=== PATIENT | male | born 1955 | race Caucasian/White ===

== ENCOUNTER 2017-02-07 06:42 | Day surgery (SDC) | payer MEDICARE ==
--- NOTE | 2017-02-03 08:14 | MH ---
cc: ANA LILIA FELTON DATE OF ADMISSION 02/07/2017 DATE OF 1955 HISTORY OF PRESENT ILLNESS The patient is a 61 year-old white male with a history of aortic valve replacement, sleep apnea, congestive heart failure, COPD, paroxysmal atrial fibrillation, diabetes who is now admitted for electrical cardioversion of atrial fibrillation. The patient has been experiencing slowly worsening moderate to severe dyspnea which began several months ago. Minimal levels of activity precipitate the shortness of breath. He denies chest pain, syncope, dizziness, palpitations, pedal edema, paroxysmal nocturnal dyspnea. PAST MEDICAL HISTORY 1. 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 On his last echo November 2016, he had possible moderate aortic stenosis with a mean gradient of 33 mmHg. 2. Sleep apnea 3. Possible congestive heart failure 11/09/2016. 4. COPD 5. Hepatitis C 6. Hyperlipidemia 7. Hypertension 8. Paroxysmal atrial fibrillation diagnosed approximately November 2016. 9. Diabetes CARDIAC MEDICATIONS 1. Amiodarone 200 mg daily 2. Aspirin 81 mg daily 3. Eliquis 5 mg b.i.d. 4. Furosemide 40 mg daily 5. Metoprolol succinate 100 mg daily 6. Potassium chloride 20 mg once daily ALLERGIES NO KNOWN DRUG ALLERGIES. FAMILY HISTORY Noncontributory SOCIAL HISTORY The patient smokes about a pack of cigarettes per day. He drinks occasional alcohol. REVIEW OF SYSTEMS As in the history of present illness, otherwise negative or noncontributory. PHYSICAL EXAM On physical examination, his blood pressure is 114/50 with a pulse of 110, respirations 20. GENERAL: He is a well-developed, well-nourished white male in no acute distress. HEENT: On examination, jugular venous pressure is hard to assess. It appears to be normal. Carotid pulses are 2+ bilaterally and without bruits. CHEST: Examination of the chest reveals clear lung bond. CARDIAC: On cardiac examination, he has an irregularly irregular rhythm with a grade 2/6 systolic ejection murmur heard at the base with a slightly diminished S2 heart sound. No definite gallop is audible. ABDOMEN: On abdominal examination, he has a soft, obese, nontender abdomen. Bowel sounds are present. There is no definite hepatosplenomegaly. EXTREMITIES: Examination of the extremities reveals no clubbing, cyanosis or edema. IMPRESSION 61-year-old white male with a history of aortic valve disease, hypertension, COPD, sleep apnea, diabetes, paroxysmal atrial fibrillation now admitted for cardioversion of his atrial fibrillation. The patient was recently hospitalized with fairly severe shortness of breath. It does not appear that his dyspnea is primarily due to aortic valve disease. The mean gradient across his aortic valve prosthesis has been measured at approximately 33 mmHg, and his exam is not consistent with severe aortic stenosis. He does have moderate to severe COPD based on recent pulmonary function tests and continues to smoke cigarettes. Some of his dyspnea may also be due to ongoing atrial fibrillation. The patient has noted a substantial worsening of his dyspnea since the onset of his atrial fibrillation. He has felt by Dr. Maradiaga to be a poor candidate for ablation. Given his increased symptomatology, he has been recommended electrical cardioversion of his atrial fibrillation. The nature of this procedure, potential risks including but not limited to stroke, chest wall espnioza, arrhythmia have been outlined to the patient. He agrees to proceed. PLAN Electrical cardioversion of atrial fibrillation on 02/07/2017. MD REBECA Kimball/RACHAEL /9:36 AM /8:11 AM LUIZA
[~2017-02-07 06:42] MED LIST: ASPI325T PO; FISH100020 PO; MULT-65 PO; TOPR100T15 PO
[2017-02-07] MEDS ORDERED: CHLORHEXIDINE GLUCONATE 2 % 1 PACK (2 CLOTHS) TOPICAL PRN ×2 (07:15→08:45)
[2017-02-07] MEDS ORDERED: INSULIN HUMAN REGULAR 1,000 UNITS/10 ML VIAL SQ PRN ×2 (07:15→08:45)
[2017-02-07] MEDS ORDERED: METOPROLOL TARTRATE 25 MG TAB PO PRN ×2 (07:15→08:45)
[2017-02-07] MEDS ORDERED: LACTATED RINGER'S 1000 ML IV PRN ×2 (07:15→08:45)
[2017-02-07] MEDS ORDERED: POVIDONE IODINE 5% (ANTISEPSIS KIT) 4 APPLICATIONS EACH NARE PRN ×2 (07:15→08:45)
[2017-02-07] MEDS ORDERED: SODIUM CHLORID 0.9% 500 ML IV PRN ×2 (07:15→08:45)
[2017-02-07] MEDS ORDERED: APIX5TAB PO (07:50)
[2017-02-07] MEDS ORDERED: AMIO200T PO (07:50)
[2017-02-07] MEDS ORDERED: MULTTAB67 PO (07:50)
[2017-02-07] MEDS ORDERED: POTA-163 PO (07:50)
[2017-02-07] MEDS ORDERED: ECASA81 PO (07:50)
[2017-02-07] MEDS ORDERED: METO1TAB43 PO (07:50)
[2017-02-07] MEDS ORDERED: FURO20TA PO (07:50)
[2017-02-07] MEDS ORDERED: ALBUAER3 INH (08:03)
[2017-02-07] MEDS ORDERED: RESP: ALBUTEROL 2.5 MG/IPRATROPIUM 0.5 MG NEB (SCH) ONE (08:13)
[2017-02-07] MEDS ORDERED: DO NOT ADM ANY ANTICOAGULANT DRUGS PRN (08:30)
[2017-02-07] MEDS ORDERED: PROPOFOL 200 MG/20 ML AMP IV ONE (08:30)
[2017-02-07] MEDS ORDERED: RESP: ALBUTEROL 2.5 MG/IPRATROPIUM 0.5 MG NEB (SCH) NEB ONE (08:45)
--- NOTE | 2017-02-07 08:58 | MA ---
cc: CAMPBELL FELTON M.D. DATE 02/07/2017 DATE OF 1955 PROCEDURE Electrical cardioversion of atrial fibrillation. PROCEDURE NOTES The patient was brought to the DOC Unit in a fasting state after having signed informed consent. The patient's rhythm was verified to be atrial fibrillation on the monitor. After adequate sedation by the anesthesiology staff, electrical cardioversion was carried out using a synchronized 200 joule shock. The patient converted to sinus rhythm. There were no apparent immediate complications. CONCLUSIONS Successful cardioversion of atrial fibrillation to normal sinus rhythm. Campbell Felton MD [facility] /8:46 AM /8:49 AM MTDD
--- NOTE | 2017-02-07 15:11 | EKG ---
Date Performed: 02/07/2017 Time Performed: 07:18:18 PTAGE: 61 years EKG: Atrial fibrillation with rapid ventricular response. Leftward axis Inferior infarct - age u ndetermined Abnormal ECG NO PREVIOUS TRACING DOCTOR: Debbie Shukla Interpretating Date/Time 02/07/2017 15:10:34
--- NOTE | 2017-02-07 15:13 | EKG ---
Date Performed: 02/07/2017 Time Performed: 08:38:52 PTAGE: 61 years EKG: Sinus rhythm . Leftward axis When compared to previous tracing, patienthas returned to Normal sinus rhythm. Border line ECG PREVIOUS TRACING : 02/07/2017 07.18 DOCTOR: Debbie Shukla Interpretating Date/Time 02/07/2017 15:11:46
[2017-02-08] MEDS ORDERED: APIX5TAB PO (11:59)
[2017-02-08] MEDS ORDERED: METF500T4 PO (11:59)
== END 2017-02-07 09:54 | disposition home or self-care (01) ==
LOC: HDOC 06:42 → HDIC 06:43 → HDOC 09:54
PROVIDERS: ATTEND Internal Medicine Cardiovascular Disease
DX: I48.91 Unspecified atrial fibrillation (principal); I10 Essential (primary) hypertension; J44.9 Chronic obstructive pulmonary disease, unspecified
CPT/HCPCS: 92960; 93005; 94664

== ENCOUNTER 2017-02-08 11:20 | Inpatient (IN) | payer MEDICARE ==
[2017-02-08] VITALS (8 sets, daily range): BP systolic 110–193; BP diastolic 55–74; PULSE 87–98; RESP 18–24; TEMP 97.1–98.5; O2SAT 88–95
[~2017-02-08] VITALS: Ht 177.8 cm; Wt 153.0 kg
[~2017-02-08 11:20] MED LIST changes: +ALBUAER3 INH; +AMIO200T PO; +APIX5TAB PO; -ASPI325T PO; +ECASA81 PO; -FISH100020 PO; +FURO20TA PO; +METO1TAB43 PO; -MULT-65 PO; +MULTTAB67 PO; +POTA-163 PO; -TOPR100T15 PO
[2017-02-08] MEDS ORDERED: SODIUM CHLORIDE 0.9% FLUSH 10 ML FLUSH IVF PRN (11:45)
--- NOTE | 2017-02-08 11:48 | PD ---
HPI Chief Complaint: shortness of breath Time Seen by Provider: 11:38 Travel History International Travel<30 days: No Contact w/Intl Traveler<30days: No Traveled to known affect area: No History of Present Illness HPI 61-year-old male with history of aortic valve disease, initially with prosthetic aortic valve replacement change to porcine valve replacement 2006, sleep apnea, CHF, COPD, hepatitis C, hyperlipidemia, hypertension, paroxysmal atrial fibrillation, diabetes. He presents for evaluation of dyspnea. For the past 3-4 months she's been having dyspnea on exertion. He was admitted for several days at [facility] and his symptoms were felt to be possibly related to a mixture of COPD, ongoing nature fibrillation. He therefore underwent electrical cardioversion yesterday performed by Dr. Li. He presents today because his dyspnea has been worse. He reports that typically he is able to walk down the street with his dog however this morning he was only able to make it to the [facility]ighb[facility] house before he felt severe dyspnea. He reports a chronic cough. He denies chest pain, nausea or vomiting, fevers or chills, unilateral calf Swelling, nausea or vomiting, abdominal pain. He was started on eliquis 5 weeks ago in anticipation of cardioversion. His sewer and inspector is Dr. Arriaga. He has no other complaints at this time. [facility] Past Medical History Autoimmune Disease: No Heart Rhythm Problems: Yes (AFTER FIRST VALVE REPLACEMENT) Cancer: No High Cholesterol: No Chest Pain: No Congestive Heart Failure: No Diminished Hearing: No Endocrine: No Hypertension: Yes Immune Disorder: No Musculoskeletal: No Neurologic: No Psychiatric: No Respiratory: Yes Immunizations Current: Yes Sleep Apnea: Yes Past Surgical History Cardiac Surgery: Yes (AORTIC VALVE REPLACED TWICE) Neurologic Surgery: Yes (HEMATOMA REMOVED) Thoracic Surgery: No Other Surgery: Yes (HEMATOMA REMOVED FROM FOREHEAD AREA) Social History Alcohol Use: Yes (3-4 BEER 3X WK) Tobacco Use: Yes (1PPD) Substance Use: Yes Allergies-Medications (Allergen,Severity, Reaction): Coded Allergies: No Known Allergies (Verified Allergy, Unknown, 02/08/17) Reported Meds & Prescriptions Reported Meds & Active Scripts Active Reported Eliquis (Apixaban) 5 Mg Tab 5 Mg PO BID Metformin ER (Metformin HCl) 500 Mg Emanuel 500 Mg PO DAILY With evening meal Proair Hfa 8.5 GM Inh (Albuterol Sulfate) 90 Mcg/Act Aer 1 Puff INH Q4H PRN 108 mcg/actuation Potassium Chloride ER (Potassium Chloride) 20 Meq Tab 20 Meq PO DAILY Multiple Vitamin 1 Tab 1 Tab PO DAILY Metoprolol Succinate ER 24 HR (Metoprolol Succinate) 100 Mg Tab 100 Mg PO DAILY Furosemide 20 Mg Tab 20 Mg PO DAILY Eliquis (Apixaban) 5 Mg Tab 5 Mg PO BID Aspirin DR (Aspirin) 81 Mg Tabdr 81 Mg PO DAILY Amiodarone (Amiodarone HCl) 200 Mg Tab 200 Mg PO DAILY Review of Systems Except as stated in HPI: all other systems reviewed are Neg Physical Exam Narrative GENERAL: Well-developed well-nourished male in no acute distress. He is hypoxic with a saturation of 88%. SKIN: Warm and dry. HEAD: Atraumatic. Normocephalic. EYES: Pupils equal and round. No scleral icterus. No injection or drainage. ENT: No nasal bleeding or discharge. Mucous membranes pink and moist. NECK: Trachea midline. No JVD. CARDIOVASCULAR: Regular rate and rhythm. Systolic murmur noted. RESPIRATORY: No accessory muscle use. Clear to auscultation. Breath sounds equal bilaterally. No crackles no wheezing. GASTROINTESTINAL: Abdomen soft, non-tender, nondistended. Hepatic and splenic margins not palpable. MUSCULOSKELETAL: No obvious deformities. No clubbing. No cyanosis. No edema. NEUROLOGICAL: Awake and alert. No obvious cranial nerve deficits. Motor grossly within normal limits. Normal speech. PSYCHIATRIC: Appropriate mood and affect; insight and judgment normal. Data Data Last Documented VS Vital Signs Date Time Temp Pulse Resp B/P (MAP) Pulse Ox O2 Delivery O2 Flow Rate FiO2 02/08/17 14:00 94 18 110/55 (73) 95 Nasal Cannula 3.00 02/08/17 11:46 98.0 Orders Orders Complete Blood Count With Diff (02/08/17 11:36) Comprehensive Metabolic Panel (02/08/17 11:36) B-Type Natriuretic Peptide (02/08/17 11:36) Act Partial Throm Time (Ptt) (02/08/17 11:36) Prothrombin Time / Inr (Pt) (02/08/17 11:36) Magnesium (Mg) (02/08/17 11:36) Ckmb (Isoenzyme) Profile (02/08/17 11:36) Troponin I (02/08/17 11:36) Iv Access Insert/Monitor (02/08/17 11:36) Electrocardiogram (02/08/17 11:36) Ecg Monitoring (02/08/17 11:36) Oximetry (02/08/17 11:36) Oxygen Administration (02/08/17 11:36) Chest, Single Ap (02/08/17 11:36) Ct Pulmonary Angiogram (02/08/17 11:36) Sodium Chloride 0.9% Flush (Ns Flush) (02/08/17 11:45) Arterial Blood Gas (Abg) (02/08/17 ) CKMB (02/08/17 11:45) CKMB% (02/08/17 11:45) Iohexol 350 Inj (Omnipaque 350 Inj) (02/08/17 13:33) Furosemide Inj (Lasix Inj) (02/08/17 14:15) Labs Laboratory Tests Test 02/08/17 11:45 02/08/17 12:00 White Blood Count 14.4 TH/MM3 Red Blood Count 4.53 MIL/MM3 Hemoglobin 16.5 GM/DL Hematocrit 49.2 % Mean Corpuscular Volume 108.6 FL Mean Corpuscular Hemoglobin 36.4 PG Mean Corpuscular Hemoglobin Concent 33.5 % Red Cell Distribution Width 15.2 % Platelet Count 236 TH/MM3 Mean Platelet Volume 8.2 FL Neutrophils (%) (Auto) 68.2 % Lymphocytes (%) (Auto) 19.9 % Monocytes (%) (Auto) 10.4 % Eosinophils (%) (Auto) 0.7 % Basophils (%) (Auto) 0.8 % Neutrophils # (Auto) 9.8 TH/MM3 Lymphocytes # (Auto) 2.9 TH/MM3 Monocytes # (Auto) 1.5 TH/MM3 Eosinophils # (Auto) 0.1 TH/MM3 Basophils # (Auto) 0.1 TH/MM3 CBC Comment AUTO DIFF Differential Total Cells Counted 100 Neutrophils % (Manual) 72 % Band Neutrophils % 1 % Lymphocytes % 16 % Monocytes % 11 % Neutrophils # (Manual) 10.5 TH/MM3 Nucleated Red Blood Cells 2 /100 WBC Differential Comment FINAL DIFF MANUAL Platelet Estimate NORMAL Platelet Morphology Comment NORMAL Prothrombin Time 13.1 SEC Prothromb Time International Ratio 1.2 RATIO Activated Partial Thromboplast Time 29.9 SEC Blood Urea Nitrogen 17 MG/DL Creatinine 1.27 MG/DL Random Glucose 109 MG/DL Total Protein 7.9 GM/DL Albumin 3.4 GM/DL Calcium Level 9.2 MG/DL Magnesium Level 2.1 MG/DL Alkaline Phosphatase 60 U/L Aspartate Amino Transf (AST/SGOT) 89 U/L Alanine Aminotransferase (ALT/SGPT) 119 U/L Total Bilirubin 1.9 MG/DL Sodium Level 134 MEQ/L Potassium Level 4.3 MEQ/L Chloride Level 101 MEQ/L Carbon Dioxide Level 25.0 MEQ/L Anion Gap 8 MEQ/L Estimat Glomerular Filtration Rate 58 ML/MIN Total Creatine Kinase 108 U/L Creatine Kinase MB 1.8 NG/ML Troponin I 0.24 NG/ML B-Type Natriuretic Peptide 168 PG/ML Blood Gas Puncture Site LT RADIAL Blood Gas Patient Temperature 37.0 Blood Gas HCO3 26 mmol/L Blood Gas Base Excess 2.6 mmol/L Blood Gas Oxygen Saturation 90 % Arterial Blood pH 7.48 Arterial Blood Partial Pressure CO2 35 mmHg Arterial Blood Partial Pressure O2 65 mmHG Arterial Blood Oxygen Content 21.0 Vol % Arterial Blood Carboxyhemoglobin 2.2 % Arterial Blood Methemoglobin 0.6 % Blood Gas Hemoglobin 16.6 G/DL Oxygen Delivery Device NASAL CANNULA Blood Gas Liter Flow 3.5 L/M MDM Medical Decision Making Medical Screen Exam Complete: Yes Emergency Medical Condition: Yes Medical Record Reviewed: Yes Interpretation(s) CBC WBC 14.4 EKG sinus rhythm ABG CMP Chest x-ray CT pulmonary angiogram CONCLUSION: 1. Small areas of focal airspace disease in the upper lobes are probably postinflammatory. 2. Bibasilar effusions with a moderate collection on the right and small on the left. In combination with cardiomegaly, there may be an element of failure. 3. Postsurgical changes characteristic of prior anterior mediastinal surgical resection, possible aortic valve prosthesis and anterior upper abdominal wall hernia mesh repair. Patient may have had a splenectomy as well. 4. Borderline prominent mediastinal lymph nodes are probably postinflammatory 5. Hepatic fatty infiltration. 6. Small amount of ascites. 7. No PE. Differential Diagnosis Pulmonary embolism, COPD exacerbation, pneumothorax, pericardial effusion, pleural effusion, CHF exacerbation, pneumonia, recurrent atrial fibrillation Narrative Course The patient will be placed in the ECG monitoring and pulse oximetry. A 12-lead EKG will be obtained. The patient was placed on 3 L of nasal cannula. The patient's lab work is been reviewed. Troponin is 0.24, in the setting of recent cardioversion. CT pulmonary angiogram reveals pleural effusions, no PE. The patient does note that he missed his Lasix dose yesterday but he took it earlier this morning when he woke up with shortness of breath. At this point in time the plan is to admit the patient. Diagnosis Primary Impression: Dyspnea on exertion Additional Impressions: Pleural effusion Elevated troponin Admitting Information Admitting Physician Requests: it Jp Herrera Feb 08, 2017 11:48
[2017-02-08] MEDS ORDERED: APIX5TAB PO (11:59)
[2017-02-08] MEDS ORDERED: METF500T4 PO (11:59)
[2017-02-08 12:09] LABS: BLOOD GAS BASE EXCESS 2.6 mmol/L (-2-2); BLOOD GAS CARBOXYHEMOGLOBIN 2.2 % (0-4); BLOOD GAS HCO3 26 mmol/L (22-26); BLOOD GAS METHEMOGLOBIN 0.6 % (0-2); BLOOD GAS O2 HGB SATURATION 90 % (90-100); BLOOD GAS PCO2 35 mmHg (38-42); BLOOD GAS PO2 65 mmHG (61-120); BLOOD GAS TOTAL HGB 16.6 G/DL (12.0-16.0); CRITICAL VALUE NO; DRAW SITE LT RADIAL; LITER FLOW 3.5 L/M; NUMBER OF ARTERIAL PUNCTURES 2; OXYGEN DEVICE NASAL CANNULA; STAT YES; ULNAR PULSE PRESENT
[2017-02-08 12:28] LABS: AUTOMATED NEUTROPHIL # 9.8 TH/MM3 (1.8-7.7); BASOPHIL # 0.1 TH/MM3 (0-0.2); BASOPHIL % 0.8 % (0.0-2.0); EOSINOPHIL # 0.1 TH/MM3 (0-0.4); EOSINOPHIL % 0.7 % (0.0-4.0); HEMATOCRIT 49.2 % (39.0-51.0); LYMPH % 19.9 % (9.0-44.0); LYMPHOCYTE # 2.9 TH/MM3 (1.0-4.8); MEAN CELL VOLUME 108.6 FL (80.0-100.0); MEAN CORPUSCULAR HEMOGLOBIN 36.4 PG (27.0-34.0); MEAN CORPUSCULAR HGB CONC 33.5 % (32.0-36.0); MONO % 10.4 % (0.0-8.0); NEUT % 68.2 % (16.0-70.0); PLATELET COUNT 236 TH/MM3 (150-450); RED BLOOD COUNT 4.53 MIL/MM3 (4.50-5.90); RED CELL DISTRIBUTION WIDTH 15.2 % (11.6-17.2); WHITE BLOOD COUNT 14.4 TH/MM3 (4.0-11.0)
[2017-02-08 12:29] LABS: HEMO FLAGS AUTO DIFF
[2017-02-08 12:33] LABS: APTT (PATIENT) 29.9 SEC (24.3-30.1); INTERNATIONAL NORMALIZED RATIO 1.2 RATIO; PROTHROMBIN TIME - PATIENT 13.1 SEC (9.8-11.6)
--- NOTE | 2017-02-08 12:40 | EKG ---
Date Performed: 02/08/2017 Time Performed: 11:35:50 PTAGE: 61 years EKG: Baseline artifact present Sinus rhythm NORMAL ECG No significant change from prior electrocardiogram. DOCTOR: [place] Interpretating Date/Time 02/08/2017 12:38:32
--- NOTE | 2017-02-08 12:47 | RADRPT ---
EXAM DATE/TIME: 02/08/2017 12:17 [facility] COMPARISON: No previous studies available for comparison. INDICATIONS : Short of breath. MEDICAL HISTORY : Cardiovascular disease. SURGICAL HISTORY : Aortic valve replacements. ENCOUNTER: Initial ACUITY: 1 month PAIN SCORE: 0/10 LOCATION: Bilateral chest FINDINGS: The cardiac silhouette is enlarged. There is moderate central vascular congestion and interstitial pr ominence. Sternotomy wires are noted. CONCLUSION: CHF Costa Pérez MD on February 08, 2017 at 12:44 Board Certified Radiologist. This report was verified electronically.
[2017-02-08 12:48] LABS: ALT (GPT) 119 U/L (12-78)
[2017-02-08 12:50] LABS: ANION GAP 8 MEQ/L (5-15); AST (GOT) 89 U/L (15-37); BLOOD UREA NITROGEN 17 MG/DL (7-18); CHLORIDE 101 MEQ/L (98-107); GLOMERULAR FILTRATION RATE 58 ML/MIN (>89); MAGNESIUM 2.1 MG/DL (1.5-2.5); POTASSIUM 4.3 MEQ/L (3.5-5.1); SODIUM (NA) 134 MEQ/L (136-145)
[2017-02-08 12:52] LABS: ALKALINE PHOSPHATASE 60 U/L (45-117); CREATINE KINASE 108 U/L (39-308); TOTAL BILIRUBIN ADULT 1.9 MG/DL (0.2-1.0)
[2017-02-08 13:03] LABS: BANDS 1 % (0-6); CORRECTED NUCLEATED RBC 2 /100 WBC (0-0); NEUTROPHIL # MANUAL DIFF 10.5 TH/MM3 (1.8-7.7); POLYS (SEG NEUTROPHILS) 72 % (16-70); WBC DIFF SAMPLE 100
[2017-02-08 13:04] LABS: CKMB 1.8 NG/ML (0.5-3.6); PLATELET ESTIMATE SMEAR NORMAL (NORMAL); PLATELET MORPHOLOGY NORMAL (NORMAL); SCAN/DIFF FINAL DIFF MANUAL
[2017-02-08] MEDS ORDERED: IOHEXOL 350 MG/ML 10 ML VIAL (for RAD DIAG) IVCONTRAST ONE (13:33)
--- NOTE | 2017-02-08 13:55 | RADRPT ---
EXAM DATE/TIME: 02/08/2017 13:18 [facility] COMPARISON: CHEST SINGLE AP, February 08, 2017, 12:17. INDICATIONS : Dyspnea IV CONTRAST: 68 cc Omnipaque 350 (iohexol) IV RADIATION DOSE: 26.08 CTDIvol (mGy) MEDICAL HISTORY : Cardiovascular disease. Hypertension. SURGICAL HISTORY : None. ENCOUNTER: Initial ACUITY: 1 day PAIN SCALE: 0/10 LOCATION: chest TECHNIQUE: Volumetric scanning of the chest was performed using a pulmonary embolism protocol MIP images were re constructed. Using automated exposure control and adjustment of the mA and/or kV according to patien t size, radiation dose was kept as low as reasonably achievable to obtain optimal diagnostic quality images. DICOM format image data is available electronically for review and comparison. Follow-up recommendations for detected pulmonary nodules are based at a minimum on nodule size and pa tient risk factors according to Fleischner Society Guidelines. FINDINGS: PULMONARY ARTERIES: No filling defects are seen in the pulmonary arteries through the segmental level. LUNGS: Focal, patchy airspace disease in the upper lobes with bibasilar atelectatic changes, right greater t anthony left. PLEURAE: Moderate right with a small left pleural effusion. MEDIASTINUM: There is good visualization of the great vessels of the middle mediastinum. No evidence of mediastin al mass but there are borderline prominent mediastinal lymph nodes which are probably postinflammator y.. Heart size is prominent. Postsurgical changes and findings of prior anterior mediastinal surgical intervention and possible aortic valve prostheses. MUSCULOSKELETAL: Within normal limits for patient age. MISCELLANEOUS: Diffuse hepatic fatty infiltration. Small amount of ascites. Nonvisualization of the spleen. The orga n has either been surgically removed or may be low lying. Prior anterior abdominal wall hernia mesh r epair. CONCLUSION: 1. Small areas of focal airspace disease in the upper lobes are probably postinflammatory. 2. Bibasilar effusions with a moderate collection on the right and small on the left. In combination with cardiomegaly, there may be an element of failure. 3. Postsurgical changes characteristic of prior anterior mediastinal surgical resection, possible aor tic valve prosthesis and anterior upper abdominal wall hernia mesh repair. Patient may have had a spl enectomy as well. 4. Borderline prominent mediastinal lymph nodes are probably postinflammatory 5. Hepatic fatty infiltration. 6. Small amount of ascites. 7. No PE. Thompson Berg MD on February 08, 2017 at 13:42 Board Certified Radiologist. This report was verified electronically.
[2017-02-08] MEDS ORDERED: FUROSEMIDE 40 MG/4 ML VIAL IV PUSH ONE (14:15)
[2017-02-08] MEDS ORDERED: SODIUM CHLORIDE 0.9% FLUSH 10 ML FLUSH IV FLUSH PRN (14:30)
[2017-02-08] MEDS ORDERED: GLUCAGON 1 MG/ML VIAL OTHER PRN (14:30)
[2017-02-08] MEDS ORDERED: ACETAMINOPHEN 325 MG TAB PO PRN (14:30)
[2017-02-08] MEDS ORDERED: ENALAPRILAT 2.5 MG/2 ML VIAL IV PUSH PRN (14:30)
[2017-02-08] MEDS ORDERED: DEXTROSE 50% IN WATER 50 ML VIAL(D50) IV PUSH PRN (14:30)
[2017-02-08] MEDS ORDERED: ONDANSETRON HCL 4 MG/2 ML VIAL IV PUSH PRN (14:30)
[2017-02-08] MEDS ORDERED: DOCUSATE SODIUM 50 MG/SENNA 8.6 MG TAB PO PRN (14:30)
--- NOTE | 2017-02-08 14:31 | HHI.HP ---
HPI Service [facility] Primary Care Physician Antonio Cordero M.D. Admission Diagnosis dyspnea, elevated troponin, pleural effusion Diagnoses: (1) Acute exacerbation of CHF (congestive heart failure) (2) Elevated troponin (3) Dyspnea on exertion (4) Pleural effusion Chief Complaint: Shortness of breath Travel History International Travel<30 Days: No Contact w/Intl Traveler <30 Da: No Traveled to Known Affected Are: No History of Present Illness 61 year-old man with a history of CHF, atrial fibrillation who underwent left trickle cardioversion for atrial fibrillation with RVR on 02/07/17, presented to the ED for evaluation of his symptoms of dyspnea. Patient states prior to his cardioversion yesterday he has been battling with shortness of breath, dyspnea with exertion for several months, however yesterday after his procedure this got Worse, and patient wasn't able to sleep overnight. States, prior to his procedure yesterday he did not take his daily Lasix. He reports not being able to walk his dog out secondary to shortness of breath and dyspnea. He denies any orthopnea, lower extremity edema or chest pain. Review of Systems Except as stated in HPI: all other systems reviewed are Neg Past Family Social History Past Medical History Heart Rhythm Problems: Yes (AFTER FIRST VALVE REPLACEMENT) Diabetes type 2 History of hepatitis C Hypertension: Yes Sleep Apnea: Yes Past Surgical History Cardiac Surgery: Yes (AORTIC VALVE REPLACED TWICE) Neurologic Surgery: Yes (HEMATOMA REMOVED) Other Surgery: Yes (HEMATOMA REMOVED FROM FOREHEAD AREA) Reported Medications Eliquis (Apixaban) 5 Mg Tab 5 Mg PO BID Metformin ER (Metformin HCl) 500 Mg Emanuel 500 Mg PO DAILY With evening meal Proair Hfa 8.5 GM Inh (Albuterol Sulfate) 90 Mcg/Act Aer 1 Puff INH Q4H PRN 108 mcg/actuation Potassium Chloride ER (Potassium Chloride) 20 Meq Tab 20 Meq PO DAILY Multiple Vitamin 1 Tab 1 Tab PO DAILY Metoprolol Succinate ER 24 HR (Metoprolol Succinate) 100 Mg Tab 100 Mg PO DAILY Furosemide 20 Mg Tab 20 Mg PO DAILY Eliquis (Apixaban) 5 Mg Tab 5 Mg PO BID Aspirin DR (Aspirin) 81 Mg Tabdr 81 Mg PO DAILY Amiodarone (Amiodarone HCl) 200 Mg Tab 200 Mg PO DAILY Allergies: Coded Allergies: No Known Allergies (Verified Allergy, Unknown, 02/08/17) Family History Mother had lung cancer Grandfather had heart disease Social History Alcohol Use: Yes (3-4 BEER 3X WK) Tobacco Use: Yes (1PPD) Substance Use: Yes Physical Exam Vital Signs Vital Signs Date Time Temp Pulse Resp B/P (MAP) Pulse Ox O2 Delivery O2 Flow Rate FiO2 02/08/17 14:00 94 18 110/55 (73) 95 Nasal Cannula 3.00 02/08/17 11:48 95 20 95 Nasal Cannula 3.00 02/08/17 11:46 98.0 95 22 95 02/08/17 11:44 98.0 96 22 95 Nasal Cannula 3.00 02/08/17 11:44 95 Nasal Cannula 3.00 02/08/17 11:21 98.4 98 20 165/73 (103) 88 Room Air Physical Exam GENERAL: This is a well-nourished, well-developed patient, in no apparent distress. SKIN: No rashes, ecchymoses or lesions. Cool and dry. HEAD: Atraumatic. Normocephalic. No temporal or scalp tenderness. EYES: Pupils equal round and reactive. Extraocular motions intact. No scleral icterus. No injection or drainage. ENT: Nose without bleeding, purulent drainage or septal hematoma. Throat without erythema, tonsillar hypertrophy or exudate. Uvula midline. Airway patent. NECK: Trachea midline. No JVD or lymphadenopathy. Supple, nontender, no meningeal signs. CARDIOVASCULAR: Regular rate and rhythm without murmurs, gallops, or rubs. RESPIRATORY: Clear to auscultation. Breath sounds equal bilaterally. No wheezes , rales, or rhonchi. GASTROINTESTINAL: Abdomen soft, non-tender, nondistended. No hepato-splenomegaly , or palpable masses. No guarding. MUSCULOSKELETAL: Extremities without clubbing, cyanosis, or edema. No joint tenderness, effusion, or edema noted. No calf tenderness. Negative Homans sign bilaterally. NEUROLOGICAL: Awake and alert. Cranial nerves II through XII intact. Motor and sensory grossly within normal limits. Five out of 5 muscle strength in all muscle groups. Normal speech. Laboratory Laboratory Tests Test 02/08/17 11:45 02/08/17 12:00 White Blood Count 14.4 Red Blood Count 4.53 Hemoglobin 16.5 Hematocrit 49.2 Mean Corpuscular Volume 108.6 Mean Corpuscular Hemoglobin 36.4 Mean Corpuscular Hemoglobin Concent 33.5 Red Cell Distribution Width 15.2 Platelet Count 236 Mean Platelet Volume 8.2 Neutrophils (%) (Auto) 68.2 Lymphocytes (%) (Auto) 19.9 Monocytes (%) (Auto) 10.4 Eosinophils (%) (Auto) 0.7 Basophils (%) (Auto) 0.8 Neutrophils # (Auto) 9.8 Lymphocytes # (Auto) 2.9 Monocytes # (Auto) 1.5 Eosinophils # (Auto) 0.1 Basophils # (Auto) 0.1 CBC Comment AUTO DIFF Differential Total Cells Counted 100 Neutrophils % (Manual) 72 Band Neutrophils % 1 Lymphocytes % 16 Monocytes % 11 Neutrophils # (Manual) 10.5 Nucleated Red Blood Cells 2 Differential Comment FINAL DIFF MANUAL Platelet Estimate NORMAL Platelet Morphology Comment NORMAL Prothrombin Time 13.1 Prothromb Time International Ratio 1.2 Activated Partial Thromboplast Time 29.9 Blood Urea Nitrogen 17 Creatinine 1.27 Random Glucose 109 Total Protein 7.9 Albumin 3.4 Calcium Level 9.2 Magnesium Level 2.1 Alkaline Phosphatase 60 Aspartate Amino Transf (AST/SGOT) 89 Alanine Aminotransferase (ALT/SGPT) 119 Total Bilirubin 1.9 Sodium Level 134 Potassium Level 4.3 Chloride Level 101 Carbon Dioxide Level 25.0 Anion Gap 8 Estimat Glomerular Filtration Rate 58 Total Creatine Kinase 108 Creatine Kinase MB 1.8 Troponin I 0.24 B-Type Natriuretic Peptide 168 Blood Gas Puncture Site LT RADIAL Blood Gas Patient Temperature 37.0 Blood Gas HCO3 26 Blood Gas Base Excess 2.6 Blood Gas Oxygen Saturation 90 Arterial Blood pH 7.48 Arterial Blood Partial Pressure CO2 35 Arterial Blood Partial Pressure O2 65 Arterial Blood Oxygen Content 21.0 Arterial Blood Carboxyhemoglobin 2.2 Arterial Blood Methemoglobin 0.6 Blood Gas Hemoglobin 16.6 Oxygen Delivery Device NASAL CANNULA Blood Gas Liter Flow 3.5 Result Diagram: 02/08/17 1145 02/08/17 1145 Imaging Last Impressions Chest X-Ray 02/08/17 1136 Signed Impressions: Service Date/Time: Wednesday, February 08, 2017 12:17 - CONCLUSION: CHF Costa Pérez MD CT Angiography 02/08/17 1136 Signed Impressions: Service Date/Time: Wednesday, February 08, 2017 13:18 - CONCLUSION: 1. Small areas of focal airspace disease in the upper lobes are probably postinflammatory. 2. Bibasilar effusions with a moderate collection on the right and small on the left. In combination with cardiomegaly, there may be an element of failure. 3. Postsurgical changes characteristic of prior anterior mediastinal surgical resection, possible aortic valve prosthesis and anterior upper abdominal wall hernia mesh repair. Patient may have had a splenectomy as well. 4. Borderline prominent mediastinal lymph nodes are probably postinflammatory 5. Hepatic fatty infiltration. 6. Small amount of ascites. 7. No PE. MD Abby Prado VTE Risk Assessment Simonerinnickolas VTE Risk Assessment: Mod/High Risk (score >= 2) Caprini Risk Assessment Model Point Value = 1 Point Value = 2 Point Value = 3 Point Value = 5 Age 41-60 Minor surgery BMI > 25 kg/m2 Swollen legs Varicose veins or History of unexplained or recurrent spontaneous Oral contraceptives or hormone replacement Sepsis (< 1 month) Serious lung disease, including pneumonia (< 1 month) Abnormal pulmonary function Acute myocardial infarction Congestive heart failure (< 1 month) History of inflammatory bowel disease Medical patient at bed rest Age 61-74 Arthroscopic surgery Major open surgery (> 45 min) Laparoscopic surgery (> 45 min) Malignancy Confined to bed (> 72 hours) Immobilizing plaster cast Central venous access Age >= 75 History of VTE Family history of VTE Factor V Leiden Prothrombin [id number] Lupus anticoagulant Anticardiolipin antibodies Elevated serum homocysteine Heparin-induced thrombocytopenia Other congenital or acquired thrombophilia Stroke (< 1 month) Elective arthroplasty Hip, pelvis, or leg fracture Acute spinal cord injury (< 1 month) Prophylaxis Regimen Total Risk Factor Score Risk Level Prophylaxis Regimen 0-1 Low Early ambulation 2 Moderate Order ONE of the following: *Sequential Compression Device (SCD) *Heparin 5000 units SQ BID 3-4 Higher Order ONE of the following medications: *Heparin 5000 units SQ TID *Enoxaparin/Lovenox 40 mg SQ daily (WT < 150 kg, CrCl > 30 mL/min) *Enoxaparin/Lovenox 30 mg SQ daily (WT < 150 kg, CrCl > 10-29 mL/min) *Enoxaparin/Lovenox 30 mg SQ BID (WT < 150 kg, CrCl > 30 mL/min) AND/OR *Sequential Compression Device (SCD) 5 or more Highest Order ONE of the following medications: *Heparin 5000 units SQ TID (Preferred with Epidurals) *Enoxaparin/Lovenox 40 mg SQ daily (WT < 150 kg, CrCl > 30 mL/min) *Enoxaparin/Lovenox 30 mg SQ daily (WT < 150 kg, CrCl > 10-29 mL/min) *Enoxaparin/Lovenox 30 mg SQ BID (WT < 150 kg, CrCl > 30 mL/min) AND *Sequential Compression Device (SCD) Assessment and Plan Problem List: (1) Acute exacerbation of CHF (congestive heart failure) ICD Code: I50.9 - Heart failure, unspecified (2) Elevated troponin ICD Code: R74.8 - Abnormal levels of other serum enzymes Status: Acute (3) Dyspnea on exertion ICD Code: R06.09 - Other forms of dyspnea Status: Acute (4) Pleural effusion ICD Code: J90 - Pleural effusion, not elsewhere classified Status: Acute Assessment and Plan 61-year-old man with Acute exacerbation of CHF CXR reviewed by me with finding of CHF CTA noted and review by me without any PE Started post Lasix 40 mg IV 1 in ED, start Lasix 20 mg IV every 12 hours, CHF education, strict I's and O's Check 2-D echo Cardiology consultation Paroxysmal A. fib Status post electrical cardioversion 02/07/17 Resume Eliquis, amiodarone, aspirin Hypertension Resume oral antihypertensive medications Diabetes type 2 Check A1c Hold oral hypoglycemic agents Start insulin sliding scale Alcohol abuse Alcohol cessation counseling provided Rally pack, CIWA protocol Tobacco abuse Tobacco cessation counseling provided Nicotine patch DVT prophylaxis: Eliquis Code Status Full code Discussed Condition With Patient, , ED Jonas Horowitz MD Feb 08, 2017 14:31
[2017-02-08] MEDS ORDERED: FLUMAZENIL 0.5 MG/5 ML VIAL IV PUSH PRN (15:15)
[2017-02-08] MEDS ORDERED: LORazepam 2 MG/ML VIAL IV PUSH PRN ×4 (15:15)
[2017-02-08] MEDS ORDERED: LORazepam 1 MG TAB PO PRN (15:15)
[2017-02-08] MEDS ORDERED: LORazepam 2 MG TAB PO PRN (15:15)
[2017-02-08] MEDS: INSULIN ASPART SUPPLEMENTAL SCALE SQ SCH ×2 (17:00→20:56)
[2017-02-08] MEDS: FUROSEMIDE 40 MG/4 ML VIAL IV PUSH SCH (17:53)
[2017-02-08] MEDS ORDERED: FUROSEMIDE 20 MG/2 ML VIAL IV PUSH SCH (18:00)
[2017-02-08] MEDS: APIXABAN 5 MG TABLET PO SCH (20:55)
[2017-02-08] MEDS: TEMAZEPAM 15 MG CAP PO PRN (20:55)
[2017-02-08] MEDS: SODIUM CHLORIDE 0.9% FLUSH 10 ML FLUSH IV FLUSH SCH (21:00)
[2017-02-08] MEDS: REMOVE OLD PATCH T-DERMAL SCH (21:00)
--- NOTE | 2017-02-08 23:00 | MB ---
cc: JAROCHO LOPEZ DO DATE OF CONSULTATION February 08, 2017 REASON FOR CONSULTATION Shortness of breath, elevated troponin. HISTORY OF PRESENT ILLNESS Wayne Vasquez is a pleasant 61-year-old male who sees my partner, Dr. Li, in the office who presented to [facility] on February 08, 2017 due to shortness of breath. The patient states that he has been significantly short of breath for some time and it was felt that some of this may be due to atrial fibrillation. He underwent electrical cardioversion yesterday on February 07, 2017. He is unsure if his shortness of breath was the same or worse but since it was still bothering him significantly decided to come to the emergency room. He states that overnight he was not able to sleep. He denies overall orthopnea, lower extremity edema or chest pain. PAST MEDICAL HISTORY 1. Atrial fibrillation. 2. Sleep apnea. 3. COPD. 4. Hepatitis C. 5. Hyperlipidemia. 6. Hypertension. 7. Diabetes mellitus. PAST SURGICAL HISTORY 1. 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 ALLERGIES NO KNOWN DRUG ALLERGIES. MEDICATIONS 1. Albuterol as needed for shortness of breath. 2. Eliquis 5 milligrams b.i.d. 3. Amiodarone 200 milligrams daily. 4. Toprol XL 100 milligrams daily. 5. Aspirin 81 milligrams daily. 6. Potassium 20 milliequivalents daily. 7. Lasix 20 milligrams daily. 8. Metformin 500 milligrams daily. FAMILY HISTORY Denies sudden cardiac within the family. SOCIAL HISTORY The patient drinks three to four beers around three times a week. He continues to smoke but says that he is down to 5-10 cigarettes a day. REVIEW OF SYSTEMS 14-systems were reviewed including osteopathic, pertinent positives and negatives above otherwise negative. PHYSICAL EXAMINATION VITAL SIGNS: Temperature 98.0, heart rate 94, blood pressure 110/55, respirations 18, pulse ox 95% on 3 liters. GENERAL: In general, the patient appears well in no acute distress, alert, awake and oriented x3. HEENT: Extraocular muscles intact. Mucous membranes moist. NECK: Neck is supple. No JVD at 45 degrees. No carotid bruits heard bilaterally. Carotid upstroke is brisk in nature. HEART: Heart is regular rate and rhythm. Positive first and second heart sound with a 2/6 crescendo-decrescendo murmur to the right sternal border. LUNGS: Lungs have decreased breath sounds with bilateral wheezes noted. ABDOMEN: Abdomen is soft, nontender, nondistended. No organomegaly noted. EXTREMITIES: Show no clubbing, cyanosis or edema. SKIN: Warm, dry and intact. NEUROLOGICALLY: No focal deficits. OSTEOPATHIC: Mild lordosis. No kyphoscoliosis or paraspinal tender points. LABORATORY FINDINGS Hemoglobin 16.5, hematocrit 49.2, platelets 236. Potassium 4.3, BUN 17, creatinine 1.27. Troponin 0.24. BNP 168. CARDIOLOGY STUDIES Electrocardiogram (February 08, 2017 at 11:35) sinus rhythm, baseline artifact, no acute ST-T wave changes. IMPRESSION 1. Significant shortness of breath most likely multifactorial. 2. Acute congestive heart failure. 3. Mildly elevated troponin. 4. Pleural effusion. 5. Moderate aortic stenosis by previous echocardiogram with a mean gradient of 33. 6. Paroxysmal atrial fibrillation status post electrical cardioversion (February 07, 2017). 7. History of hypertension. 8. History of diabetes type 2. 9. Tobacco abuse. RECOMMENDATIONS 1. Mr. Vasquez presented with significant shortness of breath which appears to be worsening over the past few months. 2. This is overall most likely multifactorial in nature but partially due to his acute decompensated heart failure, lung disease, Afib, continued tobacco abuse and his moderate aortic stenosis. 3. We will attempt to diurese him and then further decide on ischemic evaluation by either stress testing or cardiac catheterization if felt necessary. Will plan to discuss further with Dr. Li. 4. This is overall difficult as he is on Eliquis and this should not be stopped if possible due to his recent electrical cardioversion. 5. I spoke to him for greater than 3 minutes about tobacco cessation. 6. Further recommendations will be made based on the hospital course. Thank you for allowing me to see Wayne Vasquez. If there are any questions please do not hesitate to call. Jarocho Lopez DO VGP/EO /10:12 PM /10:34 PM LUIZA
[2017-02-09] VITALS (12 sets, daily range): BP systolic 100–135; BP diastolic 52–60; PULSE 80–89; RESP 20–24; TEMP 97.6–99.4; O2SAT 92–95
[2017-02-09] MEDS: RESP: ALBUTEROL 2.5 MG/IPRATROPIUM 0.5 MG NEB (PRN) NEB ×2 (06:33→14:54)
[2017-02-09] MEDS: INSULIN ASPART SUPPLEMENTAL SCALE SQ SCH ×4 (08:00→20:37)
[2017-02-09 08:11] LABS: AUTOMATED NEUTROPHIL # 9.6 TH/MM3 (1.8-7.7); BASOPHIL # 0.1 TH/MM3 (0-0.2); BASOPHIL % 0.5 % (0.0-2.0); EOSINOPHIL # 0.1 TH/MM3 (0-0.4); HEMATOCRIT 47.1 % (39.0-51.0); LYMPH % 19.8 % (9.0-44.0); LYMPHOCYTE # 2.8 TH/MM3 (1.0-4.8); MEAN CELL VOLUME 108.7 FL (80.0-100.0); MEAN CORPUSCULAR HEMOGLOBIN 36.8 PG (27.0-34.0); MEAN CORPUSCULAR HGB CONC 33.9 % (32.0-36.0); MONO % 10.9 % (0.0-8.0); NEUT % 67.8 % (16.0-70.0); PLATELET COUNT 224 TH/MM3 (150-450); RED BLOOD COUNT 4.33 MIL/MM3 (4.50-5.90); WHITE BLOOD COUNT 14.2 TH/MM3 (4.0-11.0)
[2017-02-09 08:18] LABS: HEMO FLAGS AUTO DIFF
[2017-02-09 08:21] LABS: ALT (GPT) 99 U/L (12-78)
[2017-02-09 08:25] LABS: ALKALINE PHOSPHATASE 58 U/L (45-117); HDL CHOLESTEROL 30.9 MG/DL (40.0-60.0); LDL CHOLESTEROL 91 MG/DL (0-99)
[2017-02-09 08:28] LABS: ANION GAP 9 MEQ/L (5-15); AST (GOT) 74 U/L (15-37); BICARBONATE 28.7 MEQ/L (21.0-32.0); BLOOD UREA NITROGEN 21 MG/DL (7-18); CHLORIDE 98 MEQ/L (98-107); GLOMERULAR FILTRATION RATE 57 ML/MIN (>89); SODIUM (NA) 136 MEQ/L (136-145)
[2017-02-09] MEDS: ASPIRIN EC 81 MG TABEC PO SCH (08:28)
[2017-02-09] MEDS: THIAMINE HCL 100 MG TAB PO SCH (08:28)
[2017-02-09] MEDS: METOPROLOL SUCCINATE 50 MG EXTENDED RELEASE TAB PO SCH (08:28)
[2017-02-09] MEDS: POTASSIUM CHLORIDE 20 MEQ CONTROLLED RELEASE TAB PO SCH (08:28)
[2017-02-09] MEDS: APIXABAN 5 MG TABLET PO SCH ×2 (08:28→20:36)
[2017-02-09] MEDS: AMIODARONE 200 MG TAB PO SCH (08:28)
[2017-02-09] MEDS: FUROSEMIDE 40 MG/4 ML VIAL IV PUSH SCH ×2 (08:29→17:31)
[2017-02-09] MEDS: NICOTINE 21 MG/24 HR PATCH T-DERMAL SCH (08:29)
[2017-02-09] MEDS: SODIUM CHLORIDE 0.9% FLUSH 10 ML FLUSH IV FLUSH SCH ×2 (08:30→20:37)
[2017-02-09 08:31] LABS: POTASSIUM 3.8 MEQ/L (3.5-5.1)
[2017-02-09 09:03] LABS: BANDS 3 % (0-6); BASOPHILS 1 % (0-2); CORRECTED NUCLEATED RBC 1 /100 WBC (0-0); EOSINOPHILS 1 % (0-4); NEUTROPHIL # MANUAL DIFF 9.7 TH/MM3 (1.8-7.7); PLATELET ESTIMATE SMEAR NORMAL (NORMAL); PLATELET MORPHOLOGY NORMAL (NORMAL); POLYS (SEG NEUTROPHILS) 65 % (16-70); SCAN/DIFF FINAL DIFF MANUAL; WBC DIFF SAMPLE 100
--- NOTE | 2017-02-09 10:39 | PD.CARD.PN ---
Subjective Subjective Remarks Dyspnea slowly improving. No CP, palpitations, dizziness, PND. Objective Medications Item Value Date Time Amiodarone HCl 200 mg 02/09/17 0900 (Cordarone) DAILY/PO 02/09/17 0828 Aspirin 81 mg 02/09/17 0900 (Ecotrin Ec) DAILY/PO 02/09/17 0828 Potassium Chloride 20 meq 02/09/17 0900 (KCl) DAILY/PO 02/09/17 0828 Metoprolol 100 mg 02/09/17 0900 Succinate DAILY/PO 02/09/17 0828 (Toprol Xl) Apixaban 5 mg 02/08/17 2100 (Eliquis) BID/PO 02/09/17 0828 Furosemide 40 mg 02/08/17 1800 (Lasix Inj) BID@/IV PUSH 02/09/17 08 Current Medications Medications (Trade) Dose Ordered Sig/Esvin Route Start Time Stop Time Status Last Admin (Cordarone) 200 mg DAILY PO 02/09/17 09:00 02/09/17 08:28 (Eliquis) 5 mg BID PO 02/08/17 21:00 02/09/17 08:28 (Ecotrin Ec) 81 mg DAILY PO 02/09/17 09:00 02/09/17 08:28 (KCl) 20 meq DAILY PO 02/09/17 09:00 02/09/17 08:28 (Toprol Xl) 100 mg DAILY PO 02/09/17 09:00 02/09/17 08:28 (D50w (Vial) Inj) 50 ml UNSCH PRN IV PUSH 02/08/17 14:30 (Glucagon Inj) 1 mg UNSCH PRN OTHER 02/08/17 14:30 (NovoLOG SUPPLEMENTAL SCALE) 1 ACHS SLIDING SCALE SQ 02/08/17 17:00 (NS Flush) 2 ml UNSCH PRN IV FLUSH 02/08/17 14:30 (NS Flush) 2 ml BID IV FLUSH 02/08/17 21:00 02/09/17 08:30 (Tylenol) 650 mg Q4H PRN PO 02/08/17 14:30 (Zofran Inj) 4 mg Q6H PRN IV PUSH 02/08/17 14:30 (Rosario-Colace) 1 tab BID PRN PO 02/08/17 14:30 (Restoril) 15 mg HS PRN PO 02/08/17 14:30 02/08/17 20:55 (Vasotec Inj) 2.5 mg Q6H PRN IV PUSH 02/08/17 14:30 (Duoneb Neb) 1 ampule Q2HR NEB PRN NEB 02/08/17 14:30 02/09/17 06:33 (Lasix Inj) 40 mg BID@09,18 IV PUSH 02/08/17 18:00 02/09/17 08:29 (Vitamin B1) 100 mg DAILY PO 02/09/17 09:00 02/09/17 08:28 (Habitrol 21 Mg Patch.24 Hr) 1 patch DAILY T-DERMAL 02/09/17 09:00 Miscellaneous Information 1 HS T-DERMAL 02/08/17 21:00 02/08/17 21:00 (Romazicon Inj) 0.2 mg Q1M PRN IV PUSH 02/08/17 15:15 (Ativan) 1 mg Q4H PRN PO 02/08/17 15:15 (Ativan Inj) 1 mg Q4H PRN IV PUSH 02/08/17 15:15 (Ativan) 2 mg Q2H PRN PO 02/08/17 15:15 (Ativan Inj) 2 mg Q2H PRN IV PUSH 02/08/17 15:15 (Ativan Inj) 2 mg Q1H PRN IV PUSH 02/08/17 15:15 (Ativan Inj) 2 mg Q15M PRN IV PUSH 02/08/17 15:15 Vital Signs / I&O Vital Signs Date Time Temp Pulse Resp B/P (MAP) Pulse Ox O2 Delivery O2 Flow Rate FiO2 02/09/17 08:18 99.4 86 20 135/60 (85) 94 02/09/17 08:00 87 02/09/17 08:00 Nasal Cannula 3.00 02/09/17 06:37 92 Nasal Cannula 2.00 02/09/17 05:05 97.8 87 24 117/57 (77) 93 02/09/17 04:00 Nasal Cannula 3.00 02/09/17 04:00 88 02/09/17 00:00 87 02/08/17 23:57 Nasal Cannula 3.00 02/08/17 23:30 97.1 87 24 115/57 (76) 94 02/08/17 20:18 98.5 88 24 114/55 (74) 92 02/08/17 20:00 91 02/08/17 20:00 Nasal Cannula 3.00 02/08/17 17:00 97.8 97 20 193/74 (113) 94 02/08/17 16:59 02/08/17 14:00 94 18 110/55 (73) 95 Nasal Cannula 3.00 02/08/17 11:48 95 20 95 Nasal Cannula 3.00 02/08/17 11:46 98.0 95 22 95 02/08/17 11:44 98.0 96 22 95 Nasal Cannula 3.00 02/08/17 11:44 95 Nasal Cannula 3.00 02/08/17 11:21 98.4 98 20 165/73 (103) 88 Room Air I/O 02/08/17 02/08/17 02/08/17 02/09/17 02/09/17 02/09/17 07:00 15:00 23:00 07:00 15:00 23:00 Intake Total 1440 ml Output Total 200 ml 1050 ml Balance -200 ml 390 ml Intake Oral 1440 ml Output Urine Total 200 ml 1050 ml # Bowel Movements 0 Physical Exam GENERAL: Well developed, well nourished. No acute distress. HEENT: Jugular venous pressure is normal. CHEST: Lungs clear to auscultation bilaterally. Unlabored respiratory effort. CARDIAC: Regular rate and rhythm without S3, S4. II/ OJ RUSB with moderately diminished S2. ABDOMEN: Soft, nontender, no hepatosplenomegaly. Bowel sounds present. EXTREMITIES: No clubbing, cyanosis, or edema. Laboratory Laboratory Tests Test 02/08/17 11:45 02/08/17 12:00 02/09/17 06:45 White Blood Count 14.4 TH/MM3 14.2 TH/MM3 Red Blood Count 4.53 MIL/MM3 4.33 MIL/MM3 Hemoglobin 16.5 GM/DL 15.9 GM/DL Hematocrit 49.2 % 47.1 % Mean Corpuscular Volume 108.6 FL 108.7 FL Mean Corpuscular Hemoglobin 36.4 PG 36.8 PG Mean Corpuscular Hemoglobin Concent 33.5 % 33.9 % Red Cell Distribution Width 15.2 % 15.0 % Platelet Count 236 TH/MM3 224 TH/MM3 Mean Platelet Volume 8.2 FL 8.4 FL Neutrophils (%) (Auto) 68.2 % 67.8 % Lymphocytes (%) (Auto) 19.9 % 19.8 % Monocytes (%) (Auto) 10.4 % 10.9 % Eosinophils (%) (Auto) 0.7 % 1.0 % Basophils (%) (Auto) 0.8 % 0.5 % Neutrophils # (Auto) 9.8 TH/MM3 9.6 TH/MM3 Lymphocytes # (Auto) 2.9 TH/MM3 2.8 TH/MM3 Monocytes # (Auto) 1.5 TH/MM3 1.6 TH/MM3 Eosinophils # (Auto) 0.1 TH/MM3 0.1 TH/MM3 Basophils # (Auto) 0.1 TH/MM3 0.1 TH/MM3 CBC Comment AUTO DIFF AUTO DIFF Differential Total Cells Counted 100 100 Neutrophils % (Manual) 72 % 65 % Band Neutrophils % 1 % 3 % Lymphocytes % 16 % 22 % Monocytes % 11 % 8 % Neutrophils # (Manual) 10.5 TH/MM3 9.7 TH/MM3 Nucleated Red Blood Cells 2 /100 WBC 1 /100 WBC Differential Comment FINAL DIFF MANUAL FINAL DIFF MANUAL Platelet Estimate NORMAL NORMAL Platelet Morphology Comment NORMAL NORMAL Prothrombin Time 13.1 SEC Prothromb Time International Ratio 1.2 RATIO Activated Partial Thromboplast Time 29.9 SEC Blood Urea Nitrogen 17 MG/DL 21 MG/DL Creatinine 1.27 MG/DL 1.30 MG/DL Random Glucose 109 MG/DL 105 MG/DL Total Protein 7.9 GM/DL 7.5 GM/DL Albumin 3.4 GM/DL 3.2 GM/DL Calcium Level 9.2 MG/DL 8.7 MG/DL Magnesium Level 2.1 MG/DL Alkaline Phosphatase 60 U/L 58 U/L Aspartate Amino Transf (AST/SGOT) 89 U/L 74 U/L Alanine Aminotransferase (ALT/SGPT) 119 U/L 99 U/L Total Bilirubin 1.9 MG/DL 2.0 MG/DL Sodium Level 134 MEQ/L 136 MEQ/L Potassium Level 4.3 MEQ/L 3.8 MEQ/L Chloride Level 101 MEQ/L 98 MEQ/L Carbon Dioxide Level 25.0 MEQ/L 28.7 MEQ/L Anion Gap 8 MEQ/L 9 MEQ/L Estimat Glomerular Filtration Rate 58 ML/MIN 57 ML/MIN Total Creatine Kinase 108 U/L Creatine Kinase MB 1.8 NG/ML Troponin I 0.24 NG/ML 0.15 NG/ML B-Type Natriuretic Peptide 168 PG/ML Blood Gas Puncture Site LT RADIAL Blood Gas Patient Temperature 37.0 Blood Gas HCO3 26 mmol/L Blood Gas Base Excess 2.6 mmol/L Blood Gas Oxygen Saturation 90 % Arterial Blood pH 7.48 Arterial Blood Partial Pressure CO2 35 mmHg Arterial Blood Partial Pressure O2 65 mmHG Arterial Blood Oxygen Content 21.0 Vol % Arterial Blood Carboxyhemoglobin 2.2 % Arterial Blood Methemoglobin 0.6 % Blood Gas Hemoglobin 16.6 G/DL Oxygen Delivery Device NASAL CANNULA Blood Gas Liter Flow 3.5 L/M Eosinophils % 1 % Basophils % 1 % Triglycerides Level 108 MG/DL Cholesterol Level 143 MG/DL LDL Cholesterol 91 MG/DL HDL Cholesterol 30.9 MG/DL Cholesterol/HDL Ratio 4.62 RATIO Imaging Last 24 hours Impressions Chest X-Ray 02/08/17 1136 Signed Impressions: Service Date/Time: Wednesday, February 08, 2017 12:17 - CONCLUSION: CHF Costa Pérez MD CT Angiography 02/08/17 1136 Signed Impressions: Service Date/Time: Wednesday, February 08, 2017 13:18 - CONCLUSION: 1. Small areas of focal airspace disease in the upper lobes are probably postinflammatory. 2. Bibasilar effusions with a moderate collection on the right and small on the left. In combination with cardiomegaly, there may be an element of failure. 3. Postsurgical changes characteristic of prior anterior mediastinal surgical resection, possible aortic valve prosthesis and anterior upper abdominal wall hernia mesh repair. Patient may have had a splenectomy as well. 4. Borderline prominent mediastinal lymph nodes are probably postinflammatory 5. Hepatic fatty infiltration. 6. Small amount of ascites. 7. No PE. Thompson Berg MD Assessment and Plan Problem List: (1) Congestive heart failure (CHF) ICD Codes: I50.9 - Heart failure, unspecified Plan: Symptomatically improving. Precipitating factor for CHF not entirely clear. Echo recently showed normal LV systolic function. Agree with ruling out myocardial ischemia. Will also evaluate his AVR by ANJALI tomorrow morning. Continue diuresis. (2) Elevated troponin ICD Codes: R74.8 - Abnormal levels of other serum enzymes Status: Acute Plan: Stable. No definite CP's. To undergo Lexiscan nuclear stress test today. (3) History of aortic valve replacement ICD Codes: Z95.2 - Presence of prosthetic heart valve Status: Chronic Plan: Moderate by recent echoes with mean gradients around 30-35 mm Hg. Exam suggestive of possibly worse . Surface echo imaging limited by his body habitus. Rec ANJALI in am. (4) Paroxysmal atrial fibrillation ICD Codes: I48.0 - Paroxysmal atrial fibrillation Status: Chronic Plan: Stable s/p recent cardioversion. Continue anticoagulation therapy, Amiodarone, beta veena. (5) Hypertension ICD Codes: I10 - Essential (primary) hypertension Status: Chronic Plan: Stable. Normotensive. Code Status full code Discussed Condition With patient Problem Qualifiers (1) Congestive heart failure (CHF): Qualified Codes: I50.9 - Heart failure, unspecified (2) Hypertension: Qualified Codes: I10 - Essential (primary) hypertension Campbell Li MD Feb 09, 2017 10:39
--- NOTE | 2017-02-09 11:27 | HHI.FF ---
Face to Face Verification Diagnosis: (1) Pleural effusion (2) Dyspnea on exertion (3) Elevated troponin (4) Acute exacerbation of CHF (congestive heart failure) (5) Paroxysmal atrial fibrillation (6) Hypertension (7) Congestive heart failure (CHF) (8) History of aortic valve replacement Physical Therapy Order: Evaluate and Treat Home Health Nursing Order: Medical education Signs/symptoms of disease process Oxygen administration education Medication education-adverse effect Nursing assessment with vital signs I have seen patient Wayne Vasquez on 02/09/17. My clinical findings support the need for the requested home health care services because: Ltd mobility - disease progression Patient has SOB I certify that my clinical findings support that this patient is homebound because: Post-op weakness Hx COPD- exertion dyspnea/weakness Unsteady gait/balance Ruthie Boo MD Feb 09, 2017 11:27
--- NOTE | 2017-02-09 15:37 | HHI.PR ---
Subjective Remarks Patient in the chair. Appears sob, on O2, satting fairly well on 2L , says she has O2 at home. Patient says LE edema improved some. No chest pain. No n/v/d/c. Eating fairly well. O2 drops to 80s with ambulation. Objective Vitals Vital Signs Date Time Temp Pulse Resp B/P (MAP) Pulse Ox O2 Delivery O2 Flow Rate FiO2 02/09/17 12:28 97.6 85 20 121/58 (79) 95 02/09/17 12:00 82 02/09/17 08:18 99.4 86 20 135/60 (85) 94 02/09/17 08:00 87 02/09/17 08:00 Nasal Cannula 3.00 02/09/17 06:37 92 Nasal Cannula 2.00 02/09/17 05:05 97.8 87 24 117/57 (77) 93 02/09/17 04:00 Nasal Cannula 3.00 02/09/17 04:00 88 02/09/17 00:00 87 02/08/17 23:57 Nasal Cannula 3.00 02/08/17 23:30 97.1 87 24 115/57 (76) 94 02/08/17 20:18 98.5 88 24 114/55 (74) 92 02/08/17 20:00 91 02/08/17 20:00 Nasal Cannula 3.00 02/08/17 17:00 97.8 97 20 193/74 (113) 94 02/08/17 16:59 I/O 02/08/17 02/08/17 02/08/17 02/09/17 02/09/17 02/09/17 07:00 15:00 23:00 07:00 15:00 23:00 Intake Total 1440 ml Output Total 200 ml 1050 ml Balance -200 ml 390 ml Intake Oral 1440 ml Output Urine Total 200 ml 1050 ml # Bowel Movements 0 Result Diagram: 02/09/1745 02/09/1745 Imaging Last Impressions Chest X-Ray 02/08/17 1136 Signed Impressions: Service Date/Time: Wednesday, February 08, 2017 12:17 - CONCLUSION: CHF Costa Pérez MD CT Angiography 02/08/17 1136 Signed Impressions: Service Date/Time: Wednesday, February 08, 2017 13:18 - CONCLUSION: 1. Small areas of focal airspace disease in the upper lobes are probably postinflammatory. 2. Bibasilar effusions with a moderate collection on the right and small on the left. In combination with cardiomegaly, there may be an element of failure. 3. Postsurgical changes characteristic of prior anterior mediastinal surgical resection, possible aortic valve prosthesis and anterior upper abdominal wall hernia mesh repair. Patient may have had a splenectomy as well. 4. Borderline prominent mediastinal lymph nodes are probably postinflammatory 5. Hepatic fatty infiltration. 6. Small amount of ascites. 7. No PE. Thompson Berg MD Objective Remarks GENERAL: This is a well-nourished, well-developed patient, in no apparent distress. CARDIOVASCULAR: Regular rate and rhythm without murmurs, gallops, or rubs. RESPIRATORY: Clear to auscultation. Breath sounds equal bilaterally. No wheezes , rales, or rhonchi. GASTROINTESTINAL: Abdomen soft, non-tender, nondistended. No hepato-splenomegaly , or palpable masses. No guarding. MUSCULOSKELETAL: Extremities without clubbing, cyanosis, or edema. No joint tenderness, effusion, or edema noted. No calf tenderness. Negative Homans sign bilaterally. NEUROLOGICAL: Awake and alert. Cranial nerves II through XII intact. Motor and sensory grossly within normal limits. Five out of 5 muscle strength in all muscle groups. Normal speech. A/P Problem List: (1) Acute exacerbation of CHF (congestive heart failure) ICD Code: I50.9 - Heart failure, unspecified (2) Elevated troponin ICD Code: R74.8 - Abnormal levels of other serum enzymes Status: Acute (3) Dyspnea on exertion ICD Code: R06.09 - Other forms of dyspnea Status: Acute (4) Pleural effusion ICD Code: J90 - Pleural effusion, not elsewhere classified Status: Acute Assessment and Plan 61-year-old man with Acute exacerbation of CHF Aortic stenosis possible worsening. Patient with h/o Aortic valve replacement. CXR reviewed by me with finding of CHF CTA noted and review by me without any PE Received Lasix 40 mg IV 1 in ED. Continue Lasix 20 mg IV every 12 hours. CHF education, strict I's and O's 2-D echo reviewed Cardiology consultation, seen by Dr Li appreciate recommendations. Patient will go for ANJALI tomorrow AM to evaluate better Aortic valve. O2 supplement keep O2 saturation > 92% Paroxysmal A. fib Status post electrical cardioversion 02/07/17 Resume Eliquis, amiodarone, aspirin Monitor on telemetry Hypertension Resume oral antihypertensive medications Diabetes type 2 A1c pending Hold oral hypoglycemic agents Start insulin sliding scale Alcohol abuse Alcohol cessation counseling provided Rally pack, CIWA protocol Tobacco use Tobacco cessation, counseled Nicotine patch DVT prophylaxis: Eliquis Code Status Full code Discussed Condition With Patient, nurse DC plan: not ready for DC . Plan for ANJALI tomorrow. Ruthie Boo MD Feb 09, 2017 15:37
[2017-02-09 17:48] LABS: HEMOGLOBIN A1a 1.2 %; HEMOGLOBIN A1b 1.7 %; HEMOGLOBIN Ao 84.6 %; HEMOGLOBIN LA1C 2.1 %; HEMOGLOBIN P3 3.8 %
[2017-02-09] MEDS: REMOVE OLD PATCH T-DERMAL SCH (20:38)
[2017-02-10] VITALS (9 sets, daily range): BP systolic 113–131; BP diastolic 54–60; PULSE 72–82; RESP 18–24; TEMP 97.2–97.9; O2SAT 93–96
[2017-02-10] MEDS: INSULIN ASPART SUPPLEMENTAL SCALE SQ SCH ×4 (07:55→21:00)
[2017-02-10] MEDS ORDERED: POVIDONE IODINE 5% (ANTISEPSIS KIT) 4 APPLICATIONS EACH NARE PRN (08:45)
[2017-02-10] MEDS ORDERED: METOPROLOL TARTRATE 25 MG TAB PO PRN (08:45)
[2017-02-10] MEDS ORDERED: INSULIN HUMAN REGULAR 1,000 UNITS/10 ML VIAL SQ PRN (08:45)
[2017-02-10] MEDS ORDERED: LACTATED RINGER'S 1000 ML IV PRN (08:45)
[2017-02-10] MEDS ORDERED: CHLORHEXIDINE GLUCONATE 2 % 1 PACK (2 CLOTHS) TOPICAL PRN (08:45)
[2017-02-10] MEDS ORDERED: SODIUM CHLORID 0.9% 500 ML IV PRN (08:45)
[2017-02-10] MEDS: NICOTINE 21 MG/24 HR PATCH T-DERMAL SCH (09:00)
[2017-02-10] MEDS: THIAMINE HCL 100 MG TAB PO SCH (09:00)
--- NOTE | 2017-02-10 09:03 | PD.CARD.PN ---
Subjective Subjective Remarks Dyspnea continues to improve. Still moderately dyspneic with minimal activity. No CP, palpitations, dizziness, PND. Objective Medications Item Value Date Time Amiodarone HCl 200 mg 02/09/17 0900 (Cordarone) DAILY/PO 02/09/17 0828 Aspirin 81 mg 02/09/17 0900 (Ecotrin Ec) DAILY/PO 02/09/17 0828 Potassium Chloride 20 meq 02/09/17 0900 (KCl) DAILY/PO 02/09/17 0828 Metoprolol 100 mg 02/09/17 0900 Succinate DAILY/PO 02/09/17 0828 (Toprol Xl) Apixaban 5 mg 02/08/17 2100 (Eliquis) BID/PO 02/09/172035 Furosemide 40 mg 02/08/17 1800 (Lasix Inj) BID@18/IV PUSH 02/09/17 173 Current Medications Medications (Trade) Dose Ordered Sig/Esvin Route Start Time Stop Time Status Last Admin (Cordarone) 200 mg DAILY PO 02/09/17 09:00 02/09/17 08:28 (Eliquis) 5 mg BID PO 02/08/17 21:00 02/09/17 20:36 (Ecotrin Ec) 81 mg DAILY PO 02/09/17 09:00 02/09/17 08:28 (KCl) 20 meq DAILY PO 02/09/17 09:00 02/09/17 08:28 (Toprol Xl) 100 mg DAILY PO 02/09/17 09:00 02/09/17 08:28 (D50w (Vial) Inj) 50 ml UNSCH PRN IV PUSH 02/08/17 14:30 (Glucagon Inj) 1 mg UNSCH PRN OTHER 02/08/17 14:30 (NovoLOG SUPPLEMENTAL SCALE) 1 ACHS SLIDING SCALE SQ 02/08/17 17:00 02/09/17 20:37 (NS Flush) 2 ml UNSCH PRN IV FLUSH 02/08/17 14:30 (NS Flush) 2 ml BID IV FLUSH 02/08/17 21:00 02/09/17 20:37 (Tylenol) 650 mg Q4H PRN PO 02/08/17 14:30 (Zofran Inj) 4 mg Q6H PRN IV PUSH 02/08/17 14:30 (Rosario-Colace) 1 tab BID PRN PO 02/08/17 14:30 (Restoril) 15 mg HS PRN PO 02/08/17 14:30 02/08/17 20:55 (Vasotec Inj) 2.5 mg Q6H PRN IV PUSH 02/08/17 14:30 (Duoneb Neb) 1 ampule Q2HR NEB PRN NEB 02/08/17 14:30 02/09/17 14:54 (Lasix Inj) 40 mg BID@,18 IV PUSH 02/08/17 18:00 02/09/17 17:31 (Vitamin B1) 100 mg DAILY PO 02/09/17 09:00 02/09/17 08:28 (Habitrol 21 Mg Patch.24 Hr) 1 patch DAILY T-DERMAL 02/09/17 09:00 Miscellaneous Information 1 HS T-DERMAL 02/08/17 21:00 02/08/17 21:00 (Romazicon Inj) 0.2 mg Q1M PRN IV PUSH 02/08/17 15:15 (Ativan) 1 mg Q4H PRN PO 02/08/17 15:15 (Ativan Inj) 1 mg Q4H PRN IV PUSH 02/08/17 15:15 (Ativan) 2 mg Q2H PRN PO 02/08/17 15:15 (Ativan Inj) 2 mg Q2H PRN IV PUSH 02/08/17 15:15 (Ativan Inj) 2 mg Q1H PRN IV PUSH 02/08/17 15:15 (Ativan Inj) 2 mg Q15M PRN IV PUSH 02/08/17 15:15 Lactated Ringer's 1,000 ml @ 30 mls/hr Q24H PRN IV 02/10/17 08:45 02/13/17 08:44 Sodium Chloride 500 ml @ 30 mls/hr [id number] PRN IV 02/10/17 08:45 02/13/17 08:44 (Lopressor) 25 mg [employer]ER PRN PO 02/10/17 08:45 02/13/17 08:44 (Betadine 5% Antisepsis Kit) 1 applic [employer] PRN EACH NARE 02/10/17 08:45 02/13/17 08:44 (Chlorhexidine 2% Cloth) 3 pack [employer] PRN TOPICAL 02/10/17 08:45 12/4/17 08:44 (NovoLIN R INJ) See Protocol Table ... [employer]ER PRN SQ 02/10/17 08:45 02/13/17 08:44 Vital Signs / I&O Vital Signs Date Time Temp Pulse Resp B/P (MAP) Pulse Ox O2 Delivery O2 Flow Rate FiO2 02/10/17 08:07 96 Nasal Cannula 2.00 02/10/17 04:11 72 02/10/17 04:00 97.5 79 21 122/57 (78) 94 02/10/17 00:00 75 02/10/17 00:00 97.6 78 24 121/60 (80) 93 02/09/17 20:25 Nasal Cannula 3.00 02/09/17 20:21 80 02/09/17 20:00 97.8 89 22 100/52 (68) 94 02/09/17 19:33 95 Nasal Cannula 2.00 02/09/17 16:13 97.6 85 20 121/58 (79) 95 02/09/17 12:28 97.6 85 20 121/58 (79) 95 02/09/17 12:00 82 I/O 02/09/17 02/09/17 02/09/17 02/10/17 02/10/17 02/10/17 07:00 15:00 23:00 07:00 15:00 23:00 Intake Total 1440 ml 240 ml 0 ml Output Total 1050 ml Balance 390 ml 240 ml 0 ml Intake Oral 1440 ml 240 ml 0 ml Output Urine Total 1050 ml # Voids 2 5 # Bowel Movements 0 0 Physical Exam GENERAL: Well developed, well nourished. No acute distress. HEENT: Jugular venous pressure is normal. CHEST: Lungs clear to auscultation bilaterally. Unlabored respiratory effort. CARDIAC: Regular rate and rhythm without S3, S4. II/ OJ RUSB with moderately diminished S2. ABDOMEN: Soft, nontender, no hepatosplenomegaly. Bowel sounds present. EXTREMITIES: No clubbing, cyanosis, or edema. Assessment and Plan Problem List: (1) Congestive heart failure (CHF) ICD Codes: I50.9 - Heart failure, unspecified Plan: Slow improvement. Precipitating factor for CHF not entirely clear. EF 55% on today's ANJALI. Difficult imaging of AVR but appears to have adequate leaflet opening and moderate AI. No clear evidence for ACS. Overall minimal diuresis since admission. REC continued IV furosemide diuresis await results of nuclear stress testing continue metoprolol Dr. Napier to see patient PRN over the weekend (2) Elevated troponin ICD Codes: R74.8 - Abnormal levels of other serum enzymes Status: Acute Plan: Stable. No definite CP's. To complete Lexiscan nuclear stress test today. Consider cath only if severe or large amount of ischemia demonstrated. (3) History of aortic valve replacement ICD Codes: Z95.2 - Presence of prosthetic heart valve Status: Chronic Plan: Limited imaging of AVR on ANJALI today. Appears to have adequate leaflet separation, possibly moderate aortic regurgitation. No definite evidence to suggest patient needs another AVR at this point. (4) Paroxysmal atrial fibrillation ICD Codes: I48.0 - Paroxysmal atrial fibrillation Status: Chronic Plan: Stable s/p recent cardioversion. Continue anticoagulation therapy, Amiodarone, beta veena. (5) Hypertension ICD Codes: I10 - Essential (primary) hypertension Status: Chronic Plan: Stable. Normotensive. Code Status full code Discussed Condition With patient Problem Qualifiers (1) Congestive heart failure (CHF): Qualified Codes: I50.9 - Heart failure, unspecified (2) Hypertension: Qualified Codes: I10 - Essential (primary) hypertension Campbell Li MD Feb 10, 2017 09:02
--- NOTE | 2017-02-10 09:20 | HHI.PR ---
Subjective Remarks The patient is back from mom nuclear test. Nuclear test results was reviewed with the patient and also with Dr. Li.'s plan for cardiac catheterization on Monday. Will put on hold Eliquis starting tomorrow. Patient says he still short of breath and his oxygen saturation is low especially when she ambulates. No chest pain or palpitations. Lower extremity edema is improving. Denies any nausea or vomiting no diarrhea or constipation. Objective Vitals Vital Signs Date Time Temp Pulse Resp B/P (MAP) Pulse Ox O2 Delivery O2 Flow Rate FiO2 02/10/17 08:07 96 Nasal Cannula 2.00 02/10/17 04:11 72 02/10/17 04:00 97.5 79 21 122/57 (78) 94 02/10/17 00:00 75 02/10/17 00:00 97.6 78 24 121/60 (80) 93 02/09/17 20:25 Nasal Cannula 3.00 02/09/17 20:21 80 02/09/17 20:00 97.8 89 22 100/52 (68) 94 02/09/17 19:33 95 Nasal Cannula 2.00 02/09/17 16:13 97.6 85 20 121/58 (79) 95 02/09/17 12:28 97.6 85 20 121/58 (79) 95 02/09/17 12:00 82 I/O 02/09/17 02/09/17 02/09/17 02/10/17 02/10/17 02/10/17 07:00 15:00 23:00 07:00 15:00 23:00 Intake Total 1440 ml 240 ml 0 ml Output Total 1050 ml Balance 390 ml 240 ml 0 ml Intake Oral 1440 ml 240 ml 0 ml Output Urine Total 1050 ml # Voids 2 5 # Bowel Movements 0 0 Result Diagram: 02/09/17 0645 02/09/17 0645 Imaging Last Impressions Myocardial Perfusion Scan Nuc Med 02/09/17 0000 Signed Impressions: Service Date/Time: January 16:53 - CONCLUSION: LV chamber dilatation and moderate LV dysfunction. Multi-territory perfusion abnormalities sparing the septum with moderate redistribution RISK CATEGORY: High (>3%% Annual Mortality Rate) Costa Pérez MD Chest X-Ray 02/08/17 1136 Signed Impressions: Service Date/Time: Wednesday, February 08, 2017 12:17 - CONCLUSION: CHF Costa Pérez MD CT Angiography 02/08/17 1136 Signed Impressions: Service Date/Time: Wednesday, February 08, 2017 13:18 - CONCLUSION: 1. Small areas of focal airspace disease in the upper lobes are probably postinflammatory. 2. Bibasilar effusions with a moderate collection on the right and small on the left. In combination with cardiomegaly, there may be an element of failure. 3. Postsurgical changes characteristic of prior anterior mediastinal surgical resection, possible aortic valve prosthesis and anterior upper abdominal wall hernia mesh repair. Patient may have had a splenectomy as well. 4. Borderline prominent mediastinal lymph nodes are probably postinflammatory 5. Hepatic fatty infiltration. 6. Small amount of ascites. 7. No PE. Thompson Berg MD Objective Remarks GENERAL: This is a well-nourished, well-developed patient, in no apparent distress. CARDIOVASCULAR: Regular rate and rhythm without murmurs, gallops, or rubs. RESPIRATORY: Clear to auscultation. Breath sounds equal bilaterally. No wheezes , rales, or rhonchi. GASTROINTESTINAL: Abdomen soft, non-tender, nondistended. No hepato-splenomegaly , or palpable masses. No guarding. MUSCULOSKELETAL: Extremities without clubbing, cyanosis, or edema. No joint tenderness, effusion, or edema noted. No calf tenderness. Negative Homans sign bilaterally. NEUROLOGICAL: Awake and alert. Cranial nerves II through XII intact. Motor and sensory grossly within normal limits. Five out of 5 muscle strength in all muscle groups. Normal speech. A/P Problem List: (1) Acute exacerbation of CHF (congestive heart failure) ICD Code: I50.9 - Heart failure, unspecified (2) Elevated troponin ICD Code: R74.8 - Abnormal levels of other serum enzymes Status: Acute (3) Dyspnea on exertion ICD Code: R06.09 - Other forms of dyspnea Status: Acute (4) Pleural effusion ICD Code: J90 - Pleural effusion, not elsewhere classified Status: Acute Assessment and Plan 61-year-old man with Acute exacerbation of CHF Aortic stenosis possible worsening. Patient with h/o Aortic valve replacement. CXR reviewed by me with finding of CHF CTA noted and review by me without any PE Received Lasix 40 mg IV 1 in ED. Continue Lasix 20 mg IV every 12 hours. CHF education, strict I's and O's 2-D echo reviewed Cardiology consultation, seen by Dr Li appreciate recommendation. Had ANJALI, per cardiology no need for new TAVR. Continue diuresis.Nuclear test results was reviewed with the patient and also with Dr. Li.'s plan for cardiac catheterization on Monday02/13/17. Will put on hold Eliquis starting tomorrow 02/11/17 . O2 supplement keep O2 saturation > 92% Paroxysmal A. fib Status post electrical cardioversion 02/07/17 Resume Eliquis, amiodarone, aspirin Monitor on telemetry Hypertension Resume oral antihypertensive medications Diabetes type 2 A1c pending Hold oral hypoglycemic agents Start insulin sliding scale Alcohol abuse Alcohol cessation counseling provided Rally pack, CIWA protocol Tobacco use Tobacco cessation, counseled Nicotine patch DVT prophylaxis: Eliquis Code Status Full code Discussed Condition With Patient, nurse, Dr Li cardiology DC plan: not ready for DC. Nuclear test results was reviewed with the patient and also with Dr. Li.'s plan for cardiac catheterization on Monday02/13/17. Will put on hold Eliquis starting tomorrow 02/11/17 . Ruthie Boo MD Feb 10, 2017 09:20
--- NOTE | 2017-02-10 11:02 | RADRPT ---
EXAM DATE/TIME: 02/09/2017 16:53 [facility] COMPARISON: No previous studies available for comparison. INDICATIONS : Mid chest pain. Congestive heart failure. DOSE: 30.1 mCi Tc99m Myoview at stress. 30.0 mCi Tc99m Myoview at rest. 0.4 mg Lexiscan STRESS SYMPTOMS: Short of breath. EJECTION FRACTION: 37% MEDICAL HISTORY : Hepatitis C. Chronic obstructive pulmonary disease. SURGICAL HISTORY : Cholecystectomy. Aortic valve replaced. ENCOUNTER: Initial ACUITY: 1 day PAIN SCALE: 2/10 LOCATION: Bilateral chest TECHNIQUE: The patient underwent pharmacologic stress with infusion of prescribed dose. Continuous ECG tracing was monitored during stress. Gated SPECT imaging was performed after stress and conventional SPECT i maging was performed at rest. The examination was performed on a SPECT/CT scanner, both attenuation and non-corrected datasets were reviewed. FINDINGS: DISTRIBUTION: The maximum perfused segment at stress is in the septal wall. PERFUSION STUDY: There is moderately diminished relative perfusion to the majority of the remaining myocardium includi ng severely diminished relative perfusion to the anterior wall and the posterior basal wall near the base of the heart. There does appear to be moderate redistribution, multi-territory. GATED STUDY: Prominent left ventricular chamber dilatation with global hypokinesis. CONCLUSION: LV chamber dilatation and moderate LV dysfunction. Multi-territory perfusion abnormalities sparing the septum with moderate redistribution RISK CATEGORY: High (>3% Annual Mortality Rate) Costa Pérez MD on February 10, 2017 at 10:54 Board Certified Radiologist. This report was verified electronically.
[2017-02-10] MEDS: RESP: ALBUTEROL 2.5 MG/IPRATROPIUM 0.5 MG NEB (PRN) NEB (11:38)
[2017-02-10] MEDS: METOPROLOL SUCCINATE 50 MG EXTENDED RELEASE TAB PO SCH (12:25)
[2017-02-10] MEDS: POTASSIUM CHLORIDE 20 MEQ CONTROLLED RELEASE TAB PO SCH (12:25)
[2017-02-10] MEDS: ASPIRIN EC 81 MG TABEC PO SCH (12:25)
[2017-02-10] MEDS: APIXABAN 5 MG TABLET PO SCH ×2 (12:25→21:38)
[2017-02-10] MEDS: AMIODARONE 200 MG TAB PO SCH (12:25)
[2017-02-10] MEDS: FUROSEMIDE 40 MG/4 ML VIAL IV PUSH SCH ×2 (12:26→17:27)
[2017-02-10] MEDS: SODIUM CHLORIDE 0.9% FLUSH 10 ML FLUSH IV FLUSH SCH ×2 (12:26→21:39)
[2017-02-10 12:59] LABS: AUTOMATED NEUTROPHIL # 8.4 TH/MM3 (1.8-7.7); BASOPHIL # 0.1 TH/MM3 (0-0.2); BASOPHIL % 0.6 % (0.0-2.0); EOSINOPHIL # 0.1 TH/MM3 (0-0.4); EOSINOPHIL % 0.8 % (0.0-4.0); HEMATOCRIT 48.1 % (39.0-51.0); LYMPH % 21.2 % (9.0-44.0); LYMPHOCYTE # 2.6 TH/MM3 (1.0-4.8); MEAN CELL VOLUME 108.4 FL (80.0-100.0); MEAN CORPUSCULAR HEMOGLOBIN 36.3 PG (27.0-34.0); MEAN CORPUSCULAR HGB CONC 33.4 % (32.0-36.0); MONO % 9.5 % (0.0-8.0); NEUT % 67.9 % (16.0-70.0); PLATELET COUNT 233 TH/MM3 (150-450); RED BLOOD COUNT 4.43 MIL/MM3 (4.50-5.90); RED CELL DISTRIBUTION WIDTH 14.9 % (11.6-17.2); WHITE BLOOD COUNT 12.4 TH/MM3 (4.0-11.0)
[2017-02-10 13:01] LABS: HEMO FLAGS AUTO DIFF
[2017-02-10 13:48] LABS: SCAN/DIFF AUTO DIFF CONFIRMED
--- NOTE | 2017-02-10 16:14 | ECHRPT ---
Indication: CONCLUSIONS Normal left ventricular size and wall thickness. The left ventricular systolic function is normal wi th an estimated ejection fraction in the range of 50-55%. Normal wall motion. Normal left atrial appendage size with no evidence of thrombus formation. Trace mitral valve regurgitation. Structurally normal tricuspid valve. There is moderate tricuspid regurgitation. Well-seated bioprosthetic aortic valve. Limited imaging. Appears to have adequate leaflet opening. There is moderate aortic regurgitation. BP: / HR: Rhythm: Technical Quality: Medications Complications Proc. Components FINDINGS LEFT VENTRICLE Normal left ventricular size and wall thickness. The left ventricular systolic function is normal wi th an estimated ejection fraction in the range of 50-55%. Normal wall motion. RIGHT VENTRICLE Normal right ventricular size and systolic function. LEFT ATRIUM The left atrial size is normal. The left atrial appendage appears to be morphologically normal. RIGHT ATRIUM The right atrial size is normal. ATRIAL APPENDAGES Normal left atrial appendage size with no evidence of thrombus formation. ATRIAL SEPTUM Normal atrial septal thickness without atrial level shunting by color doppler interrogation. AORTA The aortic root and proximal ascending aorta are normal in size on limited imaging. MITRAL VALVE Structurally normal mitral valve. Trace mitral valve regurgitation. AORTIC VALVE Well-seated bioprosthetic aortic valve. Limited imaging. Appears to have adequate leaflet opening. There is moderate aortic regurgitation. TRICUSPID VALVE Structurally normal tricuspid valve. There is moderate tricuspid regurgitation. VESSELS The pulmonary valve is not well visualized. PERICADIUM No pericardial effusion. Campbell Li MD (Electronically Signed) Final Date:10 February 2017 16:13
[2017-02-10] MEDS ORDERED: MIDAZOLAM HCL 2 MG/2 ML VIAL IV PUSH SCH (16:15)
[2017-02-10] MEDS ORDERED: DIAZEPAM 10 MG TAB PO SCH (16:15)
[2017-02-10] MEDS ORDERED: diphenhydrAMINE HCL 50 MG CAP PO SCH (16:15)
[2017-02-10] MEDS: REMOVE OLD PATCH T-DERMAL SCH (21:00)
[2017-02-11] VITALS (8 sets, daily range): BP systolic 102–128; BP diastolic 51–60; PULSE 71–87; RESP 20–22; TEMP 97.2–98.5; O2SAT 92–98
[2017-02-11] MEDS: SODIUM CHLOR 0.9% 1000 ML INJ 1,000 ML IV SCH (05:25)
[2017-02-11 07:52] LABS: AUTOMATED NEUTROPHIL # 8.2 TH/MM3 (1.8-7.7); BASOPHIL # 0.1 TH/MM3 (0-0.2); BASOPHIL % 0.8 % (0.0-2.0); EOSINOPHIL # 0.3 TH/MM3 (0-0.4); HEMATOCRIT 46.1 % (39.0-51.0); HEMO FLAGS DIFF FINAL; LYMPHOCYTE # 2.6 TH/MM3 (1.0-4.8); MEAN CELL VOLUME 108.2 FL (80.0-100.0); MEAN CORPUSCULAR HEMOGLOBIN 37.3 PG (27.0-34.0); MEAN CORPUSCULAR HGB CONC 34.5 % (32.0-36.0); MONO % 10.2 % (0.0-8.0); PLATELET COUNT 227 TH/MM3 (150-450); RED BLOOD COUNT 4.26 MIL/MM3 (4.50-5.90); WHITE BLOOD COUNT 12.4 TH/MM3 (4.0-11.0)
[2017-02-11] MEDS: INSULIN ASPART SUPPLEMENTAL SCALE SQ SCH ×4 (08:00→21:00)
[2017-02-11] MEDS: RESP: ALBUTEROL 2.5 MG/IPRATROPIUM 0.5 MG NEB (PRN) NEB (08:04)
[2017-02-11 08:14] LABS: BICARBONATE 31.1 MEQ/L (21.0-32.0); POTASSIUM 3.5 MEQ/L (3.5-5.1)
--- NOTE | 2017-02-11 08:51 | HHI.PR ---
Subjective Remarks Patient in the chair. Appears with some sob, says she is however improving and is less sob than yesterday. Also LE edema improving. No chest pain or lightheadedness, no fever or chills. Patient is asking for normal regular diet. Objective Vitals Vital Signs Date Time Temp Pulse Resp B/P (MAP) Pulse Ox O2 Delivery O2 Flow Rate FiO2 02/11/17 08:04 95 Nasal Cannula 2.00 02/11/17 04:00 98.0 77 20 128/60 (82) 98 02/11/17 04:00 Nasal Cannula 3.00 02/11/17 00:00 97.4 71 21 113/55 (74) 96 02/10/17 21:00 Nasal Cannula 3.00 02/10/17 20:00 75 02/10/17 20:00 97.7 75 23 123/60 (81) 94 02/10/17 19:49 95 Nasal Cannula 2.00 02/10/17 16:01 82 02/10/17 16:00 97.2 82 18 113/54 (73) 94 02/10/17 12:00 97.9 82 18 131/60 (83) 95 I/O 02/10/17 02/10/17 02/10/17 02/11/17 02/11/17 02/11/17 07:00 15:00 23:00 07:00 15:00 23:00 Intake Total 0 ml 740 ml 480 ml Balance 0 ml 740 ml 480 ml Intake Oral 0 ml 720 ml 480 ml IV Total 20 ml # Voids 5 3 4 # Bowel Movements 0 1 0 Result Diagram: 02/11/17 0723 02/11/17 0723 Imaging Last Impressions Myocardial Perfusion Scan Nuc Med 02/09/17 0000 Signed Impressions: Service Date/Time: January 16:53 - CONCLUSION: LV chamber dilatation and moderate LV dysfunction. Multi-territory perfusion abnormalities sparing the septum with moderate redistribution RISK CATEGORY: High (>3%% Annual Mortality Rate) Costa Pérez MD Chest X-Ray 02/08/17 1136 Signed Impressions: Service Date/Time: Wednesday, February 08, 2017 12:17 - CONCLUSION: CHF Costa Pérez MD CT Angiography 02/08/17 1136 Signed Impressions: Service Date/Time: Wednesday, February 08, 2017 13:18 - CONCLUSION: 1. Small areas of focal airspace disease in the upper lobes are probably postinflammatory. 2. Bibasilar effusions with a moderate collection on the right and small on the left. In combination with cardiomegaly, there may be an element of failure. 3. Postsurgical changes characteristic of prior anterior mediastinal surgical resection, possible aortic valve prosthesis and anterior upper abdominal wall hernia mesh repair. Patient may have had a splenectomy as well. 4. Borderline prominent mediastinal lymph nodes are probably postinflammatory 5. Hepatic fatty infiltration. 6. Small amount of ascites. 7. No PE. Thompson Berg MD Objective Remarks GENERAL: This is a well-nourished, well-developed patient, in no apparent distress. CARDIOVASCULAR: Regular rate and rhythm without murmurs, gallops, or rubs. RESPIRATORY: Clear to auscultation. Breath sounds equal bilaterally. No wheezes , rales, or rhonchi. GASTROINTESTINAL: Abdomen soft, non-tender, nondistended. No hepato-splenomegaly , or palpable masses. No guarding. MUSCULOSKELETAL: Extremities without clubbing, cyanosis, or edema. No joint tenderness, effusion, or edema noted. No calf tenderness. Negative Homans sign bilaterally. NEUROLOGICAL: Awake and alert. Cranial nerves II through XII intact. Motor and sensory grossly within normal limits. Five out of 5 muscle strength in all muscle groups. Normal speech. A/P Problem List: (1) Acute exacerbation of CHF (congestive heart failure) ICD Code: I50.9 - Heart failure, unspecified (2) Elevated troponin ICD Code: R74.8 - Abnormal levels of other serum enzymes Status: Acute (3) Dyspnea on exertion ICD Code: R06.09 - Other forms of dyspnea Status: Acute (4) Pleural effusion ICD Code: J90 - Pleural effusion, not elsewhere classified Status: Acute Assessment and Plan 61-year-old man with Acute exacerbation of CHF Aortic stenosis possible worsening. Patient with h/o Aortic valve replacement. CXR reviewed by me with finding of CHF CTA noted and review by me without any PE Received Lasix 40 mg IV 1 in ED. Continue Lasix 20 mg IV every 12 hours. CHF education, strict I's and O's 2-D echo reviewed Cardiology consultation, seen by Dr Li appreciate recommendation. Had ANJALI, per cardiology no need for new TAVR. Continue diuresis.Nuclear test results was reviewed with the patient and also with Dr. Li.'s plan for cardiac catheterization on Monday02/13/17. Will put on hold Eliquis starting tomorrow 02/11/17 . O2 supplement keep O2 saturation > 92% Paroxysmal A. fib Status post electrical cardioversion 02/07/17 Resume Eliquis, amiodarone, aspirin Monitor on telemetry Hypertension Resume oral antihypertensive medications Diabetes type 2 A1c pending Hold oral hypoglycemic agents Start insulin sliding scale Alcohol abuse Alcohol cessation counseling provided Rally pack, CIWA protocol Tobacco use Tobacco cessation, counseled Nicotine patch DVT prophylaxis: Eliquis Code Status Full code Discussed Condition With Patient, nurse DC plan: not ready for DC. Nuclear test results was reviewed with the patient and also with Dr. Li.'s plan for cardiac catheterization on Monday02/13/17. Will put on hold Eliquis starting 02/11/17 discussed with pharmacist, patient and nurse. Ruthie Boo MD Feb 11, 2017 08:51
[2017-02-11] MEDS: FUROSEMIDE 40 MG/4 ML VIAL IV PUSH SCH ×2 (08:55→17:19)
[2017-02-11] MEDS: POTASSIUM CHLORIDE 20 MEQ CONTROLLED RELEASE TAB PO SCH (08:56)
[2017-02-11] MEDS: THIAMINE HCL 100 MG TAB PO SCH (08:56)
[2017-02-11] MEDS: ASPIRIN EC 81 MG TABEC PO SCH (08:56)
[2017-02-11] MEDS: AMIODARONE 200 MG TAB PO SCH (08:56)
[2017-02-11] MEDS: METOPROLOL SUCCINATE 50 MG EXTENDED RELEASE TAB PO SCH (08:56)
[2017-02-11] MEDS: NICOTINE 21 MG/24 HR PATCH T-DERMAL SCH (08:57)
[2017-02-11] MEDS: SODIUM CHLORIDE 0.9% FLUSH 10 ML FLUSH IV FLUSH SCH ×2 (08:57→21:24)
[2017-02-11] MEDS: REMOVE OLD PATCH T-DERMAL SCH (08:58)
[2017-02-12] VITALS (10 sets, daily range): BP systolic 107–134; BP diastolic 55–63; PULSE 73–91; RESP 18–22; TEMP 97.2–97.7; O2SAT 94–97
[2017-02-12] MEDS: INSULIN ASPART SUPPLEMENTAL SCALE SQ SCH ×4 (08:00→21:00)
[2017-02-12] MEDS: NICOTINE 21 MG/24 HR PATCH T-DERMAL SCH (09:00)
[2017-02-12] MEDS: FUROSEMIDE 40 MG/4 ML VIAL IV PUSH SCH ×2 (10:15→17:47)
[2017-02-12] MEDS: METOPROLOL SUCCINATE 50 MG EXTENDED RELEASE TAB PO SCH (10:16)
[2017-02-12] MEDS: ASPIRIN EC 81 MG TABEC PO SCH (10:16)
[2017-02-12] MEDS: POTASSIUM CHLORIDE 20 MEQ CONTROLLED RELEASE TAB PO SCH (10:16)
[2017-02-12] MEDS: THIAMINE HCL 100 MG TAB PO SCH (10:16)
[2017-02-12] MEDS: SODIUM CHLORIDE 0.9% FLUSH 10 ML FLUSH IV FLUSH SCH ×2 (10:16→23:08)
[2017-02-12] MEDS: AMIODARONE 200 MG TAB PO SCH (10:17)
--- NOTE | 2017-02-12 11:56 | HHI.PR ---
Subjective Remarks the chair eating breakfast. No n/v/d/c. Still with sob, improved some. No chest pain. LE improving. Objective Vitals Vital Signs Date Time Temp Pulse Resp B/P (MAP) Pulse Ox O2 Delivery O2 Flow Rate FiO2 02/12/17 09:49 94 Nasal Cannula 3.00 02/12/17 08:00 97.3 79 18 108/55 (72) 95 02/12/17 04:00 74 02/12/17 04:00 97.6 75 22 134/63 (86) 97 02/12/17 00:00 97.7 73 22 116/59 (78) 97 02/12/17 00:00 75 02/11/17 21:00 Nasal Cannula 3.00 02/11/17 20:00 76 02/11/17 20:00 97.6 78 22 126/60 (82) 96 02/11/17 16:34 73 02/11/17 16:00 97.2 75 20 121/59 (79) 96 02/11/17 12:00 74 02/11/17 12:00 97.3 77 20 102/51 (68) 92 I/O 02/11/17 02/11/17 02/11/17 02/12/17 02/12/17 02/12/17 07:00 15:00 23:00 07:00 15:00 23:00 Intake Total 480 ml 720 ml 720 ml Balance 480 ml 720 ml 720 ml Intake Oral 480 ml 720 ml 720 ml # Voids 4 4 3 # Bowel Movements 0 1 Result Diagram: 02/11/17 0723 02/11/17 0723 Imaging Last Impressions Myocardial Perfusion Scan Nuc Med 02/09/17 0000 Signed Impressions: Service Date/Time: January 16:53 - CONCLUSION: LV chamber dilatation and moderate LV dysfunction. Multi-territory perfusion abnormalities sparing the septum with moderate redistribution RISK CATEGORY: High (>3%% Annual Mortality Rate) Costa Pérez MD Chest X-Ray 02/08/17 1136 Signed Impressions: Service Date/Time: Wednesday, February 08, 2017 12:17 - CONCLUSION: CHF Costa Pérez MD CT Angiography 02/08/17 1136 Signed Impressions: Service Date/Time: Wednesday, February 08, 2017 13:18 - CONCLUSION: 1. Small areas of focal airspace disease in the upper lobes are probably postinflammatory. 2. Bibasilar effusions with a moderate collection on the right and small on the left. In combination with cardiomegaly, there may be an element of failure. 3. Postsurgical changes characteristic of prior anterior mediastinal surgical resection, possible aortic valve prosthesis and anterior upper abdominal wall hernia mesh repair. Patient may have had a splenectomy as well. 4. Borderline prominent mediastinal lymph nodes are probably postinflammatory 5. Hepatic fatty infiltration. 6. Small amount of ascites. 7. No PE. Thompson Berg MD Objective Remarks GENERAL: This is a well-nourished, well-developed patient, in no apparent distress. CARDIOVASCULAR: Regular rate and rhythm without murmurs, gallops, or rubs. RESPIRATORY: Clear to auscultation. Breath sounds equal bilaterally. No wheezes , rales, or rhonchi. GASTROINTESTINAL: Abdomen soft, non-tender, nondistended. No hepato-splenomegaly , or palpable masses. No guarding. MUSCULOSKELETAL: Extremities without clubbing, cyanosis, or edema. No joint tenderness, effusion, or edema noted. No calf tenderness. Negative Homans sign bilaterally. NEUROLOGICAL: Awake and alert. Cranial nerves II through XII intact. Motor and sensory grossly within normal limits. Five out of 5 muscle strength in all muscle groups. Normal speech. A/P Problem List: (1) Acute exacerbation of CHF (congestive heart failure) ICD Code: I50.9 - Heart failure, unspecified (2) Elevated troponin ICD Code: R74.8 - Abnormal levels of other serum enzymes Status: Acute (3) Dyspnea on exertion ICD Code: R06.09 - Other forms of dyspnea Status: Acute (4) Pleural effusion ICD Code: J90 - Pleural effusion, not elsewhere classified Status: Acute Assessment and Plan 61-year-old man with Acute exacerbation of CHF Aortic stenosis possible worsening. Patient with h/o Aortic valve replacement. CXR reviewed by me with finding of CHF CTA noted and review by me without any PE Received Lasix 40 mg IV 1 in ED. Continue Lasix 20 mg IV every 12 hours. CHF education, strict I's and O's 2-D echo reviewed Cardiology consultation, seen by Dr Li appreciate recommendation. Had ANJALI, per cardiology no need for new TAVR. Continue diuresis.Nuclear test results was reviewed with the patient and also with Dr. Li.'s plan for cardiac catheterization on Monday02/13/17. Will put on hold Eliquis starting tomorrow 02/11/17 . O2 supplement keep O2 saturation > 92% Paroxysmal A. fib Status post electrical cardioversion 02/07/17 Resume Eliquis, amiodarone, aspirin Monitor on telemetry Hypertension Resume oral antihypertensive medications Diabetes type 2 A1c pending Hold oral hypoglycemic agents Start insulin sliding scale Alcohol abuse Alcohol cessation counseling provided ZACK Tse protocol Tobacco use Tobacco cessation, counseled Nicotine patch DVT prophylaxis: Eliquis Code Status Full code Discussed Condition With Patient, nurse DC plan: not ready for DC. Nuclear test results was reviewed with the patient and also with Dr. Li.'s plan for cardiac catheterization on Monday02/13/17. Will put on hold Eliquis starting 02/11/17 discussed with pharmacist, patient and nurse. Ruthie Boo MD Feb 12, 2017 11:56
[2017-02-12] MEDS ORDERED: ENOXAPARIN SODIUM 150 MG/ML SYRINGE SQ ONE (20:00)
[2017-02-12] MEDS: REMOVE OLD PATCH T-DERMAL SCH (21:00)
[2017-02-12] MEDS: TEMAZEPAM 15 MG CAP PO PRN (23:13)
[2017-02-13] VITALS (14 sets, daily range): BP systolic 115–153; BP diastolic 56–73; PULSE 69–104; RESP 18–24; TEMP 97.1–98; O2SAT 92–95
[2017-02-13 07:21] LABS: AUTOMATED NEUTROPHIL # 7.7 TH/MM3 (1.8-7.7); BASOPHIL # 0.1 TH/MM3 (0-0.2); BASOPHIL % 0.8 % (0.0-2.0); EOSINOPHIL # 0.3 TH/MM3 (0-0.4); EOSINOPHIL % 2.3 % (0.0-4.0); HEMATOCRIT 47.6 % (39.0-51.0); HEMO FLAGS DIFF FINAL; LYMPH % 22.2 % (9.0-44.0); LYMPHOCYTE # 2.6 TH/MM3 (1.0-4.8); MEAN CELL VOLUME 108.4 FL (80.0-100.0); MEAN CORPUSCULAR HEMOGLOBIN 37.1 PG (27.0-34.0); MEAN CORPUSCULAR HGB CONC 34.3 % (32.0-36.0); MONO % 10.3 % (0.0-8.0); NEUT % 64.4 % (16.0-70.0); PLATELET COUNT 268 TH/MM3 (150-450); RED CELL DISTRIBUTION WIDTH 14.7 % (11.6-17.2); WHITE BLOOD COUNT 11.9 TH/MM3 (4.0-11.0)
[2017-02-13 07:54] LABS: BICARBONATE 30.5 MEQ/L (21.0-32.0)
[2017-02-13 07:58] LABS: POTASSIUM 3.8 MEQ/L (3.5-5.1)
[2017-02-13] MEDS: INSULIN ASPART SUPPLEMENTAL SCALE SQ SCH ×4 (08:00→21:00)
[2017-02-13] MEDS: METOPROLOL SUCCINATE 50 MG EXTENDED RELEASE TAB PO SCH (08:47)
[2017-02-13] MEDS: THIAMINE HCL 100 MG TAB PO SCH (08:47)
[2017-02-13] MEDS: AMIODARONE 200 MG TAB PO SCH (08:48)
[2017-02-13] MEDS: FUROSEMIDE 40 MG/4 ML VIAL IV PUSH SCH ×2 (08:48→17:42)
[2017-02-13] MEDS: POTASSIUM CHLORIDE 20 MEQ CONTROLLED RELEASE TAB PO SCH (08:48)
[2017-02-13] MEDS: SODIUM CHLORIDE 0.9% FLUSH 10 ML FLUSH IV FLUSH SCH ×2 (08:48→21:08)
[2017-02-13] MEDS: NICOTINE 21 MG/24 HR PATCH T-DERMAL SCH (08:49)
[2017-02-13] MEDS: ASPIRIN EC 81 MG TABEC PO SCH (08:49)
[2017-02-13] MEDS: SODIUM CHLOR 0.9% 1000 ML INJ 1,000 ML IV SCH ×2 (08:49→10:45)
--- NOTE | 2017-02-13 10:28 | HHI.PR ---
Subjective Remarks In the chair say he is still sob, however improved some. Also LE edema improved but nit much. No chest pain or palpitations. No n/v/d/c. No cough. Plan for cardiac cath today Objective Vitals Vital Signs Date Time Temp Pulse Resp B/P (MAP) Pulse Ox O2 Delivery O2 Flow Rate FiO2 02/13/17 08:00 97.6 80 20 153/69 (97) 94 02/13/17 04:00 Nasal Cannula 3.00 02/13/17 04:00 97.2 73 18 128/57 (80) 94 02/13/17 04:00 69 02/13/17 00:00 97.1 75 18 116/56 (76) 95 02/13/17 00:00 73 02/12/17 20:40 Nasal Cannula 3.00 02/12/17 20:00 97.4 78 18 113/56 (75) 96 02/12/17 20:00 79 02/12/17 16:10 77 02/12/17 16:00 97.4 75 18 107/55 (72) 97 02/12/17 12:10 75 02/12/17 12:00 97.2 74 18 129/61 (83) 96 I/O 02/12/17 02/12/17 02/12/17 02/13/17 02/13/17 02/13/17 07:00 15:00 23:00 07:00 15:00 23:00 Intake Total 720 ml 480 ml 240 ml Balance 720 ml 480 ml 240 ml Intake Oral 720 ml 480 ml 240 ml # Voids 3 4 4 # Bowel Movements 0 Result Diagram: 02/13/17 0600 02/13/17 0600 Imaging Last Impressions Myocardial Perfusion Scan Nuc Med 02/09/17 0000 Signed Impressions: Service Date/Time: January 16:53 - CONCLUSION: LV chamber dilatation and moderate LV dysfunction. Multi-territory perfusion abnormalities sparing the septum with moderate redistribution RISK CATEGORY: High (>3%% Annual Mortality Rate) Costa Pérez MD Chest X-Ray 02/08/17 1136 Signed Impressions: Service Date/Time: Wednesday, February 08, 2017 12:17 - CONCLUSION: CHF Costa Pérez MD CT Angiography 02/08/17 1136 Signed Impressions: Service Date/Time: Wednesday, February 08, 2017 13:18 - CONCLUSION: 1. Small areas of focal airspace disease in the upper lobes are probably postinflammatory. 2. Bibasilar effusions with a moderate collection on the right and small on the left. In combination with cardiomegaly, there may be an element of failure. 3. Postsurgical changes characteristic of prior anterior mediastinal surgical resection, possible aortic valve prosthesis and anterior upper abdominal wall hernia mesh repair. Patient may have had a splenectomy as well. 4. Borderline prominent mediastinal lymph nodes are probably postinflammatory 5. Hepatic fatty infiltration. 6. Small amount of ascites. 7. No PE. Thompson Berg MD Objective Remarks GENERAL: This is a well-nourished, well-developed patient, in no apparent distress. CARDIOVASCULAR: Regular rate and rhythm without murmurs, gallops, or rubs. RESPIRATORY: Clear to auscultation. Breath sounds equal bilaterally. No wheezes , rales, or rhonchi. GASTROINTESTINAL: Abdomen soft, non-tender, nondistended. No hepato-splenomegaly , or palpable masses. No guarding. MUSCULOSKELETAL: Extremities without clubbing, cyanosis, or edema. No joint tenderness, effusion, or edema noted. No calf tenderness. Negative Homans sign bilaterally. NEUROLOGICAL: Awake and alert. Cranial nerves II through XII intact. Motor and sensory grossly within normal limits. Five out of 5 muscle strength in all muscle groups. Normal speech. A/P Problem List: (1) Acute exacerbation of CHF (congestive heart failure) ICD Code: I50.9 - Heart failure, unspecified (2) Elevated troponin ICD Code: R74.8 - Abnormal levels of other serum enzymes Status: Acute (3) Dyspnea on exertion ICD Code: R06.09 - Other forms of dyspnea Status: Acute (4) Pleural effusion ICD Code: J90 - Pleural effusion, not elsewhere classified Status: Acute Assessment and Plan 61-year-old man with Acute exacerbation of CHF Aortic stenosis possible worsening. Patient with h/o Aortic valve replacement. CXR reviewed by me with finding of CHF CTA noted and review by me without any PE Received Lasix 40 mg IV 1 in ED. Continue Lasix 20 mg IV every 12 hours. CHF education, strict I's and O's 2-D echo reviewed Cardiology consultation, seen by Dr Li appreciate recommendation. Had ANJALI, per cardiology no need for new TAVR. Continue diuresis.Nuclear test results was reviewed with the patient and also with Dr. Li.'s plan for cardiac catheterization on Monday02/13/17. Will put on hold Eliquis starting tomorrow 02/11/17 . O2 supplement keep O2 saturation > 92% Paroxysmal A. fib Status post electrical cardioversion 02/07/17 Resume Eliquis, amiodarone, aspirin Monitor on telemetry Hypertension Resume oral antihypertensive medications Diabetes type 2 A1c pending Hold oral hypoglycemic agents Start insulin sliding scale Alcohol abuse Alcohol cessation counseling provided Chris amaral, OSBALDOWA protocol Tobacco use Tobacco cessation, counseled Nicotine patch DVT prophylaxis: Eliquis Code Status Full code Discussed Condition With Patient, nurse DC plan: not ready for DC. Nuclear test results was reviewed with the patient and also with Dr. Li.'s plan for cardiac catheterization today 02/13/17. On hold Eliquis starting 02/11/17 discussed with pharmacist, patient and nurse. DC when improved and cleared by cardiology Ruthie Boo MD Feb 13, 2017 10:28
[2017-02-13] MEDS ORDERED: HEPARIN SODIUM - IV 10,000 UNITS/10 ML VIAL ONE (14:04)
[2017-02-13] MEDS ORDERED: VERAPAMIL HCL 5 MG/2 ML VIAL ONE (14:04)
[2017-02-13] MEDS ORDERED: MIDAZOLAM HCL 2 MG/2 ML VIAL ONE (14:04)
[2017-02-13] MEDS ORDERED: HEPARIN-NS/PF INJ 1,000 ML ONE (14:06)
[2017-02-13] MEDS ORDERED: TIROFIBAN INFUSION INJ 250 ML IV ONE (15:20)
[2017-02-13] MEDS: TIROFIBAN INFUSION INJ 250 ML IV SCH ×2 (15:27→21:44)
[2017-02-13] MEDS ORDERED: CLOPIDOGREL 300 MG TAB ONE (15:30)
--- NOTE | 2017-02-13 15:45 | CATHPROC ---
[address] HIS Report Study Information Study Number Admission Scheduled Start Study Start [id number] Feb 08 2017 2:39PM 02/10/2017 Feb 13 2017 2:00PM [place] Service Cardiac Catheterization Admit Source Facility Department Other [facility] - Field Marketing Lead Physician and Clinical Staff Initial Campbell Bahena Hammer Repairer Rupinder Macedo,RUBEN Hammer Repairer Kam MIRANDA, Yadiel Orlelana cathlab, cathlab Recorder Erik Monk RCIS(BS) Scrub Janice Ramachandran RT(R) (BS) Procedures Performed Procedure Location (Site) Vessel Name Coronary Angiograms LCA Left Coronary Coronary Angiograms RCA Right Coronary Drug Eluting Inflatio RCA Mid Right Coronary IVUS RCA Mid Right Coronary L Heart Cath LV Gram-hand inj. LV LV Ventricle Wire insertion Radial (right) Radial Art. Equipment Time Varnish Mixer Description Size Mfg Part Number Used/Scraped [id number] 15:09 [employer] CRITICAL CARE WIRE, ASAHI PROWATER 180CM 180CM Used *[id number] TRANSDUCER, TRUWAVE [id number] 14:02 VASQUEZ SINHA * Used W/STOCKCOCK *[id number] *[id number] [id number] *[id number] 534-648T *[id number] 534-623T *[id number] 534-542T *[id number] 14:02 MALLINCKRODT SYRINGE, ANGIOMAT 150ML 150ML *[id number] Used 2S CoreOS CONCEPT DRAPE, RADIAL FEMORAL FULL 14:02 * [id number] *[id number] Used DEVELOPMENT BODY [id number] 14:02 [employer] PACK, CCL CUSTOM * Used *[id number] 14:02 [employer] SUPPORT, ARTERIAL ADULT [id number] *[id number] Used [id number] 14:02 [employer] PACER PEN, SKIN DUAL W/ RULER * Used *[id number] 15:23 MEDTRONIC STENT, 5.0 15MM FABIO 5.0 15MM [id number] Used [id number] 15:25 [email or web address] 30 DEJAN INDEFLATOR Used *[id number] BAND, RADIAL COMPRESSION TR [id number] 14:54 [email or web address] 29CM Used LARGE 29 *[id number] SHEATH, FR6 RADIAL PRELUDE 14:02 [email or web address] FR 6 [id number] Used EASE 11CM [id number] 14:02 [employer] WIRE, EXCHANGE 260CM 3MMJ 260CM Used *[id number] 14:02 NAMIC MANIFOLD, 4 PORT * Used *[id number] 14:02 NYCOMED OMNIPAQUE, 350 MG, 150ML 150ML [id number] Used [id number] 14:02 POMERENE [employer] BLANKET,WARM AIR CCL * Used *[id number] CATHETER, FR5 OPTITORQUE [id number] 14:11 [employer] FR 5 Used RADIAL TIG 4.0 *[id number] CATHETER, [facility] [place] [id number] 15:02 VOL[employer]O Used IMAGING *[id number] Equipment Model, Serial, Lot Number and Expiration Data Description Model Number Serial Number Lot Number Expiration Date CATHETER, [employer] [facility] [place] [id number] 12-10-2018 IMAGING STENT, 5.0 15MM FABIO [id number] 09-30-2018 History: Current Medications Medication Dosage/Unit Route Frequency Last Date/Time Taken Beta Salome ASA LOVENOX History: Allergies Allergy Reaction No Known Allergies History: Risk Factors Family History of Hypertension Dyslipidemia Previous MN Previous Heart Failure Premature CAD Yes Yes No No Yes Prior Valve Prior PCI Prior CABG Surgery Yes No No Cerebrovascular Peripheral Artery Chronic Lung On Dialysis Diabetes Diabetes Therapy Disease Disease Disease No No No Yes Yes Oral History: Symptoms/Diagnosis Selection Items Chest pain History: Stress Tests Stress or Imaging Studies Performed Yes Standard Exercise Stress Test No Stress Echo No Stress Test SPECT Stress Test SPECT Result Stress Test SPECT Ischemia Risk/Extent Yes Positive High Stress Test CMR No Cardiac CTA Coronary Calcium Score No No History: Other Disease Selection Items HTN History: Other Current Smoker No Labs Hgb (g/dl) Hct (%) WBC (l/cumm) Platelets (thousands) 11.60-17.00 35.00-51.00 4.00-11.00 150.00-450.00 16.3 47.6 11.4 268 Glucose (mg/dl) BUN (mg/dl) Creatinine (mg/dl) BUN:Creatinine (1:x) 74.00-106.00 7.00-18.00 0.50-1.30 10.00-20.00 107 19 1.1 17.3 Na (meq/l) K (meq/l) 136.00-145.00 3.50-5.10 137 3.8 INR (PTT:PT) 0.90-1.10 1.2 Troponin I (ng/ml) CPK (u/l) CPK-MB (ng/ML) 0.02-0.05 26.00-308.00 0.50-3.60 0.15 108 1.8 Medication Medication Total Dose (Bolus/Oral) Medication Total Dosage/Unit 1% XYLOCAINE 3 mL AGGRASTAT BOLUS 75 mL HEPARIN 4000 units OXYGEN 4 l/min PLAVIX 600 mg RADIAL COCKTAIL 5 mL (Bolus) VERSED 1 mg Medications (Bolus/Oral) Medication Time Given Dosage/Unit Administered By Reason OXYGEN 02/13/2017 2:04:02 PM 4 l/min Rupinder Macedo 4 l/min OXYGEN given in lab by Rupinder Macedo, RUBEN via Nasal. Ordered by Campbell Li. VERSED 02/13/2017 2:24:00 PM 1 mg Rupinder Macedo 1 mg VERSED given in lab by Rupinder Macedo RN in Left Antecubital via Peripheral IV. Ordered by Campbell Pepe. 1% XYLOCAINE 02/13/2017 2:27:01 PM 3 mL Campbell Li 3 mL 1% XYLOCAINE given in lab by Campbell Li in Right Radial via Subcutaneous. Ntg 300mcg Verapamil 2.5mg Heparin RADIAL COCKTAIL 02/13/2017 2:29:06 PM 5 mL (Bolus) Campbell Li 2500U 5 mL (Bolus) RADIAL COCKTAIL given in lab by Campbell Li in Right Groin via Radial. Using [Solution Name]. Reason: Ntg 300mcg Verapamil 2.5mg Heparin 2500U. HEPARIN 02/13/2017 3:02:56 PM 4000 units Rupinder Macedo 4000 units HEPARIN given in lab by Rupinder Macedo, RUBEN in Right Antecubital via Peripheral IV. Ordere d by Campbell Li. AGGRASTAT BOLUS 02/13/2017 3:22:18 PM 75 mL Rupinder Macedo 75 mL AGGRASTAT BOLUS given in lab by Rupinder Macedo RN in Right Antecubital via Peripheral IV. Ord ered by Campbell Li. PLAVIX 02/13/2017 3:34:00 PM 600 mg Rupinder Macedo 600 mg PLAVIX given in lab by Rupinder Macedo, RUBEN via Oral. Ordered by Campbell Li. Medication (Drip) Medication Time Given Dosage/Unit Concentration/Unit Diluent (ml) Solution AGGRASTAT DRIP 02/13/2017 3:27:53 PM 0.15 mcg/kg/min 12.5 mg 250 NaCl .9 0.15 mcg/kg/min AGGRASTAT DRIP given in lab by Rupinder Macedo, RN in Right Antecubital via Periphera l IV. Pump/Drip Flow = 28.15 ml/hr using NaCl .9 with a concentration of 12.5 mg in 250 ml. Ordered by Campbell Li. IV Solutions 02/13/2017 2:00:11 PM 0 mL (IV) 500 NaCl .9 Patient arrived on IV Solutions given by cathsarah cordero in Right Antecubital via Peripheral IV. Pum p/Drip Flow = 20 ml/hr using NaCl .9. Ordered by Campbell Li. Initial Case Assessment Cardiovascular HR Rhythm NIBP Chest Pain 77 nsr 128/74 0 Edema Present Skin color Skin None Normal Warm Dry Circulatory - Right Pulses Dorsalis Pedis Femoral Radial 2 2 2 Scale (0,1,2,3,4,d) Scale (0,1,2,3,4,d) Neurological State Oriented to time-place- Alert Moves all extremities person Respiration - General Respiration Rate SpO2 (%) (B/min) 15 95 Initial Case Assessment Cardiovascular HR Rhythm NIBP Chest Pain 79 nsr 131/66 0 Edema Present Skin color Skin None Normal Warm Dry Circulatory - Right Pulses Dorsalis Pedis Femoral Radial 2 2 2 Scale (0,1,2,3,4,d) Scale (0,1,2,3,4,d) Neurological State Oriented to time-place- Alert Moves all extremities person Respiration - General Respiration Rate SpO2 (%) (B/min) 15 94 Chronological Log Time Study Chronological Log 14:00:02 Patient arrived via Bed. 14:00:02 Patient Name, D.O.B, / Armband Verified By R.N. 14:00:03 Consent signed by the physician and the patient and verified by the Field Marketing Lead staff. 14:00:03 Pre-op and post- op instructions given; patient acknowledges understanding of instructions. 14:00:04 Verbal Stimulation=2 Physical Stimulation=2 Airway=1 Respiration=2 TOTAL=7. (0=absent, 1=li mited, 2=present) 14:00:05 Presedation assessment performed by Field Marketing Lead RN. 14:00:06 Allens test performed on the right radial and ulnar artery. POSITIVE. 14:00:06 Immediate Presedation assesment performed by physician. 14:00:07 Patient has been NPO for More than 6Hrs. 14:00:07 Skin Breakdown- none per patient 14:00:08 Patient Warmer Placed on the Table. 14:00:10 Elizabeth Prominences Protected 14:00:10 A # 18 IV was noted in the Antecubital (right). Grade = 0 Patient arrived on IV Solutions given by cathlab cathlab in Right Antecubital via Peripheral I V. Pump/Drip Flow = 20 14:00:11 ml/hr using NaCl .9. Ordered by Campbell Li. 14:00:12 History and physical on the chart or being dictated. Vitals capture started with the following parameters, Patient=Adult, Interval=5 min, Initial Pr jqcleq=086 mmHg, 14:03:10 Deflation Rate=5 mmHg, Cuff placed on Right Arm 14:03:49 HR=83 bpm, QQHG=703/74 mmhg, SpO2=95.0 %, Resp=9 B/min, Pain=0, Mary=9, Mcduffie=2 14:04:02 4 l/min OXYGEN given in lab by Rupinder Macedo RN via Nasal. Ordered by Campbell Li. Assessment: Initial Case, HR=77 BPM, Rhythm=nsr, IYJU=833/74 mmhg, Chest Pain=0, Edema=None, Co elie=Normal, Skin = Warm, Dry 14:04:32 Right Pulses: Vinod Ped=2, Femoral=2, Radial=2 Neurological: State=Alert, Ox3, SOLOMON Respiration: Resp=15 B/min, SpO2=95 % 14:08:46 HR=76 bpm, RMUL=699/66 mmhg, SpO2=93.0 %, Resp=20 B/min, Pain=0, Mary=9, Mcduffie=2 14:13:48 HR=74 bpm, FHNF=765/60 mmhg, SpO2=94.0 %, Resp=19 B/min, Pain=0, Mary=9, Mcduffie=2 14:16:17 Reference ECG taken 14:16:21 Right radil prepped with 2% chlorhexidine, and draped after a 3 min. waiting time. 14:17:49 MD paged 14:18:42 HR=76 bpm, EOIQ=671/66 mmhg, SpO2=94.0 %, Resp=20 B/min, Pain=0, Mary=9, Mcduffie=2 14:19:16 MD responded 14:23:08 Pressure channel 1 zeroed. 14:23:13 MD arrived. 14:23:16 Contrast Scanned 14::17 Immediate Presedation assesment performed by physician. 14:23:44 HR=75 bpm, CPKW=342/64 mmhg, SpO2=95.0 %, Resp=17 B/min, Pain=0, Mary=9, Mcduffie=2 14:24:00 1 mg VERSED given in lab by Rupinder Macedo, RN in Left Antecubital via Peripheral IV. Orde red by Campbell Li. Time Out. Correct patient, correct procedure, correct physician, power injector not loaded with contrast with surgical 14::29 team present. Time Out Concurred by MD and individual staff in procedure. 14:26:36 Case Start 14:26:36 Verbal Stimulation=2 Physical Stimulation=2 Airway=1 Respiration=2 TOTAL=7. (0=absent, 1=li mited, 2=present) 14:27:01 3 mL 1% XYLOCAINE given in lab by Campbell Li in Right Radial via Subcutaneous. 14:28:45 HR=75 bpm, NTDN=698/64 mmhg, SpO2=92.0 %, Pain=0, Mary=9, Mcduffie=2 14::49 Access site was Right Radial Artery. A SHEATH, FR6 RADIAL PRELUDE EASE 11CM FR 6 was advanced into the Radial (right) using the Perc utaneous 14:28:57 technique. 5 mL (Bolus) RADIAL COCKTAIL given in lab by Campbell Li in Right Groin via Radial. Using [Jessika ution Name]. Reason: 14:29:06 Ntg 300mcg Verapamil 2.5mg Heparin 2500U. A CATHETER, FR5 OPTITORQUE RADIAL TIG 4.0 FR 5 was advanced over a wire. OMNIPAQUE, 350 MG, 150 ML 150ML 14:29:48 was used for injections. 14:33:34 The LCA was injected and visualized at various angles. OMNIPAQUE, 350 MG, 150ML 150ML used . 14:33:48 HR=84 bpm, JFGO=570/63 mmhg, SpO2=90.0 %, Resp=8 B/min, Pain=0, Mary=9, Mcduffie=2 After removing the current catheter a JR 5.0 INFINITI CATHETER FR 6 was advanced over a WIRE, E XCHANGE 260CM 14:37:17 3MMJ 260CM. 14:38:47 HR=78 bpm, YZMH=925/68 mmhg, SpO2=91.0 %, Resp=18 B/min, Pain=0, Mary=9, Mcduffie=2 14:41:01 The RCA was injected and visualized at various angles. OMNIPAQUE, 350 MG, 150ML 150ML used . After removing the current catheter a AR MOD INFINITI CATHETER FR 6 was advanced over a WIRE, E XCHANGE 260CM 14:43:29 3MMJ 260CM. 14:43:50 HR=77 bpm, SMWU=168/63 mmhg, SpO2=91.0 %, Resp=11 B/min, Pain=0, Mary=9, Mcduffie=2 14:48:47 HR=85 bpm, KVTS=860/67 mmhg, SpO2=90.0 %, Resp=16 B/min, Pain=0, Mary=9, Mcduffie=2 After removing the current catheter a AL 1 INFINITI CATHETER FR 6 was advanced over a WIRE, EXC HANGE 260CM 14:49:29 3MMJ 260CM. 14:52:47 The RCA was injected and visualized at various angles. OMNIPAQUE, 350 MG, 150ML 150ML used . 14:53:05 The LCA was injected and visualized at various angles. OMNIPAQUE, 350 MG, 150ML 150ML used . 14:53:50 HR=76 bpm, VUUB=686/58 mmhg, SpO2=91.0 %, Pain=0, Mary=9, Mcduffie=2 After removing the current catheter a MPA-2 INFINITI CATHETER FR 5 was advanced over a WIRE, EX CHANGE 260CM 14:55:36 3MMJ 260CM. Recorded Pressure: LV, HR=79, Condition=Condition 1 14:57:27 (Left Ventricle) LV 159/80/45 14:57:32 The LV was manually injected with 10 cc's and visualized. OMNIPAQUE, 350 MG, 150ML 150ML us ed. Recorded Pressure: LV, Ao, HR=32, Condition=Condition 1 14:57:41 (Left Ventricle) LV ?/?/?, (Aorta) Ao 125/41/79 14:57:58 Catheter was removed 14:58:49 HR=49 bpm, KKGQ=498/74 mmhg, SpO2=90 %, Resp=11 B/min, Pain=0, Mary=9, Mcduffie=2 After removing the current catheter a AL 1 GUIDE CATHETER FR 6 was advanced over a WIRE, [employer] GE 260CM 14:59:08 3MMJ 260CM. 4000 units HEPARIN given in lab by Rupinder Macedo, RN in Right Antecubital via Peripheral IV. Ordered by Jen 15:02:56 Campbell. 15:03:48 FVXS=020/64 mmhg, SpO2=90.0 % 15:08:23 A WIRE, [employer] 180CM 180CM was inserted via Radial (right). 15:08:35 Interventional wire has crossed the lesion 15:08:40 An CATHETER, [facility] [employer] [employer] was advanced through the lesion. Images saved o [employer] IVUS hard drive 15:08:49 HR=75 bpm, AJME=166/66 mmhg, SpO2=92 %, Pain=0, Mary=9, Mcduffie=2 15:11:19 IVUS in progress using CATHETER, [facility] [place] IM[facility] 15:13:50 HR=77 bpm, RVZL=781/63 mmhg, SpO2=90.0 %, Resp=19 B/min, Pain=0, Mary=9, Mcduffie=2 15:18:51 HR=77 bpm, SIHL=083/67 mmhg, SpO2=90.0 %, Pain=0, Mary=9, Mcduffie=2 15:19:30 IVUS catheter removed 75 mL AGGRASTAT BOLUS given in lab by Rupinder Macedo, RN in Right Antecubital via Peripheral I V. Ordered by 15:22:18 Campbell Li. 15:23:50 HR=76 bpm, VCVT=010/67 mmhg, SpO2=91.0 %, Pain=0, Mary=9, Mcduffie=2 A STENT, 5.0 15MM FABIO 5.0 15MM was advanced through a AL 1 GUIDE CATHETER FR 6 over a WIRE, AHI 15:24:15 PROWATER 180CM 180CM. A STENT, 5.0 15MM FABIO 5.0 15MM was deployed using a 30 DEJAN INDEFLATOR at 15 atmospheres for 30 seconds in 15::58 the RCA Mid. 15::57 Delivery device removed 0.15 mcg/kg/min AGGRASTAT DRIP given in lab by Rupinder Macedo, RN in Right Antecubital via Per ipheral IV. 15:27:53 Pump/Drip Flow = 28.15 ml/hr using NaCl .9 with a concentration of 12.5 mg in 250 ml. Ordered b Campbell Ding. 15:28:05 An CATHETER, [facility] [employer] [employer] was advanced through the lesion. Images saved on to IVUS hard drive 15:28:49 HR=78 bpm, NGOL=502/66 mmhg, SpO2=93.0 % 15:29:10 IVUS in progress using CATHETER, [facility] [employer] [facility] 15:29:10 IVUS catheter removed 15:30:08 Catheter was removed 15:30:10 Case End Assessment: Initial Case, HR=79 BPM, Rhythm=nsr, SCUT=017/66 mmhg, Chest Pain=0, Edema=None, Co elie=Normal, Skin = Warm, Dry 15:30:31 Right Pulses: Vinod Ped=2, Femoral=2, Radial=2 Neurological: State=Alert, Ox3, SOLOMON Respiration: Resp=15 B/min, SpO2=94 % 15:30:47 Catheter(s) removed without difficulty 15::58 Sterile dressing applied to site 15::58 No case complications noted. 15:30:59 Cine recording checked. 15:31:01 Holding Area notified of successful intervention. 15:31:02 Bedside Report will be given. 15:31:03 Implantable Device card placed in patient's chart. 15:31:04 Contrast Scanned 15:31:05 Verbal Stimulation=2 Physical Stimulation=2 Airway=1 Respiration=2 TOTAL=7. (0=absent, 1=li mited, 2=present) 15:31:12 A Left Heart Cath was performed. 15:31:40 Activated Clotting Time Drawn Radial Compression Device Used. 12 mLs of air placed in BAND, RADIAL COMPRESSION TR LARGE 29 29 CM. Affected 15:32:02 hand 95 % O2 saturation. 15:34:00 600 mg PLAVIX given in lab by Rupinder Macedo RN via Oral. Ordered by Campbell Li. 15:35:44 Vitals capture stopped. 15:39:11 ACT (Normal Range 90-180) = 277 15:39:33 Patient moved to stretcher End Study - Contrast Media Used In Study Contrast Total Opened (mL) Total Used (mL) Total Wasted (mL) Omnipaque 155 155 0 End Study - Maximum Contrast Load Max Contrast Load (mL) 711.0 End Study - Radiation Exposure Fluoro Time (minutes) 21.1 End Study - Patient Disposition Complications Transferred To Interventional Outcome No Field Marketing Lead Holding successful
[2017-02-13] MEDS ORDERED: SODIUM CHLOR 0.9% 1000 ML INJ 1,000 ML IV SCH (15:49)
--- NOTE | 2017-02-13 15:49 | PD.CARD.PN ---
Subjective Subjective Remarks Dyspnea, moderate to severe, overall improved. No CP, palpitations, dizziness , PND. Objective Medications Item Value Date Time Metoprolol 25 mg 02/10/17 0845 Tartrate RN ANESTHESIOLOGY PRN/PO (Lopressor) Amiodarone HCl 200 mg 02/09/17 0900 (Cordarone) DAILY/PO 02/13/17 0848 Aspirin 81 mg 02/09/17 0900 (Ecotrin Ec) DAILY/PO 02/13/17 0849 Potassium Chloride 20 meq 02/09/17 0900 (KCl) DAILY/PO 02/13/17 0848 Metoprolol 100 mg 02/09/17 0900 Succinate DAILY/PO 02/13/17 0847 (Toprol Xl) Furosemide 40 mg 02/08/17 1800 (Lasix Inj) BID@/IV PUSH 02/13/17 0848 Current Medications Medications (Trade) Dose Ordered Sig/Esvin Route Start Time Stop Time Status Last Admin (Cordarone) 200 mg DAILY PO 02/09/17 09:00 02/13/17 08:48 (Ecotrin Ec) 81 mg DAILY PO 02/09/17 09:00 02/13/17 08:49 (KCl) 20 meq DAILY PO 02/09/17 09:00 02/13/17 08:48 (Toprol Xl) 100 mg DAILY PO 02/09/17 09:00 02/13/17 08:47 (D50w (Vial) Inj) 50 ml UNSCH PRN IV PUSH 02/08/17 14:30 (Glucagon Inj) 1 mg UNSCH PRN OTHER 02/08/17 14:30 (NovoLOG SUPPLEMENTAL SCALE) 1 ACHS SLIDING SCALE SQ 02/08/17 17:00 02/12/17 17:00 (NS Flush) 2 ml UNSCH PRN IV FLUSH 02/08/17 14:30 (NS Flush) 2 ml BID IV FLUSH 02/08/17 21:00 02/13/17 08:48 (Tylenol) 650 mg Q4H PRN PO 02/08/17 14:30 (Zofran Inj) 4 mg Q6H PRN IV PUSH 02/08/17 14:30 (Rosario-Colace) 1 tab BID PRN PO 02/08/17 14:30 (Restoril) 15 mg HS PRN PO 02/08/17 14:30 02/12/17 23:13 (Vasotec Inj) 2.5 mg Q6H PRN IV PUSH 02/08/17 14:30 (Duoneb Neb) 1 ampule Q2HR NEB PRN NEB 02/08/17 14:30 02/11/17 08:04 (Lasix Inj) 40 mg BID@09,18 IV PUSH 02/08/17 18:00 02/13/17 08:48 (Vitamin B1) 100 mg DAILY PO 02/09/17 09:00 02/13/17 08:47 (Habitrol 21 Mg Patch.24 Hr) 1 patch DAILY T-DERMAL 02/09/17 09:00 Miscellaneous Information 1 HS T-DERMAL 02/08/17 21:00 02/08/17 21:00 (Romazicon Inj) 0.2 mg Q1M PRN IV PUSH 02/08/17 15:15 (Ativan) 1 mg Q4H PRN PO 02/08/17 15:15 (Ativan Inj) 1 mg Q4H PRN IV PUSH 02/08/17 15:15 (Ativan) 2 mg Q2H PRN PO 02/08/17 15:15 (Ativan Inj) 2 mg Q2H PRN IV PUSH 02/08/17 15:15 (Ativan Inj) 2 mg Q1H PRN IV PUSH 02/08/17 15:15 (Ativan Inj) 2 mg Q15M PRN IV PUSH 02/08/17 15:15 Sodium Chloride 1,000 ml @ 75 mls/hr [id number] IV 02/10/17 16:05 02/15/17 16:04 02/13/17 10:45 (Benadryl) 50 mg RN ANESTHESIOLOGY PO 02/10/17 16:15 02/14/17 16:14 02/13/17 12:25 (Valium) 10 mg RN ANESTHESIOLOGY PO 02/10/17 16:15 02/14/17 16:14 02/13/17 12:25 (Versed Inj) 1 mg RN ANESTHESIOLOGY IV PUSH 02/10/17 16:15 02/14/17 16:14 Vital Signs / I&O Vital Signs Date Time Temp Pulse Resp B/P (MAP) Pulse Ox O2 Delivery O2 Flow Rate FiO2 02/13/17 12:00 97.3 83 20 127/59 (81) 95 02/13/17 12:00 72 02/13/17 08:00 97.6 80 20 153/69 (97) 94 02/13/17 08:00 97 02/13/17 04:00 Nasal Cannula 3.00 02/13/17 04:00 97.2 73 18 128/57 (80) 94 02/13/17 04:00 69 02/13/17 00:00 97.1 75 18 116/56 (76) 95 02/13/17 00:00 73 02/12/17 20:40 Nasal Cannula 3.00 02/12/17 20:00 97.4 78 18 113/56 (75) 96 02/12/17 20:00 79 02/12/17 16:10 77 02/12/17 16:00 97.4 75 18 107/55 (72) 97 I/O 02/12/17 02/12/17 02/12/17 02/13/17 02/13/17 02/13/17 07:00 15:00 23:00 07:00 15:00 23:00 Intake Total 720 ml 480 ml 240 ml Output Total 950 ml Balance 720 ml 480 ml 240 ml -950 ml Intake Oral 720 ml 480 ml 240 ml Output Urine Total 950 ml # Voids 3 4 4 # Bowel Movements 0 Physical Exam GENERAL: Well developed, well nourished. No acute distress. HEENT: Jugular venous pressure is normal. CHEST: Lungs clear to auscultation anteriorly. CARDIAC: Regular rate and rhythm without S3, S4. II/ OJ RUSB with moderately diminished S2. ABDOMEN: Soft, nontender, no hepatosplenomegaly. Bowel sounds present. EXTREMITIES: No clubbing, cyanosis, or edema. Laboratory Laboratory Tests Test 02/13/17 06:00 White Blood Count 11.9 TH/MM3 Red Blood Count 4.40 MIL/MM3 Hemoglobin 16.3 GM/DL Hematocrit 47.6 % Mean Corpuscular Volume 108.4 FL Mean Corpuscular Hemoglobin 37.1 PG Mean Corpuscular Hemoglobin Concent 34.3 % Red Cell Distribution Width 14.7 % Platelet Count 268 TH/MM3 Mean Platelet Volume 8.7 FL Neutrophils (%) (Auto) 64.4 % Lymphocytes (%) (Auto) 22.2 % Monocytes (%) (Auto) 10.3 % Eosinophils (%) (Auto) 2.3 % Basophils (%) (Auto) 0.8 % Neutrophils # (Auto) 7.7 TH/MM3 Lymphocytes # (Auto) 2.6 TH/MM3 Monocytes # (Auto) 1.2 TH/MM3 Eosinophils # (Auto) 0.3 TH/MM3 Basophils # (Auto) 0.1 TH/MM3 CBC Comment DIFF FINAL Differential Comment Blood Urea Nitrogen 19 MG/DL Creatinine 1.18 MG/DL Random Glucose 107 MG/DL Calcium Level 8.4 MG/DL Sodium Level 137 MEQ/L Potassium Level 3.8 MEQ/L Chloride Level 100 MEQ/L Carbon Dioxide Level 30.5 MEQ/L Anion Gap 7 MEQ/L Estimat Glomerular Filtration Rate 63 ML/MIN Assessment and Plan Problem List: (1) Congestive heart failure (CHF) ICD Codes: I50.9 - Heart failure, unspecified Plan: Overall improved. Precipitating factor for CHF not entirely clear. Possibly myocardial ischemia based on all testing. EF 55% on ANJALI. Difficult imaging of AVR but appears to have adequate leaflet opening and moderate AI. No AVR gradient seen on cath. REC continued IV furosemide diuresis continue metoprolol (2) Elevated troponin ICD Codes: R74.8 - Abnormal levels of other serum enzymes Status: Acute Plan: Cath today shows borderline hemodynamically significant proximal RCA disease, stented with 5.0 mm SVEN. Rec Plavix, baby aspirin, resume Eliquis. (3) History of aortic valve replacement ICD Codes: Z95.2 - Presence of prosthetic heart valve Status: Chronic Plan: Able to cross patient's AVR during cath today. No gradient demonstrated. Possibly moderate AI by ANJALI, to follow chronically. (4) Paroxysmal atrial fibrillation ICD Codes: I48.0 - Paroxysmal atrial fibrillation Status: Chronic Plan: Stable s/p recent cardioversion. Resume anticoagulation therapy, continue Amiodarone, beta veena. (5) Hypertension ICD Codes: I10 - Essential (primary) hypertension Status: Chronic Plan: Stable. Normotensive. Code Status full code Discussed Condition With patient Problem Qualifiers (1) Congestive heart failure (CHF): Qualified Codes: I50.9 - Heart failure, unspecified (2) Hypertension: Qualified Codes: I10 - Essential (primary) hypertension Campbell Li MD Feb 13, 2017 15:49
[2017-02-13] MEDS ORDERED: TEMAZEPAM 15 MG CAP PO PRN (16:00)
--- NOTE | 2017-02-13 16:13 | MA ---
cc: ANJALI FELTON M.D. DATE 02/13/2017 PROCEDURE Difficult left heart catheterization, selective coronary angiography, intravascular ultrasound imaging and stent of the proximal right coronary. PROCEDURE NOTE The patient was brought to the cardiac catheterization laboratory in a fasting state after having signed informed consent. The right radial region was prepped and draped as per policy and anesthetized with 1% lidocaine. Arterial access was obtained via the right radial artery and a 6-Mozambican sheath placed. Coronary arteriography was initially done using 6-Mozambican Dover catheter for the left coronaries and Charan right 5.0 for the right coronary. However shots were suboptimal due to patient movement and the patient's body habitus. He was also severely dyspneic during the case. Additional shots of the right were taken with an Amplatz left 1.0 catheter. This was also used to take additional shots of the left coronary system. Intravascular ultrasound imaging and percutaneous coronary intervention was done as described below. There were no apparent immediate complications. The patient's aortic valve bioprosthesis was crossed briefly with the J-tip wire in combination with a multipurpose catheter without difficulty. HEMODYNAMIC RESULTS Left ventricle 125 with a end-diastolic pressure roughly 20. Aorta 125/41 with a mean of 79. There was no significant transvalvular aortic gradient on pullback of the pigtail catheter. CORONARY ARTERIOGRAPHY The left main is a fairly large caliber vessel with minimal distal disease. The left anterior descending gives rise to a large diagonal. There are minimal luminal irregularities throughout the LAD system and throughout the diagonal. The left circumflex is a relatively small vessel giving rise to a medium sized obtuse marginal. There is up to 10% proximal left circumflex stenosis and 15% proximal obtuse marginal disease. The right coronary artery is a large dominant vessel with diffuse overall mild disease except for area an proximally which appears to be hazy. LEFT VENTRICULOGRAPHY Not done. The patient's aortic bioprosthesis was crossed to obtain a transvalvular gradient. INTRAVASCULAR ULTRASOUND IMAGING Due to the hazy nature of the proximal right coronary disease, it was decided to perform intravascular ultrasound imaging. Heparin was given to achieve an ACT greater than 250 seconds. Using a 6-Mozambican Amplatz left 1.0 guiding catheter the ostium of the right coronary artery was re-engaged. A 0.014 [place] guidewire was used to cross the area of interest without difficulty and the tip of the wire positioned distally. A Adcade ultrasound catheter was used. The region of interest does show minimal to mild calcification. There is also homogeneous relatively smooth plaque in this region. Measurements were taken of the plaque and lumen diameter. The area stenosis was measured at 63%. The diameter stenosis appears to be at least 60-65%. Therefore, it was decided to stent this region. The ultrasound catheter was exchanged for a 5.0 x 15-mm Resolute Chapo stent which was deployed at 15 atmospheres for 30 seconds. Final angiography shows resolution of the haziness in this region. Repeat ultrasound imaging also shows good deployment of the stent with good symmetry and apposition of the stent edges. There were no apparent immediate complications. The patient tolerated the procedures well. Aggrastat was also administered during the case as per protocol. CONCLUSION 1. Status post intravascular ultrasound imaging confirming the presence of hemodynamically significant disease in the proximal right coronary, now status post drug eluting stenting of this region. 2. Of note, the aortic valve prosthesis was crossed and no significant transvalvular aortic gradient was demonstrated. 3. Overall minimal to mild disease of the left coronary system. MD REBECA Kimball/YASMIN /3:39 PM /3:54 PM MTDTricia
[2017-02-13] MEDS: RESP: ALBUTEROL 2.5 MG/IPRATROPIUM 0.5 MG NEB (PRN) NEB ×2 (16:52→20:14)
[2017-02-13] MEDS ORDERED: FUROSEMIDE 40 MG/4 ML VIAL IV PUSH ONE (20:45)
[2017-02-13] MEDS: REMOVE OLD PATCH T-DERMAL SCH (21:00)
[2017-02-13] MEDS: ATORVASTATIN 10 MG TAB PO SCH (21:00)
[2017-02-13] MEDS: APIXABAN 5 MG TABLET PO SCH (21:07)
[2017-02-14] VITALS (25 sets, daily range): BP systolic 87–126; BP diastolic 51–73; PULSE 74–120; RESP 20–22; TEMP 97.6–98.4; O2SAT 91–93
[2017-02-14] MEDS ORDERED: DILTIAZEM HCL 25 MG/5 ML VIAL IV ONE (04:45)
[2017-02-14 05:35] LABS: AUTOMATED NEUTROPHIL # 6.7 TH/MM3 (1.8-7.7); BASOPHIL # 0.1 TH/MM3 (0-0.2); EOSINOPHIL # 0.3 TH/MM3 (0-0.4); EOSINOPHIL % 2.7 % (0.0-4.0); HEMATOCRIT 49.1 % (39.0-51.0); HEMO FLAGS DIFF FINAL; LYMPH % 20.9 % (9.0-44.0); LYMPHOCYTE # 2.2 TH/MM3 (1.0-4.8); MEAN CELL VOLUME 107.6 FL (80.0-100.0); MEAN CORPUSCULAR HEMOGLOBIN 36.5 PG (27.0-34.0); MEAN CORPUSCULAR HGB CONC 33.9 % (32.0-36.0); NEUT % 63.4 % (16.0-70.0); PLATELET COUNT 279 TH/MM3 (150-450); RED BLOOD COUNT 4.56 MIL/MM3 (4.50-5.90); RED CELL DISTRIBUTION WIDTH 14.6 % (11.6-17.2); WHITE BLOOD COUNT 10.5 TH/MM3 (4.0-11.0)
[2017-02-14 06:01] LABS: BICARBONATE 28.4 MEQ/L (21.0-32.0); POTASSIUM 3.1 MEQ/L (3.5-5.1)
[2017-02-14] MEDS: TIROFIBAN INFUSION INJ 250 ML IV SCH (07:29)
[2017-02-14] MEDS: INSULIN ASPART SUPPLEMENTAL SCALE SQ SCH ×4 (08:00→20:54)
--- NOTE | 2017-02-14 08:10 | HHI.PR ---
Subjective Remarks in no acute distress. on four liters of oxygen via N/C. denies chest pain. good urine output. Objective Vitals Vital Signs Date Time Temp Pulse Resp B/P (MAP) Pulse Ox O2 Delivery O2 Flow Rate FiO2 02/14/17 07:00 103 02/14/17 07:00 98.4 95 22 126/58 (80) 93 Manual Cuff/Auscultation 02/14/17 07:00 93 Nasal Cannula 4.00 Humidified 02/14/17 06:11 94 02/14/17 05:01 111 02/14/17 04:30 120 02/14/17 03:45 114 02/14/17 03:45 3.00 02/14/17 03:45 97.8 104 20 122/73 (89) 93 02/14/17 02:02 98 02/14/17 01:45 97 02/14/17 00:00 100 02/13/17 23:40 104 02/13/17 23:40 98.0 98 20 115/63 (80) 92 02/13/17 23:40 3.00 02/13/17 22:00 98 02/13/17 21:00 100 02/13/17 20:00 99 02/13/17 19:40 Nasal Cannula 4.00 02/13/17 19:40 97.9 89 21 146/73 (97) 92 02/13/17 19:00 102 02/13/17 18:00 80 02/13/17 17:00 78 02/13/17 16:52 92 Nasal Cannula 4.00 02/13/17 16:45 81 02/13/17 16:45 97.8 82 24 133/63 (86) 92 02/13/17 12:00 97.3 83 20 127/59 (81) 95 02/13/17 12:00 72 I/O 02/13/17 02/13/17 02/13/17 02/14/17 02/14/17 02/14/17 07:00 15:00 23:00 07:00 15:00 23:00 Intake Total 240 ml 720 ml Output Total 950 ml 2675 ml Balance 240 ml -950 ml -1955 ml Intake Oral 240 ml 720 ml Output Urine Total 950 ml 2675 ml # Voids 4 # Bowel Movements 0 0 Result Diagram: 02/14/1752202/14/1723 Imaging Last Impressions Myocardial Perfusion Scan Nuc Med 02/09/17 0000 Signed Impressions: Service Date/Time: January 16:53 - CONCLUSION: LV chamber dilatation and moderate LV dysfunction. Multi-territory perfusion abnormalities sparing the septum with moderate redistribution RISK CATEGORY: High (>3%% Annual Mortality Rate) Costa Pérez MD Chest X-Ray 02/08/17 1136 Signed Impressions: Service Date/Time: Wednesday, February 08, 2017 12:17 - CONCLUSION: CHF Costa Pérez MD CT Angiography 02/08/17 1136 Signed Impressions: Service Date/Time: Wednesday, February 08, 2017 13:18 - CONCLUSION: 1. Small areas of focal airspace disease in the upper lobes are probably postinflammatory. 2. Bibasilar effusions with a moderate collection on the right and small on the left. In combination with cardiomegaly, there may be an element of failure. 3. Postsurgical changes characteristic of prior anterior mediastinal surgical resection, possible aortic valve prosthesis and anterior upper abdominal wall hernia mesh repair. Patient may have had a splenectomy as well. 4. Borderline prominent mediastinal lymph nodes are probably postinflammatory 5. Hepatic fatty infiltration. 6. Small amount of ascites. 7. No PE. Thompson Berg MD Objective Remarks GENERAL: with some sob- but in no acute distress. CARDIOVASCULAR: Regular rate and regular rhythm without murmurs, gallops, or rubs. RESPIRATORY: Clear to auscultation. Breath sounds equal bilaterally. No wheezes , rales, or rhonchi. GASTROINTESTINAL: Abdomen soft, non-tender, nondistended. Normal, active bowel sounds MUSCULOSKELETAL: Extremities with bilateral pedal edema. NEURO: Alert & Oriented x4 to person, place, time, situation. Moves all ext x4 Procedures cardiac cath ANJALI Medications and IVs Current Medications Sodium Chloride (NS Flush) 2 ml UNSCH PRN IVF FLUSH AFTER USING IV ACCESS; Start 02/08/17 at 11:45; Stop 02/08/17 at 15:47; Status DC Iohexol (Omnipaque 350 Inj) 68 ml STK-MED ONCE IVCONTRAST Last administered on 02/08/17t 13:33; Start 02/08/17 at 13:33; Stop 02/08/17 at 13:34; Status DC Furosemide (Lasix Inj) 40 mg ONCE ONCE IV PUSH Last administered on 14:06; Start 02/08/17 at 14:15; Stop 02/08/17 at 14:16; Status DC Amiodarone HCl (Cordarone) 200 mg DAILY PO Last administered on 02/13/17 08:48 ; Start 02/09/17 at 09:00 Apixaban (Eliquis) 5 mg BID PO Last administered on 02/10/17 21:38; Start at 21:00; Stop 02/10/17 at 23:59; Status DC Aspirin (Ecotrin Ec) 81 mg DAILY PO Last administered on 02/13/17 08:49; Start 02/09/17 at 09:00 Potassium Chloride (KCl) 20 meq DAILY PO Last administered on 02/13/17 08:48; Start 02/09/17 at 09:00 Metoprolol Succinate (Toprol Xl) 100 mg DAILY PO Last administered on 08:47; Start 02/09/17 at 09:00 Dextrose (D50w (Vial) Inj) 50 ml UNSCH PRN IV PUSH HYPOGLYCEMIA-SEE COMMENTS; Start 02/08/17 at 14:30 Glucagon (Glucagon Inj) 1 mg UNSCH PRN OTHER HYPOGLYCEMIA-SEE COMMENTS; Start 02/08/17 at 14:30 Insulin Aspart (NovoLOG SUPPLEMENTAL SCALE) 1 ACHS SLIDING SCALE SQ Last administered on 02/12/17 17:00; Start 02/08/17 at 17:00 Sodium Chloride (NS Flush) 2 ml UNSCH PRN IV FLUSH FLUSH AFTER USING IV ACCESS ; Start 02/08/17 at 14:30 Sodium Chloride (NS Flush) 2 ml BID IV FLUSH Last administered on 02/13/17 21: 08; Start 02/08/17 at 21:00 Acetaminophen (Tylenol) 650 mg Q4H PRN PO Temp > 100.4; Start 02/08/17 at 14: 30 Ondansetron HCl (Zofran Inj) 4 mg Q6H PRN IV PUSH NAUSEA; Start 02/08/17 at 14 :30 Senna/Docusate Sodium (Rosario-Colace) 1 tab BID PRN PO CONSTIPATION; Start 02/08 at 14:30 Temazepam (Restoril) 15 mg HS PRN PO INSOMNIA Last administered on 02/12/17 23 :13; Start 02/08/17 at 14:30 Furosemide (Lasix Inj) 20 mg BID@,18 IV PUSH ; Start 02/08/17 at 18:00; Stop 02/08/17 at 18:00; Status DC Enalaprilat (Vasotec Inj) 2.5 mg Q6H PRN IV PUSH SBP>160, DBP>90; Start at 14:30 Albuterol/ Ipratropium (Duoneb Neb) 1 ampule Q2HR NEB PRN NEB SOB/WHEEZING Last administered on 02/13/17 20:14; Start 02/08/17 at 14:30 Furosemide (Lasix Inj) 40 mg BID@,18 IV PUSH Last administered on 02/13/17 17:42; Start 02/08/17 at 18:00 Thiamine HCl (Vitamin B1) 100 mg DAILY PO Last administered on 02/13/17 08:47 ; Start 02/09/17 at 09:00 Nicotine (Habitrol 21 Mg Patch.24 Hr) 1 patch DAILY T-DERMAL ; Start 02/09/17 at 09:00 Miscellaneous Information 1 HS T-DERMAL Last administered on 02/08/17 21:00; Start 02/08/17 at 21:00 Flumazenil (Romazicon Inj) 0.2 mg Q1M PRN IV PUSH SEE LABEL COMMENTS; Start at 15:15 Lorazepam (Ativan) 1 mg Q4H PRN PO CIWA 8 - 10; Start 02/08/17 at 15:15 Lorazepam (Ativan Inj) 1 mg Q4H PRN IV PUSH CIWA 8 - 10; Start 02/08/17 at 15: 15 Lorazepam (Ativan) 2 mg Q2H PRN PO CIWA 11-14; Start 02/08/17 at 15:15 Lorazepam (Ativan Inj) 2 mg Q2H PRN IV PUSH CIWA 11-14; Start 02/08/17 at 15: 15 Lorazepam (Ativan Inj) 2 mg Q1H PRN IV PUSH CIWA 15-20; Start 02/08/17 at 15: 15 Lorazepam (Ativan Inj) 2 mg Q15M PRN IV PUSH CIWA > 20; Start 02/08/17 at 15: 15 Lactated Ringer's 1,000 ml @ 30 mls/hr Q24H PRN IV SEE LABEL COMMENTS; Start 02/10/17 at 08:45; Stop 02/13/17 at 08:44; Status DC Sodium Chloride 500 ml @ 30 mls/hr [id number] PRN IV SEE LABEL COMMENTS; Start at 08:45; Stop 02/13/17 at 08:44; Status DC Metoprolol Tartrate (Lopressor) 25 mg CONSTRUCTION EQUIPMENT MECHANIC HELPER PRN PO SEE LABEL COMMENTS; Start 02/10/17 at 08:45; Stop 02/13/17 at 08:44; Status DC Povidone Iodine (Betadine 5% Antisepsis Kit) 1 applic CONSTRUCTION EQUIPMENT MECHANIC HELPER PRN EACH NARE SEE LABEL COMMENTS; Start 02/10/17 at 08:45; Stop 02/13/17 at 08:44; Status DC Chlorhexidine Gluconate (Chlorhexidine 2% Cloth) 3 pack CONSTRUCTION EQUIPMENT MECHANIC HELPER PRN TOPICAL SEE LABEL COMMENTS; Start 02/10/17 at 08:45; Stop 02/13/17 at 08:44; Status DC Insulin Human Regular (NovoLIN R INJ) See Protocol Table ... CONSTRUCTION EQUIPMENT MECHANIC HELPER PRN SQ SEE PROTOCOL TABLE; Start 02/10/17 at 08:45; Stop 02/13/17 at 08:44; Status DC Enoxaparin Sodium (Lovenox Inj) 150 mg ONCE ONCE SQ Last administered on 23:08; Start 02/12/17 at 20:00; Stop 02/12/17 at 20:01; Status DC Sodium Chloride 1,000 ml @ 75 mls/hr [id number] IV Last administered on 10:45; Start 02/10/17 at 16:05; Stop 02/13/17 at 20:01; Status DC Diphenhydramine HCl (Benadryl) 50 mg CONSTRUCTION EQUIPMENT MECHANIC HELPER PO Last administered on 12:25; Start 02/10/17 at 16:15; Stop 02/14/17 at 16:14 Diazepam (Valium) 10 mg CONSTRUCTION EQUIPMENT MECHANIC HELPER PO Last administered on 02/13/17 12:25; Start 02/10/17 at 16:15; Stop 02/14/17 at 16:14 Midazolam HCl (Versed Inj) 1 mg CONSTRUCTION EQUIPMENT MECHANIC HELPER IV PUSH ; Start 02/10/17 at 16:15; Stop 02/14/17 at 16:14 Midazolam HCl (Versed Inj) 2 mg STK-MED ONCE .ROUTE Last administered on 14:24; Start 02/13/17 at 14:04; Stop 02/13/17 at 14:05; Status DC Verapamil HCl (Isoptin Inj) 5 mg STK-MED ONCE .ROUTE Last administered on 14:29; Start 02/13/17 at 14:04; Stop 02/13/17 at 14:05; Status DC Heparin Sodium (Porcine) (Heparin Inj) 10,000 units STK-MED ONCE .ROUTE Last administered on 02/13/17 14:29; Start 02/13/17 at 14:04; Stop 02/13/17 at 14:05 ; Status DC Heparin Sodium/ Sodium Chloride 1,000 ml @ As Directed STK-MED ONCE .ROUTE Last administered on 02/13/17 14:06; Start 02/13/17 at 14:06; Stop 02/13/17 at 14:07; Status DC Tirofiban/Sodium Chloride 250 ml @ As Directed STK-MED ONCE IV ; Start at 15:20; Stop 02/13/17 at 15:21; Status DC Clopidogrel Bisulfate (Plavix) 600 mg STK-MED ONCE .ROUTE Last administered on 02/13/17 15:34; Start 02/13/17 at 15:30; Stop 02/13/17 at 15:31; Status DC Sodium Chloride 1,000 ml @ 75 mls/hr [id number] IV Last administered on 15:49; Start 02/13/17 at 15:49; Stop 02/13/17 at 20:01; Status DC Temazepam (Restoril) 15 mg HS PRN PO SLEEP; Start 02/13/17 at 16:00 Aspirin (Aspirin Chew) 81 mg DAILY PO ; Start 02/14/17 at 09:00 Clopidogrel Bisulfate (Plavix) 75 mg DAILY PO ; Start 02/14/17 at 09:00 Tirofiban/Sodium Chloride 250 ml @ 28.152 mls/ hr Q8H53M IV Last administered on 02/14/17 07:29; Start 02/13/17 at 15:49; Stop 02/14/17 at 09:48 Atorvastatin Calcium (Lipitor) 40 mg HS PO Last administered on 02/13/17 21:00 ; Start 02/13/17 at 21:00 Apixaban (Eliquis) 5 mg BID PO Last administered on 02/13/17 21:07; Start 02/13/17 at 21:00 Furosemide (Lasix Inj) 40 mg ONCE ONCE IV PUSH Last administered on 02/13/17 21:08; Start 02/13/17 at 20:45; Stop 02/13/17 at 20:46; Status DC Diltiazem HCl (Cardizem Inj) 38 mg NOW ONCE IV ; Start 02/14/17 at 04:45; Stop 02/14/17 at 04:46; Status DC A/P Problem List: (1) Acute exacerbation of CHF (congestive heart failure) ICD Code: I50.9 - Heart failure, unspecified (2) Elevated troponin ICD Code: R74.8 - Abnormal levels of other serum enzymes Status: Acute (3) Dyspnea on exertion ICD Code: R06.09 - Other forms of dyspnea Status: Acute (4) Pleural effusion ICD Code: J90 - Pleural effusion, not elsewhere classified Status: Acute Assessment and Plan A/P Acute exacerbation of CHF Aortic stenosis possible worsening. Patient with h/o Aortic valve replacement. CTA noted without any PE Continue Lasix 20 mg IV every 12 hours. CHF education, strict I's and O's Cardiology consultation, seen by Dr Li appreciate recommendation. Had ANJALI, per cardiology no need for new TAVR. s/p cardiac cath with RCA stenosis- s/p stent placement. continue aspirin, plavix, BB and statin. O2 supplement keep O2 saturation > 90%- will taper down the oxygen slowly. walk test before discharge. Paroxysmal A. fib Status post electrical cardioversion 02/07/17 Resume Eliquis, amiodarone, aspirin Monitor on telemetry Hypertension Resume oral antihypertensive medications Diabetes type 2 A1c 5.9. Hold oral hypoglycemic agents Started insulin sliding scale Alcohol abuse Alcohol cessation counseling provided Rally munir, CIWA protocol Tobacco use Tobacco cessation, counseled Nicotine patch hypokalemia;will replace and monitor. DVT prophylaxis: Eliquis Discharge Planning not ready for discharge today;still on four liters of oxygen. walk test before discharge. d/w the RN. couldn't reach the daughter-will try again tomorrow; [phone] ( Delia Singleton ). Paula Weston MD Feb 14, 2017 08:10
[2017-02-14] MEDS ORDERED: POTASSIUM CHLORIDE 20 MEQ CONTROLLED RELEASE TAB PO ONE ×2 (08:15→12:00)
--- NOTE | 2017-02-14 08:34 | PD.CARD.PN ---
Subjective Subjective Remarks No dyspnea at rest. Moderate to severe dyspnea with minimal exertion. No CP, palpitations, dizziness, PND. Objective Medications Item Value Date Time Aspirin 81 mg 02/14/17 0900 (Aspirin Chew) DAILY/PO Clopidogrel 75 mg 02/14/17 0900 Bisulfate DAILY/PO (Plavix) Atorvastatin 40 mg 02/13/17 2100 Calcium HS/PO 02/13/17 2100 (Lipitor) Apixaban 5 mg 02/13/17 2100 (Eliquis) BID/PO 02/13/17 210 Tirofiban/Sodium 250 ml @ 28.152 mls/hr 02/13/17 1549 Chloride .Q8H53M/IV 02/14/17 0729 Amiodarone HCl 200 mg 02/09/17 0900 (Cordarone) DAILY/PO 02/13/17 0848 Aspirin 81 mg 02/09/17 0900 (Ecotrin Ec) DAILY/PO 02/13/17 0849 Potassium Chloride 20 meq 02/09/17 0900 (KCl) DAILY/PO 02/13/17 0848 Metoprolol 100 mg 02/09/17 0900 Succinate DAILY/PO 02/13/17 0847 (Toprol Xl) Furosemide 40 mg 02/08/17 1800 (Lasix Inj) BID@18/IV PUSH 02/13/17 1742 Current Medications Medications (Trade) Dose Ordered Sig/Esvin Route Start Time Stop Time Status Last Admin (Cordarone) 200 mg DAILY PO 02/09/17 09:00 02/13/17 08:48 (Ecotrin Ec) 81 mg DAILY PO 02/09/17 09:00 02/13/17 08:49 (KCl) 20 meq DAILY PO 02/09/17 09:00 02/13/17 08:48 (Toprol Xl) 100 mg DAILY PO 02/09/17 09:00 02/13/17 08:47 (D50w (Vial) Inj) 50 ml UNSCH PRN IV PUSH 02/08/17 14:30 (Glucagon Inj) 1 mg UNSCH PRN OTHER 02/08/17 14:30 (NovoLOG SUPPLEMENTAL SCALE) 1 ACHS SLIDING SCALE SQ 02/08/17 17:00 02/12/17 17:00 (NS Flush) 2 ml UNSCH PRN IV FLUSH 02/08/17 14:30 (NS Flush) 2 ml BID IV FLUSH 02/08/17 21:00 02/13/17 21:08 (Tylenol) 650 mg Q4H PRN PO 02/08/17 14:30 (Zofran Inj) 4 mg Q6H PRN IV PUSH 02/08/17 14:30 (Rosario-Colace) 1 tab BID PRN PO 02/08/17 14:30 (Restoril) 15 mg HS PRN PO 02/08/17 14:30 02/12/17 23:13 (Vasotec Inj) 2.5 mg Q6H PRN IV PUSH 02/08/17 14:30 (Duoneb Neb) 1 ampule Q2HR NEB PRN NEB 02/08/17 14:30 02/13/17 20:14 (Lasix Inj) 40 mg BID@,18 IV PUSH 02/08/17 18:00 02/13/17 17:42 (Vitamin B1) 100 mg DAILY PO 02/09/17 09:00 02/13/17 08:47 (Habitrol 21 Mg Patch.24 Hr) 1 patch DAILY T-DERMAL 02/09/17 09:00 Miscellaneous Information 1 HS T-DERMAL 02/08/17 21:00 02/08/17 21:00 (Romazicon Inj) 0.2 mg Q1M PRN IV PUSH 02/08/17 15:15 (Ativan) 1 mg Q4H PRN PO 02/08/17 15:15 (Ativan Inj) 1 mg Q4H PRN IV PUSH 02/08/17 15:15 (Ativan) 2 mg Q2H PRN PO 02/08/17 15:15 (Ativan Inj) 2 mg Q2H PRN IV PUSH 02/08/17 15:15 (Ativan Inj) 2 mg Q1H PRN IV PUSH 02/08/17 15:15 (Ativan Inj) 2 mg Q15M PRN IV PUSH 02/08/17 15:15 (Benadryl) 50 mg CONTINUOUS IMPROVEMENT SPECIALIST PO 02/10/17 16:15 02/14/17 16:14 02/13/17 12:25 (Valium) 10 mg CONTINUOUS IMPROVEMENT SPECIALIST PO 02/10/17 16:15 02/14/17 16:14 02/13/17 12:25 (Versed Inj) 1 mg CONTINUOUS IMPROVEMENT SPECIALIST IV PUSH 02/10/17 16:15 02/14/17 16:14 (Restoril) 15 mg HS PRN PO 02/13/17 16:00 (Aspirin Chew) 81 mg DAILY PO 02/14/17 09:00 (Plavix) 75 mg DAILY PO 02/14/17 09:00 Tirofiban/Sodium Chloride 250 ml @ 28.152 mls/ hr Q8H53M IV 02/13/17 15:49 02/14/17 09:48 02/14/17 07:29 (Lipitor) 40 mg HS PO 02/13/17 21:00 02/13/17 21:00 (Eliquis) 5 mg BID PO 02/13/17 21:00 02/13/17 21:07 (KCl) 40 meq ONCE ONCE PO 02/14/17 12:00 02/14/17 12:01 Vital Signs / I&O Vital Signs Date Time Temp Pulse Resp B/P (MAP) Pulse Ox O2 Delivery O2 Flow Rate FiO2 02/14/17 07:00 103 02/14/17 07:00 98.4 95 22 126/58 (80) 93 Manual Cuff/Auscultation 02/14/17 07:00 93 Nasal Cannula 4.00 Humidified 02/14/17 06:11 94 02/14/17 05:01 111 02/14/17 04:30 120 02/14/17 03:45 114 02/14/17 03:45 3.00 02/14/17 03:45 97.8 104 20 122/73 (89) 93 02/14/17 02:02 98 02/14/17 01:45 97 02/14/17 00:00 100 02/13/17 23:40 104 02/13/17 23:40 98.0 98 20 115/63 (80) 92 02/13/17 23:40 3.00 02/13/17 22:00 98 02/13/17 21:00 100 02/13/17 20:00 99 02/13/17 19:40 Nasal Cannula 4.00 02/13/17 19:40 97.9 89 21 146/73 (97) 92 02/13/17 19:00 102 02/13/17 18:00 80 02/13/17 17:00 78 02/13/17 16:52 92 Nasal Cannula 4.00 02/13/17 16:45 81 02/13/17 16:45 97.8 82 24 133/63 (86) 92 02/13/17 12:00 97.3 83 20 127/59 (81) 95 02/13/17 12:00 72 I/O 02/13/17 02/13/17 02/13/17 02/14/17 02/14/17 02/14/17 07:00 15:00 23:00 07:00 15:00 23:00 Intake Total 240 ml 720 ml Output Total 950 ml 2675 ml Balance 240 ml -950 ml -1955 ml Intake Oral 240 ml 720 ml Output Urine Total 950 ml 2675 ml # Voids 4 # Bowel Movements 0 0 Physical Exam GENERAL: Well developed, well nourished. No acute distress. HEENT: Jugular venous pressure is normal. CHEST: Lungs clear to auscultation anteriorly. CARDIAC: Irregular rate and rhythm without S3, S4. II/ OJ RUSB with mild to moderately diminished S2. ABDOMEN: Soft, nontender, no hepatosplenomegaly. Bowel sounds present. EXTREMITIES: No clubbing, cyanosis, or edema. Laboratory Laboratory Tests Test 02/14/17 05:23 White Blood Count 10.5 TH/MM3 Red Blood Count 4.56 MIL/MM3 Hemoglobin 16.7 GM/DL Hematocrit 49.1 % Mean Corpuscular Volume 107.6 FL Mean Corpuscular Hemoglobin 36.5 PG Mean Corpuscular Hemoglobin Concent 33.9 % Red Cell Distribution Width 14.6 % Platelet Count 279 TH/MM3 Mean Platelet Volume 7.9 FL Neutrophils (%) (Auto) 63.4 % Lymphocytes (%) (Auto) 20.9 % Monocytes (%) (Auto) 12.0 % Eosinophils (%) (Auto) 2.7 % Basophils (%) (Auto) 1.0 % Neutrophils # (Auto) 6.7 TH/MM3 Lymphocytes # (Auto) 2.2 TH/MM3 Monocytes # (Auto) 1.3 TH/MM3 Eosinophils # (Auto) 0.3 TH/MM3 Basophils # (Auto) 0.1 TH/MM3 CBC Comment DIFF FINAL Differential Comment Blood Urea Nitrogen 19 MG/DL Creatinine 1.14 MG/DL Random Glucose 105 MG/DL Calcium Level 8.0 MG/DL Sodium Level 137 MEQ/L Potassium Level 3.1 MEQ/L Chloride Level 101 MEQ/L Carbon Dioxide Level 28.4 MEQ/L Anion Gap 8 MEQ/L Estimat Glomerular Filtration Rate 66 ML/MIN Total Creatine Kinase 120 U/L Assessment and Plan Problem List: (1) Congestive heart failure (CHF) ICD Codes: I50.9 - Heart failure, unspecified Plan: Overall clinically improved. Precipitating factor for CHF not entirely clear. Possibly myocardial ischemia based on all testing. EF 55% on ANJALI. Difficult imaging of AVR but appears to have adequate leaflet opening and moderate AI. No AVR gradient seen on cath. REC continued IV furosemide diuresis, recheck CXR continue metoprolol (2) Elevated troponin ICD Codes: R74.8 - Abnormal levels of other serum enzymes Status: Acute Plan: Cath shows borderline hemodynamically significant proximal RCA disease, stented with 5.0 mm SVEN. Rec Plavix, baby aspirin (3) History of aortic valve replacement ICD Codes: Z95.2 - Presence of prosthetic heart valve Status: Chronic Plan: Able to cross patient's AVR during cath and no gradient demonstrated. Possibly moderate AI by ANJALI, to follow chronically. (4) Paroxysmal atrial fibrillation ICD Codes: I48.0 - Paroxysmal atrial fibrillation Status: Chronic Plan: Back in atrial fib, slightly elevated HR at rest. Will add Cardizem; continue Amiodarone, metoprolol. Consult Dr. Maradiaga for consideration of ablation. (5) Hypertension ICD Codes: I10 - Essential (primary) hypertension Status: Chronic Plan: Stable. Normotensive. Code Status full code Discussed Condition With patient Problem Qualifiers (1) Congestive heart failure (CHF): Qualified Codes: I50.9 - Heart failure, unspecified (2) Hypertension: Qualified Codes: I10 - Essential (primary) hypertension Campbell Li MD Feb 14, 2017 08:34
[2017-02-14] MEDS ORDERED: ASPIRIN 81 MG CHEW TAB PO SCH (09:00)
[2017-02-14] MEDS: NICOTINE 21 MG/24 HR PATCH T-DERMAL SCH (09:00)
[2017-02-14] MEDS: POTASSIUM CHLORIDE 20 MEQ CONTROLLED RELEASE TAB PO SCH (09:00)
[2017-02-14] MEDS ORDERED: DILTIAZEM-CD 120 MG CAP ER PO SCH (09:00)
[2017-02-14] MEDS: FUROSEMIDE 40 MG/4 ML VIAL IV PUSH SCH ×2 (09:04→17:29)
[2017-02-14] MEDS: SODIUM CHLORIDE 0.9% FLUSH 10 ML FLUSH IV FLUSH SCH ×2 (09:05→20:53)
[2017-02-14] MEDS: METOPROLOL SUCCINATE 50 MG EXTENDED RELEASE TAB PO SCH (09:06)
[2017-02-14] MEDS: ASPIRIN EC 81 MG TABEC PO SCH (09:07)
[2017-02-14] MEDS: APIXABAN 5 MG TABLET PO SCH ×2 (09:08→20:53)
[2017-02-14] MEDS: THIAMINE HCL 100 MG TAB PO SCH (09:10)
[2017-02-14] MEDS: CLOPIDOGREL 75 MG TAB PO SCH (09:10)
[2017-02-14] MEDS: AMIODARONE 200 MG TAB PO SCH (09:10)
--- NOTE | 2017-02-14 10:54 | RADRPT ---
EXAM DATE/TIME: 02/14/2017 10:13 [facility] COMPARISON: No previous studies available for comparison. INDICATIONS : Short of breath. MEDICAL HISTORY : Chronic obstructive pulmonary disease. Congestive heart failure. SURGICAL HISTORY : Coronary artery stent. aortic valve replaced twice ENCOUNTER: Initial ACUITY: 1 week PAIN SCORE: 0/10 LOCATION: Bilateral chest FINDINGS: Interstitial vascular pulmonary congestive changes are noted throughout both lungs. Heart is mildly enlarged. There is evidence of previous open heart surgery. Small bilateral effusions are identified. There is no evidence of consolidating airspace disease. CONCLUSION: 1. Mild congestive heart failure. 2. Cardiomegaly status post CABG. 3. Small bilateral effusions. Nestor Phan MD on February 14, 2017 at 10:50 Board Certified Radiologist. This report was verified electronically.
[2017-02-14] MEDS ORDERED: DIGOXIN 0.5 MG/2 ML VIAL IV PUSH ONE (13:30)
--- NOTE | 2017-02-14 14:22 | MB ---
cc: STEVE ENG M.D. DATE OF CONSULTATION: 02/14/2017 REASON FOR CONSULTATION: Atrial fibrillation with biventricular response unable to control with medication. HISTORY OF PRESENT ILLNESS: Mr. Vasquez is a 61-year-old gentleman <<0:21>> coronary artery disease, aortic valve replacement class I was in 2006 and previous episode of atrial fibrillation cardioversion on February 07, back again in atrial fibrillation with biventricular response on multiple medications, unable to control with medication. PTCA plus stent to RCA yesterday and I was consulted for evaluation and management. The chart was reviewed. The patient was evaluated. ALLERGIES None. SOCIAL HISTORY The patient denies smoking and drinking. FAMILY HISTORY Noncontributory to his current medical condition. MEDICATIONS 1. Aggrastat 2. Amiodarone 200 mg a day. 3. Eliquis 5 mg twice a day. 4. Aspirin 81 mg a day. 5. Lipitor 40 mg a day. 6. Plavix 75 mg a day is on. 7. Valium. 8. He is on Cardizem p.o. 120 mg a day. 9. P.r.n. Lasix. 10. Potassium. REVIEW OF SYSTEMS Currently refers some shortness of breath and palpitation but no chest pain or chest discomfort. PHYSICAL EXAMINATION: VITAL SIGNS: Physical exam, fully oriented. Blood pressure 108/60, pulse around 110, 118, respiratory rate 20 LUNGS: Ventilated CARDIOVASCULAR SYSTEM: S1-S2 irregular tachycardia. ABDOMEN: Abdomen is soft, obese. No mass or bruits. EXTREMITIES: No edema. RADIOLOGIC: Electrocardiogram on record shows sinus rhythm, Current telemetry showed atrial fibrillation, possible atrial tachycardia. LABORATORY DATA Hemoglobin is 16.71, blood cell 10.5, potassium is 3.1, creatinine 1.14, troponin 0.15, HDL is 30, total cholesterol 143, LDL is 91, INR 1.2. ASSESSMENT AND RECOMMENDATIONS Mr. Vasquez as atrial fibrillation. Rate very difficult to control. First failed previous cardioversion. He is on Cardizem, metoprolol and amiodarone. The gentleman just had a PTCA plus stent to RCA. He is on Eliquis aspirin and Plavix. Risks of bleeding is very high. At this point my recommendation is medical management. Usually in a month aspirin can be discontinued, and the patient going to be only on Plavix and Eliquis. If that is okay with Dr. Li. At that time then I will schedule ablation. I am going to add digoxin 0.5 mg IV one single dose and increase the Cardizem to 240 mg a day. Ablation will be done at this hospitalization except if the patient is very symptomatic and there is no other option for rate control. Case extensively discussed with him. I will monitor him during hospitalization. Steve Eng MD / /1:30 PM /1:50 PM
[2017-02-14] MEDS: ATORVASTATIN 10 MG TAB PO SCH (20:53)
[2017-02-14] MEDS: REMOVE OLD PATCH T-DERMAL SCH (20:54)
[2017-02-15] VITALS (21 sets, daily range): BP systolic 96–114; BP diastolic 56–58; PULSE 69–110; RESP 16–20; TEMP 97.6–98.2; O2SAT 92–95
[2017-02-15 05:16] LABS: POTASSIUM 3.7 MEQ/L (3.5-5.1)
--- NOTE | 2017-02-15 07:52 | HHI.PR ---
Subjective Remarks in no acute distress. currently on two liters of oxygen via N/C. no chest pain or dizziness. d/w the RN and no acute issues over night. Objective Vitals Vital Signs Date Time Temp Pulse Resp B/P (MAP) Pulse Ox O2 Delivery O2 Flow Rate FiO2 02/15/17 06:02 110 02/15/17 05:05 73 02/15/17 04:15 72 02/15/17 03:31 93 Nasal Cannula 2.00 02/15/17 03:31 97.6 85 19 114/56 (75) 92 02/15/17 03:06 76 02/15/17 02:09 85 02/15/17 01:03 79 02/15/17 00:33 77 02/14/17 23:44 92 Nasal Cannula 2.00 02/14/17 23:44 97.6 82 21 87/53 (64) 92 02/14/17 23:44 74 02/14/17 22:34 75 02/14/17 21:54 92 Nasal Cannula 3.00 02/14/17 21:44 86 02/14/17 20:15 92 Nasal Cannula 3.00 02/14/17 20:15 98.2 75 20 100/51 (67) 92 02/14/17 20:00 78 02/14/17 19:00 89 02/14/17 18:00 99 02/14/17 17:00 94 02/14/17 16:00 102 02/14/17 15:00 92 Nasal Cannula 4.00 Humidified 02/14/17 15:00 90 02/14/17 15:00 97.7 90 22 118/56 (76) 92 02/14/17 14:00 84 02/14/17 13:00 107 02/14/17 12:00 105 02/14/17 11:00 97.9 101 22 108/60 (76) 91 02/14/17 11:00 91 Nasal Cannula 4.00 Humidified 02/14/17 11:00 99 02/14/17 09:00 101 02/14/17 08:00 106 I/O 02/14/17 02/14/17 02/14/17 02/15/17 02/15/17 02/15/17 07:00 15:00 23:00 07:00 15:00 23:00 Intake Total 720 ml 100 ml 960 ml 480 ml Output Total 2675 ml 1700 ml Balance -1955 ml 100 ml 960 ml -1220 ml Intake Oral 720 ml 960 ml 480 ml IV Total 100 ml Output Urine Total 2675 ml 1700 ml # Voids 4 # Bowel Movements 0 0 Result Diagram: 02/14/17 0523 02/15/17 0444 Imaging Last Impressions Chest X-Ray 02/14/17 0000 Signed Impressions: Service Date/Time: Tuesday, February 14, 2017 10:13 - CONCLUSION: 1. Mild congestive heart failure. 2. Cardiomegaly status post CABG. 3. Small bilateral effusions. Nestor Phan MD Myocardial Perfusion Scan Nuc Med 02/09/17 0000 Signed Impressions: Service Date/Time: January 16:53 - CONCLUSION: LV chamber dilatation and moderate LV dysfunction. Multi-territory perfusion abnormalities sparing the septum with moderate redistribution RISK CATEGORY: High (>3%% Annual Mortality Rate) Costa Pérez MD CT Angiography 02/08/17 1136 Signed Impressions: Service Date/Time: Wednesday, February 08, 2017 13:18 - CONCLUSION: 1. Small areas of focal airspace disease in the upper lobes are probably postinflammatory. 2. Bibasilar effusions with a moderate collection on the right and small on the left. In combination with cardiomegaly, there may be an element of failure. 3. Postsurgical changes characteristic of prior anterior mediastinal surgical resection, possible aortic valve prosthesis and anterior upper abdominal wall hernia mesh repair. Patient may have had a splenectomy as well. 4. Borderline prominent mediastinal lymph nodes are probably postinflammatory 5. Hepatic fatty infiltration. 6. Small amount of ascites. 7. No PE. Thompson Berg MD Objective Remarks GENERAL: with some sob- but in no acute distress. CARDIOVASCULAR: Regular rate and regular rhythm without murmurs, gallops, or rubs. RESPIRATORY: Clear to auscultation. Breath sounds equal bilaterally. No wheezes , rales, or rhonchi. GASTROINTESTINAL: Abdomen soft, non-tender, nondistended. Normal, active bowel sounds MUSCULOSKELETAL: Extremities with bilateral pedal edema. NEURO: Alert & Oriented x4 to person, place, time, situation. Moves all ext x4 Procedures cardiac cath ANJALI Medications and IVs Current Medications Sodium Chloride (NS Flush) 2 ml UNSCH PRN IVF FLUSH AFTER USING IV ACCESS; Start 02/08/17 at 11:45; Stop 02/08/17 at 15:47; Status DC Iohexol (Omnipaque 350 Inj) 68 ml STK-MED ONCE IVCONTRAST Last administered on 02/08/17 13:33; Start 02/08/17 at 13:33; Stop 02/08/17 at 13:34; Status DC Furosemide (Lasix Inj) 40 mg ONCE ONCE IV PUSH Last administered on 14:06; Start 02/08/17 at 14:15; Stop 02/08/17 at 14:16; Status DC Amiodarone HCl (Cordarone) 200 mg DAILY PO Last administered on 02/14/17 09:10 ; Start 02/09/17 at 09:00 Apixaban (Eliquis) 5 mg BID PO Last administered on 02/10/17 21:38; Start at 21:00; Stop 02/10/17 at 23:59; Status DC Aspirin (Ecotrin Ec) 81 mg DAILY PO Last administered on 02/14/17 09:07; Start 02/09/17 at 09:00 Potassium Chloride (KCl) 20 meq DAILY PO Last administered on 02/13/17 08:48; Start 02/09/17 at 09:00 Metoprolol Succinate (Toprol Xl) 100 mg DAILY PO Last administered on 09:06; Start 02/09/17 at 09:00 Dextrose (D50w (Vial) Inj) 50 ml UNSCH PRN IV PUSH HYPOGLYCEMIA-SEE COMMENTS; Start 02/08/17 at 14:30 Glucagon (Glucagon Inj) 1 mg UNSCH PRN OTHER HYPOGLYCEMIA-SEE COMMENTS; Start 02/08/17 at 14:30 Insulin Aspart (NovoLOG SUPPLEMENTAL SCALE) 1 ACHS SLIDING SCALE SQ Last administered on 02/12/17 17:00; Start 02/08/17 at 17:00 Sodium Chloride (NS Flush) 2 ml UNSCH PRN IV FLUSH FLUSH AFTER USING IV ACCESS ; Start 02/08/17 at 14:30 Sodium Chloride (NS Flush) 2 ml BID IV FLUSH Last administered on 02/14/17 20: 53; Start 02/08/17 at 21:00 Acetaminophen (Tylenol) 650 mg Q4H PRN PO Temp > 100.4; Start 02/08/17 at 14: 30 Ondansetron HCl (Zofran Inj) 4 mg Q6H PRN IV PUSH NAUSEA; Start 02/08/17 at 14 :30 Senna/Docusate Sodium (Rosario-Colace) 1 tab BID PRN PO CONSTIPATION; Start 02/08 at 14:30 Temazepam (Restoril) 15 mg HS PRN PO INSOMNIA Last administered on 02/12/17 23 :13; Start 02/08/17 at 14:30 Furosemide (Lasix Inj) 20 mg BID@09,18 IV PUSH ; Start 02/08/17 at 18:00; Stop 02/08/17 at 18:00; Status DC Enalaprilat (Vasotec Inj) 2.5 mg Q6H PRN IV PUSH SBP>160, DBP>90; Start at 14:30 Albuterol/ Ipratropium (Duoneb Neb) 1 ampule Q2HR NEB PRN NEB SOB/WHEEZING Last administered on 02/13/17 20:14; Start 02/08/17 at 14:30 Furosemide (Lasix Inj) 40 mg BID@09,18 IV PUSH Last administered on 02/14/17 17:29; Start 02/08/17 at 18:00 Thiamine HCl (Vitamin B1) 100 mg DAILY PO Last administered on 02/14/17 09:10 ; Start 02/09/17 at 09:00 Nicotine (Habitrol 21 Mg Patch.24 Hr) 1 patch DAILY T-DERMAL ; Start 02/09/17 at 09:00 Miscellaneous Information 1 HS T-DERMAL Last administered on 02/08/17 21:00; Start 02/08/17 at 21:00 Flumazenil (Romazicon Inj) 0.2 mg Q1M PRN IV PUSH SEE LABEL COMMENTS; Start at 15:15 Lorazepam (Ativan) 1 mg Q4H PRN PO CIWA 8 - 10; Start 02/08/17 at 15:15 Lorazepam (Ativan Inj) 1 mg Q4H PRN IV PUSH CIWA 8 - 10; Start 02/08/17 at 15: 15 Lorazepam (Ativan) 2 mg Q2H PRN PO CIWA 11-14; Start 02/08/17 at 15:15 Lorazepam (Ativan Inj) 2 mg Q2H PRN IV PUSH CIWA 11-14; Start 02/08/17 at 15: 15 Lorazepam (Ativan Inj) 2 mg Q1H PRN IV PUSH CIWA 15-20; Start 02/08/17 at 15: 15 Lorazepam (Ativan Inj) 2 mg Q15M PRN IV PUSH CIWA > 20; Start 02/08/17 at 15: 15 Lactated Ringer's 1,000 ml @ 30 mls/hr Q24H PRN IV SEE LABEL COMMENTS; Start 02/10/17 at 08:45; Stop 02/13/17 at 08:44; Status DC Sodium Chloride 500 ml @ 30 mls/hr [id number] PRN IV SEE LABEL COMMENTS; Start at 08:45; Stop 02/13/17 at 08:44; Status DC Metoprolol Tartrate (Lopressor) 25 mg [employer] DEVELOPER PRN PO SEE LABEL COMMENTS; Start 02/10/17 at 08:45; Stop 02/13/17 at 08:44; Status DC Povidone Iodine (Betadine 5% Antisepsis Kit) 1 applic [employer]ELOPER PRN EACH NARE SEE LABEL COMMENTS; Start 02/10/17 at 08:45; Stop 02/13/17 at 08:44; Status DC Chlorhexidine Gluconate (Chlorhexidine 2% Cloth) 3 pack [employer] DEVELOPER PRN TOPICAL SEE LABEL COMMENTS; Start 02/10/17 at 08:45; Stop 02/13/17 at 08:44; Status DC Insulin Human Regular (NovoLIN R INJ) See Protocol Table ... [employer] DEVELOPER PRN SQ SEE PROTOCOL TABLE; Start 02/10/17 at 08:45; Stop 02/13/17 at 08:44; Status DC Enoxaparin Sodium (Lovenox Inj) 150 mg ONCE ONCE SQ Last administered on 23:08; Start 02/12/17 at 20:00; Stop 02/12/17 at 20:01; Status DC Sodium Chloride 1,000 ml @ 75 mls/hr [id number] IV Last administered on 10:45; Start 02/10/17 at 16:05; Stop 02/13/17 at 20:01; Status DC Diphenhydramine HCl (Benadryl) 50 mg [employer] DEVELOPER PO Last administered on 12:25; Start 02/10/17 at 16:15; Stop 02/14/17 at 16:14; Status DC Diazepam (Valium) 10 mg [employer] DEVELOPER PO Last administered on 02/13/17 12:25; Start 02/10/17 at 16:15; Stop 02/14/17 at 16:14; Status DC Midazolam HCl (Versed Inj) 1 mg [employer] DEVELOPER IV PUSH ; Start 02/10/17 at 16:15; Stop 02/14/17 at 16:14; Status DC Midazolam HCl (Versed Inj) 2 mg STK-MED ONCE .ROUTE Last administered on 14:24; Start 02/13/17 at 14:04; Stop 02/13/17 at 14:05; Status DC Verapamil HCl (Isoptin Inj) 5 mg STK-MED ONCE .ROUTE Last administered on 14:29; Start 02/13/17 at 14:04; Stop 02/13/17 at 14:05; Status DC Heparin Sodium (Porcine) (Heparin Inj) 10,000 units STK-MED ONCE .ROUTE Last administered on 02/13/17 14:29; Start 02/13/17 at 14:04; Stop 02/13/17 at 14:05 ; Status DC Heparin Sodium/ Sodium Chloride 1,000 ml @ As Directed STK-MED ONCE .ROUTE Last administered on 02/13/17 14:06; Start 02/13/17 at 14:06; Stop 02/13/17 at 14:07; Status DC Tirofiban/Sodium Chloride 250 ml @ As Directed STK-MED ONCE IV ; Start at 15:20; Stop 02/13/17 at 15:21; Status DC Clopidogrel Bisulfate (Plavix) 600 mg STK-MED ONCE .ROUTE Last administered on 02/13/17 15:34; Start 02/13/17 at 15:30; Stop 02/13/17 at 15:31; Status DC Sodium Chloride 1,000 ml @ 75 mls/hr [id number] IV Last administered on 15:49; Start 02/13/17 at 15:49; Stop 02/13/17 at 20:01; Status DC Temazepam (Restoril) 15 mg HS PRN PO SLEEP; Start 02/13/17 at 16:00 Aspirin (Aspirin Chew) 81 mg DAILY PO ; Start 02/14/17 at 09:00; Stop 02/14/17 at 09:00; Status DC Clopidogrel Bisulfate (Plavix) 75 mg DAILY PO Last administered on 02/14/17 09 :10; Start 02/14/17 at 09:00 Tirofiban/Sodium Chloride 250 ml @ 28.152 mls/ hr Q8H53M IV Last administered on 02/14/17 07:29; Start 02/13/17 at 15:49; Stop 02/14/17 at 09:48; Status DC Atorvastatin Calcium (Lipitor) 40 mg HS PO Last administered on 02/14/17 20:53 ; Start 02/13/17 at 21:00 Apixaban (Eliquis) 5 mg BID PO Last administered on 02/14/17 20:53; Start 02/13/17 at 21:00 Furosemide (Lasix Inj) 40 mg ONCE ONCE IV PUSH Last administered on 02/13/17 21:08; Start 02/13/17 at 20:45; Stop 02/13/17 at 20:46; Status DC Diltiazem HCl (Cardizem Inj) 38 mg NOW ONCE IV ; Start 02/14/17 at 04:45; Stop 02/14/17 at 04:46; Status DC Potassium Chloride (KCl) 40 meq ONCE ONCE PO Last administered on 02/14/17 09 :05; Start 02/14/17 at 08:15; Stop 02/14/17 at 08:16; Status DC Potassium Chloride (KCl) 40 meq ONCE ONCE PO Last administered on 02/14/17 12 :27; Start 02/14/17 at 12:00; Stop 02/14/17 at 12:01; Status DC Diltiazem HCl (Cardizem Cd) 120 mg DAILY PO Last administered on 02/14/17 09: 44; Start 02/14/17 at 09:00; Stop 02/14/17 at 13:35; Status DC Diltiazem HCl (Cardizem Cd) 240 mg DAILY PO ; Start 02/15/17 at 09:00 Digoxin (Lanoxin Inj) 0.5 mg ONCE ONCE IV PUSH Last administered on 02/14/17t 14:15; Start 02/14/17 at 13:30; Stop 02/14/17 at 14:05; Status DC A/P Problem List: (1) Acute exacerbation of CHF (congestive heart failure) ICD Code: I50.9 - Heart failure, unspecified (2) Elevated troponin ICD Code: R74.8 - Abnormal levels of other serum enzymes Status: Acute (3) Dyspnea on exertion ICD Code: R06.09 - Other forms of dyspnea Status: Acute (4) Pleural effusion ICD Code: J90 - Pleural effusion, not elsewhere classified Status: Acute Assessment and Plan A/P Acute exacerbation of CHF Aortic stenosis possible worsening. Patient with h/o Aortic valve replacement. CTA noted without any PE Continue Lasix 20 mg IV every 12 hours. CHF education, strict I's and O's Cardiology consultation, seen by Dr Li appreciate recommendation. Had ANJALI, per cardiology no need for new TAVR. s/p cardiac cath with RCA stenosis- s/p stent placement. continue aspirin, plavix, BB and statin. O2 supplement keep O2 saturation > 90%- will taper down the oxygen slowly. walk test before discharge. Paroxysmal A. fib Status post electrical cardioversion 02/07/17 Resume Eliquis, amiodarone, ,cardizem and aspirin evaluation appreciated; recommended medical management; possible ablation as outpatient. Monitor on telemetry Hypertension Resumed oral antihypertensive medications Diabetes type 2 A1c 5.9. Hold oral hypoglycemic agents Started insulin sliding scale Alcohol abuse Alcohol cessation counseling provided Chris amaral, ZACK protocol Tobacco use Tobacco cessation, counseled Nicotine patch hypokalemia;replaced. DVT prophylaxis: Eliquis for transfer to [facility]. Discharge Planning tapering off the oxygen slowly. walk test before discharge. possible dc home with [facility] later today or in am. see med list. f/u; pcp and cardiology. time spent 35 min. d/w the patient and RN. Paula Weston MD Feb 15, 2017 07:52
[2017-02-15] MEDS: INSULIN ASPART SUPPLEMENTAL SCALE SQ SCH ×3 (08:00→17:00)
--- NOTE | 2017-02-15 08:02 | PD.CARD.PN ---
Subjective Subjective Remarks No dyspnea at rest. Moderate dyspnea and fatigue with minimal exertion. No CP , palpitations, dizziness, PND. Objective Medications Item Value Date Time Diltiazem HCl 240 mg 02/15/17 09 (Cardizem Cd) DAILY/PO Clopidogrel 75 mg 02/14/17 0900 Bisulfate DAILY/PO 02/14/17 09 (Plavix) Atorvastatin 40 mg 02/13/172099 Calcium HS/PO 02/14/172052 (Lipitor) Apixaban 5 mg 02/13/172099 (Eliquis) BID/PO 02/14/172052 Amiodarone HCl 200 mg 02/09/17 09 (Cordarone) DAILY/PO 02/14/17909 Aspirin 81 mg 02/09/17899 (Ecotrin Ec) DAILY/PO 02/14/17906 Potassium Chloride 20 meq 02/09/17899 (KCl) DAILY/PO Metoprolol 100 mg 02/09/17899 Succinate DAILY/PO 02/14/17 09 (Toprol Xl) Furosemide 40 mg 02/08/17 1800 (Lasix Inj) BID@/IV PUSH 02/14/17 172 Current Medications Medications (Trade) Dose Ordered Sig/Esvin Route Start Time Stop Time Status Last Admin (Cordarone) 200 mg DAILY PO 02/09/17 09:00 02/14/17 09:10 (Ecotrin Ec) 81 mg DAILY PO 02/09/17 09:00 02/14/17 09:07 (KCl) 20 meq DAILY PO 02/09/17 09:00 02/13/17 08:48 (Toprol Xl) 100 mg DAILY PO 02/09/17 09:00 02/14/17 09:06 (D50w (Vial) Inj) 50 ml UNSCH PRN IV PUSH 02/08/17 14:30 (Glucagon Inj) 1 mg UNSCH PRN OTHER 02/08/17 14:30 (NovoLOG SUPPLEMENTAL SCALE) 1 ACHS SLIDING SCALE SQ 02/08/17 17:00 02/12/17 17:00 (NS Flush) 2 ml UNSCH PRN IV FLUSH 02/08/17 14:30 (NS Flush) 2 ml BID IV FLUSH 02/08/17 21:00 02/14/17 20:53 (Tylenol) 650 mg Q4H PRN PO 02/08/17 14:30 (Zofran Inj) 4 mg Q6H PRN IV PUSH 02/08/17 14:30 (Rosario-Colace) 1 tab BID PRN PO 02/08/17 14:30 (Restoril) 15 mg HS PRN PO 02/08/17 14:30 02/12/17 23:13 (Vasotec Inj) 2.5 mg Q6H PRN IV PUSH 02/08/17 14:30 (Duoneb Neb) 1 ampule Q2HR NEB PRN NEB 02/08/17 14:30 02/13/17 20:14 (Lasix Inj) 40 mg BID@18 IV PUSH 02/08/17 18:00 02/14/17 17:29 (Vitamin B1) 100 mg DAILY PO 02/09/17 09:00 02/14/17 09:10 (Habitrol 21 Mg Patch.24 Hr) 1 patch DAILY T-DERMAL 02/09/17 09:00 Miscellaneous Information 1 HS T-DERMAL 02/08/17 21:00 02/08/17 21:00 (Romazicon Inj) 0.2 mg Q1M PRN IV PUSH 02/08/17 15:15 (Ativan) 1 mg Q4H PRN PO 02/08/17 15:15 (Ativan Inj) 1 mg Q4H PRN IV PUSH 02/08/17 15:15 (Ativan) 2 mg Q2H PRN PO 02/08/17 15:15 (Ativan Inj) 2 mg Q2H PRN IV PUSH 02/08/17 15:15 (Ativan Inj) 2 mg Q1H PRN IV PUSH 02/08/17 15:15 (Ativan Inj) 2 mg Q15M PRN IV PUSH 02/08/17 15:15 (Restoril) 15 mg HS PRN PO 02/13/17 16:00 (Plavix) 75 mg DAILY PO 02/14/17 09:00 02/14/17 09:10 (Lipitor) 40 mg HS PO 02/13/17 21:00 02/14/17 20:53 (Eliquis) 5 mg BID PO 02/13/17 21:00 02/14/17 20:53 (Cardizem Cd) 240 mg DAILY PO 02/15/17 09:00 Vital Signs / I&O Vital Signs Date Time Temp Pulse Resp B/P (MAP) Pulse Ox O2 Delivery O2 Flow Rate FiO2 02/15/17 07:54 91 Nasal Cannula 1.00 02/15/17 07:36 97.7 80 16 112/58 (76) 93 02/15/17 06:02 110 02/15/17 05:05 73 02/15/17 04:15 72 02/15/17 03:31 93 Nasal Cannula 2.00 02/15/17 03:31 97.6 85 19 114/56 (75) 92 02/15/17 03:06 76 02/15/17 02:09 85 02/15/17 01:03 79 02/15/17 00:33 77 02/14/17 23:44 92 Nasal Cannula 2.00 02/14/17 23:44 97.6 82 21 87/53 (64) 92 02/14/17 23:44 74 02/14/17 22:34 75 02/14/17 21:54 92 Nasal Cannula 3.00 02/14/17 21:44 86 02/14/17 20:15 92 Nasal Cannula 3.00 02/14/17 20:15 98.2 75 20 100/51 (67) 92 02/14/17 20:00 78 02/14/17 19:00 89 02/14/17 18:00 99 02/14/17 17:00 94 02/14/17 16:00 102 02/14/17 15:00 92 Nasal Cannula 4.00 Humidified 02/14/17 15:00 90 02/14/17 15:00 97.7 90 22 118/56 (76) 92 02/14/17 14:00 84 02/14/17 13:00 107 02/14/17 12:00 105 02/14/17 11:00 97.9 101 22 108/60 (76) 91 02/14/17 11:00 91 Nasal Cannula 4.00 Humidified 02/14/17 11:00 99 02/14/17 09:00 101 02/14/17 08:00 106 I/O 02/14/17 02/14/17 02/14/17 02/15/17 02/15/17 02/15/17 07:00 15:00 23:00 07:00 15:00 23:00 Intake Total 720 ml 100 ml 960 ml 480 ml Output Total 2675 ml 1700 ml Balance -1955 ml 100 ml 960 ml -1220 ml Intake Oral 720 ml 960 ml 480 ml IV Total 100 ml Output Urine Total 2675 ml 1700 ml # Voids 4 # Bowel Movements 0 0 Physical Exam GENERAL: Well developed, well nourished. No acute distress. HEENT: Jugular venous pressure is normal. CHEST: Lungs clear to auscultation anteriorly. CARDIAC: Irregular rate and rhythm without S3, S4. II/ OJ RUSB with mild to moderately diminished S2. ABDOMEN: Soft, nontender, no hepatosplenomegaly. Bowel sounds present. EXTREMITIES: No clubbing, cyanosis, or edema. Laboratory Laboratory Tests Test 02/15/17 04:44 Blood Urea Nitrogen 18 MG/DL Creatinine 1.11 MG/DL Random Glucose 108 MG/DL Calcium Level 8.4 MG/DL Sodium Level 136 MEQ/L Potassium Level 3.7 MEQ/L Chloride Level 101 MEQ/L Carbon Dioxide Level 28.0 MEQ/L Anion Gap 7 MEQ/L Estimat Glomerular Filtration Rate 68 ML/MIN Assessment and Plan Problem List: (1) Congestive heart failure (CHF) ICD Codes: I50.9 - Heart failure, unspecified Plan: Overall clinically improved. CXR yesterday possibly still with mild CHF. Precipitating factor for CHF not entirely clear. Possibly myocardial ischemia based on all testing. EF 55% on ANJALI. Difficult imaging of AVR but appears to have adequate leaflet opening and moderate AI. No AVR gradient seen on cath. REC one dose of metolazone this morning, change to oral furosemide; OK to discharge later today or tomorrow from my standpoint continue metoprolol (2) Elevated troponin ICD Codes: R74.8 - Abnormal levels of other serum enzymes Status: Acute Plan: Cath showed borderline hemodynamically significant proximal RCA disease, stented with 5.0 mm SVEN. Rec Plavix, baby aspirin. (3) Paroxysmal atrial fibrillation ICD Codes: I48.0 - Paroxysmal atrial fibrillation Status: Chronic Plan: Remains in atrial fib, HR's overall controlled. Dr. Maradiaga's consult noted and appreciated. Ablation possibly to be done in a few weeks. Continue anticoagulation therapy. (4) History of aortic valve replacement ICD Codes: Z95.2 - Presence of prosthetic heart valve Status: Chronic Plan: Able to cross patient's AVR during cath and no gradient demonstrated. Possibly moderate AI by ANJALI, to follow chronically. (5) Hypertension ICD Codes: I10 - Essential (primary) hypertension Status: Chronic Plan: Stable. Normotensive. Code Status full code Discussed Condition With patient Problem Qualifiers (1) Congestive heart failure (CHF): Qualified Codes: I50.9 - Heart failure, unspecified (2) Hypertension: Qualified Codes: I10 - Essential (primary) hypertension Campbell Li MD Feb 15, 2017 08:02
[2017-02-15] MEDS ORDERED: PILL SPLITTER OTHER PRN (08:30)
[2017-02-15] MEDS: FUROSEMIDE 40 MG/4 ML VIAL IV PUSH SCH (08:53)
[2017-02-15] MEDS: POTASSIUM CHLORIDE 20 MEQ CONTROLLED RELEASE TAB PO SCH (08:54)
[2017-02-15] MEDS: ASPIRIN EC 81 MG TABEC PO SCH (08:54)
[2017-02-15] MEDS: CLOPIDOGREL 75 MG TAB PO SCH (08:54)
[2017-02-15] MEDS: THIAMINE HCL 100 MG TAB PO SCH (08:54)
[2017-02-15] MEDS: AMIODARONE 200 MG TAB PO SCH (08:55)
[2017-02-15] MEDS: APIXABAN 5 MG TABLET PO SCH (08:55)
[2017-02-15] MEDS: SODIUM CHLORIDE 0.9% FLUSH 10 ML FLUSH IV FLUSH SCH (08:56)
[2017-02-15] MEDS: NICOTINE 21 MG/24 HR PATCH T-DERMAL SCH (08:57)
[2017-02-15] MEDS ORDERED: FUROSEMIDE 40 MG TAB PO SCH (09:00)
[2017-02-15] MEDS ORDERED: METOLAZONE 5 MG TAB PO ONE (09:00)
[2017-02-15] MEDS ORDERED: DILTIAZEM-CD 120 MG CAP ER PO SCH (09:00)
[2017-02-15] MEDS: METOPROLOL SUCCINATE 50 MG EXTENDED RELEASE TAB PO SCH (09:19)
--- NOTE | 2017-02-15 10:23 | EKG ---
Date Performed: 02/14/2017 Time Performed: 23:24:06 PTAGE: 61 years EKG: Possible atrial flutter vs SR w PACs Prolonged QT interval Left anterior fascicular block I nferior infarct - age undetermined Abnormal ECG PREVIOUS TRACING : 02/08/2017 11.35 Compared to the previous tracing rate slower DOCTOR: Lynn Sykes Interpretating Date/Time 02/15/2017 10:22:30
[2017-02-15] MEDS ORDERED: DILT120C50 PO (13:17)
[2017-02-15] MEDS ORDERED: LIPI10TA PO (13:17)
[2017-02-15] MEDS ORDERED: PLAV75TA29 PO (13:17)
--- NOTE | 2017-02-15 13:17 | HHI.FF ---
Face to Face Verification Diagnosis: (1) Congestive heart failure (CHF) (2) Paroxysmal atrial fibrillation Home Health Nursing Order: Medical education Signs/symptoms of disease process CHF education Medication education-adverse effect Nursing assessment with vital signs Telehealth I have seen patient Wayne Vasquez on 02/15/17. My clinical findings support the need for the requested home health care services because: Patient has SOB I certify that my clinical findings support that this patient is homebound because: Poor cardiac reserve Paula Weston MD Feb 15, 2017 13:17
--- NOTE | 2017-02-15 13:20 | HHI.DS ---
Discharge Summary Admission Date Feb 08, 2017 at 14:39 Discharge Date: Feb 15, 2017 Admitting Diagnosis dyspnea, elevated troponin, pleural effusion (1) Acute exacerbation of CHF (congestive heart failure) ICD Code: I50.9 - Heart failure, unspecified Diagnosis: Principal (2) Elevated troponin ICD Code: R74.8 - Abnormal levels of other serum enzymes Diagnosis: Principal Status: Acute (3) Dyspnea on exertion ICD Code: R06.09 - Other forms of dyspnea Diagnosis: Principal Status: Acute (4) Pleural effusion ICD Code: J90 - Pleural effusion, not elsewhere classified Diagnosis: Principal Status: Acute (5) Paroxysmal atrial fibrillation ICD Code: I48.0 - Paroxysmal atrial fibrillation Diagnosis: Principal Status: Chronic Procedures cardiac cath ANJALI Brief History - From Admission 61 year-old man with a history of CHF, atrial fibrillation who underwent left trickle cardioversion for atrial fibrillation with RVR on 02/07/17, presented to the ED for evaluation of his symptoms of dyspnea. Patient states prior to his cardioversion yesterday he has been battling with shortness of breath, dyspnea with exertion for several months, however yesterday after his procedure this got Worse, and patient wasn't able to sleep overnight. States, prior to his procedure yesterday he did not take his daily Lasix. He reports not being able to walk his dog out secondary to shortness of breath and dyspnea. He denies any orthopnea, lower extremity edema or chest pain. CBC/BMP: 02/14/17 0523 02/15/17 0444 Significant Findings Laboratory Tests Test 02/13/17 06:00 02/14/17 05:23 02/15/17 04:44 White Blood Count 11.9 TH/MM3 (4.0-11.0) Red Blood Count 4.40 MIL/MM3 (4.50-5.90) Mean Corpuscular Volume 108.4 FL (80.0-100.0) 107.6 FL (80.0-100.0) Mean Corpuscular Hemoglobin 37.1 PG (27.0-34.0) 36.5 PG (27.0-34.0) Monocytes (%) (Auto) 10.3 % (0.0-8.0) 12.0 % (0.0-8.0) Monocytes # (Auto) 1.2 TH/MM3 (0-0.9) 1.3 TH/MM3 (0-0.9) Blood Urea Nitrogen 19 MG/DL (7-18) 19 MG/DL (7-18) Random Glucose 107 MG/DL (74-106) 108 MG/DL (74-106) Calcium Level 8.4 MG/DL (8.5-10.1) 8.0 MG/DL (8.5-10.1) 8.4 MG/DL (8.5-10.1) Estimat Glomerular Filtration Rate 63 ML/MIN (>89) 66 ML/MIN (>89) 68 ML/MIN (>89) Potassium Level 3.1 MEQ/L (3.5-5.1) Imaging Last Impressions Chest X-Ray 02/14/17 0000 Signed Impressions: Service Date/Time: Tuesday, February 14, 2017 10:13 - CONCLUSION: 1. Mild congestive heart failure. 2. Cardiomegaly status post CABG. 3. Small bilateral effusions. Nestor Phan MD Myocardial Perfusion Scan Nuc Med 02/09/17 0000 Signed Impressions: Service Date/Time: January 16:53 - CONCLUSION: LV chamber dilatation and moderate LV dysfunction. Multi-territory perfusion abnormalities sparing the septum with moderate redistribution RISK CATEGORY: High (>3%% Annual Mortality Rate) Costa Pérez MD CT Angiography 02/08/17 1136 Signed Impressions: Service Date/Time: Wednesday, February 08, 2017 13:18 - CONCLUSION: 1. Small areas of focal airspace disease in the upper lobes are probably postinflammatory. 2. Bibasilar effusions with a moderate collection on the right and small on the left. In combination with cardiomegaly, there may be an element of failure. 3. Postsurgical changes characteristic of prior anterior mediastinal surgical resection, possible aortic valve prosthesis and anterior upper abdominal wall hernia mesh repair. Patient may have had a splenectomy as well. 4. Borderline prominent mediastinal lymph nodes are probably postinflammatory 5. Hepatic fatty infiltration. 6. Small amount of ascites. 7. No PE. Thompson Berg MD PE at Discharge GENERAL: with some sob- but in no acute distress. CARDIOVASCULAR: Regular rate and regular rhythm without murmurs, gallops, or rubs. RESPIRATORY: Clear to auscultation. Breath sounds equal bilaterally. No wheezes , rales, or rhonchi. GASTROINTESTINAL: Abdomen soft, non-tender, nondistended. Normal, active bowel sounds MUSCULOSKELETAL: Extremities with bilateral pedal edema. NEURO: Alert & Oriented x4 to person, place, time, situation. Moves all ext x4 Hospital Course patient was admitted with CHF and atrial fibrillation. he was started on Iv diuretic and rate control with metoprolol, cardizem and amiodarone. he was evaluated by cardiology. he underwent cardiac cath with stent placement. otherwise the course in the hospital was uneventful. he will be considered for ablation as outpatient. he was cleared for discharge by cardiology. he will have HHC upon discharge. Pt Condition on Discharge: Stable Discharge Disposition: Disch w/ Home Health Serv Discharge Time: > 30 minutes Discharge Instructions DIET: Follow Instructions for: Heart Healthy Diet, Diabetic Diet Activities you can perform: Regular-No Restrictions Follow up Referrals: Cardiology @ [facility] with Campbell Li MD PCP Follow-up New Medications: Atorvastatin (Lipitor) 10 Mg Tab 40 MG PO HS for cad for 30 Days, TAB 0 Refills Clopidogrel (Plavix) 75 Mg Tab 75 MG PO DAILY for cad for 30 Days, #30 TAB 0 Refills Diltiazem CD 24 HR (Diltiazem CD 24 HR) 120 Mg Caper 240 MG PO DAILY for a-fib for 30 Days, #60 CAP 0 Refills Continued Medications: Albuterol 8.5 GM Inh (Proair Hfa 8.5 GM Inh) 90 Mcg/Act Aer 1 PUFF INH Q4H PRN for SHORTNESS OF BREATH, #1 INHALER 0 Refills 108 mcg/actuation Amiodarone (Amiodarone) 200 Mg Tab 200 MG PO DAILY for Regulate Heart Beat, #30 TAB 0 Refills Apixaban (Eliquis) 5 Mg Tab 5 MG PO BID for Blood Clot Prevention, #60 TAB 0 Refills Apixaban (Eliquis) 5 Mg Tab 5 MG PO BID for Blood Clot Prevention, #60 TAB [address] (Aspirin DR) 81 Mg Tabdr 81 MG PO DAILY, TAB 0 Refills Furosemide (Furosemide) 20 Mg Tab 20 MG PO DAILY, #30 TAB 0 Refills Metformin ER (Metformin ER) 500 Mg Emanuel 500 MG PO DAILY for Blood Sugar Management, TAB 0 Refills With evening meal Metoprolol Succinate ER 24 HR (Metoprolol Succinate ER 24 HR) 100 Mg Tab 100 MG PO DAILY, #30 TAB 0 Refills Multiple Vitamin (Multiple Vitamin) 1 Tab 1 TAB PO DAILY for Nutritional Supplement, TAB 0 Refills Potassium Chloride ER (Potassium Chloride ER) 20 Meq Tab 20 MEQ PO DAILY for Electrolyte Replacement, #30 TAB 0 Refills Paula Weston MD Feb 15, 2017 13:20
--- NOTE | 2017-02-21 14:25 | PQ ---
Physician Query Response Document PATIENT: ISSAC KENYON : 1955 ADMIT DATE: 02/08/2017 2:39 PM DISCH DATE: 02/15/2017 6:00 PM RESPONDING PROVIDER #: [email or web address] QUERY TEXT: CHF Acuity and Type Congestive Heart Failure is documented in the Medical Record. Please document the type and acuity (in cludes probable or suspected) Such as: Type: -- Systolic -- Diastolic -- Combined -- Other, please specify Acuity: -- Acute -- Chronic -- Acute on chronic -- Other, please specify Also please document the underlying cause of the CHF (includes probable or suspected) If you have any additional question and or comments please call [employer] hotline [email or web address] [phone] The patient's Clinical Indicators include: Dr. Weston, your progress note documents "Acute exacerbation of CHF" ANJALI performed on this admission shows 50-55% EF/trace tricuspid regurgitation. Patient's BNP on 02-08-17 was 168. Please review the question below and answer to the best of your ability. Query created by: Sterling Acevedo on 02/16/2017 7:57 AM RESPONSE TEXT: Acute diastolic CHF. Electronically signed by: Paula Weston MD 02/21/2017 2:21 PM
== END 2017-02-15 18:00 | disposition home health service (06) | DRG 247 ==
LOC: NEPC 11:20 → NEDA 14:25 → INTOOBSV 14:25 → OBSVTOIN 14:39 → N04B 16:41 → HCIS 02-13 15:28 → HCPC 02-13 16:23 → HCIS 02-15 10:16
PROVIDERS: ADMIT Internal Medicine; ATTEND Internal Medicine
PROC: 5A2204Z Restoration of Cardiac Rhythm, Single (ICD-10-PCS; 2017-02-07)
PROC: B246ZZ4 Ultrasonography of Right and Left Heart, Transesophageal (ICD-10-PCS; principal; 2017-02-10)
PROC: 027034Z Dilation of Coronary Artery, One Artery with Drug-eluting Intraluminal Device, Percutaneous Approach (ICD-10-PCS; 2017-02-13)
PROC: 4A023N7 Measurement of Cardiac Sampling and Pressure, Left Heart, Percutaneous Approach (ICD-10-PCS; 2017-02-13)
PROC: B2111ZZ Fluoroscopy of Multiple Coronary Arteries using Low Osmolar Contrast (ICD-10-PCS; 2017-02-13)
PROC: B240ZZ3 Ultrasonography of Single Coronary Artery, Intravascular (ICD-10-PCS; 2017-02-13)
DX: I11.0 Hypertensive heart disease with heart failure (principal); Z99.81 Dependence on supplemental oxygen; K76.0 Fatty (change of) liver, not elsewhere classified; I25.10 Atherosclerotic heart disease of native coronary artery without angina pectoris; Z95.2 Presence of prosthetic heart valve; I50.31 Acute diastolic (congestive) heart failure; I48.0 Paroxysmal atrial fibrillation; J44.9 Chronic obstructive pulmonary disease, unspecified; Z72.0 Tobacco use; R74.8 Abnormal levels of other serum enzymes; G47.30 Sleep apnea, unspecified; E11.9 Type 2 diabetes mellitus without complications; Z79.84 Long term (current) use of oral hypoglycemic drugs; E78.5 Hyperlipidemia, unspecified; E87.6 Hypokalemia; B19.20 Unspecified viral hepatitis C without hepatic coma; Z80.1 Family history of malignant neoplasm of trachea, bronchus and lung; Z82.49 Family history of ischemic heart disease and other diseases of the circulatory system; F10.10 Alcohol abuse, uncomplicated; I35.0 Nonrheumatic aortic (valve) stenosis
CPT/HCPCS: 36600; 71010; 71020; 71275; 78452; 80048; 80053; 80061; 82550; 82552; 82805; 82948; 83036; 83735; 83880; 84484; 85002; 85007; 85025; 85027; 85610; 85730; 92928; 92960; 92978; 93005; 93312; 93320; 93325; 93458; 94150; 94620; 94640; 94664; 96374; 99152; 99153; A9502; C1753; C1769; C1874; C1887; C1893; J1160; J1644; J1650; J1815; J1940; J2250; J3246; J7030; Q0163; Q9967

== ENCOUNTER 2017-03-08 10:37 | Emergency (ER) | payer MEDICARE ==
[~2017-03-08] VITALS: Ht 177.8 cm; Wt 150.0 kg
[~2017-03-08 10:37] MED LIST changes: +DILT120C50 PO; +LIPI10TA PO; +METF500T4 PO; +PLAV75TA29 PO
[2017-03-08 10:39] VITALS: BP 131/61; PULSE 85; RESP 22; TEMP 97.7; O2SAT 94
--- NOTE | 2017-03-08 11:10 | PD ---
HPI Chief Complaint: Abnormal Results Time Seen by Provider: 10:59 Travel History International Travel<30 days: No Contact w/Intl Traveler<30days: No Traveled to known affect area: No History of Present Illness HPI This patient received a phone call that his potassium was low and he should come to the emergency room. He feels okay. He has history of heart failure with reduced ejection fraction. He takes multiple diuretics and also potassium supplementation. No presyncopal symptoms. Severity of symptoms is mild. He took 40 mEq of potassium this morning. No alleviating factors. Symptoms exacerbated by his diuretics. He is breathing well today. PFSH Past Medical History Hx Anticoagulant Therapy: Yes (ELIQUIS) Autoimmune Disease: No Heart Rhythm Problems: Yes (AFTER FIRST VALVE REPLACEMENT) Cancer: No Cardiovascular Problems: Yes High Cholesterol: No Chest Pain: No Congestive Heart Failure: Yes (this admission) COPD: Yes Diminished Hearing: No Endocrine: No Genitourinary: Yes Hypertension: Yes Immune Disorder: No Musculoskeletal: No Neurologic: No Psychiatric: No Reproductive: No Respiratory: Yes (COPD) Immunizations Current: Yes Sleep Apnea: Yes (statted he will get someone to bring clpap) Past Surgical History Abdominal Surgery: Yes (SPLEEN & CHOLY) Cardiac Surgery: Yes (AORTIC VALVE REPLACED TWICE) Cholecystectomy: Yes Neurologic Surgery: Yes (HEMATOMA REMOVED) Thoracic Surgery: No Other Surgery: Yes (HEMATOMA REMOVED FROM FOREHEAD AREA) Social History Alcohol Use: Yes (3-4 BEER 3X WK) Tobacco Use: Yes (1PPD) Substance Use: Yes (THC) Allergies-Medications (Allergen,Severity, Reaction): Coded Allergies: No Known Allergies (Verified Allergy, Unknown, 02/08/17) Reported Meds & Prescriptions Reported Meds & Active Scripts Active Diltiazem CD 24 HR 120 Mg Caper 240 Mg PO DAILY 30 Days Lipitor (Atorvastatin Calcium) 10 Mg Tab 40 Mg PO HS 30 Days Plavix (Clopidogrel Bisulfate) 75 Mg Tab 75 Mg PO DAILY 30 Days Reported Eliquis (Apixaban) 5 Mg Tab 5 Mg PO BID Metformin ER (Metformin HCl) 500 Mg Emanuel 500 Mg PO DAILY With evening meal Proair Hfa 8.5 GM Inh (Albuterol Sulfate) 90 Mcg/Act Aer 1 Puff INH Q4H PRN 108 mcg/actuation Potassium Chloride ER (Potassium Chloride) 20 Meq Tab 20 Meq PO DAILY Multiple Vitamin 1 Tab 1 Tab PO DAILY Metoprolol Succinate ER 24 HR (Metoprolol Succinate) 100 Mg Tab 100 Mg PO DAILY Furosemide 20 Mg Tab 20 Mg PO DAILY Eliquis (Apixaban) 5 Mg Tab 5 Mg PO BID Aspirin DR (Aspirin) 81 Mg Tabdr 81 Mg PO DAILY Amiodarone (Amiodarone HCl) 200 Mg Tab 200 Mg PO DAILY Review of Systems General / Constitutional: No: Fever Eyes: No: Visual changes HENT: No: Headaches Cardiovascular: Positive: Edema, No: Chest Pain or Discomfort Respiratory: No: Shortness of Breath Gastrointestinal: No: Abdominal Pain Genitourinary: No: Dysuria Musculoskeletal: Positive: Edema, No: Pain Skin: No Rash Neurologic: No: Weakness Psychiatric: No: Depression Endocrine: No: Polydipsia Hematologic/Lymphatic: No: Easy Bruising Physical Exam Narrative GENERAL: Well-nourished, well-developed patient in no apparent distress. SKIN: Focused skin assessment reveals no rash and nodules. Skin is Warm and dry. HEAD: Atraumatic. Normocephalic. EYES: Pupils equal and round. No scleral icterus. No injection or drainage. ENT: No nasal bleeding or discharge. Mucous membranes pink and moist. NECK: Trachea midline. No JVD. CARDIOVASCULAR: Regular rate and rhythm. No murmur appreciated. RESPIRATORY: No accessory muscle use. Clear to auscultation. Breath sounds equal bilaterally. GASTROINTESTINAL: Abdomen soft, non-tender, nondistended. Morbidly obese. Hepatic and splenic margins not palpable. MUSCULOSKELETAL: No obvious deformities. No clubbing. No cyanosis. Symmetric edema from the midshin down. NEUROLOGICAL: Awake and alert. No obvious cranial nerve deficits. Motor grossly within normal limits. Normal speech. PSYCHIATRIC: Appropriate mood and affect; insight and judgment normal. Data Data Last Documented VS Vital Signs Date Time Temp Pulse Resp B/P (MAP) Pulse Ox O2 Delivery O2 Flow Rate FiO2 03/08/17 13:02 75 16 122/58 (79) 98 Room Air 03/08/17 10:39 97.7 Orders Orders Iv Access Insert/Monitor (03/08/17 11:04) Basic Metabolic Panel (Bmp) (03/08/17 11:04) Electrocardiogram (03/08/17 ) Complete Blood Count With Diff (03/08/17 11:04) Potassium Bicarb Eff (Effer-K Eff) (03/08/17 12:30) Labs Laboratory Tests Test 03/08/17 11:22 White Blood Count 12.1 TH/MM3 Red Blood Count 4.68 MIL/MM3 Hemoglobin 16.8 GM/DL Hematocrit 48.0 % Mean Corpuscular Volume 102.6 FL Mean Corpuscular Hemoglobin 35.9 PG Mean Corpuscular Hemoglobin Concent 35.0 % Red Cell Distribution Width 13.9 % Platelet Count 271 TH/MM3 Mean Platelet Volume 7.4 FL Neutrophils (%) (Auto) 62.2 % Lymphocytes (%) (Auto) 23.5 % Monocytes (%) (Auto) 11.8 % Eosinophils (%) (Auto) 2.0 % Basophils (%) (Auto) 0.5 % Neutrophils # (Auto) 7.5 TH/MM3 Lymphocytes # (Auto) 2.8 TH/MM3 Monocytes # (Auto) 1.4 TH/MM3 Eosinophils # (Auto) 0.2 TH/MM3 Basophils # (Auto) 0.1 TH/MM3 CBC Comment DIFF FINAL Differential Comment Blood Urea Nitrogen 17 MG/DL Creatinine 1.21 MG/DL Random Glucose 102 MG/DL Calcium Level 10.2 MG/DL Sodium Level 132 MEQ/L Potassium Level 2.5 MEQ/L Chloride Level 86 MEQ/L Carbon Dioxide Level 39.6 MEQ/L Anion Gap 6 MEQ/L Estimat Glomerular Filtration Rate 61 ML/MIN [facility] Medical Decision Making Medical Screen Exam Complete: Yes Emergency Medical Condition: Yes Medical Record Reviewed: Yes Differential Diagnosis Hypokalemia, cardiac arrhythmia, medication side effect Narrative Course I have reviewed the patient's electronic medical record. IV placed CBC is normal Metabolic profile shows hypokalemia of 2.5 I reviewed his EKG which shows atrial flutter Patient remains asymptomatic I've given 50 mEq of potassium for replacement I have reviewed in detail with his small business representative Dr. Jen Li is going to see him tomorrow in his clinic and does not want any medical changes made to his regimen at this time but does want one further replacement dose of 50 mEq Going to wait one hour so there will be a full 2 hours between dosing and give him another dose and then discharge him home Diagnosis Primary Impression: Hypokalemia Additional Impression: Medication side effect Qualified Codes: T88.7XXA - Unspecified adverse effect of drug or medicament, initial encounter Additional Instructions: The patient was advised to follow up with their physician and return if they worsen. Med/Other Pt SpecificInfo: Other Disposition: 01 DISCHARGE HOME Condition: Stable Declan Patton MD Mar 08, 2017 11:10
[2017-03-08 11:45] LABS: AUTOMATED NEUTROPHIL # 7.5 TH/MM3 (1.8-7.7); BASOPHIL # 0.1 TH/MM3 (0-0.2); BASOPHIL % 0.5 % (0.0-2.0); EOSINOPHIL # 0.2 TH/MM3 (0-0.4); HEMOGLOBIN 16.8 GM/DL (13.0-17.0); LYMPH % 23.5 % (9.0-44.0); LYMPHOCYTE # 2.8 TH/MM3 (1.0-4.8); MEAN CELL VOLUME 102.6 FL (80.0-100.0); MEAN CORPUSCULAR HEMOGLOBIN 35.9 PG (27.0-34.0); MEAN PLATELET VOLUME 7.4 FL (7.0-11.0); MONO % 11.8 % (0.0-8.0); MONOCYTE # 1.4 TH/MM3 (0-0.9); NEUT % 62.2 % (16.0-70.0); PLATELET COUNT 271 TH/MM3 (150-450); RED BLOOD COUNT 4.68 MIL/MM3 (4.50-5.90); RED CELL DISTRIBUTION WIDTH 13.9 % (11.6-17.2); WHITE BLOOD COUNT 12.1 TH/MM3 (4.0-11.0)
[2017-03-08 12:11] LABS: BICARBONATE 39.6 MEQ/L (21.0-32.0); CALCIUM 10.2 MG/DL (8.5-10.1); CREATININE 1.21 MG/DL (0.60-1.30)
[2017-03-08] MEDS ORDERED: POTASSIUM BICARBONATE 25 MEQ EFFERVESCENT TAB PO ONE ×2 (12:30→14:30)
[2017-03-08 13:02] VITALS: BP 122/58; PULSE 75; RESP 16; O2SAT 98
[2017-03-08 15:01] VITALS: BP 142/67; PULSE 80; RESP 18; O2SAT 96
[2017-03-08 15:36] VITALS: BP 128/60
--- NOTE | 2017-03-09 23:34 | EKG ---
Date Performed: 03/08/2017 Time Performed: 11:33:43 PTAGE: 61 years EKG: ATRIAL FLUTTER/TACHYCARDIA INFERIOR MYOCARDIAL INFARCTION ABNORMAL ECG NO PREVIOUS TRACING DOCTOR: Arthur Correa Interpretating Date/Time 03/09/2017 23:33:24
== END 2017-03-08 15:46 | disposition home or self-care (01) ==
LOC: NEPD 10:37
DX: E87.6 Hypokalemia (principal); T50.905A Adverse effect of unspecified drugs, medicaments and biological substances, initial encounter; F17.200 Nicotine dependence, unspecified, uncomplicated; I11.0 Hypertensive heart disease with heart failure; I50.22 Chronic systolic (congestive) heart failure; J44.9 Chronic obstructive pulmonary disease, unspecified; Z79.01 Long term (current) use of anticoagulants
CPT/HCPCS: 80048; 85025; 93005; 99284

== ENCOUNTER 2017-04-26 12:43 | Inpatient (IN) | payer MEDICARE ==
[~2017-04-26] VITALS: Ht 182.9 cm; Wt 136.6 kg
[2017-04-26] VITALS (14 sets, daily range): BP systolic 106–124; BP diastolic 52–62; PULSE 63–76; RESP 16–37; TEMP 98–98.3; O2SAT 84–97
[2017-04-26] MEDS ORDERED: FURO40TA PO (13:10)
[2017-04-26] MEDS ORDERED: METO10TA4 PO (13:10)
[2017-04-26] MEDS ORDERED: POTA-163 PO (13:10)
[2017-04-26] MEDS ORDERED: SPIRCAP INH (13:12)
[2017-04-26] MEDS ORDERED: DOCU1CAP25 (13:12)
--- NOTE | 2017-04-26 13:28 | PD ---
HPI Chief Complaint: Respiratory Distress Time Seen by Provider: 13:09 Travel History International Travel<30 days: No Contact w/Intl Traveler<30days: No Traveled to known affect area: No History of Present Illness HPI 61-year-old male with PMH of JORGE, HTN, porcine AVR, CHF, CAD, S/P recent stenting, COPD, current smoker, on Eliquis and Plavix for evaluation of 1 week history of SOB and MELISSA. Patient denies fever, chills, chest pain, palpitations , cough, abdominal pain, nausea, vomiting, lower extremity edema. He endorses compliance with his daily medications. He is not oxygen dependent at home. He endorses history of hypokalemia secondary to Lasix and metolazone. He was seen by Dr. Maradiaga today and sent to the ED. Cardiology Dr. Li. Pulmonology Dr. Mike. [facility] Past Medical History Hx Anticoagulant Therapy: Yes (ELIQUIS) Atrial Fibrillation: Yes Autoimmune Disease: No Heart Rhythm Problems: Yes (AFTER FIRST VALVE REPLACEMENT) Cancer: No Cardiovascular Problems: Yes High Cholesterol: Yes Chest Pain: No Congestive Heart Failure: Yes COPD: Yes Coronary Artery Disease: Yes Diminished Hearing: No Endocrine: No Gastrointestinal Disorders: Yes Genitourinary: Yes Hypertension: Yes Immune Disorder: No Musculoskeletal: No Neurologic: No Psychiatric: No Reproductive: No Respiratory: Yes (COPD) Immunizations Current: Yes Sleep Apnea: Yes (CPAP ) Past Surgical History Abdominal Surgery: Yes (SPLEENECTOMY) Cardiac Surgery: Yes (AVR X 2) Cholecystectomy: Yes Neurologic Surgery: Yes (HEMATOMA REMOVED) Thoracic Surgery: No Other Surgery: Yes (HEMATOMA REMOVED FROM FOREHEAD AREA) Social History Alcohol Use: Yes (5-6 BEERS A DAY) Tobacco Use: Yes (1PPD) Substance Use: Yes (MARIJUANA ) Allergies-Medications (Allergen,Severity, Reaction): Coded Allergies: No Known Allergies (Verified Allergy, Unknown, 04/26/17) Reported Meds & Prescriptions Reported Meds & Active Scripts Active Diltiazem CD 24 HR 120 Mg Caper 240 Mg PO DAILY 30 Days Lipitor (Atorvastatin Calcium) 10 Mg Tab 40 Mg PO HS 30 Days Plavix (Clopidogrel Bisulfate) 75 Mg Tab 75 Mg PO DAILY 30 Days Reported Spiriva Handihaler (Tiotropium Inh) 18 Mcg Cap 18 Mcg INH DAILY 1 capsule = 18 mcg Stool Softener (Docusate Calcium) 240 Mg Cap Potassium Chloride ER (Potassium Chloride) 20 Meq Tab 130 Meq PO BID Metolazone 10 Mg Tab 10 Mg PO DAILY Furosemide 40 Mg Tab 40 Mg PO BID Eliquis (Apixaban) 5 Mg Tab 5 Mg PO BID Metformin ER (Metformin HCl) 500 Mg Emanuel 500 Mg PO DAILY With evening meal Multiple Vitamin 1 Tab 1 Tab PO DAILY Metoprolol Succinate ER 24 HR (Metoprolol Succinate) 100 Mg Tab 100 Mg PO DAILY Eliquis (Apixaban) 5 Mg Tab 5 Mg PO BID Aspirin DR (Aspirin) 81 Mg Tabdr 81 Mg PO DAILY Amiodarone (Amiodarone HCl) 200 Mg Tab 200 Mg PO DAILY Review of Systems Except as stated in HPI: all other systems reviewed are Neg Physical Exam Narrative GENERAL: Well-nourished, well-developed obese white male with increased work of breathing. Speaking in short sentences. SKIN: Focused skin assessment warm/dry. HEAD: Normocephalic. EYES: No scleral icterus. No injection or drainage. NECK: Supple, trachea midline. No JVD or lymphadenopathy. CARDIOVASCULAR: Regular rate and rhythm without gallops, or rubs. Midsystolic ejection murmur heard best over the right second intercostal space. RESPIRATORY: Breath sounds clear and equal bilaterally. + accessory muscle use. GASTROINTESTINAL: Abdomen protuberant, soft, non-tender, nondistended. Active bowel sounds. MUSCULOSKELETAL: No cyanosis, or edema. BACK: Nontender without obvious deformity. No CVA tenderness. Data Data Last Documented VS Vital Signs Date Time Temp Pulse Resp B/P (MAP) Pulse Ox O2 Delivery O2 Flow Rate FiO2 04/26/17 15:23 63 20 113/55 (74) 96 BiPAP 04/26/17 14:00 50 04/26/17 13:26 2.00 04/26/17 12:46 98.3 Orders Orders Complete Blood Count With Diff (04/26/17 13:17) Comprehensive Metabolic Panel (04/26/17 13:17) B-Type Natriuretic Peptide (04/26/17 13:17) Act Partial Throm Time (Ptt) (04/26/17 13:17) Prothrombin Time / Inr (Pt) (04/26/17 13:17) Magnesium (Mg) (04/26/17 13:17) Ckmb (Isoenzyme) Profile (04/26/17 13:17) Troponin I (04/26/17 13:17) Urinalysis - C+S If Indicated (04/26/17 13:17) Iv Access Insert/Monitor (04/26/17 13:17) Electrocardiogram (04/26/17 13:17) Ecg Monitoring (04/26/17 13:17) Oximetry (04/26/17 13:17) Oxygen Administration (04/26/17 13:17) Chest, Single Ap (04/26/17 13:17) Sodium Chloride 0.9% Flush (Ns Flush) (04/26/17 13:30) Resp Bipap / Cpap Non Invas Vt (04/26/17 ) Nitroglycerin 2% Oint (Nitroglycerin 2% (04/26/17 13:45) CKMB (04/26/17 13:20) CKMB% (04/26/17 13:20) Potassium Chloride (Kcl) (04/26/17 14:30) Potassium Chlor 20 Meq Premix (Kcl 20 Me (04/26/17 15:30) Magnesium Sulfate 1 Gm Premix (Magnesium (04/26/17 15:30) Furosemide Inj (Lasix Inj) (04/26/17 15:30) Admit Order (Ed Use Only) (04/26/17 15:20) Labs Laboratory Tests Test 04/26/17 13:20 04/26/17 14:24 White Blood Count 13.2 TH/MM3 Red Blood Count 4.55 MIL/MM3 Hemoglobin 15.9 GM/DL Hematocrit 45.5 % Mean Corpuscular Volume 99.9 FL Mean Corpuscular Hemoglobin 34.9 PG Mean Corpuscular Hemoglobin Concent 34.9 % Red Cell Distribution Width 14.2 % Platelet Count 345 TH/MM3 Mean Platelet Volume 7.4 FL Neutrophils (%) (Auto) 67.6 % Lymphocytes (%) (Auto) 22.9 % Monocytes (%) (Auto) 7.4 % Eosinophils (%) (Auto) 1.2 % Basophils (%) (Auto) 0.9 % Neutrophils # (Auto) 8.9 TH/MM3 Lymphocytes # (Auto) 3.0 TH/MM3 Monocytes # (Auto) 1.0 TH/MM3 Eosinophils # (Auto) 0.2 TH/MM3 Basophils # (Auto) 0.1 TH/MM3 CBC Comment DIFF FINAL Differential Comment Prothrombin Time 12.5 SEC Prothromb Time International Ratio 1.2 RATIO Activated Partial Thromboplast Time 31.3 SEC Blood Urea Nitrogen 36 MG/DL Creatinine 1.77 MG/DL Random Glucose 132 MG/DL Total Protein 8.7 GM/DL Albumin 3.5 GM/DL Calcium Level 9.6 MG/DL Magnesium Level 2.3 MG/DL Alkaline Phosphatase 62 U/L Aspartate Amino Transf (AST/SGOT) 38 U/L Alanine Aminotransferase (ALT/SGPT) 30 U/L Total Bilirubin 1.2 MG/DL Sodium Level 135 MEQ/L Potassium Level 2.6 MEQ/L Chloride Level 94 MEQ/L Carbon Dioxide Level 31.5 MEQ/L Anion Gap 10 MEQ/L Estimat Glomerular Filtration Rate 40 ML/MIN Total Creatine Kinase 159 U/L Creatine Kinase MB 1.3 NG/ML Troponin I 0.05 NG/ML B-Type Natriuretic Peptide 715 PG/ML Urine Color YELLOW Urine Turbidity CLEAR Urine pH 5.5 Urine Specific [place] 1.011 Urine Protein NEG mg/dL Urine Glucose (UA) NEG mg/dL Urine Ketones NEG mg/dL Urine Occult Blood NEG Urine Nitrite NEG Urine Bilirubin NEG Urine Urobilinogen LESS THAN 2.0 MG/DL Urine Leukocyte Esterase NEG Urine RBC LESS THAN 1 /hpf Urine WBC 1 /hpf Urine Hyaline Casts 19 /lpf Microscopic Urinalysis Comment CULT NOT INDICATED MDM Medical Decision Making Medical Screen Exam Complete: Yes Emergency Medical Condition: Yes Differential Diagnosis COPD exacerbation versus CHF exacerbation versus metabolic derangement versus other Narrative Course 61-year-old male with PMH of JORGE, HTN, porcine AVR, CHF, CAD, S/P recent stenting, COPD, current smoker, on Eliquis and Plavix for evaluation of 1 week history of SOB and MELISSA. He is not oxygen dependent at home. He endorses history of hypokalemia secondary to Lasix and metolazone. He was seen by Dr. Maradiaga today and sent to the ED. Cardiology Dr. Li. Pulmonology Dr. Mike. Afebrile, pulse 76, respiratory rate 28, 89% O2 saturation on room air, BP 106/ 52 on presentation. On exam is obese white male with increased work of breathing. Midsystolic murmur best heard over the right second intercostal space. Breath sounds clear bilaterally. No lower extremity edema. EKG rate 68, sinus rhythm. ND interval 188, QRS 125, QTc 359. Normal axis. No acute ST changes. Reviewed by Dr. Gonzalez. CXR: Cardiomegaly with findings of volume overload/CHF per radiology read. Cardiac enzymes negative 1 BNP 715. CBC: WBC 13.2. Hemoglobin 15.9. CMP: Potassium 2.6. BUN 36, creatinine 1.77. UA: no culture indicated O2 sats hovering at 89% on 3 L NC, lower with talking. Patient was placed on BiPAP, nitroglycerin paste applied to the chest. He was administered 40 mEq KCl by mouth. O2 sats improved to 95% on BiPAP. I discussed the workup with the patient and recommended admission. The patient is agreeable. Call placed to Dr. Maradiaga. Call placed to [facility]. Dr. Minaya recommends the patient be admitted to the tie presser. Call placed to Dr. Nash. Dr. Nash recommends IV magnesium, potassium and Lasix. He agrees to accept the patient to the ICU. Please see medicine notes for disposition. Ita Liu Apr 26, 2017 13:28
[2017-04-26] MEDS ORDERED: SODIUM CHLORIDE 0.9% FLUSH 10 ML FLUSH IVF PRN (13:30)
[2017-04-26 13:35] LABS: AUTOMATED NEUTROPHIL # 8.9 TH/MM3 (1.8-7.7); BASOPHIL # 0.1 TH/MM3 (0-0.2); BASOPHIL % 0.9 % (0.0-2.0); EOSINOPHIL # 0.2 TH/MM3 (0-0.4); EOSINOPHIL % 1.2 % (0.0-4.0); HEMATOCRIT 45.5 % (39.0-51.0); HEMOGLOBIN 15.9 GM/DL (13.0-17.0); LYMPH % 22.9 % (9.0-44.0); MEAN CELL VOLUME 99.9 FL (80.0-100.0); MEAN CORPUSCULAR HEMOGLOBIN 34.9 PG (27.0-34.0); MEAN CORPUSCULAR HGB CONC 34.9 % (32.0-36.0); MEAN PLATELET VOLUME 7.4 FL (7.0-11.0); MONO % 7.4 % (0.0-8.0); NEUT % 67.6 % (16.0-70.0); PLATELET COUNT 345 TH/MM3 (150-450); RED BLOOD COUNT 4.55 MIL/MM3 (4.50-5.90); RED CELL DISTRIBUTION WIDTH 14.2 % (11.6-17.2); WHITE BLOOD COUNT 13.2 TH/MM3 (4.0-11.0)
[2017-04-26] MEDS ORDERED: NITROGLYCERIN 2% OINT 1 GM PACKET TOP ONE (13:45)
[2017-04-26 13:46] LABS: INTERNATIONAL NORMALIZED RATIO 1.2 RATIO; PROTHROMBIN TIME - PATIENT 12.5 SEC (9.8-11.6)
--- NOTE | 2017-04-26 13:47 | RADRPT ---
EXAM DATE/TIME: 04/26/2017 13:22 [place] COMPARISON: CHEST SINGLE AP, February 08, 2017, 12:17. INDICATIONS : Short of breath. MEDICAL HISTORY : Chronic obstructive pulmonary disease. SURGICAL HISTORY : CABG. ENCOUNTER: Initial ACUITY: 4 - 6 months PAIN SCORE: 0/10 LOCATION: Bilateral chest FINDINGS: A single view of the chest demonstrates the lungs to be symmetrically aerated with increased intersti tial markings and cardiomegaly characteristic of some degree of failure. There may be small effusions bilaterally, right greater than left. Intact median sternotomy wires. CONCLUSION: Cardiomegaly with findings of volume overload/CHF. Thompson Berg MD on April 26, 2017 at 13:41 Board Certified Radiologist. This report was verified electronically.
[2017-04-26 14:03] LABS: ALBUMIN 3.5 GM/DL (3.4-5.0); ALKALINE PHOSPHATASE 62 U/L (45-117); ALT (GPT) 30 U/L (12-78); AST (GOT) 38 U/L (15-37); BICARBONATE 31.5 MEQ/L (21.0-32.0); BLOOD UREA NITROGEN 36 MG/DL (7-18); CALCIUM 9.6 MG/DL (8.5-10.1); CHLORIDE 94 MEQ/L (98-107); CREATININE 1.77 MG/DL (0.60-1.30); GLOMERULAR FILTRATION RATE 40 ML/MIN (>89); GLUCOSE,RANDOM 132 MG/DL (74-106); MAGNESIUM 2.3 MG/DL (1.5-2.5); SODIUM (NA) 135 MEQ/L (136-145); TOTAL BILIRUBIN ADULT 1.2 MG/DL (0.2-1.0); TOTAL PROTEIN 8.7 GM/DL (6.4-8.2); TROPONIN I 0.05 NG/ML (0.02-0.05)
[2017-04-26] MEDS ORDERED: POTASSIUM CHLORIDE 20 MEQ CONTROLLED RELEASE TAB PO ONE (14:30)
[2017-04-26 14:42] LABS: BILIRUBIN, URINE NEG (NEG); BLOOD, URINE NEG (NEG); GLUCOSE,URINE NEG (NEG); HYALINE CAST, URINE 19 /lpf (RARE); KETONE, URINE NEG (NEG); NITRITE,URINE NEG (NEG); PH, URINE 5.5 (5.0-8.5); URINE COLOR YELLOW (YELLW/STRAW); URINE LEUKOCYTE ESTERASE NEG (NEG)
--- NOTE | 2017-04-26 15:25 | PD ---
Physical Exam Date Seen by Provider: Apr 26, 2017 Time Seen by Provider: 12:30 Narrative I, Dr. Gonzalez, have reviewed the advance practice practitioner's documentation and am in agreement, met with the patient face to face, made the diagnosis, and the medical decision making was done by me. *My assessment and Findings: Patient seen and evaluated with PA, please see PA note for further details. Patient is here for worsening shortness of breath, dyspnea on exertion, history of CHF. EKG shows normal sinus at a rate of 68 bpm with a partial left bundle branch block. No signs of acute ST changes. Laboratory Tests Test 04/26/17 13:20 04/26/17 14:24 White Blood Count 13.2 TH/MM3 (4.0-11.0) Mean Corpuscular Hemoglobin 34.9 PG (27.0-34.0) Neutrophils # (Auto) 8.9 TH/MM3 (1.8-7.7) Monocytes # (Auto) 1.0 TH/MM3 (0-0.9) Prothrombin Time 12.5 SEC (9.8-11.6) Activated Partial Thromboplast Time 31.3 SEC (24.3-30.1) Blood Urea Nitrogen 36 MG/DL (7-18) Creatinine 1.77 MG/DL (0.60-1.30) Random Glucose 132 MG/DL (74-106) Total Protein 8.7 GM/DL (6.4-8.2) Aspartate Amino Transf (AST/SGOT) 38 U/L (15-37) Total Bilirubin 1.2 MG/DL (0.2-1.0) Sodium Level 135 MEQ/L (136-145) Potassium Level 2.6 MEQ/L (3.5-5.1) Chloride Level 94 MEQ/L (98-107) Estimat Glomerular Filtration Rate 40 ML/MIN (>89) B-Type Natriuretic Peptide 715 PG/ML (0-100) Last 24 hours Impressions Chest X-Ray 04/26/17 1317 Signed Impressions: Service Date/Time: Wednesday, April 26, 2017 13:22 - CONCLUSION: Cardiomegaly with findings of volume overload/CHF. Thompson Berg MD Chest x-ray and lab work concerning for CHF exacerbation. His potassium is fairly low and potassium was cautiously given IV as well as magnesium. Lasix given after discussion with hospitalist for admission. Data Data Last Documented VS Vital Signs Date Time Temp Pulse Resp B/P (MAP) Pulse Ox O2 Delivery O2 Flow Rate FiO2 04/26/17 14:05 64 20 108/54 (72) 97 BiPAP 04/26/17 14:00 50 04/26/17 13:26 2.00 04/26/17 12:46 98.3 Orders Orders Complete Blood Count With Diff (04/26/17 13:17) Comprehensive Metabolic Panel (04/26/17 13:17) B-Type Natriuretic Peptide (04/26/17 13:17) Act Partial Throm Time (Ptt) (04/26/17 13:17) Prothrombin Time / Inr (Pt) (04/26/17 13:17) Magnesium (Mg) (04/26/17 13:17) Ckmb (Isoenzyme) Profile (04/26/17 13:17) Troponin I (04/26/17 13:17) Urinalysis - C+S If Indicated (04/26/17 13:17) Iv Access Insert/Monitor (04/26/17 13:17) Electrocardiogram (04/26/17 13:17) Ecg Monitoring (04/26/17 13:17) Oximetry (04/26/17 13:17) Oxygen Administration (04/26/17 13:17) Chest, Single Ap (04/26/17 13:17) Sodium Chloride 0.9% Flush (Ns Flush) (04/26/17 13:30) Resp Bipap / Cpap Non Invas Vt (04/26/17 ) Nitroglycerin 2% Oint (Nitroglycerin 2% (04/26/17 13:45) CKMB (04/26/17 13:20) CKMB% (04/26/17 13:20) Potassium Chloride (Kcl) (04/26/17 14:30) Labs Laboratory Tests Test 04/26/17 13:20 04/26/17 14:24 White Blood Count 13.2 TH/MM3 Red Blood Count 4.55 MIL/MM3 Hemoglobin 15.9 GM/DL Hematocrit 45.5 % Mean Corpuscular Volume 99.9 FL Mean Corpuscular Hemoglobin 34.9 PG Mean Corpuscular Hemoglobin Concent 34.9 % Red Cell Distribution Width 14.2 % Platelet Count 345 TH/MM3 Mean Platelet Volume 7.4 FL Neutrophils (%) (Auto) 67.6 % Lymphocytes (%) (Auto) 22.9 % Monocytes (%) (Auto) 7.4 % Eosinophils (%) (Auto) 1.2 % Basophils (%) (Auto) 0.9 % Neutrophils # (Auto) 8.9 TH/MM3 Lymphocytes # (Auto) 3.0 TH/MM3 Monocytes # (Auto) 1.0 TH/MM3 Eosinophils # (Auto) 0.2 TH/MM3 Basophils # (Auto) 0.1 TH/MM3 CBC Comment DIFF FINAL Differential Comment Prothrombin Time 12.5 SEC Prothromb Time International Ratio 1.2 RATIO Activated Partial Thromboplast Time 31.3 SEC Blood Urea Nitrogen 36 MG/DL Creatinine 1.77 MG/DL Random Glucose 132 MG/DL Total Protein 8.7 GM/DL Albumin 3.5 GM/DL Calcium Level 9.6 MG/DL Magnesium Level 2.3 MG/DL Alkaline Phosphatase 62 U/L Aspartate Amino Transf (AST/SGOT) 38 U/L Alanine Aminotransferase (ALT/SGPT) 30 U/L Total Bilirubin 1.2 MG/DL Sodium Level 135 MEQ/L Potassium Level 2.6 MEQ/L Chloride Level 94 MEQ/L Carbon Dioxide Level 31.5 MEQ/L Anion Gap 10 MEQ/L Estimat Glomerular Filtration Rate 40 ML/MIN Total Creatine Kinase 159 U/L Creatine Kinase MB 1.3 NG/ML Troponin I 0.05 NG/ML B-Type Natriuretic Peptide 715 PG/ML Urine Color YELLOW Urine Turbidity CLEAR Urine pH 5.5 Urine Specific [place] 1.011 Urine Protein NEG mg/dL Urine Glucose (UA) NEG mg/dL Urine Ketones NEG mg/dL Urine Occult Blood NEG Urine Nitrite NEG Urine Bilirubin NEG Urine Urobilinogen LESS THAN 2.0 MG/DL Urine Leukocyte Esterase NEG Urine RBC LESS THAN 1 /hpf Urine WBC 1 /hpf Urine Hyaline Casts 19 /lpf Microscopic Urinalysis Comment CULT NOT INDICATED MDM Medical Record Reviewed: Yes Supervised Visit with GABRIEL: Yes Diagnosis Primary Impression: Acute exacerbation of CHF (congestive heart failure) Admitting Information Admitting Physician Requests: Admit Gaudencio Gonzalez MD Apr 26, 2017 15:25
[2017-04-26] MEDS ORDERED: MAGNESIUM SULFATE 1 GM PREMIX 100 ML IV SCH (15:30)
[2017-04-26] MEDS ORDERED: DEXTROSE 50% IN WATER 50 ML VIAL(D50) IV PUSH PRN (15:30)
[2017-04-26] MEDS ORDERED: SODIUM PHOSPHATE INJ 30 MMOL in SODIUM CHLOR 0.9% 250 ML INJ 240 ML IV PRN (15:30)
[2017-04-26] MEDS ORDERED: MAGNESIUM SULFATE INJ 2 GM in SODIUM CHLORIDE 0.9% INJ 96 ML IV PRN (15:30)
[2017-04-26] MEDS ORDERED: FUROSEMIDE 100 MG/10 ML VIAL IV PUSH ONE ×2 (15:30→23:15)
[2017-04-26] MEDS ORDERED: POTASSIUM PHOSPHATE MONOBASIC 500 MG TAB PO PRN (15:30)
[2017-04-26] MEDS ORDERED: POTASSIUM PHOSPHATE MONOBASIC 500 MG TAB PO/TUBE PRN (15:30)
[2017-04-26] MEDS ORDERED: MAGNESIUM SULFATE INJ 4 GM in SODIUM CHLORIDE 0.9% INJ 92 ML IV PRN (15:30)
[2017-04-26] MEDS ORDERED: POTASSIUM PHOSPHATE INJ 30 MMOL in SODIUM CHLOR 0.9% 250 ML INJ 250 ML IV PRN (15:30)
[2017-04-26] MEDS ORDERED: POTASSIUM CHLORIDE 25 MEQ EFFERVESCENT TAB PO PRN (15:30)
[2017-04-26] MEDS ORDERED: MAGNESIUM HYDROXIDE SUSP 30 ML CUP PO PRN (15:30)
[2017-04-26] MEDS ORDERED: ONDANSETRON HCL 4 MG/2 ML VIAL IV PUSH PRN (15:30)
[2017-04-26] MEDS ORDERED: POTASSIUM CHLOR 20 MEQ PREMIX 100 ML IV PRN (15:30)
[2017-04-26] MEDS ORDERED: MAGNESIUM OXIDE 400 MG TAB PO PRN (15:30)
[2017-04-26] MEDS ORDERED: RESP: ALBUTEROL 2.5 MG/IPRATROPIUM 0.5 MG NEB (PRN) INH (15:30)
[2017-04-26] MEDS ORDERED: MISCELLANEOUS NURSING INFORMATION XX SCH (15:30)
[2017-04-26] MEDS ORDERED: POTASSIUM CHLOR 40 MEQ PREMIX 100 ML IV PRN (15:30)
[2017-04-26] MEDS ORDERED: CHLORHEXIDINE GLUCONATE 2 % 1 PACK (2 CLOTHS) TOP PRN (15:30)
[2017-04-26] MEDS: POTASSIUM CHLOR 20 MEQ PREMIX 100 ML IV SCH ×3 (15:40→18:52)
[2017-04-26] MEDS: RESP: ALBUTEROL 2.5 MG/IPRATROPIUM 0.5 MG NEB (SCH) INH ×3 (17:02→23:11)
[2017-04-26] MEDS: INSULIN NovoLIN REGULAR SUPPLEMENTAL SCALE SQ SCH (18:00)
[2017-04-26] MEDS: DOCUSATE SODIUM 50 MG/SENNA 8.6 MG TAB PO SCH (20:35)
[2017-04-26] MEDS: ATORVASTATIN 40 MG TAB PO SCH (20:36)
[2017-04-26] MEDS: APIXABAN 5 MG TABLET PO SCH (20:36)
--- NOTE | 2017-04-26 23:09 | HHI.HP ---
HPI Service Critical Care Medicine Primary Care Physician Antonio Cordero M.D. Admission Diagnosis CHF exacerbation Diagnosis: Chief Complaint: shortness of breath Travel History International Travel<30 Days: No Contact w/Intl Traveler <30 Da: No Traveled to Known Affected Are: No History of Present Illness 61yM with history of CHF, bioprosthetic AVR, CAD, COPD who presents with worsening SOB over last few weeks. BNP elevated at > 700, CXR with bilateral pulmonary infiltrates suggestive of pulmonary edema. + weight gain. - sick contacts. - fever, - chills, - n/v/d or abd pain. recent cath with stent placement in 02/2017 with echo. no changes in exercise tolerance since that time. trop negative. placed on bipap in ER for hypoxia. ROS otherwise negative. Review of Systems ROS Limitations: Clinical Condition, Altered Mental Status, Speech Impaired ROS BiPAP in place, short of breath. difficult to obtain ROS. Past Family Social History Allergies: Coded Allergies: No Known Allergies (Verified Allergy, Unknown, 04/26/17) Past Medical History Eliquis use Atrial fibrillation High cholesterol COPD CHF, unknown type CAD HTN JORGE with home CPAP use Past Surgical History Splenectomy AVR x 2 Cholecystectomy Hematoma removed from forehead Reported Medications Diltiazem CD 24 HR 120 Mg Caper 240 Mg PO DAILY 30 Days Lipitor (Atorvastatin Calcium) 10 Mg Tab 40 Mg PO HS 30 Days Plavix (Clopidogrel Bisulfate) 75 Mg Tab 75 Mg PO DAILY 30 Days Spiriva Handihaler (Tiotropium Inh) 18 Mcg Cap 18 Mcg INH DAILY 1 capsule = 18 mcg Stool Softener (Docusate Calcium) 240 Mg Cap Potassium Chloride ER (Potassium Chloride) 20 Meq Tab 130 Meq PO BID Metolazone 10 Mg Tab 10 Mg PO DAILY Furosemide 40 Mg Tab 40 Mg PO BID Eliquis (Apixaban) 5 Mg Tab 5 Mg PO BID Metformin ER (Metformin HCl) 500 Mg Emanuel 500 Mg PO DAILY With evening meal Multiple Vitamin 1 Tab 1 Tab PO DAILY Metoprolol Succinate ER 24 HR (Metoprolol Succinate) 100 Mg Tab 100 Mg PO DAILY Eliquis (Apixaban) 5 Mg Tab 5 Mg PO BID Aspirin DR (Aspirin) 81 Mg Tabdr 81 Mg PO DAILY Amiodarone (Amiodarone HCl) 200 Mg Tab 200 Mg PO DAILY Active Ordered Medications See MAR Family History reviewed and found to be noncontributory to his acute illness Social History 1ppd smoker, 5-6 beers daily, + occ MJ use. Physical Exam Vital Signs Vital Signs Date Time Temp Pulse Resp B/P (MAP) Pulse Ox O2 Delivery O2 Flow Rate FiO2 04/26/17 19:45 92 50 04/26/17 18:00 67 04/26/17 17:00 98.0 70 16 116/62 (80) 96 04/26/17 16:40 92 50 04/26/17 16:07 04/26/17 15:23 63 20 113/55 (74) 96 BiPAP 04/26/17 14:05 64 20 108/54 (72) 97 BiPAP 04/26/17 14:00 94 50 04/26/17 13:26 90 Nasal Cannula 2.00 04/26/17 13:06 89 Nasal Cannula 2.00 04/26/17 13:05 72 22 84 Room Air 04/26/17 13:04 70 22 114/54 (74) 84 Room Air 04/26/17 12:46 98.3 76 28 106/52 (70) 89 Physical Exam gen: obese male, lying in bed, bipap in place. heent: nc. at. perrl. mucous membranes moist. neck: trachea midline. BiPAP in place. unable to assess JVD due to large neck circumference. chest: equal chest rise. fio2 50%, spo2 91% cv: normal rate, regular rhythm. sinus by tele. abd: obese, soft, nontender, nondistended. no guarding. extr: 2+ peripheral edema. distal pulses 2+. neuro: RASS 0. CAM -. GCS 15. no focal deficits. Laboratory Laboratory Tests Test 04/26/17 13:20 04/26/17 14:24 04/26/17 16:30 04/26/17 21:49 White Blood Count 13.2 Red Blood Count 4.55 Hemoglobin 15.9 Hematocrit 45.5 Mean Corpuscular Volume 99.9 Mean Corpuscular Hemoglobin 34.9 Mean Corpuscular Hemoglobin Concent 34.9 Red Cell Distribution Width 14.2 Platelet Count 345 Mean Platelet Volume 7.4 Neutrophils (%) (Auto) 67.6 Lymphocytes (%) (Auto) 22.9 Monocytes (%) (Auto) 7.4 Eosinophils (%) (Auto) 1.2 Basophils (%) (Auto) 0.9 Neutrophils # (Auto) 8.9 Lymphocytes # (Auto) 3.0 Monocytes # (Auto) 1.0 Eosinophils # (Auto) 0.2 Basophils # (Auto) 0.1 CBC Comment DIFF FINAL Differential Comment Prothrombin Time 12.5 Prothromb Time International Ratio 1.2 Activated Partial Thromboplast Time 31.3 Blood Urea Nitrogen 36 Creatinine 1.77 Random Glucose 132 Total Protein 8.7 Albumin 3.5 Calcium Level 9.6 Magnesium Level 2.3 Alkaline Phosphatase 62 Aspartate Amino Transf (AST/SGOT) 38 Alanine Aminotransferase (ALT/SGPT) 30 Total Bilirubin 1.2 Sodium Level 135 Potassium Level 2.6 Chloride Level 94 Carbon Dioxide Level 31.5 Anion Gap 10 Estimat Glomerular Filtration Rate 40 Total Creatine Kinase 159 Creatine Kinase MB 1.3 Troponin I 0.05 0.07 B-Type Natriuretic Peptide 715 Urine Color YELLOW Urine Turbidity CLEAR Urine pH 5.5 Urine Specific [place] 1.011 Urine Protein NEG Urine Glucose (UA) NEG Urine Ketones NEG Urine Occult Blood NEG Urine Nitrite NEG Urine Bilirubin NEG Urine Urobilinogen LESS THAN 2.0 Urine Leukocyte Esterase NEG Urine RBC LESS THAN 1 Urine WBC 1 Urine Hyaline Casts 19 Microscopic Urinalysis Comment CULT NOT INDICATED Nasal Screen MRSA (PCR) MRSA NOT DETECTED Result Diagram: 04/26/17 1320 04/26/17 1320 Imaging Last Impressions Chest X-Ray 04/26/17 1317 Signed Impressions: Service Date/Time: Wednesday, April 26, 2017 13:22 - CONCLUSION: Cardiomegaly with findings of volume overload/CHF. MD Abby Prado VTE Risk Assessment Caprini VTE Risk Assessment: Mod/High Risk (score >= 2) Caprini Risk Assessment Model Point Value = 1 Point Value = 2 Point Value = 3 Point Value = 5 Age 41-60 Minor surgery BMI > 25 kg/m2 Swollen legs Varicose veins or History of unexplained or recurrent spontaneous Oral contraceptives or hormone replacement Sepsis (< 1 month) Serious lung disease, including pneumonia (< 1 month) Abnormal pulmonary function Acute myocardial infarction Congestive heart failure (< 1 month) History of inflammatory bowel disease Medical patient at bed rest Age 61-74 Arthroscopic surgery Major open surgery (> 45 min) Laparoscopic surgery (> 45 min) Malignancy Confined to bed (> 72 hours) Immobilizing plaster cast Central venous access Age >= 75 History of VTE Family history of VTE Factor V Leiden Prothrombin [id number] Lupus anticoagulant Anticardiolipin antibodies Elevated serum homocysteine Heparin-induced thrombocytopenia Other congenital or acquired thrombophilia Stroke (< 1 month) Elective arthroplasty Hip, pelvis, or leg fracture Acute spinal cord injury (< 1 month) Prophylaxis Regimen Total Risk Factor Score Risk Level Prophylaxis Regimen 0-1 Low Early ambulation 2 Moderate Order ONE of the following: *Sequential Compression Device (SCD) *Heparin 5000 units SQ BID 3-4 Higher Order ONE of the following medications: *Heparin 5000 units SQ TID *Enoxaparin/Lovenox 40 mg SQ daily (WT < 150 kg, CrCl > 30 mL/min) *Enoxaparin/Lovenox 30 mg SQ daily (WT < 150 kg, CrCl > 10-29 mL/min) *Enoxaparin/Lovenox 30 mg SQ BID (WT < 150 kg, CrCl > 30 mL/min) AND/OR *Sequential Compression Device (SCD) 5 or more Highest Order ONE of the following medications: *Heparin 5000 units SQ TID (Preferred with Epidurals) *Enoxaparin/Lovenox 40 mg SQ daily (WT < 150 kg, CrCl > 30 mL/min) *Enoxaparin/Lovenox 30 mg SQ daily (WT < 150 kg, CrCl > 10-29 mL/min) *Enoxaparin/Lovenox 30 mg SQ BID (WT < 150 kg, CrCl > 30 mL/min) AND *Sequential Compression Device (SCD) Assessment and Plan Assessment and Plan Assessment: 61yM with worsening shortness of breath without signs of infection or clinical history to suspect infection. elevated BNP and CXR suggestive of pulmonary edema. Clinically this is a CHF exacerbation, likely diastolic type. He has a recent echo from 02/2017, so there is no need to repeat the echocardiogram. will trend troponins to ensure there is no ACS component to this , although unlikely given lack of ACS type symptoms. Will pursue forced diuresis and NIPPV. Admit to ICU. Acute CHF Exacerbation- preserved EF Acute hypoxic respiratory failure requiring NIPPV - lasix 80mg iv q12h - metolazone 10mg po daily - goal net -2L/24h - BiPAP - wean fio2 for goal spo2 > 90% - abg - AM CXR - no need to repeat echo given recent echo 02/2017 - trend troponins to ensure no ischemic component - consult cardiology given that patient came from Dr. Maradiaga's clinic: will have him continue to follow. Atrial fibrillation - home rate controlling drugs - home amio - currently rate controlled - home eliquis CAD - home ASA - home plavix Hyperlipidemia - home statin Admit to ICU. David Nash MD Apr 26, 2017 23:09
[2017-04-26] MEDS: MAGNESIUM SULFATE 1 GM PREMIX 100 ML IV SCH (23:51)
[2017-04-27] VITALS (18 sets, daily range): BP systolic 110–124; BP diastolic 56–77; PULSE 64–75; RESP 22–32; TEMP 97.7–98.5; O2SAT 88–94
[2017-04-27] MEDS: POTASSIUM CHLOR 20 MEQ PREMIX 100 ML IV SCH ×5 (00:46→19:51)
[2017-04-27] MEDS: MAGNESIUM SULFATE 1 GM PREMIX 100 ML IV SCH (00:46)
[2017-04-27] MEDS: RESP: ALBUTEROL 2.5 MG/IPRATROPIUM 0.5 MG NEB (SCH) INH ×6 (03:28→23:20)
[2017-04-27] MEDS: CHLORHEXIDINE GLUCONATE 2 % 1 PACK (2 CLOTHS) TOP SCH (04:00)
--- NOTE | 2017-04-27 05:00 | RADRPT ---
EXAM DATE/TIME: 04/27/2017 03:27 [facility] COMPARISON: CHEST SINGLE AP, April 26, 2017, 13:22. INDICATIONS : Shortness of breath, possible pulmonary disease. MEDICAL HISTORY : Chronic obstructive pulmonary disease. Congestive heart failure. SURGICAL HISTORY : CABG. ENCOUNTER: Subsequent ACUITY: 2 days PAIN SCORE: 0/10 LOCATION: Bilateral chest FINDINGS: Worsening appearance of the chest with increasing consolidation lower lobes. Cardiomegaly and degener ative changes of the spine. Sternotomy wires are present. Right upper lobe airspace disease is also s een. CONCLUSION: Worsening appearance of the chest. Morgan Arana MD on April 27, 2017 at 4:59 Board Certified Radiologist. This report was verified electronically.
[2017-04-27] MEDS: INSULIN NovoLIN REGULAR SUPPLEMENTAL SCALE SQ SCH ×4 (06:00→17:14)
[2017-04-27 06:02] LABS: HEMATOCRIT 45.7 % (39.0-51.0); HEMOGLOBIN 15.5 GM/DL (13.0-17.0); MEAN CELL VOLUME 102.4 FL (80.0-100.0); MEAN CORPUSCULAR HEMOGLOBIN 34.8 PG (27.0-34.0); MEAN PLATELET VOLUME 7.1 FL (7.0-11.0); PLATELET COUNT 315 TH/MM3 (150-450); RED BLOOD COUNT 4.46 MIL/MM3 (4.50-5.90); RED CELL DISTRIBUTION WIDTH 14.5 % (11.6-17.2); WHITE BLOOD COUNT 14.6 TH/MM3 (4.0-11.0)
[2017-04-27 06:23] LABS: BICARBONATE 32.2 MEQ/L (21.0-32.0); CALCIUM 9.7 MG/DL (8.5-10.1); CREATININE 1.63 MG/DL (0.60-1.30); MAGNESIUM 2.7 MG/DL (1.5-2.5); TROPONIN I 0.06 NG/ML (0.02-0.05)
[2017-04-27] MEDS ORDERED: POTASSIUM CHLORIDE 25 MEQ EFFERVESCENT TAB PO ONE ×2 (06:45→15:00)
--- NOTE | 2017-04-27 08:04 | HHI.CCPN ---
Subjective Remarks/Hospital Course Hospital course: 61yM with history of CHF, bioprosthetic AVR, CAD, COPD who presents with worsening SOB over last few weeks. BNP elevated at > 700, CXR with bilateral pulmonary infiltrates suggestive of pulmonary edema. + weight gain. - sick contacts. - fever, - chills, - n/v/d or abd pain. recent cath with stent placement in 02/2017 with echo. no changes in exercise tolerance since that time. trop negative. placed on bipap in ER for hypoxia. ROS otherwise negative. Subjective: 04/27: good diuresis with -1.7L/24h. severely hypokalemic this morning despite aggressive replacement yesterday. however, fio2 continues to rise, up to 70%. patient very dyspneic when he removes BiPAP. patient states he has been aggressively dieting, but despite that states he isn't losing any weight. takes lasix 80mg po BID as well as metolazone just to keep the same daily weight. Objective Vital Signs Date Time Temp Pulse Resp B/P (MAP) Pulse Ox O2 Delivery O2 Flow Rate FiO2 04/27/17 06:00 66 04/27/17 04:46 91 70 04/27/17 04:00 98.2 23 110/57 (74) 04/26/17 15:23 BiPAP 04/26/17 13:26 2.00 Intake and Output 04/27/17 04/27/17 04/28/17 08:00 16:00 00:00 Intake Total 780 ml Output Total 2210 ml Balance -1430 ml Result Diagram: 04/27/17 0504 04/27/17 0504 Imaging Last Impressions Chest X-Ray 04/26/17 1317 Signed Impressions: Service Date/Time: Wednesday, April 26, 2017 13:22 - CONCLUSION: Cardiomegaly with findings of volume overload/CHF. Thompson Berg MD Objective Remarks gen: obese male, lying in bed, bipap in place. heent: nc. at. perrl. mucous membranes moist. neck: trachea midline. BiPAP in place. unable to assess JVD due to large neck circumference. chest: equal chest rise. fio2 70%, spo2 91% cv: normal rate, regular rhythm. sinus by tele. abd: obese, soft, nontender, nondistended. no guarding. extr: 2+ peripheral edema. distal pulses 2+. neuro: RASS 0. CAM -. GCS 15. no focal deficits. A/P Assessment and Plan Assessment: 61yM with acute CHF exacerbation with preserved EF. Clinically, he is still very volume overloaded. I performed bedside critical care echocardiogram which revealed grossly preserved LV function, RVSP ~60 mmHg, dilated IVC without any respiratory variation, no pericardial effusion. Clinically, I am concerned that despite an aggressive outpatient diuretic regimen, he is not clinically improving, and is needing re-admission for CHF despite a thorough inpatient evaluation in February. His troponins are stable, and his recent LHC in 02/2017 along with echo at that time would suggest this is not a change in his ischemic disease. Given his body habitus, JORGE with pulmonary hypertension could account for the worsening of his overall CHF symptoms. I have discussed the case with Dr. Li, and will have him along with Dr. Maradiaga evaluate the patient and we will come up with a multidisciplinary plan of care for him. Overall, plan for today is more aggressive diuresis given worsening of his symptoms: lasix, metolazone, and diamox for the devleoping alkalosis. Needs aggressive K replacement for worsening hypokalemia, but cannot hold forced diuresis given his pulmonary symptoms, so will measure serial potassium levels and continue to aggressively replace both IV and PO KCl. Highly complex and I am concerned that if we do not change his overall clinical course at this admission, he may continue to decline in the outpatient arena. Acute CHF Exacerbation- preserved EF Acute hypoxic respiratory failure requiring NIPPV Acute intravascular volume overload - lasix 80mg iv q6h - metolazone 10mg po daily - diamox 500mg iv x 1 for alkalosis - goal net -2L/24h - BiPAP - wean fio2 for goal spo2 > 90% - no need to repeat echo given recent echo 02/2017 - troponins stable, will stop checking. - consult Dr. Maradiaga and Jen to Severe hypokalemia - kcl 80meq iv x 1 - kcl 100meq PO x 1 - q6h potassium checks - aggressive replacement - mg > 2.5 currently, will not replace. - continue forced diuresis despite hypokalemia. Metabolic alkalosis - diamox 500mg iv x 1. Acute kidney injury - secondary to venous congestion. 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 - may benefit from LHC/RHC with vasodilator challenge to eval for other causes of pulmonary hypertension - may also benefit from outpatient sleep study to eval for optimization of JORGE. - if other studies negative, would consider high resolution CT pulmonary angiogram looking specifically for CTEPH (WHO Class IV PH) Atrial fibrillation - home rate controlling drugs - home amio - currently in NSR - home eliquis - Dr. Maradiaga consulted to follow along. CAD - home ASA - home plavix Hyperlipidemia - home statin remain in ICU. Heart healthy diet with 1L fluid restriction David Nash MD Apr 27, 2017 08:04
[2017-04-27] MEDS ORDERED: diphenhydrAMINE HCL 50 MG CAP PO SCH (10:15)
[2017-04-27] MEDS ORDERED: DIAZEPAM 10 MG TAB PO SCH (10:15)
[2017-04-27] MEDS ORDERED: MIDAZOLAM HCL 2 MG/2 ML VIAL IV PUSH SCH (10:15)
[2017-04-27] MEDS: FUROSEMIDE 100 MG/10 ML VIAL IV PUSH SCH ×3 (10:32→20:08)
[2017-04-27] MEDS: CLOPIDOGREL 75 MG TAB PO SCH (10:32)
[2017-04-27] MEDS: ASPIRIN EC 81 MG TABEC PO SCH (10:33)
[2017-04-27] MEDS: DOCUSATE SODIUM 50 MG/SENNA 8.6 MG TAB PO SCH ×2 (10:33→20:07)
[2017-04-27] MEDS: AMIODARONE 200 MG TAB PO SCH (10:33)
[2017-04-27] MEDS: APIXABAN 5 MG TABLET PO SCH ×2 (10:33→20:07)
[2017-04-27] MEDS: METOPROLOL SUCCINATE 50 MG EXTENDED RELEASE TAB PO SCH (10:34)
[2017-04-27] MEDS: TIOTROPIUM BROMIDE 18 MCG INH INH SCH (10:35)
--- NOTE | 2017-04-27 10:39 | MB ---
cc: ANA LILIA FELTON DATE OF CONSULTATION 04/27/2017 DATE OF 1955 REASON FOR CONSULTATION Recurrent congestive heart failure. HISTORY OF PRESENT ILLNESS The patient is a 61-year-old white male with a history of multiple medical problems including aortic valve disease, sleep apnea, recurrent congestive heart failure dating back to October 2016, COPD, coronary artery disease, hepatitis C, morbid obesity, paroxysmal atrial fibrillation who was sent to the hospital from Dr. Homa Maradiaga's office due to complaints of fairly severe shortness of breath. The patient was last hospitalized in February of last year for congestive heart failure. The patient states when he left the hospital he felt "great" with almost complete resolution of his severe dyspnea with which he presented. However, about two to three weeks ago, he again developed recurrent progressively worsening shortness of breath with very little exertion. He has also noted increased pedal edema, although overall mild in severity. He reports compliance with his medications and a no added salt diet. He denies chest pain, palpitations, lightheadedness, syncope, near-syncope, paroxysmal nocturnal dyspnea, recent flu symptoms, fevers. PAST MEDICAL HISTORY 1. 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 No definite gradient was demonstrated on cardiac catheterization 02/13/2017. A transesophageal echo 02/10/2017 showed possibly moderate aortic insufficiency. 2. Sleep apnea 3. Congestive heart failure dating back to October 2016. He has had exacerbations January, February 2017 and again last month. His congestive heart failure has been felt probably due to diastolic dysfunction. 4. COPD. 5. Coronary artery disease with cardiac catheterization 02/13/2017 showing normal left main, minimal to mild LAD and left circumflex disease, hazy proximal right coronary lesion stented with a with a 5.0-mm Resolute [place] stent after intravascular ultrasound showed 63% area stenosis and 60-65% diameter stenosis. 6. Hepatitis C 7. Hyperlipidemia 8. Hypertension 9. Morbid obesity 10. Paroxysmal atrial fibrillation diagnosed November 2016 PAST SURGICAL HISTORY 1. Aortic valve replacements 2001 and 2006. The one in 2001 was a mechanical valve and the one in 2006 was a porcine valve. 2. Cholecystectomy 3. Splenectomy 2001 MEDICATIONS His cardiac medications at home: 1. Amiodarone 200 mg daily 2. Aspirin 81 mg daily 3. Atorvastatin 40 mg q.h.s. 4. Cardizem CD 240 mg daily 5. Clopidogrel 75 mg daily 6. Eliquis 5 mg b.i.d. 7. Furosemide 40 mg b.i.d. 8. Klor-Con 20 mg once daily 9. Metolazone 5 mg b.i.d. 10. Metoprolol succinate 100 mg daily 11. Potassium chloride, a total of 130 mEq daily ALLERGIES NO KNOWN DRUG ALLERGIES. FAMILY HISTORY There is no significant family history of early myocardial infarction. SOCIAL HISTORY The patient smokes cigarettes, about a pack a day. He denies drug or alcohol abuse. REVIEW OF SYSTEMS As in the history of present illness otherwise negative or noncontributory. He also denies headache, abdominal pain, melena, dyspepsia, bright red blood per rectum. PHYSICAL EXAM On physical examination, his blood pressure 110/57 with a pulse of 64, respirations 23. GENERAL: He is a well-developed, well-nourished white male in no acute distress HEENT: Jugular venous pressure is hard to assess. Carotid pulses are 2+ bilaterally and without bruits. CHEST: Examination of the chest reveals diminished breath sounds at the bases. CARDIAC: On cardiac examination, he has a regular rhythm and rate with a grade 2/6 systolic ejection murmur heard best at the right upper sternal border. S2 heart sound is at least moderately diminished. No definite gallop is audible. ABDOMEN: On abdominal examination, he has a soft, obese, nontender abdomen. Bowel sounds are present. There is no definite hepatosplenomegaly. EXTREMITIES: Examination of extremities reveals no clubbing or cyanosis. There is trace to 1+ pretibial edema bilaterally. Chest x-ray shows cardiomegaly, small bilateral pleural effusions, increased interstitial markings. LABORATORY DATA Laboratory data includes WBC 14.6, hemoglobin 15.5, platelets 315. Potassium 2.2, BUN 37, creatinine 1.63, CK 159, troponin 0.07. Brain natriuretic peptide level 715, INR 1.2. EKG shows sinus rhythm, nonspecific intraventricular conduction delay, leftward axis, nonspecific high lateral T-wave abnormalities. IMPRESSION Yet another admission for congestive heart failure in this 61-year-old white male with a history of multiple medical problems including aortic valve disease status post two aortic valve replacement operations, the last in 2006, history of coronary artery disease, sleep apnea, paroxysmal atrial fibrillation, hepatitis C, COPD. The precipitating factor for his congestive heart failure is not entirely clear. Left ventricular systolic function by recent evaluation has been normal with an ejection fraction of 55% echocardiographically. The patient is actually now in sinus rhythm on amiodarone. Evaluation of his aortic valve replacement has been difficult. It is hard to see the valve leaflets on transesophageal echocardiography. The valve was crossed briefly during cardiac catheterization showing no gradient. However, his current exam suggests his S2 heart sound is more diminished than two months ago. There is no definite evidence for acute coronary syndrome. Cardiac enzymes are overall negative for myocardial infarction. No acute EKG changes are seen. Some of his symptomatology also may be due to pulmonary hypertension, sleep apnea, cannot rule out chronic thromboembolic pulmonary disease. RECOMMENDATIONS 1. Agree with continued diuresis. 2. Continue beta veena and calcium channel veena therapy for probable diastolic dysfunction. 3. Repeat a limited echo mainly to assess the transvalvular aortic gradient. 4. Agree with a right heart catheterization tomorrow, and will leave the [place] catheter in place to help guide medical therapy. 5. Would continue anticoagulation therapy for his history of paroxysmal atrial fibrillation; continue amiodarone to help maintain sinus rhythm. In the long-term, he could be considered for ablation. MD REBECA Kimball/RACHAEL /9:51 AM /10:12 AM LUIZA
[2017-04-27] MEDS: DILTIAZEM-CD 240 MG CAP ER PO SCH (10:40)
[2017-04-27] MEDS: METOLAZONE 5 MG TAB PO SCH (13:09)
--- NOTE | 2017-04-27 14:00 | ECHRPT ---
Indication: HEART FAILURE CONCLUSIONS Upper normal left ventricular size. Mild concentric left ventricular hypertrophy. No definite wall motion abnormalities.the left ventricular systolic function is normal with an estimated ejection fraction i n the range of 55-60%. No definite evidence for diastolic dysfunction. Normal right ventricular size though possibly with mildly reduced systolic function. The left atrial size is mildly dilated. The right atrial size is mildly dilated. Structurally normal mitral valve. Mild mitral valve regurgitation. There is mild to moderate tricuspid valve regurgitation. The estimated pulmonary arterial pressure is 70 mmHg, suggesting severe pulmonary hypertension. Bioprosthetic aortic valve. The leaflets are not well visualized. Moderate aortic insufficiency. The mean transvalvular gradient is measured at 47 mm Hg, suggestive of severe aortic stenosis. BP: 110 / 57 HR: 66 Rhythm: Sinus MEASUREMENTS (Male / Female) Normal Values Technical Quality:Fair 2D ECHO LV Diastolic Diameter PLAX 7.7 cm 4.2 - 5.9 / 3.9 - 5.3 cm LV Systolic Diameter PLAX 6.7 cm IVS Diastolic Thickness 1.2 cm 0.6 - 1.0 / 0.6 - 0.9 cm LVPW Diastolic Thickness 1.2 cm 0.6 - 1.0 / 0.6 - 0.9 cm LV Relative Wall Thickness 0.3 RV Internal Dim ED PLAX 3.0 cm LVOT Diameter 2.2 cm Aortic Root Diameter 3.9 cm LA Systolic Diameter LX 4.0 cm 3.0 - 4.0 / 2.7 - 3.8 cm DOPPLER AV Peak Velocity 451.7 cm/s AV Peak Gradient 81.6 mmHg AV Mean Gradient 46.0 mmHg AV Velocity Time Integral 108.7 cm AI Peak Velocity 384.5 cm/s AI Peak Gradient 59.1 mmHg AI Pressure Half Time 166.0 ms LVOT Peak Velocity 88.4 cm/s LVOT Peak Gradient 3.1 mmHg LVOT Velocity Time Integral 21.3 cm AV Area Cont Eq vti 0.7 cm AV Area Cont Eq pk 0.7 cm Mitral E Point Velocity 140.0 cm/s Mitral A Point Velocity 62.4 cm/s Mitral E to A Ratio 2.2 LV E' Lateral Velocity 9.7 cm/s Mitral E to LV E' Lateral Ratio 14.5 LV E' Septal Velocity 7.4 cm/s Mitral E to LV E' Septal Ratio 18.9 TR Peak Velocity 394.0 cm/s TR Peak Gradient 62.1 mmHg Right Atrial Pressure 10.0 mmHg Pulmonary Artery Systolic Pressu 72.1 mmHg Right Ventricular Systolic Press 72.1 mmHg PV Peak Velocity 39.1 cm/s PV Peak Gradient 0.6 mmHg FINDINGS LEFT VENTRICLE Upper normal left ventricular size. Mild concentric left ventricular hypertrophy. No definite wall motion abnormalities.the left ventricular systolic function is normal with an estimated ejection fraction i n the range of 55-60%. No definite evidence for diastolic dysfunction. RIGHT VENTRICLE Normal right ventricular size though possibly with mildly reduced systolic function. LEFT ATRIUM The left atrial size is mildly dilated. RIGHT ATRIUM The right atrial size is mildly dilated. ATRIAL SEPTUM The interatrial septum not well visualized. AORTA The aortic root and proximal ascending aorta are not well visualized. MITRAL VALVE Structurally normal mitral valve. Mild mitral valve regurgitation. AORTIC VALVE Bioprosthetic aortic valve. The leaflets are not well visualized. Moderate aortic insufficiency. The mean transvalvular gradient is measured at 47 mm Hg, suggestive of severe aortic stenosis. TRICUSPID VALVE There is mild to moderate tricuspid valve regurgitation. The estimated pulmonary arterial pressure is 70 mmHg. PULMONARY VALVE The pulmonary valve is not well visualized. PERICARDIUM No pericardial effusion. Campbell Li MD (Electronically Signed) Final Date:27 April 2017 13:58
--- NOTE | 2017-04-27 14:58 | EKG ---
Date Performed: 04/26/2017 Time Performed: 13:20:28 PTAGE: 61 years EKG: Sinus rhythm MODERATE INTRAVENTRICULAR CONDUCTION DELAY NONSPECIFIC T-WAVE ABNORMALITY ABNORMAL ECG PREVIOUS TRACING : 03/08/2017 11.33 R-waves have returned in lead V3, otherwise largely unchang ed. DOCTOR: Delmar De Dios Interpretating Date/Time 04/27/2017 14:57:09
[2017-04-27] MEDS: ATORVASTATIN 40 MG TAB PO SCH (20:07)
[2017-04-28] VITALS (18 sets, daily range): BP systolic 101–121; BP diastolic 37–60; PULSE 63–73; RESP 23–31; TEMP 97.8–98.5; O2SAT 92–97
[2017-04-28] MEDS: FUROSEMIDE 100 MG/10 ML VIAL IV PUSH SCH ×5 (01:52→20:25)
[2017-04-28] MEDS: POTASSIUM CHLOR 20 MEQ PREMIX 100 ML IV PRN ×2 (01:54→05:50)
[2017-04-28] MEDS: RESP: ALBUTEROL 2.5 MG/IPRATROPIUM 0.5 MG NEB (SCH) INH ×5 (03:32→21:04)
[2017-04-28] MEDS: CHLORHEXIDINE GLUCONATE 2 % 1 PACK (2 CLOTHS) TOP SCH (03:58)
[2017-04-28 05:08] LABS: HEMATOCRIT 43.7 % (39.0-51.0); HEMOGLOBIN 14.9 GM/DL (13.0-17.0); MEAN CELL VOLUME 100.6 FL (80.0-100.0); MEAN CORPUSCULAR HEMOGLOBIN 34.4 PG (27.0-34.0); MEAN CORPUSCULAR HGB CONC 34.2 % (32.0-36.0); MEAN PLATELET VOLUME 7.9 FL (7.0-11.0); PLATELET COUNT 351 TH/MM3 (150-450); RED BLOOD COUNT 4.34 MIL/MM3 (4.50-5.90); RED CELL DISTRIBUTION WIDTH 14.6 % (11.6-17.2); WHITE BLOOD COUNT 16.7 TH/MM3 (4.0-11.0)
[2017-04-28 05:40] LABS: BICARBONATE 36.3 MEQ/L (21.0-32.0); CALCIUM 9.6 MG/DL (8.5-10.1); CREATININE 1.71 MG/DL (0.60-1.30); MAGNESIUM 2.6 MG/DL (1.5-2.5)
[2017-04-28] MEDS: INSULIN NovoLIN REGULAR SUPPLEMENTAL SCALE SQ SCH ×4 (05:50→16:36)
--- NOTE | 2017-04-28 07:36 | PD.CARD.PN ---
Subjective Subjective Remarks Dyspnea, moderate to severe, unchanged. No CP, dizziness, palpitations. Slept very poorly. Objective Medications Item Value Date Time Amiodarone HCl 200 mg 04/27/17 0900 (Cordarone) DAILY/PO 04/27/17 1033 Aspirin 81 mg 04/27/17 0900 (Ecotrin Ec) DAILY/PO 04/27/17 1033 Clopidogrel 75 mg 04/27/17 0900 Bisulfate DAILY/PO 04/27/17 1032 (Plavix) Diltiazem HCl 240 mg 04/27/17 0900 (Cardizem Cd) DAILY/PO 04/27/17 1040 Metolazone 10 mg 04/27/17 0900 (Zaroxolyn) DAILY/PO 04/27/17 1309 Metoprolol 100 mg 04/27/17 0900 Succinate DAILY/PO 04/27/17 1034 (Toprol Xl) Furosemide 80 mg 04/27/17 0800 (Lasix Inj) Q6H/IV PUSH Apixaban 5 mg 04/26/17 2100 (Eliquis) BID/PO 04/27/172006 Atorvastatin 40 mg 04/26/17 2100 Calcium HS/PO 04/27/172006 (Lipitor) Current Medications Medications (Trade) Dose Ordered Sig/Esvin Route Start Time Stop Time Status Last Admin (NS Flush) 2 ml UNSCH PRN IVF 04/26/17 13:30 Potassium Chloride 100 ml @ 50 mls/hr Q2H PRN IV 04/26/17 15:30 Potassium Chloride 100 ml @ 50 mls/hr Q2H PRN IV 04/26/17 15:30 04/28/17 05:50 (K-Lyte Cl Eff) 50 meq UNSCH PRN PO 04/26/17 15:30 Potassium Chloride 100 ml @ 25 mls/hr UNSCH PRN IV 04/26/17 15:30 Potassium Chloride 100 ml @ 50 mls/hr Q2H PRN IV 04/26/17 15:30 Magnesium Sulfate 4 gm/Sodium Chloride 100 ml @ 50 mls/hr UNSCH PRN IV 04/26/17 15:30 (Mag-Ox) 800 mg UNSCH PRN PO 04/26/17 15:30 Magnesium Sulfate 2 gm/Sodium Chloride 100 ml @ 50 mls/hr UNSCH PRN IV 04/26/17 15:30 (K-Phos) 2,000 mg Q4H PRN PO 04/26/17 15:30 Sodium Phosphate 30 mmol/Sodium Chloride 250 ml @ 42 mls/hr UNSCH PRN IV 04/26/17 15:30 (K-Phos) 2,000 mg UNSCH PRN PO/TUBE 04/26/17 15:30 Potassium Phosphate 30 mmol/ Sodium Chloride 260 ml @ 42 mls/hr UNSCH PRN IV 04/26/17 15:30 (D50w (Vial) Inj) 25 ml UNSCH PRN IV PUSH 04/26/17 15:30 (NovoLIN R SUPPLEMENTAL SCALE) 1 Q6HR SQ 04/26/17 18:00 (Duoneb Neb) 1 ampule Q2HR NEB PRN INH 04/26/17 15:30 (Duoneb Neb) 1 ampule Q4HR NEB INH 04/26/17 16:00 04/28/17 07:17 (Zofran Inj) 4 mg Q6H PRN IV PUSH 04/26/17 15:30 Miscellaneous Information 1 Q361D XX 04/26/17 15:30 04/26/17 15:30 (Chlorhexidine 2% Cloth) 3 pack Taper DAILY@04 TOP 04/27/17 04:00 04/23/18 03:59 04/28/17 03:58 (Chlorhexidine 2% Cloth) 3 pack UNSCH PRN TOP 04/26/17 15:30 (Rosario-Colace) 1 tab BID PO 04/26/17 21:00 04/27/17 20:07 (Milk Of Magnesia Liq) 30 ml Q12H PRN PO 04/26/17 15:30 (Cordarone) 200 mg DAILY PO 04/27/17 09:00 04/27/17 10:33 (Eliquis) 5 mg BID PO 04/26/17 21:00 04/27/17 20:07 (Ecotrin Ec) 81 mg DAILY PO 04/27/17 09:00 04/27/17 10:33 (Lipitor) 40 mg HS PO 04/26/17 21:00 04/27/17 20:07 (Plavix) 75 mg DAILY PO 04/27/17 09:00 04/27/17 10:32 (Cardizem Cd) 240 mg DAILY PO 04/27/17 09:00 04/27/17 10:40 (Zaroxolyn) 10 mg DAILY PO 04/27/17 09:00 04/27/17 13:09 (Spiriva Inh) 18 mcg DAILY INH 04/27/17 09:00 04/27/17 10:35 (Toprol Xl) 100 mg DAILY PO 04/27/17 09:00 04/27/17 10:34 (Lasix Inj) 80 mg Q6H IV PUSH 04/27/17 08:00 04/27/17 20:08 (Benadryl) 50 mg [employer]ING MANAGER PO 04/27/17 10:15 05/01/17 10:14 (Valium) 10 mg SU[employer]ETING MANAGER PO 04/27/17 10:15 05/01/17 10:14 (Versed Inj) 1 mg SU[employer]ING MANAGER IV PUSH 04/27/17 10:15 05/01/17 10:14 Vital Signs / I&O Vital Signs Date Time Temp Pulse Resp B/P (MAP) Pulse Ox O2 Delivery O2 Flow Rate FiO2 04/28/17 07:21 93 BiPAP 70 04/28/17 07:19 93 70 04/28/17 06:00 68 04/28/17 04:00 66 04/28/17 04:00 98.3 66 31 111/56 (74) 93 04/28/17 02:00 63 04/28/17 00:00 67 04/28/17 00:00 98.1 67 25 121/60 (80) 92 04/27/17 22:00 67 04/27/17 20:00 98.0 75 27 124/77 (93) 93 04/27/17 20:00 75 04/27/17 19:34 94 Non-Rebreather 15.00 04/27/17 18:00 71 04/27/17 16:00 98.2 73 32 122/72 (89) 93 04/27/17 16:00 73 04/27/17 14:00 68 04/27/17 12:12 92 Non-Rebreather 15.00 04/27/17 12:00 69 04/27/17 12:00 97.7 69 24 117/56 (76) 92 04/27/17 10:00 69 04/27/17 08:56 93 BiPAP 70 04/27/17 08:00 97.8 70 28 118/56 (76) 93 04/27/17 08:00 70 04/27/17 07:53 93 70 I/O 04/27/17 04/27/17 04/27/17 04/28/17 04/28/17 04/28/17 07:00 15:00 23:00 07:00 15:00 23:00 Intake Total 880 ml 100 ml 860 ml 500 ml Output Total 2210 ml 300 ml 1250 ml 1135 ml Balance -1330 ml -200 ml -390 ml -635 ml Intake Oral 480 ml 760 ml 300 ml IV Total 400 ml 100 ml 100 ml 200 ml Output Urine Total 2210 ml 300 ml 1250 ml 1135 ml # Bowel Movements 0 0 0 Physical Exam GENERAL: Well developed, well nourished. No acute distress. HEENT: Jugular venous pressure very hard to assess. CHEST: Lungs clear to auscultation anteriorly. CARDIAC: Regular rate and rhythm without S3, S4. II/ OJ RUSB. Diminished S2. ABDOMEN: Soft, nontender, no hepatosplenomegaly. Bowel sounds present. EXTREMITIES: No clubbing, cyanosis. Trace pretibial edema. Laboratory Laboratory Tests Test 04/27/17 13:06 04/27/17 18:44 04/28/17 00:11 04/28/17 04:24 Potassium Level 2.6 MEQ/L 2.8 MEQ/L 2.4 MEQ/L 2.4 MEQ/L B-Type Natriuretic Peptide 888 PG/ML White Blood Count 16.7 TH/MM3 Red Blood Count 4.34 MIL/MM3 Hemoglobin 14.9 GM/DL Hematocrit 43.7 % Mean Corpuscular Volume 100.6 FL Mean Corpuscular Hemoglobin 34.4 PG Mean Corpuscular Hemoglobin Concent 34.2 % Red Cell Distribution Width 14.6 % Platelet Count 351 TH/MM3 Mean Platelet Volume 7.9 FL Blood Urea Nitrogen 45 MG/DL Creatinine 1.71 MG/DL Random Glucose 118 MG/DL Calcium Level 9.6 MG/DL Magnesium Level 2.6 MG/DL Sodium Level 138 MEQ/L Chloride Level 90 MEQ/L Carbon Dioxide Level 36.3 MEQ/L Anion Gap 12 MEQ/L Estimat Glomerular Filtration Rate 41 ML/MIN Assessment and Plan Problem List: (1) Congestive heart failure (CHF) ICD Codes: I50.9 - Heart failure, unspecified Status: Acute Plan: Minimally improved dyspnea despite good diuresis since admission. Good quality Doppler measurements of aortic valve on echo, consistent with severe aortic stenosis. EF still normal. RV function probably at least mildly reduced. REC consult CV surgery for redo AVR, limited coronary angio today to verify patency of his coronaries continue diuresis, K repletion continue beta veena, Cardizem (2) Pulmonary hypertension ICD Codes: I27.20 - Pulmonary hypertension, unspecified Status: Chronic Plan: Severe pulmonary hypertension by echo, systolic pressure around 70 mm Hg. To have right heart cath today. Etiology probably multifactorial; consider ruling out chronic thromboembolic pulmonary disease. (3) Paroxysmal atrial fibrillation ICD Codes: I48.0 - Paroxysmal atrial fibrillation Status: Chronic Plan: Remains in NSR on Amiodarone. Continue apixaban until surgical plans more definitive. (4) CAD (coronary artery disease) ICD Codes: I25.10 - Atherosclerotic heart disease of [place] coronary artery without angina pectoris Status: Chronic Plan: Stable. History of fairly recent PCI of RCA. For limited coronary angio today as part of preop evaluation. Continue clopidogrel, aspirin. (5) History of aortic valve replacement ICD Codes: Z95.2 - Presence of prosthetic heart valve Status: Chronic Plan: As noted above, echo suggests severe AVR stenosis. Exam also now more c/ w severe . To have CV surgery evaluation for redo AVR. (6) Hypertension ICD Codes: I10 - Essential (primary) hypertension Status: Chronic Plan: Stable. Normotensive. Code Status full code Discussed Condition With patient Problem Qualifiers (1) Congestive heart failure (CHF): Qualified Codes: I50.33 - Acute on chronic diastolic (congestive) heart failure (2) CAD (coronary artery disease): Qualified Codes: I25.10 - Atherosclerotic heart disease of [place] coronary artery without angina pectoris (3) Hypertension: Qualified Codes: I10 - Essential (primary) hypertension Campbell Li MD Apr 28, 2017 07:35
[2017-04-28] MEDS: METOLAZONE 5 MG TAB PO SCH (09:00)
[2017-04-28] MEDS: ASPIRIN EC 81 MG TABEC PO SCH (10:01)
[2017-04-28] MEDS: APIXABAN 5 MG TABLET PO SCH (10:01)
[2017-04-28] MEDS: AMIODARONE 200 MG TAB PO SCH (10:01)
[2017-04-28] MEDS: DILTIAZEM-CD 240 MG CAP ER PO SCH (10:01)
[2017-04-28] MEDS: TIOTROPIUM BROMIDE 18 MCG INH INH SCH (10:01)
[2017-04-28] MEDS: CLOPIDOGREL 75 MG TAB PO SCH (10:02)
[2017-04-28] MEDS: DOCUSATE SODIUM 50 MG/SENNA 8.6 MG TAB PO SCH ×2 (10:04→20:26)
[2017-04-28] MEDS: METOPROLOL SUCCINATE 50 MG EXTENDED RELEASE TAB PO SCH (10:04)
[2017-04-28] MEDS: POTASSIUM CHLOR 20 MEQ PREMIX 100 ML IV SCH ×4 (11:00→15:52)
--- NOTE | 2017-04-28 11:09 | RADRPT ---
EXAM DATE/TIME: 04/28/2017 10:22 [place] COMPARISON: CHEST SINGLE AP, April 27, 2017, 3:27. INDICATIONS : Congestive heart failure- Shortness of breath. MEDICAL HISTORY : Chronic obstructive pulmonary disease. Congestive heart failure SURGICAL HISTORY : CABG ENCOUNTER: Subsequent ACUITY: 4 - 6 days PAIN SCORE: 0/10 LOCATION: Bilateral chest FINDINGS: Basilar is enlarged with diffuse interstitial prominence and patchy bilateral airspace disease. There is slight improved aeration in the lower lung zones. Remainder of the exam is unchanged. CONCLUSION: 1. Slightly improved pulmonary edema pattern. Manny Dewitt MD on April 28, 2017 at 10:50 Board Certified Radiologist. This report was verified electronically.
--- NOTE | 2017-04-28 11:37 | HHI.CCPN ---
Subjective Remarks/Hospital Course Hospital course: 61yM with history of CHF, bioprosthetic AVR, CAD, COPD who presents with worsening SOB over last few weeks. BNP elevated at > 700, CXR with bilateral pulmonary infiltrates suggestive of pulmonary edema. + weight gain. - sick contacts. - fever, - chills, - n/v/d or abd pain. recent cath with stent placement in 02/2017 with echo. no changes in exercise tolerance since that time. trop negative. placed on bipap in ER for hypoxia. ROS otherwise negative. Subjective: 04/27: good diuresis with -1.7L/24h. severely hypokalemic this morning despite aggressive replacement yesterday. however, fio2 continues to rise, up to 70%. patient very dyspneic when he removes BiPAP. patient states he has been aggressively dieting, but despite that states he isn't losing any weight. takes lasix 80mg po BID as well as metolazone just to keep the same daily weight. 04/28: Sitting up at the side of the bed on partial nonrebreather. Subjectively still short of breath. Chest exam reveals bilateral basilar crackles and scattered wheezing. Chest x-ray shows some improvement in pulmonary edema. Urine output 2.7 L with aggressive diuresis. Also place patient on Symbicort and IV Solu-Medrol short course due to COPD exacerbation clinically. K+ 2.4 getting replaced. Objective Vital Signs Date Time Temp Pulse Resp B/P (MAP) Pulse Ox O2 Delivery O2 Flow Rate FiO2 04/28/17 10:00 67 04/28/17 09:42 94 Non-Rebreather 15.00 04/28/17 08:00 97.8 28 119/56 (77) 04/28/17 07:21 70 Intake and Output 04/28/17 04/28/17 04/29/17 08:00 16:00 00:00 Intake Total 400 ml Output Total 1135 ml Balance -735 ml Result Diagram: 04/28/17 0424 04/28/17 0424 Imaging Last Impressions Chest X-Ray 04/26/17 1317 Signed Impressions: Service Date/Time: Wednesday, April 26, 2017 13:22 - CONCLUSION: Cardiomegaly with findings of volume overload/CHF. Thompson Berg MD Objective Remarks gen: obese male, lying in bed, on pNRB heent: nc. at. perrl. mucous membranes moist. neck: trachea midline. unable to assess JVD due to large neck circumference. chest: equal chest rise. bilateral posterior basilar crackles, bilateral mild wheezing cv: normal rate, regular rhythm. sinus by tele. Heart sounds are distant abd: obese, soft, nontender, nondistended. no guarding. extr: 2+ peripheral edema. distal pulses 2+. neuro: RASS 0. CAM -. GCS 15. no focal deficits. A/P Assessment and Plan Assessment: 61yM with acute CHF exacerbation with preserved EF. Clinically, he is still very volume overloaded. Dr. Nash performed bedside critical care echocardiogram which revealed grossly preserved LV function, RVSP ~60 mmHg, dilated IVC without any respiratory variation, no pericardial effusion. Clinically, I am concerned that despite an aggressive outpatient diuretic regimen, he is not clinically improving, and is needing re-admission for CHF despite a thorough inpatient evaluation in February. His troponins are stable, and his recent LHC in 02/2017 along with echo at that time would suggest this is not a change in his ischemic disease. Given his body habitus, JORGE with pulmonary hypertension could account for the worsening of his overall CHF symptoms. I have discussed the case with Dr. Li, and will have him along with Dr. Maradiaga evaluate the patient and we will come up with a multidisciplinary plan of care for him. Overall, plan for today is more aggressive diuresis given worsening of his symptoms: lasix, metolazone, and diamox for the devleoping alkalosis. Needs aggressive K replacement for worsening hypokalemia, but cannot hold forced diuresis given his pulmonary symptoms, so will measure serial potassium levels and continue to aggressively replace both IV and PO KCl. Acute CHF Exacerbation- preserved EF Acute hypoxic respiratory failure requiring NIPPV Acute intravascular volume overload - lasix 80mg iv q6h - metolazone 10mg po daily - s/p diamox 500mg iv x 1 for alkalosis - Echo 04/27-consistent with severe aortic stenosis. EF normal. RV function mildly reduced severe pulm hypertension PASP 70. - CV surgery for redo AVR, limited coronary angio to verify patency of his coronaries. Right and left cath plan for today by Dr. Li - goal net -2L/24h - BiPAP PRN - There is mild COPD exacerbation contributing to respiratory failure and hypoxia. - Placed on a short course of Solu-Medrol 40 q12 for 5 days, start Symbicort. continue Spiriva - wean fio2 for goal spo2 > 90% - troponins stable - Dr. Maradiaga and Jen following Severe hypokalemia -- q6h potassium checks - Continue aggressive K+ replacement - mg > 2.5 currently, will not replace. - continue forced diuresis despite hypokalemia. Metabolic alkalosis - diamox 500mg iv x 1 given Acute kidney injury - secondary to venous congestion. 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 - LHC/RHC today - may also benefit from outpatient sleep study to eval for optimization of JORGE. - if other studies negative, would consider high resolution CT pulmonary angiogram looking specifically for CTEPH (WHO Class IV PH) Atrial fibrillation - home rate controlling drugs - home amio - currently in NSR - home eliquis - Dr. Maradiaga consulted to follow along. CAD - home ASA - home plavix Hyperlipidemia - home statin remain in ICU. Heart healthy diet with 1L fluid restriction CCT 30 min Sharonda Skelton MD Apr 28, 2017 11:37
[2017-04-28] MEDS ORDERED: methylPREDNISolone SOD SUCC 125 MG/2 ML VIAL IV PUSH SCH (11:45)
[2017-04-28] MEDS ORDERED: HEPARIN-NS/PF FLUSH BAG 2,000 ML IV FLUSH ONE ×2 (12:21→12:42)
[2017-04-28] MEDS ORDERED: MIDAZOLAM HCL 2 MG/2 ML VIAL ONE ×2 (12:43→13:21)
[2017-04-28] MEDS ORDERED: NITROGLYCERIN INJ 5 ML ONE (12:43)
[2017-04-28] MEDS ORDERED: VERAPAMIL HCL 5 MG/2 ML VIAL ONE (12:43)
[2017-04-28] MEDS ORDERED: HEPARIN SODIUM - IV 10,000 UNITS/10 ML VIAL ONE (12:43)
[2017-04-28] MEDS: BUDESONIDE-FORMOTEROL 160/4.5 MCG INHALER INH SCH ×2 (13:00→20:25)
[2017-04-28] MEDS: methylPREDNISolone SOD SUCC 125 MG/2 ML VIAL IV PUSH SCH ×2 (13:06→20:26)
[2017-04-28] MEDS ORDERED: MISC INFORMATION XX ONE (14:15)
--- NOTE | 2017-04-28 14:15 | CATHPROC ---
[employer] HIS Report Study Information Study Number Admission Scheduled Start Study Start [id number] Apr 26 2017 3:24PM 04/27/2017 Apr 28 2017 11:50AM [place] [facility] Cardiac Catheterization Admit Source Facility Department Emergency department [facility] - Marine Tower Operator Physician and Clinical Staff Initial Campbell [employer] Equipment Engineer Priti Cortes,RN Recorder Jojo Fu,FABRICATION MIG WELDER TECH2 Recorder Starla Yoo ,RT(R) Scrub Teri Trevizo,FOUNDRY SUPERINTENDANT TECH2 Procedures Performed Procedure Location (Site) Vessel Name Coronary Angiograms LCA Left Coronary Coronary Angiograms RCA Right Coronary Equipment Time Dental Ceramist Description Size Mfg Part Number Used/Scraped [id number] 12:28 VASQUEZ SINHA SWAN DINORAH CATHETER FR 7 Used *[id number] TRANSDUCER, TRUWAVE [id number] 12:09 VASQUEZ SINHA * Used W/STOCKCOCK *[id number] [id number] *[id number] [id number] *[id number] [id number] *[id number] 12:09 MALLINCKRODT SYRINGE, ANGIOMAT 150ML 150ML *[id number] Used [facility] [employer] CONCEPT DRAPE, RADIAL FEMORAL FULL 12:09 * [id number] *[id number] Used DEVELOPMENT BODY [id number] 12:09 [employer] PACK, CCL CUSTOM * Used *[id number] 12:09 [employer] SUPPORT, ARTERIAL ADULT 36797 *[id number] Used [id number] 12:09 [employer] PACER PEN, SKIN DUAL W/ RULER * Used *[id number] BAND, RADIAL COMPRESSION TR [id number] 13:53 mth sense 29CM Used LARGE 29 *[id number] SHEATH, FR6 RADIAL PRELUDE 12:09 mth sense FR 6 [id number] Used EASE 11CM [id number] 12:09 [employer]th sense WIRE, EXCHANGE 260CM 3MMJ 260CM Used *[id number] 12:09 NAMIC MANIFOLD, 4 PORT * Used *[id number] 12:09 [employer] OMNIPAQUE, 350 MG, 150ML 150ML [id number] Used [id number] 12:09 MARTINEZ MED[employer] BLANKET,WARM AIR CCL * Used *[id number] CATHETER, FR5 OPTITORQUE [id number] 12:46 TERUMO MEDICAL FR 5 Used RADIAL TIG 4.0 *[id number] 12:27 [employer]UM[employer] MEDICAL SHEATH, FR7 TERUMO (10CM) FR 7 Used *[id number] History: Current Medications Medication Dosage/Unit Route Frequency Last Date/Time Taken ASA Statins (any) CARDIZEM ELIQUIS PLAVIX LASIX K-Dur LOPRESSOR History: Allergies Allergy Reaction No Known Allergies History: Risk Factors Family History of Hypertension Dyslipidemia Previous MS Previous Heart Failure Premature CAD Yes Yes Yes No Yes Prior Valve Prior PCI Prior PCIDate Prior CABG Surgery Yes Yes 02/11/2016 No Cerebrovascular Peripheral Artery Chronic Lung On Dialysis Diabetes Disease Disease Disease No No No Yes No History: Symptoms/Diagnosis Selection Items MELISSA SOB History: Stress Tests Stress or Imaging Studies Performed No History: Arrhythmias Selection Items Atrial fibrillation History: Other Disease Selection Items COPD Hepatitis HTN History: Other Current Smoker Method Packs a Day Years Used Pack Years Yes Cigarettes 1 29 Labs Hgb (g/dl) Hct (%) WBC (l/cumm) Platelets (thousands) 11.60-17.00 35.00-51.00 4.00-11.00 150.00-450.00 14.9 43.7 16.7 351 Glucose (mg/dl) BUN (mg/dl) Creatinine (mg/dl) BUN:Creatinine (1:x) 74.00-106.00 7.00-18.00 0.50-1.30 10.00-20.00 118 45 1.7 26.5 Na (meq/l) K (meq/l) 136.00-145.00 3.50-5.10 138 2.4 INR (PTT:PT) 0.90-1.10 1.2 CPK-MB (ng/ML) 0.50-3.60 Not Drawn Medication Medication Total Dose (Bolus/Oral) Medication Total Dosage/Unit 1% XYLOCAINE 25 mL RADIAL COCKTAIL 5 mL (Bolus) VERSED 4 mg Medications (Bolus/Oral) Medication Time Given Dosage/Unit Administered By Reason 1% XYLOCAINE 04/28/2017 12:50:06 PM 5 mL Campbell Li 5 mL 1% XYLOCAINE given in lab by Campbell Li in Right Radial via Subcutaneous. Ordered by Perfecto Lin. VERSED 04/28/2017 12:50:16 PM 2 mg Priti Cortes 2 mg VERSED given in lab by Priti Cortes, RN in Left Antecubital via Peripheral IV. Ordered by Campbell Pepe. Ntg 200mcg Verapamil 2.5mg Heparin RADIAL COCKTAIL 04/28/2017 12:56:21 PM 5 mL (Bolus) Campbell Li 2500U 5 mL (Bolus) RADIAL COCKTAIL given in lab by Campbell Li in Right Radial via Radial. Using [Solution Name]. Ordered by Campbell Li. Reason: Ntg 200mcg Verapamil 2.5mg Heparin 2500U. VERSED 04/28/2017 1:23:00 PM 2 mg Priti Cortes 2 mg VERSED given in lab by Priti Cortes, RN in Left Antecubital via Peripheral IV. Ordered by Campbell Pepe. 1% XYLOCAINE 04/28/2017 1:24:36 PM 20 mL Campbell Li 20 mL 1% XYLOCAINE given in lab by Campbell Li via Subcutaneous. Ordered by Campbell Li. Right IJ Medication (Drip) Medication Time Given Dosage/Unit Concentration/Unit Diluent (ml) Solution IV Solutions 04/28/2017 12:23:00 PM 50 mL (IV) NaCl .9 Patient arrived on IV Solutions in Left Antecubital via Peripheral IV. Pump/Drip Flow using NaCl .9. IV Solutions 04/28/2017 12:50:36 PM 0 mL (IV) 500 NaCl .9 IV Solutions given in lab by Priti Cortes, RUBEN via Central IV. Pump/Drip Flow using NaCl .9. Ordere d by Campbell Li. Right IJ. Initial Case Assessment Cardiovascular HR Rhythm NIBP Chest Pain 71 sr 118/56 0 Edema Present Skin color Skin None Normal Warm Dry Circulatory - Right Pulses Dorsalis Pedis Femoral Radial 2 2 3 Scale (0,1,2,3,4,d) Circulatory - Left Pulses Dorsalis Pedis Femoral Radial 2 Scale (0,1,2,3,4,d) Circulatory - Lower Extremities Color Lower Right Color Lower Left Normal Normal Neurological State Oriented to time-place- Alert Moves all extremities person Respiration - General Respiration Rate SpO2 (%) O2 (lpm) Short Of Breath (B/min) 27 97 12 Yes Final Case Assessment Chronological Log Time Study Chronological Log 12:12: Patient arrived via Bed. 12:12:27 Patient Name, D.O.B, / Armband Verified By R.N. 12:12:33 Pre-op and post- op instructions given; patient acknowledges understanding of instructions. 12:12:34 Consent signed by the physician and the patient and verified by the Marine Tower Operator staff. 12:12:35 Verbal Stimulation=2 Physical Stimulation=2 Airway=2 Respiration=2 TOTAL=8. (0=absent, 1=li mited, 2=present) 12:12:36 Presedation assessment performed by Marine Tower Operator RN. 12:12:38 Patient has been NPO for More than 6Hrs. 12:12:39 Skin Breakdown- none per patient 12:12:42 Elizabeth Prominences Protected 12:23:00 Patient arrived on IV Solutions in Left Antecubital via Peripheral IV. Pump/Drip Flow using NaCl .9. Vitals capture started with the following parameters, Patient=Adult, Interval=5 min, Initial Pr zqadbc=810 mmHg, 12:27:11 Deflation Rate=5 mmHg, Cuff placed on Left Arm 12:27:55 HR=89 bpm, QBVN=015/56 mmhg, SpO2=93.0 %, Resp=33 B/min, Pain=0, Mary=9, Mcduffie=2 12:29:34 A # 20 IV was noted in the Antecubital (left). Grade = 0 12:29:36 History and physical on the chart or being dictated. Assessment: Initial Case, HR=71 BPM, Rhythm=sr, HTCR=851/56 mmhg, Chest Pain=0, Edema=None, Col or=Normal, Skin = Warm, Dry Right Pulses: Vinod Ped=2, Femoral=2, Radial=3 Left Pulses: Vinod Ped=2 12:29:37 Lower Right Extremities: Color=Normal Lower Left Extremities: Color=Normal Neurological: State=Alert, Ox3, SOLOMON Respiration: Resp=27 B/min, SpO2=97 %, O2=12 lpm, Short of Breath 12:32:44 HR=79 bpm, ACGA=815/64 mmhg, SpO2=95.0 %, Resp=29 B/min, Pain=0, Mary=6, Mcduffie=2 12:34:18 Right Radial and groin(s) prepped with 2% chlorhexidine, and draped after a 3 min. waiting time. 12:34:36 Reference ECG taken 12:37:43 HR=69 bpm, NGJN=249/58 mmhg, SpO2=94.0 %, Resp=21 B/min, Pain=0, Mary=6, Mcduffie=2 12:39:10 Pressure channel 1 zeroed. 12:39:34 Pressure channel 2 zeroed. 12:42:42 HR=71 bpm, VJAT=991/64 mmhg, SpO2=93.0 %, Resp=22 B/min 12:44:23 MD arrived. 12:47:45 HR=71 bpm, EWJE=660/59 mmhg, SpO2=95 %, Resp=22 B/min, Pain=0, Mary=6, Mcduffie=2 Time Out. Correct patient, correct procedure, correct physician, power injector not loaded with contrast with surgical 12:48:45 team present. Time Out Concurred by MD and individual staff in procedure. 12:48:59 Case Start 12:50:06 5 mL 1% XYLOCAINE given in lab by Campbell Li in Right Radial via Subcutaneous. Ordered by Campbell Li. 12:50:16 2 mg VERSED given in lab by Priti Cortes, RN in Left Antecubital via Peripheral IV. Orde red by Campbell Li. IV Solutions given in lab by Priti Cortes, RN via Central IV. Pump/Drip Flow using NaCl .9. Ordered by Jen 12:50:36 Campbell. Right IJ. 12:52:47 HR=71 bpm, TYAL=245/59 mmhg, SpO2=92.0 %, Resp=32 B/min, Pain=0, Mary=6, Mcduffie=2 12:55:03 Access site was Right Radial Artery. A SHEATH, FR6 RADIAL PRELUDE EASE 11CM FR 6 was advanced into the Radial (right) using the Perc utaneous 12:55:19 technique. Pre dilated with the dilater. 5 mL (Bolus) RADIAL COCKTAIL given in lab by Campbell Li in Right Radial via Radial. Using [So lution Name]. Ordered 12:56:21 by Campbell Li. Reason: Ntg 200mcg Verapamil 2.5mg Heparin 2500U. 12:57:50 HR=70 bpm, GSMR=577/53 mmhg, SpO2=90.0 %, Resp=34 B/min, Pain=0, Mary=6, Mcduffie=2 A CATHETER, FR5 OPTITORQUE RADIAL TIG 4.0 FR 5 was advanced over a wire. OMNIPAQUE, 350 MG, 150 ML 150ML 12:57:55 was used for injections. 13:02:47 HR=79 bpm, GBSC=397/59 mmhg, SpO2=91.0 %, Resp=26 B/min, Pain=0, Mary=6, Mcduffie=2 13:04:31 Catheter was removed A AL 1 INFINITI CATHETER FR 5 was advanced over a wire. OMNIPAQUE, 350 MG, 150ML 150ML was used for 13:06:02 injections. 13:07:46 HR=70 bpm, HMLZ=937/62 mmhg, SpO2=92.0 %, Resp=30 B/min, Pain=0, Mary=6, Mcduffie=2 13:09:14 The LCA was injected and visualized at various angles. OMNIPAQUE, 350 MG, 150ML 150ML used . After removing the current catheter a AL 1 INFINITI CATHETER FR 6 was advanced over a WIRE, EXC HANGE 260CM 13:11:15 3MMJ 260CM. 13:12:47 HR=79 bpm, XFMS=788/58 mmhg, SpO2=94.0 %, Resp=28 B/min, Pain=0, Mary=6, Mcduffie=2 13:13:39 The LCA was injected and visualized at various angles. OMNIPAQUE, 350 MG, 150ML 150ML used . After removing the current catheter a JR 5.0 INFINITI CATHETER FR 6 was advanced over a WIRE, E XCHANGE 260CM 13:15:53 3MMJ 260CM. Recorded Pressure: Ao, HR=71, Condition=Condition 1 13:17:16 (Aorta) Ao 112/41/69 13:17:48 HR=69 bpm, PIMH=348/66 mmhg, SpO2=93.0 %, Resp=30 B/min 13:19:23 The RCA was injected and visualized at various angles. OMNIPAQUE, 350 MG, 150ML 150ML used . 13:19:47 Catheter was removed over the wire. 13:22:45 HR=68 bpm, TYSC=704/62 mmhg, SpO2=95.0 %, Resp=31 B/min, Pain=0, Mary=6, Mcduffie=2 13:23:00 2 mg VERSED given in lab by Priti Cortes, RN in Left Antecubital via Peripheral IV. Orde red by Campbell Li. 13:24:36 20 mL 1% XYLOCAINE given in lab by Campbell Li via Subcutaneous. Ordered by Campbell Li. Right IJ 13:27:48 HR=67 bpm, OYBF=052/66 mmhg, SpO2=91.0 %, Resp=25 B/min, Pain=0, Mary=6, Mcduffie=2 13:32:47 HR=82 bpm, ZCVR=456/65 mmhg, SpO2=89.0 %, Resp=32 B/min, Pain=0, Mary=6, Mcduffie=2 13:35:24 Access site was other vein 13:37:04 A SHEATH, FR7 TERUMO (10CM) FR 7 was advanced into the Jugular Vein (right) using the Percu taneous technique. 13:37:50 HR=72 bpm, CZSM=842/67 mmhg, SpO2=91.0 %, Resp=31 B/min 13:38:20 A SWAN DINORAH CATHETER FR 7 was inserted via Jugular Vein (right) Recorded Pressure: RA, RA, HR=75, Condition=Condition 1 13:38:41 (Right Atrium) RA -7/-7/-7, (Right Atrium) RA 23/22/20 Recorded Pressure: RV, HR=78, Condition=Condition 1 13:39:45 (Right Ventricle) RV 88/15/25 Recorded Pressure: MPA, HR=73, Condition=Condition 1 13:40:10 (Main Pulmonary Artery) MPA 88/36/60 Recorded Pressure: PCW, HR=74, Condition=Condition 1 13:41:06 (Pulmonary Capillary Wedge) PCW 40/41/32 13:42:51 HR=80 bpm, EUCY=022/63 mmhg, SpO2=88.0 %, Resp=29 B/min, Pain=0, Mary=6, Mcduffie=2 13:44:08 Case End 13:44:43 Assessment: Final Case 13:45:19 In the Jugular Vein (right) the SHEATH, FR7 TERUMO (10CM) FR [address] by Campbell Voss. 13:45:42 Sterile dressing applied to IJ 13:47:52 HR=71 bpm, ERQG=961/58 mmhg, SpO2=90.0 %, Resp=31 B/min, Pain=0, Mary=6, Mcduffie=2 13:48:01 No case complications noted. 13:48:02 Cine recording checked. 13:48:04 Bedside Report will be given. 13:48:08 Contrast Scanned 13:48:14 A Left and Right Heart Cath was performed. 13:52:53 HR=71 bpm, WSGD=272/60 mmhg, SpO2=90.0 %, Resp=27 B/min, Pain=0, Mary=6, Mcduffie=2 Radial Compression Device Used. 15 mLs of air placed in BAND, RADIAL COMPRESSION TR LARGE 29 29 CM. Affected 13:54:23 hand 93 % O2 saturation. 13:57:50 HR=71 bpm, WDBM=001/60 mmhg, SpO2=91.0 %, Resp=28 B/min, Pain=0, Mary=6, Mcduffie=2 13:59:53 Vitals capture stopped. 14:03:42 manual pressure to the IJ. Oozing around sheath. 14:06:27 Patient moved to stretcher 14:14:55 Potassium drip re started at end of procedure. 14:15:18 patient trasnported to CVICU. End Study - Contrast Media Used In Study Contrast Total Opened (mL) Total Used (mL) Total Wasted (mL) Omnipaque 80 80 0 End Study - Maximum Contrast Load Max Contrast Load (mL) 408.8 End Study - Radiation Exposure Fluoro Time (minutes) 15.2 End Study - Patient Disposition Complications Transferred To Interventional Outcome No Critical Care Bed No attempt made
--- NOTE | 2017-04-28 14:19 | MA ---
cc: ANJALI FELTON M.D. DATE 04/28/2017 PROCEDURE Selective coronary angiography, right heart catheterization. PROCEDURE NOTE The patient was brought to the cardiac catheterization laboratory in a fasting state after having signed informed consent. The right neck and right wrist were prepped and draped as per policy and anesthetized with 1% lidocaine. Arterial access was obtained via the right radial artery and a 6 Moldovan sheath placed. Coronary arteriography was performed using a 6 Moldovan Amplatz left 1.0 to engage the left main, and a 6 Moldovan Charan right 5.0 to engage the right coronary. Right heart catheterization was done using a Milton-Kalpana catheter. The Milton-Kalpana catheter was left in place at the end of the case to help guide medical therapy up in the ICU. There were no apparent immediate complications. A radial artery compression band was applied to his right wrist at the end of the case to achieve good hemostasis. HEMODYNAMIC DATA Aorta 112/41 with a mean of 69. Right atrium mean equals 20. Right ventricle 88 with an end-diastolic pressure of 15. Pulmonary artery 88/36 with a mean of 60. Pulmonary capillary wedge pressure mean equals 32. CORONARY ARTERIOGRAPHY The left main is normal. The left anterior descending is a fairly large vessel giving rise to a medium size diagonal. There are minimal luminal irregularities in the diagonal. The proximal, mid, and distal LAD appear to be normal, although visualization is somewhat suboptimal. The left circumflex is a small vessel giving rise to a fairly large obtuse marginal. This obtuse marginal appears to have 30% ostial stenosis. The right coronary artery is a very large dominant vessel demonstrating a stent in its proximal portion. This stent is widely patent. The mid right coronary has up to 30% stenosis. CONCLUSIONS 1. Overall minimal to mild coronary artery disease and widely patent recently placed proximal right coronary artery stent. 2. Elevated central venous pressure and pulmonary capillary wedge pressure. 3. Severe pulmonary hypertension. MD REBECA Kimball/RU /1:52 PM /2:05 PM LUIZA
--- NOTE | 2017-04-28 16:28 | PD.CAR.PN ---
CVT Progress Note Subjective/Hospital Course: pt seen and eval , full consult to follow / eval for TAVR RISK SCORES About the STS Risk Calculator Procedure: AV Replacement Risk of Mortality: 8.415% Morbidity or Mortality: 48.567% Long Length of Stay: 20.303% Short Length of Stay: 11.531% Permanent Stroke: 1.421% Prolonged Ventilation: 43.473% DSW Infection: 0.61% Renal Failure: 14.51% Reoperation: 13.32% Objective: Vital Signs Date Time Temp Pulse Resp B/P (MAP) Pulse Ox O2 Delivery O2 Flow Rate FiO2 04/28/17 16:02 70 04/28/17 15:14 98.4 68 26 107/37 (60) 97 04/28/17 14:49 68 04/28/17 11:00 98.1 68 27 113/53 (73) 93 04/28/17 10:00 67 04/28/17 09:42 94 Non-Rebreather 15.00 04/28/17 08:00 67 04/28/17 08:00 97.8 67 28 119/56 (77) 93 04/28/17 07:21 93 BiPAP 70 04/28/17 07:19 93 70 04/28/17 06:00 68 04/28/17 04:00 66 04/28/17 04:00 98.3 66 31 111/56 (74) 93 04/28/17 02:00 63 04/28/17 00:00 67 04/28/17 00:00 98.1 67 25 121/60 (80) 92 04/27/17 22:00 67 04/27/17 20:00 98.0 75 27 124/77 (93) 93 04/27/17 20:00 75 04/27/17 19:34 94 Non-Rebreather 15.00 04/27/17 18:00 71 Labs: Laboratory Tests Test 04/28/17 15:38 Blood Gas Puncture Site LT RADIAL Blood Gas Patient Temperature 98.6 Blood Gas HCO3 33 mmol/L (22-26) Blood Gas Base Excess 9.0 mmol/L (-2-2) Blood Gas Oxygen Saturation 94 % (90-100) Arterial Blood pH 7.47 (7.380-7.420) Arterial Blood Partial Pressure CO2 46 mmHg (38-42) Arterial Blood Partial Pressure O2 85 mmHg (61-120) Arterial Blood Oxygen Content 19.5 Vol % (12.0-20.0) Arterial Blood Carboxyhemoglobin 1.0 % (0-4) Arterial Blood Methemoglobin 1.1 % (0-2) Blood Gas Hemoglobin 14.7 G/DL (12.0-16.0) Oxygen Delivery Device NONREBREATHER Blood Gas Liter Flow 15 L/M Result Diagram: 04/28/1742304/28/17423 (1) Congestive heart failure (CHF) Plan: Minimally improved dyspnea despite good diuresis since admission. Good quality Doppler measurements of aortic valve on echo, consistent with severe aortic stenosis. EF still normal. RV function probably at least mildly reduced. REC consult CV surgery for redo AVR, limited coronary angio today to verify patency of his coronaries continue diuresis, K repletion continue beta veena, Cardizem (2) Pulmonary hypertension Plan: Severe pulmonary hypertension by echo, systolic pressure around 70 mm Hg. To have right heart cath today. Etiology probably multifactorial; consider ruling out chronic thromboembolic pulmonary disease. (3) Paroxysmal atrial fibrillation Plan: Remains in NSR on Amiodarone. Continue apixaban until surgical plans more definitive. (4) CAD (coronary artery disease) Plan: Stable. History of fairly recent PCI of RCA. For limited coronary angio today as part of preop evaluation. Continue clopidogrel, aspirin. (5) History of aortic valve replacement Plan: As noted above, echo suggests severe AVR stenosis. Exam also now more c/ w severe . To have CV surgery evaluation for redo AVR. (6) Hypertension Plan: Stable. Normotensive. Problem Qualifiers (1) Congestive heart failure (CHF): Qualified Codes: I50.33 - Acute on chronic diastolic (congestive) heart failure (2) CAD (coronary artery disease): Qualified Codes: I25.10 - Atherosclerotic heart disease of [place] coronary artery without angina pectoris (3) Hypertension: Qualified Codes: I10 - Essential (primary) hypertension Carol Lomax Apr 28, 2017 16:28
--- NOTE | 2017-04-28 17:04 | MB ---
cc: IRENE HOPPER DATE OF CONSULTATION 04/28/17 1957 HISTORY OF PRESENT ILLNESS A 61-year-old male, a patient Dr. Logan Cordero and Dr. Li who presented to the emergency room from Dr. Maradiaga's office due to complaint of severe shortness of breath. He was last hospitalized February of last year for CHF. He states he felt better after he was discharged, but then presented back with severe dyspnea. He also was having lower extremity edema. He said he has been compliant with all his medications, no added salt. He denied having chest pain or palpitations, no syncope. He has quite an extensive cardiac history where he has aortic valve disease with history of bioprosthetic aortic valve replacement twice. 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 Fu[facility] [place] in [place] in 1999. The second time he had a Medtr[employer] porcine aortic valve replacement 25 mm in [facility]. There was no definite gradient. He had catheterization 02/26. They also did a transesophageal echocardiogram in 02/10/2017 showing a moderate aortic insufficiency. They repeated an echocardiogram which showed an ejection fraction of 55%, left atrium mildly dilated, right atrium mildly dilated, moderate tricuspid regurgitation, mean gradient of 47 mmHg suggestive of severe aortic stenosis, the mean gradient of 46, peak gradient of 81, aortic valve area of 0.7. The patient was transferred to the CV ICU after he underwent cardiac cath today which showed overall minimal to mild coronary artery disease. He has a widely patent RCA stent. very elevated venous central pressures and pulmonary capillary wedge pressures and severe pulmonary hypertension. Pulmonary wedge pressure is about 32, PA pressures of 88/30 with a mean of 60. We were consulted to evaluate for redo aortic valve replacement x3 versus evaluation for transcatheter aortic valve replacement. PAST MEDICAL HISTORY 1. Obstructive sleep apnea, uses a C-PAP machine. 2. Congestive heart failure, 3. Diastolic dysfunction, 4. Chronic obstructive pulmonary disease 5. Coronary artery disease with a stent in the RCA 6. Hepatitis C 7. Hyperlipidemia, 8. Hypertension, 9. Morbid obesity with a BMI of 41, 10. Paroxysmal atrial fibrillation diagnosed in November 2016 PAST SURGICAL HISTORY 1. Aortic valve replacements 2001, 2006. The first one was a mechanical valve. The second one was a porcine valve. 2. Cholecystectomy, 3. Splenectomy MEDICATIONS Home include 1. Amiodarone. 2. Aspirin. 3. Atorvastatin. 4. Cardizem 5. Eliquis. 6. Lasix. 7. Zaroxolyn. 8. Metoprolol. 9. Potassium. Currently, he is on Plavix and not the Eliquis. FAMILY HISTORY Noncontributory. SOCIAL HISTORY He smokes a pack a day, . The last IV drug use is approximately eight years ago. REVIEW OF SYSTEMS As above in the HPI. Other 12 systems unremarkable. PHYSICAL EXAMINATION VITAL SIGNS: Blood pressure 110/60, heart rate of 68, afebrile. O2 sat 97% on partial non-rebreather. GENERAL: Patient is awake, alert, slightly short of breath when talking. HEENT: Head is normocephalic, positive JVD. CARDIAC: Heart sounds S1, S2, grade 2/6 systolic murmur best noted at the right upper border. No gallops or rubs noted. ABDOMEN: Obese, soft, nontender. No masses or organomegaly. EXTREMITIES: Trace to +1 pretibial edema. IMAGING STUDIES Chest x-ray shows some small bilateral effusions, increased interstitial markings. LABORATORY DATA Hemoglobin 14, hematocrit of 43, white cell count 16, platelet count 351. Sodium 137, potassium 2.2 which has been replaced, BUN 37, creatinine 1.63, troponin 0.07, INR 1.2. Urinalysis unremarkable. MRSA negative. IMAGING STUDIES Chest x-ray shows some improvement in the pulmonary edema. IMPRESSION This is a 61-year-old male with a history of aortic valve stenosis, moderate aortic valve insufficiency, moderate tricuspid valve regurgitation with a valve area of 0.7. We have been asked for evaluation for redo aortic valve replacement. This would be his third surgery. At this time, the patient is obviously high-risk. His STS score is 8.41, albumin is 3.5. CTA TAVR are still pending. Frailty score is pending. However, due to his high risk score and redo third aortic valve replacement, recommendations would be for transcatheter aortic valve replacement. Further plan per Dr. Hopper. SUMMER Isaacs Dictating for Dr. Irene Hopper T/ /4:30 PM /4:44 PM
--- NOTE | 2017-04-28 17:57 | RADRPT ---
EXAM DATE/TIME: 04/28/2017 17:05 [facility] COMPARISON: CHEST SINGLE AP, April 28, 2017, 10:22. INDICATIONS : Rule out right pneumothorax. Short of breath. MEDICAL HISTORY : Chronic obstructive pulmonary disease. Congestive heart failure SURGICAL HISTORY : CABG. ENCOUNTER: Subsequent ACUITY: 1 day PAIN SCORE: 0/10 LOCATION: Bilateral chest FINDINGS: Otherwise previous bypass are noted. Heart is enlarged. There is mild interstitial edema. There is no pneumothorax. [place] in the left lower lobe outflow tract. . CONCLUSION: No pneumothorax. [place] above.. Ck Craig MD FACR on April 28, 2017 at 17:54 Board Certified Radiologist. This report was verified electronically.
[2017-04-28] MEDS: ATORVASTATIN 40 MG TAB PO SCH (20:26)
[2017-04-28] MEDS: POTASSIUM CHLOR 40 MEQ PREMIX 100 ML IV PRN ×2 (22:08→23:48)
[2017-04-28] MEDS ORDERED: POTASSIUM CHLORIDE 20 MEQ CONTROLLED RELEASE TAB PO ONE (23:30)
[2017-04-29] VITALS (11 sets, daily range): BP systolic 102–127; BP diastolic 42–55; PULSE 65–78; RESP 24; TEMP 97.6–98.3; O2SAT 93–98
[2017-04-29] MEDS: FUROSEMIDE 100 MG/10 ML VIAL IV PUSH SCH ×4 (01:19→21:21)
[2017-04-29] MEDS: RESP: ALBUTEROL 2.5 MG/IPRATROPIUM 0.5 MG NEB (SCH) INH ×6 (01:22→19:44)
[2017-04-29] MEDS: CHLORHEXIDINE GLUCONATE 2 % 1 PACK (2 CLOTHS) TOP SCH (04:00)
--- NOTE | 2017-04-29 04:39 | RADRPT ---
EXAM DATE/TIME: 04/29/2017 04:03 [facility] COMPARISON: CHEST SINGLE AP, April 28, 2017, 17:05. INDICATIONS : Shortness of breath, possible pulmonary disease. MEDICAL HISTORY : Chronic obstructive pulmonary disease. Congestive heart failure. SURGICAL HISTORY : CABG. ENCOUNTER: Subsequent ACUITY: 2 days PAIN SCORE: 5/10 LOCATION: Bilateral chest FINDINGS: Right IJ line is present with tip overlapping the expected region of the SVC. Cardiomegaly is present with moderate degree of pulmanary edema not significantly changed. CONCLUSION: No personal change in CHF. Nini Guerrero MD on April 29, 2017 at 4:37 Board Certified Radiologist. This report was verified electronically.
[2017-04-29 04:55] LABS: BASOPHIL % 0.2 % (0.0-2.0); HEMATOCRIT 42.1 % (39.0-51.0); HEMOGLOBIN 14.3 GM/DL (13.0-17.0); LYMPH % 4.7 % (9.0-44.0); LYMPHOCYTE # 0.7 TH/MM3 (1.0-4.8); MEAN CELL VOLUME 101.5 FL (80.0-100.0); MEAN CORPUSCULAR HEMOGLOBIN 34.4 PG (27.0-34.0); MEAN CORPUSCULAR HGB CONC 33.9 % (32.0-36.0); MEAN PLATELET VOLUME 7.7 FL (7.0-11.0); MONO % 3.3 % (0.0-8.0); MONOCYTE # 0.5 TH/MM3 (0-0.9); NEUT % 91.8 % (16.0-70.0); PLATELET COUNT 318 TH/MM3 (150-450); RED BLOOD COUNT 4.14 MIL/MM3 (4.50-5.90); RED CELL DISTRIBUTION WIDTH 14.6 % (11.6-17.2); WHITE BLOOD COUNT 14.1 TH/MM3 (4.0-11.0)
[2017-04-29 05:24] LABS: ALBUMIN 3.1 GM/DL (3.4-5.0); AST (GOT) 28 U/L (15-37); BICARBONATE 36.1 MEQ/L (21.0-32.0); BLOOD UREA NITROGEN 52 MG/DL (7-18); CALCIUM 9.3 MG/DL (8.5-10.1); CHLORIDE 95 MEQ/L (98-107); CREATININE 1.85 MG/DL (0.60-1.30); GLOMERULAR FILTRATION RATE 38 ML/MIN (>89); GLUCOSE,RANDOM 153 MG/DL (74-106); MAGNESIUM 2.8 MG/DL (1.5-2.5); SODIUM (NA) 137 MEQ/L (136-145)
[2017-04-29 05:29] LABS: ALKALINE PHOSPHATASE 61 U/L (45-117); ALT (GPT) 20 U/L (12-78); TOTAL BILIRUBIN ADULT 1.4 MG/DL (0.2-1.0); TOTAL PROTEIN 8.4 GM/DL (6.4-8.2)
[2017-04-29] MEDS: INSULIN NovoLIN REGULAR SUPPLEMENTAL SCALE SQ SCH ×4 (06:00→17:45)
[2017-04-29] MEDS: BUDESONIDE-FORMOTEROL 160/4.5 MCG INHALER INH SCH ×2 (08:36→21:21)
[2017-04-29] MEDS: ASPIRIN EC 81 MG TABEC PO SCH (08:37)
[2017-04-29] MEDS: methylPREDNISolone SOD SUCC 125 MG/2 ML VIAL IV PUSH SCH ×2 (08:37→21:20)
[2017-04-29] MEDS: AMIODARONE 200 MG TAB PO SCH (08:38)
[2017-04-29] MEDS: DOCUSATE SODIUM 50 MG/SENNA 8.6 MG TAB PO SCH ×2 (08:38→21:20)
[2017-04-29] MEDS: CLOPIDOGREL 75 MG TAB PO SCH (08:38)
[2017-04-29] MEDS: DILTIAZEM-CD 240 MG CAP ER PO SCH (08:39)
[2017-04-29] MEDS: METOPROLOL SUCCINATE 50 MG EXTENDED RELEASE TAB PO SCH (08:40)
[2017-04-29] MEDS: METOLAZONE 5 MG TAB PO SCH (08:40)
[2017-04-29] MEDS: TIOTROPIUM BROMIDE 18 MCG INH INH SCH (08:44)
[2017-04-29 08:57] LABS: ACANTHOCYTES OCC (NORMAL)
--- NOTE | 2017-04-29 09:25 | HHI.CCPN ---
Subjective Remarks/Hospital Course Hospital course: 61yM with history of CHF, bioprosthetic AVR, CAD, COPD who presents with worsening SOB over last few weeks. BNP elevated at > 700, CXR with bilateral pulmonary infiltrates suggestive of pulmonary edema. + weight gain. - sick contacts. - fever, - chills, - n/v/d or abd pain. recent cath with stent placement in 02/2017 with echo. no changes in exercise tolerance since that time. trop negative. placed on bipap in ER for hypoxia. ROS otherwise negative. Subjective: 04/27: good diuresis with -1.7L/24h. severely hypokalemic this morning despite aggressive replacement yesterday. however, fio2 continues to rise, up to 70%. patient very dyspneic when he removes BiPAP. patient states he has been aggressively dieting, but despite that states he isn't losing any weight. takes lasix 80mg po BID as well as metolazone just to keep the same daily weight. 04/28: Sitting up at the side of the bed on partial nonrebreather. Subjectively still short of breath. Chest exam reveals bilateral basilar crackles and scattered wheezing. Chest x-ray shows some improvement in pulmonary edema. Urine output 2.7 L with aggressive diuresis. Also place patient on Symbicort and IV Solu-Medrol short course due to COPD exacerbation clinically. K+ 2.4 getting replaced. 04/29: Patient FiO2 requirements have been decreased to 50%, O2 saturation 94-95% . Chest x-ray /pulmonary edema remains unchanged. The patient refused to continue on BiPAP during the night. Patient remain on BiPAP approximately 2-3 hours. Encouraged patient to continue on BiPAP at night. Objective Vital Signs Date Time Temp Pulse Resp B/P (MAP) Pulse Ox O2 Delivery O2 Flow Rate FiO2 04/29/17 08:06 93 Venturi Mask 6.00 50 04/29/17 07:00 97.9 70 24 127/50 (75) Intake and Output 04/29/17 04/29/17 04/30/17 08:00 16:00 00:00 Intake Total 580 ml Output Total 1250 ml Balance -670 ml Result Diagram: 04/29/17 0400 04/29/17 0400 Other Results Laboratory Tests Test 04/28/17 15:38 Blood Gas Puncture Site LT RADIAL Blood Gas Patient Temperature 98.6 Blood Gas HCO3 33 mmol/L (22-26) Blood Gas Base Excess 9.0 mmol/L (-2-2) Blood Gas Oxygen Saturation 94 % (90-100) Arterial Blood pH 7.47 (7.380-7.420) Arterial Blood Partial Pressure CO2 46 mmHg (38-42) Arterial Blood Partial Pressure O2 85 mmHg (61-120) Arterial Blood Oxygen Content 19.5 Vol % (12.0-20.0) Arterial Blood Carboxyhemoglobin 1.0 % (0-4) Arterial Blood Methemoglobin 1.1 % (0-2) Blood Gas Hemoglobin 14.7 G/DL (12.0-16.0) Oxygen Delivery Device NONREBREATHER Blood Gas Liter Flow 15 L/M Imaging Last Impressions Chest X-Ray 04/29/17 0600 Signed Impressions: Service Date/Time: Saturday, April 29, 2017 04:03 - CONCLUSION: No personal change in CHF. Nini Guerrero MD Last Impressions Chest X-Ray 04/26/17 1317 Signed Impressions: Service Date/Time: Wednesday, April 26, 2017 13:22 - CONCLUSION: Cardiomegaly with findings of volume overload/CHF. Thompson Berg MD Objective Remarks gen: obese male, lying in bed, on pNRB heent: nc. at. perrl. mucous membranes moist. neck: trachea midline. unable to assess JVD due to large neck circumference. chest: equal chest rise. bilateral posterior basilar crackles, bilateral mild wheezing cv: normal rate, regular rhythm. sinus by tele. Heart sounds are distant abd: obese, soft, nontender, nondistended. no guarding. extr: 2+ peripheral edema. distal pulses 2+. neuro: RASS 0. CAM -. GCS 15. no focal deficits. A/P Assessment and Plan Assessment: 61yM with acute CHF exacerbation with preserved EF. Clinically, he is still very volume overloaded. Dr. Nash performed bedside critical care echocardiogram which revealed grossly preserved LV function, RVSP ~60 mmHg, dilated IVC without any respiratory variation, no pericardial effusion. Clinically, I am concerned that despite an aggressive outpatient diuretic regimen, he is not clinically improving, and is needing re-admission for CHF despite a thorough inpatient evaluation in February. His troponins are stable, and his recent LHC in 02/2017 along with echo at that time would suggest this is not a change in his ischemic disease. Given his body habitus, JORGE with pulmonary hypertension could account for the worsening of his overall CHF symptoms. I have discussed the case with Dr. Li, and will have him along with Dr. Maradiaga evaluate the patient and we will come up with a multidisciplinary plan of care for him. Overall, plan for today is more aggressive diuresis given worsening of his symptoms: lasix, metolazone, and diamox for the devleoping alkalosis. Needs aggressive K replacement for worsening hypokalemia, but cannot hold forced diuresis given his pulmonary symptoms, so will measure serial potassium levels and continue to aggressively replace both IV and PO KCl. Acute CHF Exacerbation- preserved EF Acute hypoxic respiratory failure requiring NIPPV Acute intravascular volume overload - lasix 80mg iv q6h - metolazone 10mg po daily - s/p diamox 500mg iv x 1 for alkalosis - Echo 04/27-consistent with severe aortic stenosis. EF normal. RV function mildly reduced severe pulm hypertension PASP 70. - CV surgery for redo AVR, limited coronary angio to verify patency of his coronaries. Right and left cath plan for today by Dr. Li - goal net -2L/24h - BiPAP PRN - There is mild COPD exacerbation contributing to respiratory failure and hypoxia. - Placed on a short course of Solu-Medrol 40 q12 for 5 days, start Symbicort. continue Spiriva - wean fio2 for goal spo2 > 90%, Currently FIO2 .50% - troponins stable - Dr. Maradiaga and Jen following - PAP trend 80's Severe hypokalemia -- q6h potassium checks - Continue aggressive K+ replacement - mg > 2.5 currently, will not replace. - continue forced diuresis despite hypokalemia. Metabolic alkalosis - diamox 500mg iv x 1 given Acute kidney injury - secondary to venous congestion. 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 - LHC/RHC today - may also benefit from outpatient sleep study to eval for optimization of JORGE. - if other studies negative, would consider high resolution CT pulmonary angiogram looking specifically for CTEPH (WHO Class IV PH) Atrial fibrillation - home rate controlling drugs - home amio - currently in NSR - home eliquis - Dr. Maradiaga consulted to follow along. CAD - home ASA - home plavix Hyperlipidemia - home statin remain in ICU. Heart healthy diet with 1L fluid restriction my billing statement This patient remains critically ill with one or more organ systems which are or may become a threat to life. I have spent in excess of 30 minutes discontinuously in the care and management of this patient. This time is exclusive of procedures, and includes, but is not limited to, evaluation of the patient, review of the medical record, discussions with family, consultants, nursing staff, or respiratory therapy, and documentation in the medical record. Physician Michelle Rios MD Apr 29, 2017 09:25
--- NOTE | 2017-04-29 14:30 | PD.CARD.PN ---
Subjective Subjective Remarks SOB slightly improved Objective Medications Current Medications Medications (Trade) Dose Ordered Sig/Esvin Route Start Time Stop Time Status Last Admin (NS Flush) 2 ml UNSCH PRN IVF 04/26/17 13:30 Potassium Chloride 100 ml @ 50 mls/hr Q2H PRN IV 04/26/17 15:30 04/28/17 23:48 Potassium Chloride 100 ml @ 50 mls/hr Q2H PRN IV 04/26/17 15:30 04/28/17 05:50 (K-Lyte Cl Eff) 50 meq UNSCH PRN PO 04/26/17 15:30 Potassium Chloride 100 ml @ 25 mls/hr UNSCH PRN IV 04/26/17 15:30 Potassium Chloride 100 ml @ 50 mls/hr Q2H PRN IV 04/26/17 15:30 Magnesium Sulfate 4 gm/Sodium Chloride 100 ml @ 50 mls/hr UNSCH PRN IV 04/26/17 15:30 (Mag-Ox) 800 mg UNSCH PRN PO 04/26/17 15:30 Magnesium Sulfate 2 gm/Sodium Chloride 100 ml @ 50 mls/hr UNSCH PRN IV 04/26/17 15:30 (K-Phos) 2,000 mg Q4H PRN PO 04/26/17 15:30 Sodium Phosphate 30 mmol/Sodium Chloride 250 ml @ 42 mls/hr UNSCH PRN IV 04/26/17 15:30 (K-Phos) 2,000 mg UNSCH PRN PO/TUBE 04/26/17 15:30 Potassium Phosphate 30 mmol/ Sodium Chloride 260 ml @ 42 mls/hr UNSCH PRN IV 04/26/17 15:30 (D50w (Vial) Inj) 25 ml UNSCH PRN IV PUSH 04/26/17 15:30 (NovoLIN R SUPPLEMENTAL SCALE) 1 Q6HR SQ 04/26/17 18:00 04/29/17 11:38 (Duoneb Neb) 1 ampule Q2HR NEB PRN INH 04/26/17 15:30 (Duoneb Neb) 1 ampule Q4HR NEB INH 04/26/17 16:00 04/29/17 11:47 (Zofran Inj) 4 mg Q6H PRN IV PUSH 04/26/17 15:30 Miscellaneous Information 1 Q361D XX 04/26/17 15:30 04/26/17 15:30 (Chlorhexidine 2% Cloth) 3 pack Taper DAILY@04 TOP 04/27/17 04:00 04/23/18 03:59 04/29/17 04:00 (Chlorhexidine 2% Cloth) 3 pack UNSCH PRN TOP 04/26/17 15:30 (Rosario-Colace) 1 tab BID PO 04/26/17 21:00 04/29/17 08:38 (Milk Of Magnjordon Liq) 30 ml Q12H PRN PO 04/26/17 15:30 (Cordarone) 200 mg DAILY PO 04/27/17 09:00 04/29/17 08:38 (Ecotrin Ec) 81 mg DAILY PO 04/27/17 09:00 04/29/17 08:37 (Lipitor) 40 mg HS PO 04/26/17 21:00 04/28/17 20:26 (Plavix) 75 mg DAILY PO 04/27/17 09:00 04/29/17 08:38 (Cardizem Cd) 240 mg DAILY PO 04/27/17 09:00 04/29/17 08:39 (Zaroxolyn) 10 mg DAILY PO 04/27/17 09:00 04/29/17 08:40 (Spiriva Inh) 18 mcg DAILY INH 04/27/17 09:00 04/29/17 08:44 (Toprol Xl) 100 mg DAILY PO 04/27/17 09:00 04/29/17 08:40 (Lasix Inj) 80 mg Q6H IV PUSH 04/27/17 08:00 04/29/17 13:43 (Benadryl) 50 mg IS SUPPORT ANALYST PO 04/27/17 10:15 05/01/17 10:14 (Valium) 10 mg IS SUPPORT ANALYST PO 04/27/17 10:15 05/01/17 10:14 (Versed Inj) 1 mg IS SUPPORT ANALYST IV PUSH 04/27/17 10:15 05/01/17 10:14 (Symbicort 160-4.5 Mcg Inh) 2 puff Q12HR INH 04/28/17 13:00 04/29/17 08:36 (SoluMEDROL INJ) 40 mg Q12HR IV PUSH 04/28/17 12:00 05/02/17 11:59 04/29/17 08:37 Vital Signs / I&O Vital Signs Date Time Temp Pulse Resp B/P (MAP) Pulse Ox O2 Delivery O2 Flow Rate FiO2 04/29/17 11:00 98.1 69 24 108/42 (64) 93 04/29/17 11:00 71 04/29/17 08:06 93 Venturi Mask 6.00 50 04/29/17 07:39 98 Non-Rebreather 15.00 04/29/17 07:00 97.9 70 24 127/50 (75) 98 04/29/17 07:00 65 04/29/17 07:00 70 127/50 (75) 04/29/17 05:00 98 Non-Rebreather 15.00 100 04/29/17 03:00 78 04/29/17 03:00 98.3 76 24 112/55 (74) 97 04/29/17 01:31 95 70 04/28/17 23:00 98.5 73 23 101/50 (67) 97 04/28/17 23:00 70 04/28/17 21:18 97 Non-Rebreather 15.00 100 04/28/17 20:00 70 04/28/17 19:00 98.2 68 25 112/54 (73) 96 04/28/17 19:00 68 112/54 (73) 04/28/17 18:22 69 04/28/17 16:02 70 04/28/17 15:14 98.4 68 26 107/37 (60) 97 04/28/17 14:49 68 I/O 04/28/17 04/28/17 04/28/17 04/29/17 04/29/17 04/29/17 07:00 15:00 23:00 07:00 15:00 23:00 Intake Total 500 ml 200 ml 680 ml Output Total 1135 ml 350 ml 700 ml 1250 ml Balance -635 ml -350 ml -500 ml -570 ml Intake Oral 300 ml 100 ml 480 ml IV Total 200 ml 100 ml 200 ml Output Urine Total 1135 ml 350 ml 700 ml 1250 ml # Voids 3 # Bowel Movements 0 0 0 Physical Exam Morbidly obese, Alert, Not in acute distress Chest diminished at bases CV S1S2 RRR with 2/6 OJ, 1/6 AR murmur Abd obes, soft Ext: no edema Laboratory Laboratory Tests Test 04/28/17 15:38 04/28/17 19:35 04/29/17 04:00 Blood Gas Puncture Site LT RADIAL Blood Gas Patient Temperature 98.6 Blood Gas HCO3 33 mmol/L Blood Gas Base Excess 9.0 mmol/L Blood Gas Oxygen Saturation 94 % Arterial Blood pH 7.47 Arterial Blood Partial Pressure CO2 46 mmHg Arterial Blood Partial Pressure O2 85 mmHg Arterial Blood Oxygen Content 19.5 Vol % Arterial Blood Carboxyhemoglobin 1.0 % Arterial Blood Methemoglobin 1.1 % Blood Gas Hemoglobin 14.7 G/DL Oxygen Delivery Device NONREBREATHER Blood Gas Liter Flow 15 L/M Potassium Level 2.5 MEQ/L 4.0 MEQ/L White Blood Count 14.1 TH/MM3 Red Blood Count 4.14 MIL/MM3 Hemoglobin 14.3 GM/DL Hematocrit 42.1 % Mean Corpuscular Volume 101.5 FL Mean Corpuscular Hemoglobin 34.4 PG Mean Corpuscular Hemoglobin Concent 33.9 % Red Cell Distribution Width 14.6 % Platelet Count 318 TH/MM3 Mean Platelet Volume 7.7 FL Neutrophils (%) (Auto) 91.8 % Lymphocytes (%) (Auto) 4.7 % Monocytes (%) (Auto) 3.3 % Eosinophils (%) (Auto) 0.0 % Basophils (%) (Auto) 0.2 % Neutrophils # (Auto) 13.0 TH/MM3 Lymphocytes # (Auto) 0.7 TH/MM3 Monocytes # (Auto) 0.5 TH/MM3 Eosinophils # (Auto) 0.0 TH/MM3 Basophils # (Auto) 0.0 TH/MM3 CBC Comment AUTO DIFF Differential Comment AUTO DIFF CONFIRMED Platelet Estimate NORMAL Platelet Morphology Comment CLUMPED Acanthocytes OCC Blood Urea Nitrogen 52 MG/DL Creatinine 1.85 MG/DL Random Glucose 153 MG/DL Total Protein 8.4 GM/DL Albumin 3.1 GM/DL Calcium Level 9.3 MG/DL Magnesium Level 2.8 MG/DL Alkaline Phosphatase 61 U/L Aspartate Amino Transf (AST/SGOT) 28 U/L Alanine Aminotransferase (ALT/SGPT) 20 U/L Total Bilirubin 1.4 MG/DL Sodium Level 137 MEQ/L Chloride Level 95 MEQ/L Carbon Dioxide Level 36.1 MEQ/L Anion Gap 6 MEQ/L Estimat Glomerular Filtration Rate 38 ML/MIN Imaging Last 24 hours Impressions Chest X-Ray 04/29/17 0600 Signed Impressions: Service Date/Time: Saturday, April 29, 2017 04:03 - CONCLUSION: No personal change in CHF. KHimanshu Guerrero MD Assessment and Plan Problem List: (1) Congestive heart failure (CHF) ICD Codes: I50.9 - Heart failure, unspecified Status: Acute (2) Pulmonary hypertension ICD Codes: I27.20 - Pulmonary hypertension, unspecified Status: Chronic (3) Paroxysmal atrial fibrillation ICD Codes: I48.0 - Paroxysmal atrial fibrillation Status: Chronic (4) CAD (coronary artery disease) ICD Codes: I25.10 - Atherosclerotic heart disease of [place] coronary artery without angina pectoris Status: Chronic (5) History of aortic valve replacement ICD Codes: Z95.2 - Presence of prosthetic heart valve Status: Chronic (6) Hypertension ICD Codes: I10 - Essential (primary) hypertension Status: Chronic Assessment and Plan Cont. diuresis. Currently O>I. Problem Qualifiers (1) Congestive heart failure (CHF): Qualified Codes: I50.33 - Acute on chronic diastolic (congestive) heart failure (2) CAD (coronary artery disease): Qualified Codes: I25.10 - Atherosclerotic heart disease of [place] coronary artery without angina pectoris (3) Hypertension: Qualified Codes: I10 - Essential (primary) hypertension Zeferino Bashir MD Apr 29, 2017 14:30
[2017-04-29] MEDS: ATORVASTATIN 40 MG TAB PO SCH (21:20)
[2017-04-30] VITALS (15 sets, daily range): BP systolic 96–106; BP diastolic 43–55; PULSE 60–91; RESP 18–24; TEMP 97.1–98.4; O2SAT 92–98
[2017-04-30] MEDS: INSULIN NovoLIN REGULAR SUPPLEMENTAL SCALE SQ SCH ×4 (00:19→18:00)
[2017-04-30] MEDS: RESP: ALBUTEROL 2.5 MG/IPRATROPIUM 0.5 MG NEB (SCH) INH ×4 (00:29→11:49)
[2017-04-30] MEDS: FUROSEMIDE 100 MG/10 ML VIAL IV PUSH SCH ×4 (02:34→22:05)
[2017-04-30] MEDS: CHLORHEXIDINE GLUCONATE 2 % 1 PACK (2 CLOTHS) TOP SCH (04:00)
--- NOTE | 2017-04-30 04:52 | RADRPT ---
EXAM DATE/TIME: 04/30/2017 04:22 [facility] COMPARISON: CHEST SINGLE AP, April 29, 2017, 4:03. INDICATIONS : Shortness of breath, possible pulmonary disease. MEDICAL HISTORY : Chronic obstructive pulmonary disease. Congestive heart failure. SURGICAL HISTORY : CABG. ENCOUNTER: Subsequent ACUITY: 3 days PAIN SCORE: 5/10 LOCATION: Bilateral chest FINDINGS: A single view of the chest demonstrates [place] catheter tip in left pulmonary artery. Previous med kane sternotomy. Cardiomegaly with mild edema pattern, improved from April 28 and . No pneumothor ax. CONCLUSION: 1. Slight improvement in pulmonary edema pattern. [place] catheter unchanged. Oscar Napier MD on April 30, 2017 at 4:48 Board Certified Radiologist. This report was verified electronically.
[2017-04-30 05:55] LABS: BASOPHIL # 0.1 TH/MM3 (0-0.2); BASOPHIL % 0.2 % (0.0-2.0); HEMATOCRIT 41.2 % (39.0-51.0); LYMPH % 3.8 % (9.0-44.0); LYMPHOCYTE # 0.9 TH/MM3 (1.0-4.8); MEAN CELL VOLUME 100.3 FL (80.0-100.0); MEAN CORPUSCULAR HGB CONC 33.9 % (32.0-36.0); MONO % 5.5 % (0.0-8.0); MONOCYTE # 1.2 TH/MM3 (0-0.9); NEUT % 90.5 % (16.0-70.0); PLATELET COUNT 320 TH/MM3 (150-450); RED BLOOD COUNT 4.11 MIL/MM3 (4.50-5.90); RED CELL DISTRIBUTION WIDTH 14.5 % (11.6-17.2); WHITE BLOOD COUNT 22.2 TH/MM3 (4.0-11.0)
[2017-04-30 06:33] LABS: BICARBONATE 36.4 MEQ/L (21.0-32.0); CALCIUM 9.1 MG/DL (8.5-10.1); CREATININE 2.06 MG/DL (0.60-1.30); MAGNESIUM 2.8 MG/DL (1.5-2.5); PHOSPHORUS 4.6 MG/DL (2.5-4.9)
[2017-04-30] MEDS: POTASSIUM CHLOR 40 MEQ PREMIX 100 ML IV PRN (07:08)
[2017-04-30] MEDS: DOCUSATE SODIUM 50 MG/SENNA 8.6 MG TAB PO SCH ×2 (08:02→22:05)
[2017-04-30] MEDS: methylPREDNISolone SOD SUCC 125 MG/2 ML VIAL IV PUSH SCH ×2 (08:02→22:05)
[2017-04-30] MEDS: CLOPIDOGREL 75 MG TAB PO SCH (08:02)
[2017-04-30] MEDS: DILTIAZEM-CD 240 MG CAP ER PO SCH (08:03)
[2017-04-30] MEDS: ASPIRIN EC 81 MG TABEC PO SCH (08:03)
[2017-04-30] MEDS: AMIODARONE 200 MG TAB PO SCH (08:03)
[2017-04-30] MEDS: METOPROLOL SUCCINATE 50 MG EXTENDED RELEASE TAB PO SCH (08:04)
[2017-04-30] MEDS: TIOTROPIUM BROMIDE 18 MCG INH INH SCH (08:04)
[2017-04-30] MEDS: BUDESONIDE-FORMOTEROL 160/4.5 MCG INHALER INH SCH ×2 (08:04→22:06)
[2017-04-30] MEDS: METOLAZONE 5 MG TAB PO SCH (08:04)
--- NOTE | 2017-04-30 11:09 | HHI.CCPN ---
Subjective Remarks/Hospital Course Hospital course: 61yM with history of CHF, bioprosthetic AVR, CAD, COPD who presents with worsening SOB over last few weeks. BNP elevated at > 700, CXR with bilateral pulmonary infiltrates suggestive of pulmonary edema. + weight gain. - sick contacts. - fever, - chills, - n/v/d or abd pain. recent cath with stent placement in 02/2017 with echo. no changes in exercise tolerance since that time. trop negative. placed on bipap in ER for hypoxia. ROS otherwise negative. Subjective: 04/27: good diuresis with -1.7L/24h. severely hypokalemic this morning despite aggressive replacement yesterday. however, fio2 continues to rise, up to 70%. patient very dyspneic when he removes BiPAP. patient states he has been aggressively dieting, but despite that states he isn't losing any weight. takes lasix 80mg po BID as well as metolazone just to keep the same daily weight. 04/28: Sitting up at the side of the bed on partial nonrebreather. Subjectively still short of breath. Chest exam reveals bilateral basilar crackles and scattered wheezing. Chest x-ray shows some improvement in pulmonary edema. Urine output 2.7 L with aggressive diuresis. Also place patient on Symbicort and IV Solu-Medrol short course due to COPD exacerbation clinically. K+ 2.4 getting replaced. 04/29: Patient FiO2 requirements have been decreased to 50%, O2 saturation 94-95% . Chest x-ray /pulmonary edema remains unchanged. The patient refused to continue on BiPAP during the night. Patient remain on BiPAP approximately 2-3 hours. Encouraged patient to continue on BiPAP at night. 04/30: Afebrile .Significant elevation in WBC count overnight to 22. Blood and urine cultures obtained. ID consulted. FiO2 requirement significantly decreased now this a.m. to 3 L per nasal cannula. PAP downtrending from 80s yesterday to 60s today. Potassium being repleted. Objective Vital Signs Date Time Temp Pulse Resp B/P (MAP) Pulse Ox O2 Delivery O2 Flow Rate FiO2 04/30/17 08:16 97 Venturi Mask 6.00 50 04/30/17 07:00 72 04/30/17 07:00 97.7 22 102/46 (64) Intake and Output 04/30/17 04/30/17 05/01/17 08:00 16:00 00:00 Intake Total 180 ml Output Total 1225 ml Balance -1045 ml Result Diagram: 04/30/17 0530 04/30/17 0530 Imaging Last Impressions Chest X-Ray 04/29/17 0600 Signed Impressions: Service Date/Time: Saturday, April 29, 2017 04:03 - CONCLUSION: No personal change in CHF. Nini Guerrero MD Last Impressions Chest X-Ray 04/26/17 1317 Signed Impressions: Service Date/Time: Wednesday, April 26, 2017 13:22 - CONCLUSION: Cardiomegaly with findings of volume overload/CHF. Thompson Berg MD Objective Remarks gen: obese male, lying in bed, on p heent: nc. at. perrl. mucous membranes moist. neck: trachea midline. unable to assess JVD due to large neck circumference. chest: equal chest rise. Clear to auscultation bilaterally cv: normal rate, regular rhythm. sinus by tele. Heart sounds are distant abd: obese, soft, nontender, nondistended. no guarding. extr: 2+ peripheral edema. distal pulses 2+. neuro: RASS 0. CAM -. GCS 15. no focal deficits. A/P Assessment and Plan Assessment: 61yM with acute CHF exacerbation with preserved EF. Clinically, he is still very volume overloaded. Dr. Nash performed bedside critical care echocardiogram which revealed grossly preserved LV function, RVSP ~60 mmHg, dilated IVC without any respiratory variation, no pericardial effusion. Clinically, I am concerned that despite an aggressive outpatient diuretic regimen, he is not clinically improving, and is needing re-admission for CHF despite a thorough inpatient evaluation in February. His troponins are stable, and his recent C in 02/2017 along with echo at that time would suggest this is not a change in his ischemic disease. Given his body habitus, JORGE with pulmonary hypertension could account for the worsening of his overall CHF symptoms. I have discussed the case with Dr. Li, and will have him along with Dr. Maradiaga evaluate the patient and we will come up with a multidisciplinary plan of care for him. Overall, plan for today is more aggressive diuresis given worsening of his symptoms: lasix, metolazone, and diamox for the devleoping alkalosis. Needs aggressive K replacement for worsening hypokalemia, but cannot hold forced diuresis given his pulmonary symptoms, so will measure serial potassium levels and continue to aggressively replace both IV and PO KCl. Acute CHF Exacerbation- preserved EF Acute hypoxic respiratory failure requiring NIPPV Acute intravascular volume overload - lasix 80mg iv q6h - metolazone 10mg po daily - s/p diamox 500mg iv x 1 for alkalosis - Echo 04/27-consistent with severe aortic stenosis. EF normal. RV function mildly reduced severe pulm hypertension PASP 70. - CV surgery for redo AVR, limited coronary angio to verify patency of his coronaries. Right and left cath plan for today by Dr. Li - goal net -2L/24h - BiPAP PRN - There is mild COPD exacerbation contributing to respiratory failure and hypoxia. - Placed on a short course of Solu-Medrol 40 q12 for 5 days, start Symbicort. continue Spiriva - wean fio2 for goal spo2 > 90%, Currently FIO2 .50% - troponins stable - Dr. Maradiaga and Jen following - PAP trend now much improved 60's Severe hypokalemia -- q6h potassium checks - Continue aggressive K+ replacement - mg > 2.5 currently, will not replace. - continue forced diuresis despite hypokalemia. Metabolic alkalosis - diamox 500mg iv x 1 given Acute kidney injury - secondary to venous congestion. 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 - may also benefit from outpatient sleep study to eval for optimization of JORGE. - if other studies negative, would consider high resolution CT pulmonary angiogram looking specifically for CTEPH (WHO Class IV PH) Atrial fibrillation - home rate controlling drugs - home amio - currently in NSR - home eliquis - Dr. Maradiaga consulted to follow along. CAD - home ASA - home plavix Hyperlipidemia - home statin remain in ICU. Heart healthy diet with 1L fluid restriction Level 3 Discussed with INSULATING MACHINE OPERATOR (Alcira) and patient Physician Michelle Rios MD Apr 30, 2017 11:09
[2017-04-30] MEDS ORDERED: HEPARIN - 10,000 UNITS/ML IV ADDITIVE IV PUSH STA (13:34)
--- NOTE | 2017-04-30 13:39 | PD.CARD.PN ---
Subjective Subjective Remarks SOB improved Objective Medications Current Medications Medications (Trade) Dose Ordered Sig/Esvin Route Start Time Stop Time Status Last Admin (NS Flush) 2 ml UNSCH PRN IVF 04/26/17 13:30 (D50w (Vial) Inj) 25 ml UNSCH PRN IV PUSH 04/26/17 15:30 (NovoLIN R SUPPLEMENTAL SCALE) 1 Q6HR SQ 04/26/17 18:00 04/30/17 11:45 (Duoneb Neb) 1 ampule Q2HR NEB PRN INH 04/26/17 15:30 (Duoneb Neb) 1 ampule Q4HR NEB INH 04/26/17 16:00 04/30/17 11:49 (Zofran Inj) 4 mg Q6H PRN IV PUSH 04/26/17 15:30 Miscellaneous Information 1 Q361D XX 04/26/17 15:30 04/26/17 15:30 (Chlorhexidine 2% Cloth) 3 pack Taper DAILY@04 TOP 04/27/17 04:00 04/23/18 03:59 04/29/17 04:00 (Chlorhexidine 2% Cloth) 3 pack UNSCH PRN TOP 04/26/17 15:30 (Rosario-Colace) 1 tab BID PO 04/26/17 21:00 04/30/17 08:02 (Milk Of Magnesia Liq) 30 ml Q12H PRN PO 04/26/17 15:30 (Cordarone) 200 mg DAILY PO 04/27/17 09:00 04/30/17 08:03 (Ecotrin Ec) 81 mg DAILY PO 04/27/17 09:00 04/30/17 08:03 (Lipitor) 40 mg HS PO 04/26/17 21:00 04/29/17 21:20 (Plavix) 75 mg DAILY PO 04/27/17 09:00 04/30/17 08:02 (Cardizem Cd) 240 mg DAILY PO 04/27/17 09:00 04/30/17 08:03 (Spiriva Inh) 18 mcg DAILY INH 04/27/17 09:00 04/30/17 08:04 (Toprol Xl) 100 mg DAILY PO 04/27/17 09:00 04/29/17 08:40 (Benadryl) 50 mg UNDERCUTTER PO 04/27/17 10:15 05/01/17 10:14 (Valium) 10 mg UNDERCUTTER PO 04/27/17 10:15 05/01/17 10:14 (Versed Inj) 1 mg UNDERCUTTER IV PUSH 04/27/17 10:15 05/01/17 10:14 (Symbicort 160-4.5 Mcg Inh) 2 puff Q12HR INH 04/28/17 13:00 04/30/17 08:04 (SoluMEDROL INJ) 40 mg Q12HR IV PUSH 04/28/17 12:00 05/02/17 11:59 04/30/17 08:02 (Lasix Inj) 80 mg Q8HR IV PUSH 04/30/17 14:00 UNV Vital Signs / I&O Vital Signs Date Time Temp Pulse Resp B/P (MAP) Pulse Ox O2 Delivery O2 Flow Rate FiO2 04/30/17 11:49 95 Nasal Cannula 4.00 04/30/17 11:00 74 04/30/17 11:00 97.8 72 20 105/49 (67) 95 04/30/17 08:16 97 Venturi Mask 6.00 50 04/30/17 07:00 70 102/46 (64) 04/30/17 07:00 72 04/30/17 07:00 97.7 60 22 102/46 (64) 94 04/30/17 04:08 98 50 04/30/17 04:00 97.6 69 18 96/45 (62) 98 04/30/17 03:35 64 04/30/17 00:47 98 50 04/30/17 00:33 92 Venturi Mask 50 04/30/17 00:00 97.1 73 24 102/55 (71) 97 04/30/17 00:00 70 102/55 (71) 04/29/17 23:00 67 04/29/17 20:00 67 04/29/17 20:00 97.8 66 24 104/43 (63) 97 04/29/17 19:48 97 Venturi Mask 50 04/29/17 15:00 65 04/29/17 15:00 97.6 68 24 102/48 (66) 95 I/O 2/17/18 2/17/18 2/17/18 2/18/18 2/18/18 2/18/18 07:00 15:00 23:00 07:00 15:00 23:00 Intake Total 680 ml 960 ml 180 ml 200 ml Output Total 1250 ml 1350 ml 1225 ml Balance -570 ml -390 ml -1045 ml 200 ml Intake Oral 480 ml 960 ml 180 ml IV Total 200 ml 200 ml Output Urine Total 1250 ml 1350 ml 1225 ml # Bowel Movements 0 0 0 Physical Exam Morbidly obese, Alert, Not in acute distress Chest diminished at left base, rales right base CV S1S2 irr irr 2/6 OJ, 1/6 AR murmur Abd obes, soft Ext: no edema Tele: AF with CVR Laboratory Laboratory Tests Test 04/30/17 05:30 White Blood Count 22.2 TH/MM3 Red Blood Count 4.11 MIL/MM3 Hemoglobin 14.0 GM/DL Hematocrit 41.2 % Mean Corpuscular Volume 100.3 FL Mean Corpuscular Hemoglobin 34.0 PG Mean Corpuscular Hemoglobin Concent 33.9 % Red Cell Distribution Width 14.5 % Platelet Count 320 TH/MM3 Mean Platelet Volume 8.0 FL Neutrophils (%) (Auto) 90.5 % Lymphocytes (%) (Auto) 3.8 % Monocytes (%) (Auto) 5.5 % Eosinophils (%) (Auto) 0.0 % Basophils (%) (Auto) 0.2 % Neutrophils # (Auto) 20.0 TH/MM3 Lymphocytes # (Auto) 0.9 TH/MM3 Monocytes # (Auto) 1.2 TH/MM3 Eosinophils # (Auto) 0.0 TH/MM3 Basophils # (Auto) 0.1 TH/MM3 CBC Comment DIFF FINAL Differential Comment Blood Urea Nitrogen 77 MG/DL Creatinine 2.06 MG/DL Random Glucose 151 MG/DL Calcium Level 9.1 MG/DL Phosphorus Level 4.6 MG/DL Magnesium Level 2.8 MG/DL Sodium Level 139 MEQ/L Potassium Level 2.1 MEQ/L Chloride Level 90 MEQ/L Carbon Dioxide Level 36.4 MEQ/L Anion Gap 13 MEQ/L Estimat Glomerular Filtration Rate 33 ML/MIN Imaging Last 24 hours Impressions Chest X-Ray 04/30/17 0600 Signed Impressions: Service Date/Time: Sunday, April 30, 2017 04:22 - CONCLUSION: 1. Slight improvement in pulmonary edema pattern. [place] catheter unchanged. Oscar Napier MD Assessment and Plan Problem List: (1) Congestive heart failure (CHF) ICD Codes: I50.9 - Heart failure, unspecified Status: Acute (2) Pulmonary hypertension ICD Codes: I27.20 - Pulmonary hypertension, unspecified Status: Chronic (3) Paroxysmal atrial fibrillation ICD Codes: I48.0 - Paroxysmal atrial fibrillation Status: Chronic (4) CAD (coronary artery disease) ICD Codes: I25.10 - Atherosclerotic heart disease of [place] coronary artery without angina pectoris Status: Chronic (5) History of aortic valve replacement ICD Codes: Z95.2 - Presence of prosthetic heart valve Status: Chronic (6) Hypertension ICD Codes: I10 - Essential (primary) hypertension Status: Chronic Assessment and Plan Potassium extremely low and has gone into afib. DC metolazone and reduce furosemide to q8h Problem Qualifiers (1) Congestive heart failure (CHF): Qualified Codes: I50.33 - Acute on chronic diastolic (congestive) heart failure (2) CAD (coronary artery disease): Qualified Codes: I25.10 - Atherosclerotic heart disease of [place] coronary artery without angina pectoris (3) Hypertension: Qualified Codes: I10 - Essential (primary) hypertension Zeferino Bashir MD Apr 30, 2017 13:39
[2017-04-30] MEDS: HEPARIN-D5W 25,000 U/250 ML 250 ML IV PRN (14:03)
--- NOTE | 2017-04-30 18:00 | PD.ID.CON ---
History of Present Illness Service ID Consult Requested By Dr Eloise Fernandez Reason for Consult Leukocytosis Primary Care Physician Antonio Cordero M.D. 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 and reports been worked up for leukocytosis in the past His WBC tend to be elevated in 12-16 K range per the available records Pt was started on IV sterroids 2 days ago and his WBC start to go up into 20 K range Pt denies fever, chills, nightsweats ANJALI from Feb 2017 showed moderated AR,no vegetations Review of Systems Respiratory: COMPLAINS OF: Cough, Shortness of breath Cardiovascular: COMPLAINS OF: Dyspnea on Exertion Except as stated in HPI: all other systems reviewed are Neg Past Family Social History Allergies: Coded Allergies: No Known Allergies (Verified Allergy, Unknown, 04/26/17) Past Medical History Atrial fibrillation, eliquise High cholesterol COPD CHF, unknown type CAD HTN JORGE with home CPAP use Past Surgical History Splenectomy AVR x 2 Cholecystectomy Hematoma removed from forehead Active Ordered Medications Medications where reviewed in EMR Antibiotics Include: none Family History reviewed noncontributory to his presenting illness Social History 1ppd tobacco 5-6 beers daily, occ MJ Physical Exam Vital Signs Vital Signs Date Time Temp Pulse Resp B/P (MAP) Pulse Ox O2 Delivery O2 Flow Rate FiO2 04/30/17 15:00 97.9 78 20 98/43 (61) 97 04/30/17 15:00 84 04/30/17 13:18 86 04/30/17 11:49 95 Nasal Cannula 4.00 04/30/17 11:00 74 04/30/17 11:00 97.8 72 20 105/49 (67) 95 04/30/17 08:16 97 Venturi Mask 6.00 50 04/30/17 07:00 70 102/46 (64) 04/30/17 07:00 72 04/30/17 07:00 97.7 60 22 102/46 (64) 94 2/18/18 04:08 98 50 04/30/17 04:00 97.6 69 18 96/45 (62) 98 04/30/17 03:35 64 04/30/17 00:47 98 50 04/30/17 00:33 92 Venturi Mask 50 04/30/17 00:00 97.1 73 24 102/55 (71) 97 04/30/17 00:00 70 102/55 (71) 04/29/17 23:00 67 04/29/17 20:00 67 04/29/17 20:00 97.8 66 24 104/43 (63) 97 04/29/17 19:48 97 Venturi Mask 50 Physical Exam CONSTITUTIONAL/GENERAL: This is a morbidly obese middle aged patient, in no apparent distress. TUBES/LINES/DRAINS: R IJ TLC in place - site OK SKIN: No jaundice, rashes, or lesions. Skin temperature appropriate. Not diaphoretic. No [place] lesions or splinter hemorrhages HEAD: Atraumatic. Normocephalic. EYES: Pupils equal and round and reactive. Extraocular motions intact. No scleral icterus. No injection or drainage. Fundi not examined. ENT: Hearing grossly normal. Nose without bleeding or purulent drainage. Throat without visible erythema, exudates, masses, or lesions. NECK: Trachea midline. Supple, nontender. No palpable thyroid enlargement or nodularity. CARDIOVASCULAR: Regular rate and rhythm 3/6 sytolic murmur on Aortic area no gallops, or rubs. No JVD. Peripheral pulses symmetric. RESPIRATORY/CHEST: Symmetric, unlabored respirations. Clear to auscultation. Breath sounds equal bilaterally. No wheezes, rales, or rhonchi. GASTROINTESTINAL: Abdomen soft, non-tender, nondistended. No hepato-splenomegaly , or palpable masses. No guarding. Bowel sounds present. GENITOURINARY: Without palpable bladder distension. MUSCULOSKELETAL: Extremities without clubbing, cyanosis, + e edema. No joint tenderness or effusion noted. No calf tenderness. No mottling or clubbing. LYMPHATICS: No palpable cervical or supraclavicular adenopathy. NEUROLOGICAL: Awake and alert. Motor and sensory grossly within normal limits. Follows commands. Clear speech. Moves all extremities. PSYCHIATRIC: No obvious anxiety/depression. no apparent hallucinations or other psychotic thought process. Laboratory Laboratory Tests Test 04/30/17 05:30 White Blood Count 22.2 Red Blood Count 4.11 Hemoglobin 14.0 Hematocrit 41.2 Mean Corpuscular Volume 100.3 Mean Corpuscular Hemoglobin 34.0 Mean Corpuscular Hemoglobin Concent 33.9 Red Cell Distribution Width 14.5 Platelet Count 320 Mean Platelet Volume 8.0 Neutrophils (%) (Auto) 90.5 Lymphocytes (%) (Auto) 3.8 Monocytes (%) (Auto) 5.5 Eosinophils (%) (Auto) 0.0 Basophils (%) (Auto) 0.2 Neutrophils # (Auto) 20.0 Lymphocytes # (Auto) 0.9 Monocytes # (Auto) 1.2 Eosinophils # (Auto) 0.0 Basophils # (Auto) 0.1 CBC Comment DIFF FINAL Differential Comment Blood Urea Nitrogen 77 Creatinine 2.06 Random Glucose 151 Calcium Level 9.1 Phosphorus Level 4.6 Magnesium Level 2.8 Sodium Level 139 Potassium Level 2.1 Chloride Level 90 Carbon Dioxide Level 36.4 Anion Gap 13 Estimat Glomerular Filtration Rate 33 Date/Time Source Procedure Growth Status 04/30/17 11:00 Urine Clean Catch Urine Culture Pending Received Result Diagram: 04/30/17 0530 04/30/17 0530 Imaging Last Impressions Chest X-Ray 04/30/17 0600 Signed Impressions: Service Date/Time: Sunday, April 30, 2017 04:22 - CONCLUSION: 1. Slight improvement in pulmonary edema pattern. [place] catheter unchanged. Oscar Napier MD Assessment and Plan Assessment and Plan Severe aortic stenoosis in pt with porcine aortic prosthesis Pulmonary edema 2/2 , needs TAVR Leukocytosis, doubt infection: acquired asplenia and high dose sterroids use contributoing to pt's leukocytosis Doubt endocarditis - he has no vegetations on ANJALI, afebrile and no findings or complaints cw endocarditis REC's: no abx at this point fu blood clx q if any suspicion for endocarditis (fever, + blood clx or other minot criteria) will need ANJALI RF, ESR Discussed Condition With Sarah Good MD Apr 30, 2017 18:00
[2017-04-30] MEDS ORDERED: HEPARIN - 10,000 UNITS/ML IV ADDITIVE IV PUSH PRN (19:45)
[2017-04-30] MEDS ORDERED: HEPARIN SODIUM - IV 10,000 UNITS/10 ML VIAL IV PUSH PRN (19:45)
[2017-04-30] MEDS ORDERED: POTASSIUM CHLORIDE 20 MEQ CONTROLLED RELEASE TAB PO ONE (20:45)
[2017-04-30] MEDS: ATORVASTATIN 40 MG TAB PO SCH (22:05)
[2017-04-30] MEDS: POTASSIUM CHLOR 40 MEQ PREMIX 100 ML IV SCH (22:06)
[2017-05-01] VITALS (9 sets, daily range): BP systolic 92–142; BP diastolic 38–73; PULSE 80–97; RESP 16–20; TEMP 97–98.2; O2SAT 92–98
[2017-05-01] MEDS: POTASSIUM CHLOR 40 MEQ PREMIX 100 ML IV SCH ×3 (00:10→11:42)
[2017-05-01] MEDS: CHLORHEXIDINE GLUCONATE 2 % 1 PACK (2 CLOTHS) TOP SCH (04:00)
--- NOTE | 2017-05-01 04:44 | RADRPT ---
EXAM DATE/TIME: 05/01/2017 03:45 [facility] COMPARISON: CHEST SINGLE AP, April 30, 2017, 4:22. INDICATIONS : Shortness of breath, respiratory disease. MEDICAL HISTORY : Chronic obstructive pulmonary disease. Congestive heart failure. SURGICAL HISTORY : CABG. ENCOUNTER: Subsequent ACUITY: 4 - 6 days PAIN SCORE: 0/10 LOCATION: Bilateral chest FINDINGS: A single AP semierect view of the chest was obtained and again demonstrates the patient is status pos t median sternotomy. Heart size is markedly enlarged. The right internal jugular [place] catheter r emains in place with the tip in the left lower lobe pulmonary artery. Mild patchy opacity is present in both lungs with no focal consolidation or effusion. CONCLUSION: No significant change. Tan Mills MD on May 01, 2017 at 4:41 Board Certified Radiologist. This report was verified electronically.
[2017-05-01] MEDS: INSULIN NovoLIN REGULAR SUPPLEMENTAL SCALE SQ SCH ×4 (05:23→18:13)
[2017-05-01] MEDS: FUROSEMIDE 100 MG/10 ML VIAL IV PUSH SCH (05:23)
[2017-05-01 05:47] LABS: AUTOMATED NEUTROPHIL # 15.8 TH/MM3 (1.8-7.7); BASOPHIL % 0.2 % (0.0-2.0); HEMATOCRIT 43.1 % (39.0-51.0); HEMOGLOBIN 14.7 GM/DL (13.0-17.0); LYMPH % 5.6 % (9.0-44.0); MEAN CELL VOLUME 100.3 FL (80.0-100.0); MEAN CORPUSCULAR HEMOGLOBIN 34.3 PG (27.0-34.0); MEAN CORPUSCULAR HGB CONC 34.2 % (32.0-36.0); MEAN PLATELET VOLUME 8.3 FL (7.0-11.0); MONO % 5.9 % (0.0-8.0); MONOCYTE # 1.1 TH/MM3 (0-0.9); NEUT % 88.3 % (16.0-70.0); PLATELET COUNT 334 TH/MM3 (150-450); RED CELL DISTRIBUTION WIDTH 14.5 % (11.6-17.2); WHITE BLOOD COUNT 17.9 TH/MM3 (4.0-11.0)
[2017-05-01 06:11] LABS: BICARBONATE 37.6 MEQ/L (21.0-32.0); CREATININE 1.95 MG/DL (0.60-1.30); PHOSPHORUS 3.2 MG/DL (2.5-4.9)
[2017-05-01] MEDS ORDERED: POTASSIUM CHLORIDE 25 MEQ EFFERVESCENT TAB PO ONE (07:45)
[2017-05-01] MEDS ORDERED: IOHEXOL 350 MG/ML 100 ML BTL (for Cath Lab) OTHER ONE (07:54)
[2017-05-01] MEDS: CLOPIDOGREL 75 MG TAB PO SCH (08:09)
[2017-05-01] MEDS: methylPREDNISolone SOD SUCC 125 MG/2 ML VIAL IV PUSH SCH ×2 (08:10→20:23)
[2017-05-01] MEDS: DOCUSATE SODIUM 50 MG/SENNA 8.6 MG TAB PO SCH ×2 (08:10→20:23)
[2017-05-01] MEDS: METOPROLOL SUCCINATE 50 MG EXTENDED RELEASE TAB PO SCH (08:10)
[2017-05-01] MEDS: DILTIAZEM-CD 240 MG CAP ER PO SCH (08:10)
[2017-05-01] MEDS: AMIODARONE 200 MG TAB PO SCH (08:10)
[2017-05-01] MEDS: ASPIRIN EC 81 MG TABEC PO SCH (08:10)
[2017-05-01] MEDS: BUDESONIDE-FORMOTEROL 160/4.5 MCG INHALER INH SCH ×2 (08:11→20:23)
[2017-05-01] MEDS: POTASSIUM CHLORIDE 25 MEQ EFFERVESCENT TAB NG SCH ×2 (09:00→20:23)
[2017-05-01] MEDS: TIOTROPIUM BROMIDE 18 MCG INH INH SCH (09:00)
--- NOTE | 2017-05-01 09:08 | PD.CARD.PN ---
Subjective Subjective Remarks Dyspnea much improved. No CP, dizziness, palpitations. Objective Medications Item Value Date Time Furosemide 40 mg 05/01/17 1400 (Lasix Inj) Q8HR/IV PUSH Potassium Bicarb/ 25 meq 05/01/17 0900 Potassium Chloride Q12HR/NG (K-Lyte Cl Eff) Potassium Chloride 100 ml @ 25 mls/hr 05/01/17 0800 Heparin Sodium/ 250 ml @ 10 mls/hr 04/30/17 1345 Dextrose TITRATE PRN/IV 04/30/17 1403 Amiodarone HCl 200 mg 04/27/17 0900 (Cordarone) DAILY/PO 05/01/17 0810 Aspirin 81 mg 04/27/17 0900 (Ecotrin Ec) DAILY/PO 05/01/17 0810 Clopidogrel 75 mg 04/27/17 0900 Bisulfate DAILY/PO 05/01/17 0809 (Plavix) Diltiazem HCl 240 mg 04/27/17 0900 (Cardizem Cd) DAILY/PO 05/01/17 0810 Metoprolol 100 mg 04/27/17 0900 Succinate DAILY/PO 05/01/17 0810 (Toprol Xl) Atorvastatin 40 mg 04/26/17 2100 Calcium HS/PO 04/30/17 2205 (Lipitor) Current Medications Medications (Trade) Dose Ordered Sig/Esvin Route Start Time Stop Time Status Last Admin (NS Flush) 2 ml UNSCH PRN IVF 04/26/17 13:30 (D50w (Vial) Inj) 25 ml UNSCH PRN IV PUSH 04/26/17 15:30 (NovoLIN R SUPPLEMENTAL SCALE) 1 Q6HR SQ 04/26/17 18:00 05/01/17 05:23 (Duoneb Neb) 1 ampule Q2HR NEB PRN INH 04/26/17 15:30 (Zofran Inj) 4 mg Q6H PRN IV PUSH 04/26/17 15:30 Miscellaneous Information 1 Q361D XX 04/26/17 15:30 04/26/17 15:30 (Chlorhexidine 2% Cloth) 3 pack Taper DAILY@04 TOP 04/27/17 04:00 04/23/18 03:59 05/01/17 04:00 (Chlorhexidine 2% Cloth) 3 pack UNSCH PRN TOP 04/26/17 15:30 (Rosario-Colace) 1 tab BID PO 04/26/17 21:00 05/01/17 08:10 (Milk Of Magnesia Liq) 30 ml Q12H PRN PO 04/26/17 15:30 (Cordarone) 200 mg DAILY PO 04/27/17 09:00 05/01/17 08:10 (Ecotrin Ec) 81 mg DAILY PO 04/27/17 09:00 05/01/17 08:10 (Lipitor) 40 mg HS PO 04/26/17 21:00 04/30/17 22:05 (Plavix) 75 mg DAILY PO 04/27/17 09:00 05/01/17 08:09 (Cardizem Cd) 240 mg DAILY PO 04/27/17 09:00 05/01/17 08:10 (Spiriva Inh) 18 mcg DAILY INH 04/27/17 09:00 04/30/17 08:04 (Toprol Xl) 100 mg DAILY PO 04/27/17 09:00 05/01/17 08:10 (Benadryl) 50 mg INFORMATION SYSTEMS TECHNICIAN PO 04/27/17 10:15 05/01/17 10:14 (Valium) 10 mg INFORMATION SYSTEMS TECHNICIAN PO 04/27/17 10:15 05/01/17 10:14 (Versed Inj) 1 mg INFORMATION SYSTEMS TECHNICIAN IV PUSH 04/27/17 10:15 05/01/17 10:14 (Symbicort 160-4.5 Mcg Inh) 2 puff Q12HR INH 04/28/17 13:00 05/01/17 08:11 (SoluMEDROL INJ) 40 mg Q12HR IV PUSH 04/28/17 12:00 05/02/17 11:59 05/01/17 08:10 (Heparin Inj) 5,000 units UNSCH PRN IV PUSH 04/30/17 19:45 (Heparin Inj) 2,500 units UNSCH PRN IV PUSH 04/30/17 19:45 05/01/17 06:40 Heparin Sodium/ Dextrose 250 ml @ 10 mls/hr TITRATE PRN IV 04/30/17 13:45 04/30/17 14:03 (Lasix Inj) 40 mg Q8HR IV PUSH 05/01/17 14:00 (K-Lyte Cl Eff) 25 meq Q12HR NG 05/01/17 09:00 Potassium Chloride 100 ml @ 25 mls/hr Q4H IV 05/01/17 08:00 05/01/17 15:59 05/01/17 08:11 Vital Signs / I&O Vital Signs Date Time Temp Pulse Resp B/P (MAP) Pulse Ox O2 Delivery O2 Flow Rate FiO2 05/01/17 07:18 97 Nasal Cannula 3.00 05/01/17 03:00 87 05/01/17 03:00 98.2 89 18 142/73 (96) 95 04/30/17 23:00 97.8 91 20 106/50 (68) 95 04/30/17 23:00 86 04/30/17 20:35 96 Nasal Cannula 3.00 04/30/17 19:00 90 04/30/17 19:00 98.4 88 18 100/47 (64) 94 04/30/17 19:00 88 100/47 (64) 04/30/17 15:00 97.9 78 20 98/43 (61) 97 04/30/17 15:00 84 04/30/17 13:18 86 04/30/17 11:49 95 Nasal Cannula 4.00 04/30/17 11:00 74 04/30/17 11:00 97.8 72 20 105/49 (67) 95 I/O 04/30/17 04/30/17 04/30/17 05/01/17 05/01/17 05/01/17 07:00 15:00 23:00 07:00 15:00 23:00 Intake Total 180 ml 200 ml 880 ml 739 ml Output Total 1225 ml 1700 ml 2380 ml Balance -1045 ml 200 ml -820 ml -1641 ml Intake Oral 180 ml 840 ml 400 ml IV Total 200 ml 40 ml 339 ml Output Urine Total 1225 ml 1700 ml 2380 ml # Bowel Movements 0 0 0 Physical Exam GENERAL: Well developed, well nourished. No acute distress. HEENT: Jugular venous pressure very hard to assess. CHEST: Lungs clear to auscultation. CARDIAC: Regular rate and rhythm without S3, S4. II/ OJ RUSB. Diminished S2. ABDOMEN: Soft, nontender, no hepatosplenomegaly. Bowel sounds present. EXTREMITIES: No clubbing, cyanosis. Trace pretibial edema. Laboratory Laboratory Tests Test 04/30/17 17:45 04/30/17 21:00 05/01/17 05:15 Potassium Level 2.4 MEQ/L 2.4 MEQ/L Activated Partial Thromboplast Time 36.5 SEC 39.2 SEC White Blood Count 17.9 TH/MM3 Red Blood Count 4.30 MIL/MM3 Hemoglobin 14.7 GM/DL Hematocrit 43.1 % Mean Corpuscular Volume 100.3 FL Mean Corpuscular Hemoglobin 34.3 PG Mean Corpuscular Hemoglobin Concent 34.2 % Red Cell Distribution Width 14.5 % Platelet Count 334 TH/MM3 Mean Platelet Volume 8.3 FL Neutrophils (%) (Auto) 88.3 % Lymphocytes (%) (Auto) 5.6 % Monocytes (%) (Auto) 5.9 % Eosinophils (%) (Auto) 0.0 % Basophils (%) (Auto) 0.2 % Neutrophils # (Auto) 15.8 TH/MM3 Lymphocytes # (Auto) 1.0 TH/MM3 Monocytes # (Auto) 1.1 TH/MM3 Eosinophils # (Auto) 0.0 TH/MM3 Basophils # (Auto) 0.0 TH/MM3 CBC Comment DIFF FINAL Differential Comment Blood Urea Nitrogen 85 MG/DL Creatinine 1.95 MG/DL Random Glucose 147 MG/DL Calcium Level 9.0 MG/DL Phosphorus Level 3.2 MG/DL Magnesium Level 3.0 MG/DL Sodium Level 139 MEQ/L Chloride Level 91 MEQ/L Carbon Dioxide Level 37.6 MEQ/L Anion Gap 10 MEQ/L Estimat Glomerular Filtration Rate 35 ML/MIN Imaging Last 24 hours Impressions Chest X-Ray 05/01/17 0600 Signed Impressions: Service Date/Time: Monday, May 01, 2017 03:45 - CONCLUSION: No significant change. Tan Mills MD Assessment and Plan Problem List: (1) Congestive heart failure (CHF) ICD Codes: I50.9 - Heart failure, unspecified Status: Acute Plan: Clinically much improved. Good quality Doppler measurements of aortic valve on echo, consistent with severe aortic stenosis. EF still normal. RV function probably at least mildly reduced. REC await final decision regarding possible TAVR continue diuresis, K repletion continue beta veena, Cardizem (2) Pulmonary hypertension ICD Codes: I27.20 - Pulmonary hypertension, unspecified Status: Chronic Plan: Severe pulmonary hypertension by echo, systolic pressure around 70 mm Hg. Similar measurement on initial right heart cath numbers though latest pulmonary systolic pressure ~48 mm Hg after vigorous diuresis since admission. Etiology probably multifactorial; consider ruling out chronic thromboembolic pulmonary disease. Can D/C [place]. (3) Paroxysmal atrial fibrillation ICD Codes: I48.0 - Paroxysmal atrial fibrillation Status: Chronic Plan: Back in atrial fib, controlled HR's. Will consider ablation in future. Continue Amiodarone for now. Replete K. (4) CAD (coronary artery disease) ICD Codes: I25.10 - Atherosclerotic heart disease of [place] coronary artery without angina pectoris Status: Chronic Plan: Stable. History of fairly recent PCI of RCA. Proximal RCA stent patent on coronary angio last week. Continue clopidogrel, aspirin. (5) History of aortic valve replacement ICD Codes: Z95.2 - Presence of prosthetic heart valve Status: Chronic Plan: Awaiting possible TAVR. Suspect aortic valve stenosis main etiology of recurrent CHF. (6) Hypertension ICD Codes: I10 - Essential (primary) hypertension Status: Chronic Plan: Stable. Normotensive. Code Status full code Discussed Condition With patient Problem Qualifiers (1) Congestive heart failure (CHF): Qualified Codes: I50.33 - Acute on chronic diastolic (congestive) heart failure (2) CAD (coronary artery disease): Qualified Codes: I25.10 - Atherosclerotic heart disease of [place] coronary artery without angina pectoris (3) Hypertension: Qualified Codes: I10 - Essential (primary) hypertension Campbell Li MD May 01, 2017 09:07
--- NOTE | 2017-05-01 10:40 | HHI.CCPN ---
Subjective Remarks/Hospital Course Hospital course: 61yM with history of CHF, bioprosthetic AVR, CAD, COPD who presents with worsening SOB over last few weeks. BNP elevated at > 700, CXR with bilateral pulmonary infiltrates suggestive of pulmonary edema. + weight gain. - sick contacts. - fever, - chills, - n/v/d or abd pain. recent cath with stent placement in 02/2017 with echo. no changes in exercise tolerance since that time. trop negative. placed on bipap in ER for hypoxia. ROS otherwise negative. Subjective: 04/27: good diuresis with -1.7L/24h. severely hypokalemic this morning despite aggressive replacement yesterday. however, fio2 continues to rise, up to 70%. patient very dyspneic when he removes BiPAP. patient states he has been aggressively dieting, but despite that states he isn't losing any weight. takes lasix 80mg po BID as well as metolazone just to keep the same daily weight. 04/28: Sitting up at the side of the bed on partial nonrebreather. Subjectively still short of breath. Chest exam reveals bilateral basilar crackles and scattered wheezing. Chest x-ray shows some improvement in pulmonary edema. Urine output 2.7 L with aggressive diuresis. Also place patient on Symbicort and IV Solu-Medrol short course due to COPD exacerbation clinically. K+ 2.4 getting replaced. 04/29: Patient FiO2 requirements have been decreased to 50%, O2 saturation 94-95% . Chest x-ray /pulmonary edema remains unchanged. The patient refused to continue on BiPAP during the night. Patient remain on BiPAP approximately 2-3 hours. Encouraged patient to continue on BiPAP at night. 04/30: Afebrile .Significant elevation in WBC count overnight to 22. Blood and urine cultures obtained. ID consulted. FiO2 requirement significantly decreased now this a.m. to 3 L per nasal cannula. PAP downtrending from 80s yesterday to 60s today. Potassium being replete. 04/30; clinically and symptomatically quite improved. Diuresing well with IV Lasix, will reduce dose to 40 mg IV q8 hours, DC/PAC if ok with Dr. Li. TAVR evaluation pending per Dr. Li Objective Vital Signs Date Time Temp Pulse Resp B/P (MAP) Pulse Ox O2 Delivery O2 Flow Rate FiO2 05/01/17 07:18 97 Nasal Cannula 3.00 05/01/17 07:00 96 05/01/17 07:00 97.5 20 98/57 (71) 04/30/17 08:16 50 Intake and Output 05/01/17 05/01/17 05/02/17 08:00 16:00 00:00 Intake Total 739 ml Output Total 2380 ml Balance -1641 ml Result Diagram: 05/01/17 0515 05/01/17 0515 Imaging Last Impressions Chest X-Ray 04/29/17 0600 Signed Impressions: Service Date/Time: Saturday, April 29, 2017 04:03 - CONCLUSION: No personal change in CHF. Nini Guerrero MD Last Impressions Chest X-Ray 04/26/17 1317 Signed Impressions: Service Date/Time: Wednesday, April 26, 2017 13:22 - CONCLUSION: Cardiomegaly with findings of volume overload/CHF. Thomposn Berg MD Objective Remarks gen: obese male, sitting up in chair heent: nc. at. perrl. mucous membranes moist. neck: trachea midline. unable to assess JVD due to large neck circumference. chest: equal chest rise. Clear to auscultation bilaterally cv: normal rate, regular rhythm. sinus by tele. Heart sounds are distant abd: obese, soft, nontender, nondistended. no guarding. extr: 2+ peripheral edema. distal pulses 2+. neuro: AOx3. no focal deficits. A/P Assessment and Plan Acute CHF Exacerbation- preserved EF Severe Acute hypoxic respiratory failure requiring NIPPV Acute intravascular volume overload - lasix 80mg iv q8h, reduce to 40 mg IV q8hr - metolazone and Diamox as needed - s/p Diamox 500mg iv x 1 for alkalosis - Echo 04/27-consistent with severe aortic stenosis. EF normal. RV function mildly reduced severe pulm hypertension PASP 70. - s/p Right and left cath completed by Dr. Li. Severe pulmonary hypertension most likely secondary - TAVR evaluation/decision pending at this time per Dr. Li 's note - goal net -2L/24h - BiPAP PRN - There is mild COPD exacerbation contributing to respiratory failure and hypoxia. - Placed on a short course of Solu-Medrol 40 q12 for 5 days, Continue Symbicort and Spiriva - wean fio2 for goal spo2 > 90%, Currently FIO2 .50% - troponins stable - Dr. Maradiaga and Jen following - PAP trend now much improved 60's, remove PAC if ok with Dr. Li Severe hypokalemia -- q6h potassium checks - Continue aggressive K+ replacement. start schduled KCL at 25 BID - mg > 2.5 currently, will not replace. - continue forced diuresis despite hypokalemia. Metabolic alkalosis - Diamox 500mg iv x 1 given Acute kidney injury - secondary to venous congestion. 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 - may also benefit from outpatient sleep study to eval for optimization of JORGE. - if other studies negative, would consider high resolution CT pulmonary angiogram looking specifically for CTEPH (WHO Class IV PH) Atrial fibrillation - home rate controlling drugs - home amiodarone - currently in NSR - home eliquis - Dr. Maradiaga consulted to follow along. CAD - home ASA - home Plavix Hyperlipidemia - home statin remain in ICU. Heart healthy diet with 1L fluid restriction Level 2 WBC improving. No evidence of infection. Await cardiology/CTS input re: Sharonda Man MD May 01, 2017 10:40
[2017-05-01] MEDS: HEPARIN-D5W 25,000 U/250 ML 250 ML IV PRN (11:07)
[2017-05-01] MEDS: FUROSEMIDE 40 MG/4 ML VIAL IV PUSH SCH ×2 (13:47→20:23)
[2017-05-01] MEDS: ATORVASTATIN 40 MG TAB PO SCH (20:23)
--- NOTE | 2017-05-01 23:08 | EKG ---
Date Performed: 04/30/2017 Time Performed: 14:23:40 PTAGE: 61 years EKG: Atrial fibrillation IV conduction defect Inferior/lateral ST-T changes may be due to myocar dial ischemia Abnormal ECG PREVIOUS TRACING : 04/26/2017 13.20 DOCTOR: Homa Maradiaga Interpretating Date/Time 05/01/2017 22:58:36
[2017-05-02] VITALS (19 sets, daily range): BP systolic 91–108; BP diastolic 43–56; PULSE 77–100; RESP 16–20; TEMP 97.4–98.4; O2SAT 92–97
[2017-05-02] MEDS: CHLORHEXIDINE GLUCONATE 2 % 1 PACK (2 CLOTHS) TOP SCH (04:00)
[2017-05-02 04:18] LABS: AUTOMATED NEUTROPHIL # 13.1 TH/MM3 (1.8-7.7); BASOPHIL % 0.2 % (0.0-2.0); HEMATOCRIT 45.2 % (39.0-51.0); HEMOGLOBIN 15.7 GM/DL (13.0-17.0); LYMPH % 7.2 % (9.0-44.0); LYMPHOCYTE # 1.1 TH/MM3 (1.0-4.8); MEAN CELL VOLUME 99.8 FL (80.0-100.0); MEAN CORPUSCULAR HEMOGLOBIN 34.7 PG (27.0-34.0); MEAN CORPUSCULAR HGB CONC 34.7 % (32.0-36.0); MEAN PLATELET VOLUME 8.3 FL (7.0-11.0); MONO % 6.5 % (0.0-8.0); NEUT % 86.1 % (16.0-70.0); PLATELET COUNT 332 TH/MM3 (150-450); RED BLOOD COUNT 4.53 MIL/MM3 (4.50-5.90); RED CELL DISTRIBUTION WIDTH 14.5 % (11.6-17.2); WHITE BLOOD COUNT 15.2 TH/MM3 (4.0-11.0)
[2017-05-02] MEDS ORDERED: POTASSIUM CHLORIDE 10 MEQ CONTROLLED RELEASE TAB PO ONE (04:30)
[2017-05-02 04:34] LABS: ALBUMIN 3.4 GM/DL (3.4-5.0); ALKALINE PHOSPHATASE 58 U/L (45-117); ALT (GPT) 41 U/L (12-78); AST (GOT) 40 U/L (15-37); BICARBONATE 35.5 MEQ/L (21.0-32.0); BLOOD UREA NITROGEN 92 MG/DL (7-18); CALCIUM 8.8 MG/DL (8.5-10.1); CHLORIDE 92 MEQ/L (98-107); CREATININE 2.04 MG/DL (0.60-1.30); GLOMERULAR FILTRATION RATE 34 ML/MIN (>89); GLUCOSE,RANDOM 149 MG/DL (74-106); SODIUM (NA) 138 MEQ/L (136-145); TOTAL PROTEIN 8.5 GM/DL (6.4-8.2)
[2017-05-02] MEDS: POTASSIUM CHLOR 10 MEQ PREMIX 100 ML IV SCH ×8 (05:49→16:41)
[2017-05-02] MEDS: FUROSEMIDE 40 MG/4 ML VIAL IV PUSH SCH (05:49)
[2017-05-02] MEDS: INSULIN NovoLIN REGULAR SUPPLEMENTAL SCALE SQ SCH ×5 (05:55→23:51)
[2017-05-02] MEDS: ASPIRIN EC 81 MG TABEC PO SCH (08:07)
[2017-05-02] MEDS: DILTIAZEM-CD 240 MG CAP ER PO SCH (08:07)
[2017-05-02] MEDS: POTASSIUM CHLORIDE 25 MEQ EFFERVESCENT TAB NG SCH ×2 (08:07→21:03)
[2017-05-02] MEDS: DOCUSATE SODIUM 50 MG/SENNA 8.6 MG TAB PO SCH ×2 (08:07→21:00)
[2017-05-02] MEDS: CLOPIDOGREL 75 MG TAB PO SCH (08:07)
[2017-05-02] MEDS: methylPREDNISolone SOD SUCC 125 MG/2 ML VIAL IV PUSH SCH (08:08)
[2017-05-02] MEDS: BUDESONIDE-FORMOTEROL 160/4.5 MCG INHALER INH SCH ×3 (08:08→21:03)
[2017-05-02] MEDS: AMIODARONE 200 MG TAB PO SCH (08:09)
[2017-05-02] MEDS: METOPROLOL SUCCINATE 50 MG EXTENDED RELEASE TAB PO SCH (08:09)
--- NOTE | 2017-05-02 08:12 | PD.CARD.PN ---
Subjective Subjective Remarks Dyspnea resolved. No CP, dizziness, palpitations. Objective Medications Item Value Date Time Potassium Chloride 100 ml @ 100 mls/hr 05/02/17 0430 Furosemide 40 mg 05/01/17 1400 (Lasix Inj) Q8HR/IV PUSH 05/02/17 0549 Potassium Bicarb/ 25 meq 05/01/17 0900 Potassium Chloride Q12HR/NG 05/01/172022 (K-Lyte Cl Eff) Heparin Sodium/ 250 ml @ 10 mls/hr 04/30/17 1345 Dextrose TITRATE PRN/IV 05/01/17 1107 Amiodarone HCl 200 mg 04/27/17 0900 (Cordarone) DAILY/PO 05/01/17 0810 Aspirin 81 mg 04/27/17 0900 (Ecotrin Ec) DAILY/PO 05/01/17 0810 Clopidogrel 75 mg 04/27/17 0900 Bisulfate DAILY/PO 05/01/17 0809 (Plavix) Diltiazem HCl 240 mg 04/27/17 0900 (Cardizem Cd) DAILY/PO 05/01/17 0810 Metoprolol 100 mg 04/27/17 0900 Succinate DAILY/PO 05/01/17 0810 (Toprol Xl) Atorvastatin 40 mg 04/26/17 2100 Calcium HS/PO 05/01/172022 (Lipitor) Current Medications Medications (Trade) Dose Ordered Sig/Esvin Route Start Time Stop Time Status Last Admin (NS Flush) 2 ml UNSCH PRN IVF 04/26/17 13:30 (D50w (Vial) Inj) 25 ml UNSCH PRN IV PUSH 04/26/17 15:30 (NovoLIN R SUPPLEMENTAL SCALE) 1 Q6HR SQ 04/26/17 18:00 05/01/17 18:13 (Duoneb Neb) 1 ampule Q2HR NEB PRN INH 04/26/17 15:30 (Zofran Inj) 4 mg Q6H PRN IV PUSH 04/26/17 15:30 Miscellaneous Information 1 Q361D XX 04/26/17 15:30 04/26/17 15:30 (Chlorhexidine 2% Cloth) Taper DAILY@04 TOP 04/27/17 04:00 04/23/18 03:59 05/02/17 04:00 (Chlorhexidine 2% Cloth) 3 pack UNSCH PRN TOP 04/26/17 15:30 (Rosario-Colace) 1 tab BID PO 04/26/17 21:00 05/01/17 20:23 (Milk Of [place] Liq) 30 ml Q12H PRN PO 04/26/17 15:30 (Cordarone) 200 mg DAILY PO 04/27/17 09:00 05/01/17 08:10 (Ecotrin Ec) 81 mg DAILY PO 04/27/17 09:00 05/01/17 08:10 (Lipitor) 40 mg HS PO 04/26/17 21:00 05/01/17 20:23 (Plavix) 75 mg DAILY PO 04/27/17 09:00 05/01/17 08:09 (Cardizem Cd) 240 mg DAILY PO 04/27/17 09:00 05/01/17 08:10 (Spiriva Inh) 18 mcg DAILY INH 04/27/17 09:00 05/01/17 09:00 (Toprol Xl) 100 mg DAILY PO 04/27/17 09:00 05/01/17 08:10 (Symbicort 160-4.5 Mcg Inh) 2 puff Q12HR INH 04/28/17 13:00 05/01/17 20:23 (SoluMEDROL INJ) 40 mg Q12HR IV PUSH 04/28/17 12:00 05/02/17 11:59 05/01/17 20:23 (Heparin Inj) 5,000 units UNSCH PRN IV PUSH 04/30/17 19:45 (Heparin Inj) 2,500 units UNSCH PRN IV PUSH 04/30/17 19:45 05/01/17 06:40 Heparin Sodium/ Dextrose 250 ml @ 10 mls/hr TITRATE PRN IV 04/30/17 13:45 05/01/17 11:07 (Lasix Inj) 40 mg Q8HR IV PUSH 05/01/17 14:00 05/02/17 05:49 (K-Lyte Cl Eff) 25 meq Q12HR NG 05/01/17 09:00 05/01/17 20:23 Potassium Chloride 100 ml @ 100 mls/hr Q1H IV 05/02/17 04:30 05/02/17 12:29 05/02/17 05:49 Vital Signs / I&O Vital Signs Date Time Temp Pulse Resp B/P (MAP) Pulse Ox O2 Delivery O2 Flow Rate FiO2 05/02/17 07:36 97.6 88 20 91/51 (64) 96 05/02/17 07:36 88 05/02/17 03:00 97.4 80 16 104/43 (63) 97 05/02/17 03:00 77 05/01/17 23:00 97.1 93 16 92/41 (58) 98 05/01/17 23:00 91 05/01/17 19:51 93 Nasal Cannula 2.00 05/01/17 19:00 97.0 80 16 95/45 (62) 94 05/01/17 19:00 85 05/01/17 16:00 97.7 88 20 102/63 (76) 96 05/01/17 15:00 88 05/01/17 11:00 97.7 83 18 103/38 (59) 92 05/01/17 11:00 88 I/O 05/01/17 05/01/17 05/01/17 05/02/17 05/02/17 05/02/17 07:00 15:00 23:00 07:00 15:00 23:00 Intake Total 739 ml 345 ml 1085 ml 384 ml Output Total 2380 ml 1400 ml 2200 ml Balance -1641 ml 345 ml -315 ml -1816 ml Intake Oral 400 ml 985 ml 240 ml IV Total 339 ml 345 ml 100 ml 144 ml Output Urine Total 2380 ml 1400 ml 2200 ml # Bowel Movements 0 2 2 Physical Exam GENERAL: Well developed, well nourished. No acute distress. HEENT: Jugular venous pressure very hard to assess. CHEST: Lungs clear to auscultation. CARDIAC: Regular rate and rhythm without S3, S4. II/ OJ RUSB. Diminished S2. ABDOMEN: Soft, nontender, no hepatosplenomegaly. Bowel sounds present. EXTREMITIES: No clubbing, cyanosis. Trace pretibial edema. Laboratory Laboratory Tests Test 05/01/17 13:58 05/01/17 23:29 05/02/17 03:46 Activated Partial Thromboplast Time 43.3 SEC 42.3 SEC Potassium Level 3.3 MEQ/L 2.7 MEQ/L 2.8 MEQ/L White Blood Count 15.2 TH/MM3 Red Blood Count 4.53 MIL/MM3 Hemoglobin 15.7 GM/DL Hematocrit 45.2 % Mean Corpuscular Volume 99.8 FL Mean Corpuscular Hemoglobin 34.7 PG Mean Corpuscular Hemoglobin Concent 34.7 % Red Cell Distribution Width 14.5 % Platelet Count 332 TH/MM3 Mean Platelet Volume 8.3 FL Neutrophils (%) (Auto) 86.1 % Lymphocytes (%) (Auto) 7.2 % Monocytes (%) (Auto) 6.5 % Eosinophils (%) (Auto) 0.0 % Basophils (%) (Auto) 0.2 % Neutrophils # (Auto) 13.1 TH/MM3 Lymphocytes # (Auto) 1.1 TH/MM3 Monocytes # (Auto) 1.0 TH/MM3 Eosinophils # (Auto) 0.0 TH/MM3 Basophils # (Auto) 0.0 TH/MM3 CBC Comment DIFF FINAL Differential Comment Blood Urea Nitrogen 92 MG/DL Creatinine 2.04 MG/DL Random Glucose 149 MG/DL Total Protein 8.5 GM/DL Albumin 3.4 GM/DL Calcium Level 8.8 MG/DL Alkaline Phosphatase 58 U/L Aspartate Amino Transf (AST/SGOT) 40 U/L Alanine Aminotransferase (ALT/SGPT) 41 U/L Total Bilirubin 1.0 MG/DL Sodium Level 138 MEQ/L Chloride Level 92 MEQ/L Carbon Dioxide Level 35.5 MEQ/L Anion Gap 11 MEQ/L Estimat Glomerular Filtration Rate 34 ML/MIN Assessment and Plan Problem List: (1) Congestive heart failure (CHF) ICD Codes: I50.9 - Heart failure, unspecified Status: Acute Plan: Clinically much improved. Good quality Doppler measurements of aortic valve on echo, consistent with severe aortic stenosis. EF still normal. RV function probably at least mildly reduced. Now developing worsening prerenal azotemia. Still hypokalemic. REC TAVR as outpatient hold diuresis; continue to replete K continue beta veena, Cardizem (2) Pulmonary hypertension ICD Codes: I27.20 - Pulmonary hypertension, unspecified Status: Chronic Plan: Stable. Last [place] measurements show improvement in pulmonary pressures after vigorous diuresis. (3) Paroxysmal atrial fibrillation ICD Codes: I48.0 - Paroxysmal atrial fibrillation Status: Chronic Plan: Remains in atrial fib, controlled HR's. Will consider ablation in future. Continue Amiodarone for now. Replete K. Resume Eliquis once creatinine down close to baseline. Hold diuresis. (4) CAD (coronary artery disease) ICD Codes: I25.10 - Atherosclerotic heart disease of [place] coronary artery without angina pectoris Status: Chronic Plan: Stable. History of fairly recent PCI of RCA. Proximal RCA stent patent on coronary angio last week. Continue clopidogrel, aspirin. (5) History of aortic valve replacement ICD Codes: Z95.2 - Presence of prosthetic heart valve Status: Chronic Plan: For TAVR as outpatient. Suspect aortic valve stenosis main etiology of recurrent CHF. (6) Hypertension ICD Codes: I10 - Essential (primary) hypertension Status: Chronic Plan: Stable. Normotensive. Code Status full code Discussed Condition With patient Problem Qualifiers (1) Congestive heart failure (CHF): Qualified Codes: I50.33 - Acute on chronic diastolic (congestive) heart failure (2) CAD (coronary artery disease): Qualified Codes: I25.10 - Atherosclerotic heart disease of [place] coronary artery without angina pectoris (3) Hypertension: Qualified Codes: I10 - Essential (primary) hypertension Campbell Li MD May 02, 2017 08:12
[2017-05-02] MEDS: TIOTROPIUM BROMIDE 18 MCG INH INH SCH (09:00)
--- NOTE | 2017-05-02 10:04 | MB ---
cc: ANJALI FELTON M.D., SOHIT K. MD EISENHUT, JOSHUA R. M.D. DATE OF CONSULTATION 05/01/[address] Nash REASON FOR CONSULTATION Aortic valve pathology. HISTORY OF PRESENT ILLNESS Mr. Vasquez is a 61-year-old morbidly obese gentleman with extensive history of cardiac disease status post aortic valve replacement in 1999 due to IV drug use and a subsequent second AVR in 2006, with what appears to be a 25-mm Mosaic valve. The patient now presents with recurrent episodes of congestive heart failure with associated dyspnea on minimal exertion and at rest and has been seen and evaluated by Dr. Felton and undergone further workup with an echocardiogram which reveals severe aortic stenosis with mean gradient of 46 and a peak gradient of 81 and a calculated aortic valve area 0.7. He has also undergone coronary angiogram which revealed minimal coronary artery disease with a patent stent to the RCA. He was evaluated by Dr. Hopper for surgical versus aortic versus transcatheter aortic valve replacement and given his risk profile was recommended to proceed with a TAVR approach. I am now seeing him for second surgical opinion. At present time he is in the ICU, stable on supplemental oxygen therapy and hemodynamically stable. PAST MEDICAL HISTORY Significant for - 1. Obstructive sleep apnea. 2. Congestive heart failure, recurrent. 3. Diastolic dysfunction. 4. COPD. 5. Coronary artery disease as described above. 6. Hepatitis C. 7. Hyperlipidemia. 8. Hypertension. 9. Morbid obesity. 10. Paroxysmal atrial fibrillation. PAST SURGICAL HISTORY Surgical therapy as described above is significant for - 1. AVR x2, the first one in 1999, the second one in 2005. 2. Cholecystectomy. 3. Splenectomy. ALLERGIES The patient reports no known drug allergies. HOME MEDICATIONS 1. Amiodarone. 2. Aspirin. 3. Atorvastatin. 4. Cardizem. 5. Eliquis. 6. Lasix. 7. Zaroxolyn. 8. Metoprolol. 9. Potassium. FAMILY HISTORY Noncontributory. SOCIAL HISTORY Remarkable for smoking one pack per day which he has done for a number of years. 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 REVIEW OF SYSTEMS As above. All other parameters are negative. PHYSICAL EXAMINATION VITAL SIGNS: On examination today he is 182 cm tall, weighs 140 kg, blood pressure is 94/41 with a heart rate of 93 which is regular, respiratory rate is 18 and he is afebrile. On 2 liters nasal cannula he is sating 94%. HEENT: Normocephalic, atraumatic. Pupils are reactive. Extraocular muscles intact. NECK: No cervical lymphadenopathy, carotid bruits or JVD. CARDIOVASCULAR: Regular rate and rhythm. Normal S1-S2, without gallops, rubs. There is a 3/6 systolic ejection murmur at the right parasternal border. There is a well-healed median sternotomy incision. LUNGS: Bibasilar rales, otherwise clear to auscultation bilaterally with good exchange. ABDOMEN: Soft, nontender, nondistended. Normoactive bowel sounds. No hepatosplenomegaly. He is morbidly obese. EXTREMITIES: Bilateral lower extremity pulses are soft but palpable with 1-2+ pitting edema up to the ankles. No venous varicosities. NEUROLOGICAL: Intact with no focal deficit. IMPRESSION 1. Severe recurrent aortic valve stenosis status post AVR x2. 2. Coronary artery disease. 3. CHF. 4. COPD. 5. Hepatitis C. 6. Hypertension. 7. Hyperlipidemia. 8. Morbid obesity. PLAN The clinical, echo and angiographic findings were discussed in detail with the patient today. Given his significant comorbidities, morbid obesity and reoperative cardiac surgery x2 in the past, I think he will best be served with TAVR approach. I think surgical intervention would carry a prohibitive risk for open aortic valve replacement. I agree with Dr. Hopper to proceed with the TAVR as indicated. Thank you for allowing me to see this patient. Eugenia PAUL /7:24 AM /8:54 AM LUIZA
--- NOTE | 2017-05-02 10:24 | HHI.CCPN ---
Subjective Remarks/Hospital Course Hospital course: 61yM with history of CHF, bioprosthetic AVR, CAD, COPD who presents with worsening SOB over last few weeks. BNP elevated at > 700, CXR with bilateral pulmonary infiltrates suggestive of pulmonary edema. + weight gain. - sick contacts. - fever, - chills, - n/v/d or abd pain. recent cath with stent placement in 02/2017 with echo. no changes in exercise tolerance since that time. trop negative. placed on bipap in ER for hypoxia. ROS otherwise negative. Subjective: 04/27: good diuresis with -1.7L/24h. severely hypokalemic this morning despite aggressive replacement yesterday. however, fio2 continues to rise, up to 70%. patient very dyspneic when he removes BiPAP. patient states he has been aggressively dieting, but despite that states he isn't losing any weight. takes lasix 80mg po BID as well as metolazone just to keep the same daily weight. 04/28: Sitting up at the side of the bed on partial nonrebreather. Subjectively still short of breath. Chest exam reveals bilateral basilar crackles and scattered wheezing. Chest x-ray shows some improvement in pulmonary edema. Urine output 2.7 L with aggressive diuresis. Also place patient on Symbicort and IV Solu-Medrol short course due to COPD exacerbation clinically. K+ 2.4 getting replaced. 04/29: Patient FiO2 requirements have been decreased to 50%, O2 saturation 94-95% . Chest x-ray /pulmonary edema remains unchanged. The patient refused to continue on BiPAP during the night. Patient remain on BiPAP approximately 2-3 hours. Encouraged patient to continue on BiPAP at night. 04/30: Afebrile .Significant elevation in WBC count overnight to 22. Blood and urine cultures obtained. ID consulted. FiO2 requirement significantly decreased now this a.m. to 3 L per nasal cannula. PAP downtrending from 80s yesterday to 60s today. Potassium being replete. 05/01; clinically and symptomatically quite improved. Diuresing well with IV Lasix, will reduce dose to 40 mg IV q8 hours, DC/PAC if ok with Dr. Li. TAVR evaluation pending per Dr. Li 05/02: Afebrile. No acute events overnight. WBC count downtrending. Patient's FiO2 requirement significantly decrease currently at 1 L nasal cannula. Patient continues on BiPAP at night Objective Vital Signs Date Time Temp Pulse Resp B/P (MAP) Pulse Ox O2 Delivery O2 Flow Rate FiO2 05/02/17 10:18 98.4 81 18 95/52 (66) 95 05/01/17 19:51 Nasal Cannula 2.00 04/30/17 08:16 50 Intake and Output 05/02/17 05/02/17 05/03/17 08:00 16:00 00:00 Intake Total 384 ml Output Total 2200 ml Balance -1816 ml Result Diagram: 05/02/17 0346 05/02/17 0346 Other Results Microbiology Date/Time Source Procedure Growth Status 04/30/17 11:00 Urine Clean Catch Urine Culture - Final <10,000 CFU/ML GRAM POSITIVE SINGH Complete Imaging Last Impressions Chest X-Ray 05/01/17 0600 Signed Impressions: Service Date/Time: Monday, May 01, 2017 03:45 - CONCLUSION: No significant change. Tan Mills MD Last Impressions Chest X-Ray 04/29/17 0600 Signed Impressions: Service Date/Time: Saturday, April 29, 2017 04:03 - CONCLUSION: No personal change in CHF. K. Hua Guerrero MD Last Impressions Chest X-Ray 04/26/17 1317 Signed Impressions: Service Date/Time: Wednesday, April 26, 2017 13:22 - CONCLUSION: Cardiomegaly with findings of volume overload/CHF. Thompson Berg MD Objective Remarks gen: This is a morbidly obese male, sitting up in chair, in no acute distress heent: nc at 1 L/m nasal cannula. PERRL. mucous membranes moist. neck: trachea midline. unable to assess JVD due to large neck circumference. chest: equal chest rise. Clear to auscultation bilaterally cv: normal rate, regular rhythm. sinus by tele. Heart sounds are distant abd: obese, soft, nontender, nondistended. no guarding. Active bowel sounds extr: 2+ peripheral edema. distal pulses 2+. neuro: AOx3. no focal deficits. A/P Assessment and Plan Acute CHF Exacerbation- preserved EF Severe Acute hypoxic respiratory failure requiring NIPPV Acute intravascular volume overload - lasix 80mg iv q8h, reduce to 40 mg IV q8hr, discontinued 05/01 - metolazone and Diamox as needed - Echo 04/27-consistent with severe aortic stenosis. EF normal. RV function mildly reduced severe pulm hypertension PASP 70. - s/p Right and left cath completed by Dr. Li. Severe pulmonary hypertension most likely secondary - TAVR evaluation/decision , plan for in the near future, post discharge from this admission - Continue BiPAP at HS - Placed on a short course of Solu-Medrol 40 q12 for 5 days, Continue Symbicort and Spiriva - wean fio2 for goal spo2 > 90%, Currently FIO2 .27% - troponins stable - Dr. Maradiaga and Jen following - PAP trend now much improved 30's, removed PAC 05/01 Severe hypokalemia -- q6h potassium checks - Continue aggressive K+ replacement. start schduled KCL at 25 BID Metabolic alkalosis - Diamox 500mg iv x 1 given Acute kidney injury - secondary to venous congestion. 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 - may also benefit from outpatient sleep study to eval for optimization of JORGE. - if other studies negative, would consider high resolution CT pulmonary angiogram looking specifically for CTEPH (WHO Class IV PH) Atrial fibrillation - home rate controlling drugs - home amiodarone, continued per Dr. Li - currently in NSR - home eliquis - Dr. Maradiaga consulted to follow along. CAD - home ASA - home Plavix Hyperlipidemia - home statin remain in ICU. Heart healthy diet with 1L fluid restriction Level 2 WBC improving. No evidence of infection. Await cardiology/CTS input re: TAVR [facility] plan [facility] when bed available Physician Michelle Rios MD May 02, 2017 10:24
[2017-05-02] MEDS: HEPARIN-D5W 25,000 U/250 ML 250 ML IV PRN (10:25)
[2017-05-02] MEDS: ATORVASTATIN 40 MG TAB PO SCH (21:02)
[2017-05-03] VITALS (14 sets, daily range): BP systolic 105–114; BP diastolic 53–69; PULSE 83–112; RESP 18–19; TEMP 97.4–98; O2SAT 94–98
[2017-05-03] MEDS: CHLORHEXIDINE GLUCONATE 2 % 1 PACK (2 CLOTHS) TOP SCH (04:00)
[2017-05-03 04:38] LABS: HEMATOCRIT 44.5 % (39.0-51.0); HEMOGLOBIN 15.1 GM/DL (13.0-17.0); MEAN CELL VOLUME 101.2 FL (80.0-100.0); MEAN CORPUSCULAR HEMOGLOBIN 34.4 PG (27.0-34.0); MEAN PLATELET VOLUME 8.5 FL (7.0-11.0); PLATELET COUNT 345 TH/MM3 (150-450); RED CELL DISTRIBUTION WIDTH 14.6 % (11.6-17.2); WHITE BLOOD COUNT 15.3 TH/MM3 (4.0-11.0)
[2017-05-03 05:03] LABS: BICARBONATE 35.2 MEQ/L (21.0-32.0); CALCIUM 8.7 MG/DL (8.5-10.1); CREATININE 1.82 MG/DL (0.60-1.30); MAGNESIUM 3.4 MG/DL (1.5-2.5)
[2017-05-03 05:04] LABS: PHOSPHORUS 2.5 MG/DL (2.5-4.9)
[2017-05-03] MEDS: INSULIN NovoLIN REGULAR SUPPLEMENTAL SCALE SQ SCH (05:44)
[2017-05-03] MEDS: HEPARIN-D5W 25,000 U/250 ML 250 ML IV PRN (06:50)
--- NOTE | 2017-05-03 08:02 | HHI.PR ---
Subjective Remarks Patient in nad. Denies chest pain . He is ambulating in the room and on the hallways without sob. Says she has all meds at home. Says he would like to have the surgery done as soon as possible. Feels comfortable to go home. Objective Vitals Vital Signs Date Time Temp Pulse Resp B/P (MAP) Pulse Ox O2 Delivery O2 Flow Rate FiO2 05/03/17 06:00 97 05/03/17 05:00 83 05/03/17 04:00 99 05/03/17 03:00 97.6 91 18 105/53 (70) 94 05/03/17 03:00 91 05/03/17 02:00 87 05/03/17 01:00 99 05/03/17 00:00 96 05/02/17 23:51 97.7 91 18 103/51 (68) 96 05/02/17 23:00 96 05/02/17 22:00 94 05/02/17 21:06 21 05/02/17 21:00 80 05/02/17 20:00 92 05/02/17 20:00 97.5 91 18 108/56 (73) 94 05/02/17 20:00 94 Room Air 05/02/17 19:00 100 05/02/17 18:00 93 05/02/17 17:00 92 05/02/17 16:00 83 05/02/17 15:00 83 05/02/17 15:00 97.5 80 19 99/55 (70) 92 05/02/17 14:00 86 05/02/17 13:00 80 05/02/17 12:09 79 05/02/17 11:00 97 Room Air 05/02/17 11:00 97.5 81 17 97/53 (68) 95 05/02/17 11:00 87 05/02/17 10:20 84 05/02/17 10:18 98.4 81 18 95/52 (66) 95 05/02/17 08:30 94 Nasal Cannula 2.00 I/O 05/02/17 05/02/17 05/02/17 05/03/17 05/03/17 05/03/17 07:00 15:00 23:00 07:00 15:00 23:00 Intake Total 384 ml 760 ml 1280 ml 258 ml Output Total 2200 ml 700 ml 625 ml 1775 ml Balance -1816 ml 60 ml 655 ml -1517 ml Intake Oral 240 ml 360 ml 840 ml 120 ml IV Total 144 ml 400 ml 440 ml 138 ml Output Urine Total 2200 ml 700 ml 625 ml 1775 ml # Bowel Movements 2 0 0 Result Diagram: 05/03/17 0325 05/03/17 0325 Imaging Last Impressions Chest X-Ray 05/01/17 0600 Signed Impressions: Service Date/Time: Monday, May 01, 2017 03:45 - CONCLUSION: No significant change. Tan Mills MD Objective Remarks GENERAL: Pleasant morbidly obese male, doesn't appears in acute distress. SKIN: Warm and dry. HEAD: Atraumatic. Normocephalic. EYES: Pupils equal and round. No scleral icterus. No injection or drainage. ENT: No nasal bleeding or discharge. Mucous membranes pink and moist. NECK: Trachea midline. No JVD. CARDIOVASCULAR: Regular rate and rhythm. RESPIRATORY: No accessory muscle use. Clear to auscultation. Breath sounds equal bilaterally. GASTROINTESTINAL: Abdomen soft,obese, non-tender, nondistended. Hepatic and splenic margins not palpable. MUSCULOSKELETAL: Extremities without clubbing, cyanosis, or edema. No obvious deformities. NEUROLOGICAL: Awake and alert. No obvious cranial nerve deficits. Motor grossly within normal limits. Five out of 5 muscle strength in the arms and legs. Normal speech. PSYCHIATRIC: Appropriate mood and affect; insight and judgment normal. A/P Assessment and Plan Acute CHF Exacerbation- preserved EF Severe Acute hypoxic respiratory failure requiring NIPPV Acute intravascular volume overload - Lasix 80mg iv q8h, reduce to 40 mg IV q8hr, discontinued 05/01 - metolazone and Diamox as needed - Echo 04/27-consistent with severe aortic stenosis. EF normal. RV function mildly reduced severe pulm hypertension PASP 70. - s/p Right and left cath completed by Dr. Li. Severe pulmonary hypertension most likely secondary - TAVR evaluation/decision , plan for in the near future, post discharge from this admission - Continue BiPAP at HS - Placed on a short course of Solu-Medrol 40 q12 for 5 days, Continue Symbicort and Spiriva - wean fio2 for goal spo2 > 90%, Currently FIO2 .27% - troponins stable - Dr. Sin following - PAP trend now much improved 30's, removed PAC 05/01 Severe hypokalemia -- q6h potassium checks - Continue aggressive K+ replacement. start schduled KCL at 25 BID Metabolic alkalosis - Diamox 500mg iv x 1 given Acute kidney injury - secondary to venous congestion. 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 - may also benefit from outpatient sleep study to eval for optimization of JORGE. - if other studies negative, would consider high resolution CT pulmonary angiogram looking specifically for CTEPH (WHO Class IV PH) Atrial fibrillation - home rate controlling drugs - home amiodarone, continued per Dr. Li - currently in NSR - home eliquis - Dr. Maradiaga consulted to follow along. CAD - home ASA - home Plavix Hyperlipidemia - home statin Heart healthy diet with 1L fluid restriction WBC improving. No evidence of infection. Cardiology/CTS for TAVR pending. Ruthie Boo MD May 03, 2017 08:02
--- NOTE | 2017-05-03 08:40 | PD.CARD.PN ---
Subjective Subjective Remarks No CP, dizziness, palpitations, dyspnea. Slept well. Objective Medications Item Value Date Time Potassium Bicarb/ 25 meq 05/01/17 0900 Potassium Chloride Q12HR/NG 05/02/172102 (K-Lyte Cl Eff) Heparin Sodium/ 250 ml @ 10 mls/hr 04/30/17 1345 Dextrose TITRATE PRN/IV 05/03/17 0650 Amiodarone HCl 200 mg 04/27/17 0900 (Cordarone) DAILY/PO 05/02/17 0809 Aspirin 81 mg 04/27/17 0900 (Ecotrin Ec) DAILY/PO 05/02/17 0807 Clopidogrel 75 mg 04/27/17 0900 Bisulfate DAILY/PO 05/02/17 08 (Plavix) Diltiazem HCl 240 mg 04/27/17 0900 (Cardizem Cd) DAILY/PO 05/02/17 0807 Metoprolol 100 mg 04/27/17 0900 Succinate DAILY/PO (Toprol Xl) Atorvastatin 40 mg 04/26/17 2100 Calcium HS/PO 05/02/172101 (Lipitor) Current Medications Medications (Trade) Dose Ordered Sig/Esvin Route Start Time Stop Time Status Last Admin (NS Flush) 2 ml UNSCH PRN IVF 04/26/17 13:30 (D50w (Vial) Inj) 25 ml UNSCH PRN IV PUSH 04/26/17 15:30 (NovoLIN R SUPPLEMENTAL SCALE) 1 Q6HR SQ 04/26/17 18:00 05/02/17 17:51 (Duoneb Neb) 1 ampule Q2HR NEB PRN INH 04/26/17 15:30 (Zofran Inj) 4 mg Q6H PRN IV PUSH 04/26/17 15:30 Miscellaneous Information 1 Q361D XX 04/26/17 15:30 04/26/17 15:30 (Chlorhexidine 2% Cloth) Taper DAILY@04 TOP 04/27/17 04:00 04/23/18 03:59 05/02/17 04:00 (Chlorhexidine 2% Cloth) 3 pack UNSCH PRN TOP 04/26/17 15:30 (Rosario-Colace) 1 tab BID PO 04/26/17 21:00 05/02/17 08:07 (Milk Of Magnesia Liq) 30 ml Q12H PRN PO 04/26/17 15:30 (Cordarone) 200 mg DAILY PO 04/27/17 09:00 05/02/17 08:09 (Ecotrin Ec) 81 mg DAILY PO 04/27/17 09:00 05/02/17 08:07 (Lipitor) 40 mg HS PO 04/26/17 21:00 05/02/17 21:02 (Plavix) 75 mg DAILY PO 04/27/17 09:00 05/02/17 08:07 (Cardizem Cd) 240 mg DAILY PO 04/27/17 09:00 05/02/17 08:07 (Spiriva Inh) 18 mcg DAILY INH 04/27/17 09:00 05/02/17 09:00 (Toprol Xl) 100 mg DAILY PO 04/27/17 09:00 05/01/17 08:10 (Symbicort 160-4.5 Mcg Inh) 2 puff Q12HR INH 04/28/17 13:00 05/02/17 21:03 (Heparin Inj) 5,000 units UNSCH PRN IV PUSH 04/30/17 19:45 (Heparin Inj) 2,500 units UNSCH PRN IV PUSH 04/30/17 19:45 05/01/17 06:40 Heparin Sodium/ Dextrose 250 ml @ 10 mls/hr TITRATE PRN IV 04/30/17 13:45 05/03/17 06:50 (K-Lyte Cl Eff) 25 meq Q12HR NG 05/01/17 09:00 05/02/17 21:03 Vital Signs / I&O Vital Signs Date Time Temp Pulse Resp B/P (MAP) Pulse Ox O2 Delivery O2 Flow Rate FiO2 05/03/17 08:05 96 Room Air 05/03/17 08:01 98.0 92 19 113/69 (84) 98 05/03/17 06:00 97 05/03/17 05:00 83 05/03/17 04:00 99 05/03/17 03:00 97.6 91 18 105/53 (70) 94 05/03/17 03:00 91 05/03/17 02:00 87 05/03/17 01:00 99 05/03/17 00:00 96 05/02/17 23:51 97.7 91 18 103/51 (68) 96 05/02/17 23:00 96 05/02/17 22:00 94 05/02/17 21:06 21 05/02/17 21:00 80 05/02/17 20:00 92 05/02/17 20:00 97.5 91 18 108/56 (73) 94 05/02/17 20:00 94 Room Air 05/02/17 19:00 100 05/02/17 18:00 93 05/02/17 17:00 92 05/02/17 16:00 83 05/02/17 15:00 83 05/02/17 15:00 97.5 80 19 99/55 (70) 92 05/02/17 14:00 86 05/02/17 13:00 80 05/02/17 12:09 79 05/02/17 11:00 97 Room Air 05/02/17 11:00 97.5 81 17 97/53 (68) 95 05/02/17 11:00 87 05/02/17 10:20 84 05/02/17 10:18 98.4 81 18 95/52 (66) 95 I/O 05/02/17 05/02/17 05/02/17 05/03/17 05/03/17 05/03/17 07:00 15:00 23:00 07:00 15:00 23:00 Intake Total 384 ml 760 ml 1280 ml 258 ml Output Total 2200 ml 700 ml 625 ml 1775 ml Balance -1816 ml 60 ml 655 ml -1517 ml Intake Oral 240 ml 360 ml 840 ml 120 ml IV Total 144 ml 400 ml 440 ml 138 ml Output Urine Total 2200 ml 700 ml 625 ml 1775 ml # Bowel Movements 2 0 0 Physical Exam GENERAL: Well developed, well nourished. No acute distress. HEENT: Jugular venous pressure very hard to assess. CHEST: Lungs clear to auscultation. CARDIAC: Regular rate and rhythm without S3, S4. II/ OJ RUSB. Diminished S2. ABDOMEN: Soft, nontender, no hepatosplenomegaly. Bowel sounds present. EXTREMITIES: No clubbing, cyanosis, edema. Laboratory Laboratory Tests Test 05/02/17 14:06 05/03/17 03:25 Activated Partial Thromboplast Time 44.3 SEC 44.9 SEC White Blood Count 15.3 TH/MM3 Red Blood Count 4.40 MIL/MM3 Hemoglobin 15.1 GM/DL Hematocrit 44.5 % Mean Corpuscular Volume 101.2 FL Mean Corpuscular Hemoglobin 34.4 PG Mean Corpuscular Hemoglobin Concent 34.0 % Red Cell Distribution Width 14.6 % Platelet Count 345 TH/MM3 Mean Platelet Volume 8.5 FL Blood Urea Nitrogen 85 MG/DL Creatinine 1.82 MG/DL Random Glucose 139 MG/DL Calcium Level 8.7 MG/DL Phosphorus Level 2.5 MG/DL Magnesium Level 3.4 MG/DL Sodium Level 138 MEQ/L Potassium Level 3.1 MEQ/L Chloride Level 95 MEQ/L Carbon Dioxide Level 35.2 MEQ/L Anion Gap 8 MEQ/L Estimat Glomerular Filtration Rate 38 ML/MIN Assessment and Plan Problem List: (1) Congestive heart failure (CHF) ICD Codes: I50.9 - Heart failure, unspecified Status: Acute Plan: Clinically much improved. CHF resolved. Good quality Doppler measurements of aortic valve on echo, consistent with severe aortic stenosis. EF still normal. RV function probably at least mildly reduced. Renal indices better this morning. Still hypokalemic. REC TAVR as outpatient hold diuresis; continue to replete K continue beta veena, Cardizem consider resuming tomorrow oral furosemide 40 mg bid but no metolazone on discharge (2) Pulmonary hypertension ICD Codes: I27.20 - Pulmonary hypertension, unspecified Status: Chronic Plan: Stable. Last [place] measurements in ICU show improvement in pulmonary pressures after vigorous diuresis. (3) Paroxysmal atrial fibrillation ICD Codes: I48.0 - Paroxysmal atrial fibrillation Status: Chronic Plan: Back in NSR this morning. Will consider ablation in future. Continue Amiodarone for now. Replete K. Resume Eliquis once creatinine down close to baseline. (4) CAD (coronary artery disease) ICD Codes: I25.10 - Atherosclerotic heart disease of [place] coronary artery without angina pectoris Status: Chronic Plan: Stable. History of fairly recent PCI of RCA. Proximal RCA stent patent on coronary angio last week. Continue clopidogrel, aspirin. (5) History of aortic valve replacement ICD Codes: Z95.2 - Presence of prosthetic heart valve Status: Chronic Plan: For TAVR as outpatient. Suspect aortic valve stenosis main etiology of recurrent CHF. (6) Hypertension ICD Codes: I10 - Essential (primary) hypertension Status: Chronic Plan: Stable. Normotensive. Code Status full code Discussed Condition With patient Problem Qualifiers (1) Congestive heart failure (CHF): Qualified Codes: I50.33 - Acute on chronic diastolic (congestive) heart failure (2) CAD (coronary artery disease): Qualified Codes: I25.10 - Atherosclerotic heart disease of [place] coronary artery without angina pectoris (3) Hypertension: Qualified Codes: I10 - Essential (primary) hypertension Campbell Li MD May 03, 2017 08:40
--- NOTE | 2017-05-03 09:04 | HHI.DS ---
Discharge Summary Admission Date Apr 26, 2017 at 15:24 Discharge Date: May 03, 2017 Admitting Diagnosis CHF exacerbation (1) Pulmonary hypertension ICD Code: I27.20 - Pulmonary hypertension, unspecified Status: Chronic (2) CAD (coronary artery disease) ICD Code: I25.10 - Atherosclerotic heart disease of [place] coronary artery without angina pectoris Status: Chronic (3) Paroxysmal atrial fibrillation ICD Code: I48.0 - Paroxysmal atrial fibrillation Status: Chronic (4) Hypertension ICD Code: I10 - Essential (primary) hypertension Status: Chronic (5) Congestive heart failure (CHF) ICD Code: I50.9 - Heart failure, unspecified Status: Acute (6) Acute exacerbation of CHF (congestive heart failure) ICD Code: I50.9 - Heart failure, unspecified (7) History of aortic valve replacement ICD Code: Z95.2 - Presence of prosthetic heart valve Status: Chronic Procedures none Brief History - From Admission 61yM with history of CHF, bioprosthetic AVR, CAD, COPD who presents with worsening SOB over last few weeks. BNP elevated at > 700, CXR with bilateral pulmonary infiltrates suggestive of pulmonary edema. + weight gain. - sick contacts. - fever, - chills, - n/v/d or abd pain. recent cath with stent placement in 02/2017 with echo. no changes in exercise tolerance since that time. trop negative. placed on bipap in ER for hypoxia. ROS otherwise negative. CBC/BMP: 05/03/17 0325 05/03/17 0325 Significant Findings Laboratory Tests Test 04/30/17 17:45 04/30/17 21:00 05/01/17 05:15 05/01/17 13:58 Potassium Level 2.4 MEQ/L (3.5-5.1) 2.4 MEQ/L (3.5-5.1) 3.3 MEQ/L (3.5-5.1) Activated Partial Thromboplast Time 36.5 SEC (24.3-30.1) 39.2 SEC (24.3-30.1) 43.3 SEC (24.3-30.1) White Blood Count 17.9 TH/MM3 (4.0-11.0) Red Blood Count 4.30 MIL/MM3 (4.50-5.90) Mean Corpuscular Volume 100.3 FL (80.0-100.0) Mean Corpuscular Hemoglobin 34.3 PG (27.0-34.0) Neutrophils (%) (Auto) 88.3 % (16.0-70.0) Lymphocytes (%) (Auto) 5.6 % (9.0-44.0) Neutrophils # (Auto) 15.8 TH/MM3 (1.8-7.7) Monocytes # (Auto) 1.1 TH/MM3 (0-0.9) Blood Urea Nitrogen 85 MG/DL (7-18) Creatinine 1.95 MG/DL (0.60-1.30) Random Glucose 147 MG/DL (74-106) Magnesium Level 3.0 MG/DL (1.5-2.5) Chloride Level 91 MEQ/L (98-107) Carbon Dioxide Level 37.6 MEQ/L (21.0-32.0) Estimat Glomerular Filtration Rate 35 ML/MIN (>89) Test 05/01/17 23:29 05/02/17 03:46 05/02/17 14:06 05/03/17 03:25 Activated Partial Thromboplast Time 42.3 SEC (24.3-30.1) 44.3 SEC (24.3-30.1) 44.9 SEC (24.3-30.1) Potassium Level 2.7 MEQ/L (3.5-5.1) 2.8 MEQ/L (3.5-5.1) 3.1 MEQ/L (3.5-5.1) White Blood Count 15.2 TH/MM3 (4.0-11.0) 15.3 TH/MM3 (4.0-11.0) Mean Corpuscular Hemoglobin 34.7 PG (27.0-34.0) 34.4 PG (27.0-34.0) Neutrophils (%) (Auto) 86.1 % (16.0-70.0) Lymphocytes (%) (Auto) 7.2 % (9.0-44.0) Neutrophils # (Auto) 13.1 TH/MM3 (1.8-7.7) Monocytes # (Auto) 1.0 TH/MM3 (0-0.9) Blood Urea Nitrogen 92 MG/DL (7-18) 85 MG/DL (7-18) Creatinine 2.04 MG/DL (0.60-1.30) 1.82 MG/DL (0.60-1.30) Random Glucose 149 MG/DL (74-106) 139 MG/DL (74-106) Total Protein 8.5 GM/DL (6.4-8.2) Aspartate Amino Transf (AST/SGOT) 40 U/L (15-37) Chloride Level 92 MEQ/L (98-107) 95 MEQ/L (98-107) Carbon Dioxide Level 35.5 MEQ/L (21.0-32.0) 35.2 MEQ/L (21.0-32.0) Estimat Glomerular Filtration Rate 34 ML/MIN (>89) 38 ML/MIN (>89) Red Blood Count 4.40 MIL/MM3 (4.50-5.90) Mean Corpuscular Volume 101.2 FL (80.0-100.0) Magnesium Level 3.4 MG/DL (1.5-2.5) Imaging Last Impressions Chest X-Ray 05/01/17 0600 Signed Impressions: Service Date/Time: Monday, May 01, 2017 03:45 - CONCLUSION: No significant change. Tan Mills MD PE at Discharge GENERAL: Pleasant morbidly obese male, doesn't appears in acute distress. SKIN: Warm and dry. HEAD: Atraumatic. Normocephalic. EYES: Pupils equal and round. No scleral icterus. No injection or drainage. ENT: No nasal bleeding or discharge. Mucous membranes pink and moist. NECK: Trachea midline. No JVD. CARDIOVASCULAR: Regular rate and rhythm. RESPIRATORY: No accessory muscle use. Clear to auscultation. Breath sounds equal bilaterally. GASTROINTESTINAL: Abdomen soft,obese, non-tender, nondistended. Hepatic and splenic margins not palpable. MUSCULOSKELETAL: Extremities without clubbing, cyanosis, or edema. No obvious deformities. NEUROLOGICAL: Awake and alert. No obvious cranial nerve deficits. Motor grossly within normal limits. Five out of 5 muscle strength in the arms and legs. Normal speech. PSYCHIATRIC: Appropriate mood and affect; insight and judgment normal. Hospital Course Acute CHF Exacerbation- preserved EF Severe with prior h/o bioprosthetic valve replacement Acute hypoxic respiratory failure requiring NIPPV Acute intravascular volume overload - Lasix 80mg iv q8h, reduce to 40 mg IV q8hr, discontinued 05/01 - metolazone and Diamox as needed - Echo 04/27-consistent with severe aortic stenosis. EF normal. RV function mildly reduced severe pulm hypertension PASP 70. - s/p Right and left cath completed by Dr. Li. Severe pulmonary hypertension most likely secondary - TAVR evaluation/decision , plan for in the near future, post discharge from this admission, discussed with the patient - Continue BiPAP at HS - PAP trend now much improved, removed PAC 05/01 - Placed on a short course of Solu-Medrol 40 q12 for 5 days, Continue Symbicort and Spiriva - wean FiO2 for goal spo2 > 90%, Currently satting wellon room airl He is ambulating without any problems, sattign well on room air. - troponins stable - Dr. Maradiaga and Jen following Severe hypokalemia -- q6h potassium checks - Continue aggressive K+ replacement. start schduled KCL at 25 BID Metabolic alkalosis - Diamox 500mg iv x 1 given Acute kidney injury - secondary to venous congestion. 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 - may also benefit from outpatient sleep study to eval for optimization of JORGE. - if other studies negative, would consider high resolution CT pulmonary angiogram looking specifically for CTEPH (WHO Class IV PH) Atrial fibrillation - home rate controlling drugs - home amiodarone, continued per Dr. Li - currently in NSR - home eliquis - Dr. Maradiaga consulted to follow along. CAD - home ASA - home Plavix Hyperlipidemia - home statin Heart healthy diet with 1L fluid restriction Cardiology/CTS for TAVR plan to DC patient and to follow up with cardiology as OP as plan for TAVR later DC home with home with home health on stable condition to follow up as OP with PCP and consultants. Patient has meds at home. Pt Condition on Discharge: Stable Discharge Disposition: Disch w/ Home Health Serv Discharge Time: > 30 minutes Discharge Instructions DIET: Follow Instructions for: Heart Healthy Diet, Diabetic Diet Fluid Restrictions: 1000 Activities you can perform: Regular-No Restrictions Follow up Referrals: Cardiology - 1 Week PCP Follow-up - 2-3 Days Continued Medications: Amiodarone (Amiodarone) 200 Mg Tab 200 MG PO DAILY for Regulate Heart Beat, #30 TAB 0 Refills Apixaban (Eliquis) 5 Mg Tab 5 MG PO BID for Blood Clot Prevention, #60 TAB [address] (Aspirin DR) 81 Mg Tabdr 81 MG PO DAILY, TAB 0 Refills Atorvastatin (Lipitor) 10 Mg Tab 40 MG PO HS for cad for 30 Days, TAB 0 Refills Clopidogrel (Plavix) 75 Mg Tab 75 MG PO DAILY for cad for 30 Days, #30 TAB 0 Refills Diltiazem CD 24 HR (Diltiazem CD 24 HR) 120 Mg Caper 240 MG PO DAILY for a-fib for 30 Days, #60 CAP 0 Refills Docusate Calcium (Stool Softener) 240 Mg Cap Furosemide (Furosemide) 40 Mg Tab 40 MG PO BID, #60 TAB 0 Refills Metformin ER (Metformin ER) 500 Mg Emanuel 500 MG PO DAILY for Blood Sugar Management, TAB 0 Refills With evening meal Metolazone (Metolazone) 10 Mg Tab 10 MG PO DAILY, #30 TAB 0 Refills Metoprolol Succinate ER 24 HR (Metoprolol Succinate ER 24 HR) 100 Mg Tab 100 MG PO DAILY, #30 TAB 0 Refills Multiple Vitamin (Multiple Vitamin) 1 Tab 1 TAB PO DAILY for Nutritional Supplement, TAB 0 Refills Potassium Chloride ER (Potassium Chloride ER) 20 Meq Tab 130 MEQ PO BID for Electrolyte Replacement, #60 TAB 0 Refills Tiotropium Inh (Spiriva Handihaler) 18 Mcg Cap 18 MCG INH DAILY for COPD, #30 CAP 0 Refills 1 capsule = 18 mcg Discontinued Medications: Apixaban (Eliquis) 5 Mg Tab 5 MG PO BID for Blood Clot Prevention, #60 TAB 0 Refills Ruthie Boo MD May 03, 2017 09:04
--- NOTE | 2017-05-03 09:04 | HHI.FF ---
Face to Face Verification Diagnosis: (1) Acute exacerbation of CHF (congestive heart failure) (2) Pulmonary hypertension (3) CAD (coronary artery disease) (4) Paroxysmal atrial fibrillation (5) Hypertension (6) Congestive heart failure (CHF) (7) History of aortic valve replacement Physical Therapy Order: Evaluate and Treat Home Health Nursing Order: Medical education Signs/symptoms of disease process Diabetic education CHF education Medication education-adverse effect Nursing assessment with vital signs Instructions: telehealth system with ledy monitor and respiratory therapy I have seen patient Wayne Vasquez on 05/03/17. My clinical findings support the need for the requested home health care services because: Ltd mobility - disease progression Patient has SOB I certify that my clinical findings support that this patient is homebound because: Post-op weakness Hx COPD- exertion dyspnea/weakness Unsteady gait/balance Ruthie Boo MD May 03, 2017 09:04
[2017-05-03] MEDS: AMIODARONE 200 MG TAB PO SCH (09:11)
[2017-05-03] MEDS: POTASSIUM CHLORIDE 25 MEQ EFFERVESCENT TAB NG SCH (09:11)
[2017-05-03] MEDS: CLOPIDOGREL 75 MG TAB PO SCH (09:11)
[2017-05-03] MEDS: DILTIAZEM-CD 240 MG CAP ER PO SCH (09:11)
[2017-05-03] MEDS: DOCUSATE SODIUM 50 MG/SENNA 8.6 MG TAB PO SCH (09:11)
[2017-05-03] MEDS: METOPROLOL SUCCINATE 50 MG EXTENDED RELEASE TAB PO SCH (09:11)
[2017-05-03] MEDS: ASPIRIN EC 81 MG TABEC PO SCH (09:11)
[2017-05-03] MEDS: BUDESONIDE-FORMOTEROL 160/4.5 MCG INHALER INH SCH (09:12)
[2017-05-03] MEDS: TIOTROPIUM BROMIDE 18 MCG INH INH SCH (09:12)
[2017-05-03] MEDS ORDERED: POTASSIUM CHLORIDE 10 MEQ CONTROLLED RELEASE TAB PO ONE (11:45)
== END 2017-05-03 12:47 | disposition home health service (06) | DRG 286 ==
LOC: NEPC 12:43 → NEDA 15:24 → HIMW 16:00 → HCVI 04-28 14:20 → HCPC 05-02 10:15
PROVIDERS: ADMIT Hospitalist; ATTEND Hospitalist
PROC: 5A09457 Assistance with Respiratory Ventilation, 24-96 Consecutive Hours, Continuous Positive Airway Pressure (ICD-10-PCS; 2017-04-26)
PROC: B2111ZZ Fluoroscopy of Multiple Coronary Arteries using Low Osmolar Contrast (ICD-10-PCS; 2017-04-28)
PROC: 4A023N8 Measurement of Cardiac Sampling and Pressure, Bilateral, Percutaneous Approach (ICD-10-PCS; principal; 2017-04-28 12:15)
DX: I11.0 Hypertensive heart disease with heart failure (principal); J96.01 Acute respiratory failure with hypoxia; Z68.41 Body mass index [BMI] 40.0-44.9, adult; E87.3 Alkalosis; N17.9 Acute kidney failure, unspecified; E66.01 Morbid (severe) obesity due to excess calories; I27.20 Pulmonary hypertension, unspecified; J44.1 Chronic obstructive pulmonary disease with (acute) exacerbation; I50.33 Acute on chronic diastolic (congestive) heart failure; I35.0 Nonrheumatic aortic (valve) stenosis; I25.10 Atherosclerotic heart disease of native coronary artery without angina pectoris; G47.33 Obstructive sleep apnea (adult) (pediatric); F17.210 Nicotine dependence, cigarettes, uncomplicated; E78.5 Hyperlipidemia, unspecified; E87.6 Hypokalemia; I44.7 Left bundle-branch block, unspecified; I48.0 Paroxysmal atrial fibrillation; B19.20 Unspecified viral hepatitis C without hepatic coma; D72.829 Elevated white blood cell count, unspecified; Z79.01 Long term (current) use of anticoagulants; Z90.81 Acquired absence of spleen; Z95.3 Presence of xenogenic heart valve; Z95.5 Presence of coronary angioplasty implant and graft
CPT/HCPCS: 36600; 71045; 80048; 80053; 81001; 82550; 82552; 82805; 82948; 83735; 83880; 84100; 84132; 84484; 85025; 85027; 85610; 85730; 87040; 87086; 87641; 93005; 93306; 93456; 94002; 94003; 94010; 94150; 94640; 94664; 94667; 94668; 99152; 99153; C1769; C1893; J1120; J1644; J1940; J2250; J2930; J3010; J3475; J3480; Q9967

== ENCOUNTER → 2017-05-18 | Outpatient (CLI) | payer MEDICARE ==
[~2017-05-18] MED LIST changes: -ALBUAER3 INH; +DOCU1CAP25; -FURO20TA PO; +FURO40TA PO; +IOHEXOL 350 MG/ML 10 ML VIAL (for RAD DIAG) IVCONTRAST ONE; +METO10TA4 PO; +SPIRCAP INH
--- NOTE | 2017-05-18 10:37 | RADRPT ---
EXAM DATE/TIME: 05/18/2017 08:30 [facility] COMPARISON: No previous studies available for comparison. INDICATIONS : Pre aortic valve replacement IV CONTRAST: 96 cc Omnipaque 350 (iohexol) IV RADIATION DOSE: 40.32 CTDIvol (mGy) MEDICAL HISTORY : Cardiovascular disease. Congestive heart failure. Chronic obstructive pulmonary disease. SURGICAL HISTORY : Carotid stent. ENCOUNTER: Initial ACUITY: 1 day PAIN SCALE: 0/10 LOCATION: chest TECHNIQUE: Volumetric scanning was performed using a multi-row detector CT scanner. The data was post processed with a variety of visualization algorithms including full volume maximum intensity projection, multi -planar sliding thin slab reformation, curved planar reformation, and surface rendering techniques. Using automated exposure control and adjustment of the mA and/or kV according to patient size, radiat ion dose was kept as low as reasonably achievable to obtain optimal diagnostic quality images. DIC OM format image data is available electronically for review and comparison. FINDINGS: CARDIAC: The coronary system is right dominant. Extensive calcifications through out the coronary arteries. T here is a stent in the mid right RCA which appears to be patent. Posterior descending artery show patrick e heterogeneity but anatomic detail is limited in this area. Cannot exclude some degree of stenosis, however despite calcification, I believe the LAD and circumflex are patent.. There are no microcalci fications. There is no pericardial effusion AORTIC ROOT/VALVE: 3 cusps are evident with significant calcification. The aortic root measures 3.3 x 3.8 cm. Mid thoracic aorta measures 3.3 cm with no calcifications. THORACIC AORTA: Bovine origin of the arch vessels. No evidence of aneurysm, mural thrombus, dissection or stenosis. Mild, scattered calcification. ABDOMINAL AORTA: No evidence of aneurysm, mural thrombus, dissection, mural calcification, or stenosis. CELIAC ARTERY: Celiac artery is widely patent. SMA: Superior mesenteric artery is widely patent. RIGHT RENAL ARTERY: Main and accessory right renal arteries. Both are patent. LEFT RENAL ARTERY: Left renal artery is widely patent. RIGHT COMMON ILIAC: No evidence of aneurysm, mural thrombus, dissection, mural calcification, or stenosis. The common fe moral measures 8-9 mm. LEFT COMMON ILIAC: No evidence of aneurysm, mural thrombus, dissection, mural calcification, or stenosis. The common fe moral measures 8-9 mm. THORAX: Surgical clips in the anterior mediastinum may represent a prior emery dissection. Borderline promine nt right paratracheal lymph nodes measuring upwards of 1.5 cm in diameter. A few prevascular lymph no irma are normal in caliber. Bilateral pleural effusions, moderate on the right and very small on the l eft. ABDOMEN: Findings the prior anterior abdominal wall hernia mesh repair. Liver is somewhat small and nodular po ssibly representing an element of cirrhosis. There is a 1.8 cm nodule posteriorly in the midpole of t he left kidney with Hounsfield measurements of approximately 36. This cannot be classified as a simpl e cyst. Patient is status post cholecystectomy. PELVIS: Some diverticular disease of the sigmoid colon without diverticulitis. CONCLUSION: 1. Calcification of the aortic valve leaflets. Aortic root measures 3.3 x 3.8 cm. Bovine arch but the thoracic aorta is otherwise normal in caliber throughout its length. 2. Coronary stent in the mid right RCA. 3. Access appears to be adequate throughout with the common femorals measuring between 8 and 9 mm. 4. Postsurgical changes including prior cholecystectomy and apparent surgical clips in the anterior m ediastinum possibly representing prior emery dissection. Patient has also had apparent mesh repair of an upper anterior abdominal wall hernia 5. Liver is somewhat small and nodular possibly representing an element of cirrhosis. 6. Moderate right and small left-sided pleural effusion. 7. Nodule posteriorly in the midpole of the left kidney cannot be characterized as a simple cyst. MRI with and without gadolinium could be performed for further characterization if clinically warranted. Thompson Berg MD on May 18, 2017 at 10:06 Board Certified Radiologist. This report was verified electronically.
== END ==
LOC: HRAD 07:56
PROVIDERS: ATTEND Thoracic Surgery (Cardiothoracic Vascular Surgery)
DX: I35.0 Nonrheumatic aortic (valve) stenosis (principal)
CPT/HCPCS: 74174; Q9967

== ENCOUNTER → 2017-05-29 | Outpatient (CLI) | payer BC ==
[~2017-05-29] MED LIST changes: +ATOR40TA16 PO; +FURO1TAB60 PO; -IOHEXOL 350 MG/ML 10 ML VIAL (for RAD DIAG) IVCONTRAST ONE
[2017-05-29 14:31] LABS: AUTOMATED NEUTROPHIL # 9.2 TH/MM3 (1.8-7.7); BASOPHIL # 0.2 TH/MM3 (0-0.2); BASOPHIL % 1.2 % (0.0-2.0); EOSINOPHIL # 0.1 TH/MM3 (0-0.4); EOSINOPHIL % 0.5 % (0.0-4.0); HEMATOCRIT 40.9 % (39.0-51.0); HEMOGLOBIN 13.9 GM/DL (13.0-17.0); LYMPH % 24.2 % (9.0-44.0); LYMPHOCYTE # 3.5 TH/MM3 (1.0-4.8); MEAN CORPUSCULAR HEMOGLOBIN 34.7 PG (27.0-34.0); MEAN PLATELET VOLUME 6.8 FL (7.0-11.0); MONO % 9.7 % (0.0-8.0); MONOCYTE # 1.4 TH/MM3 (0-0.9); NEUT % 64.4 % (16.0-70.0); PLATELET COUNT 384 TH/MM3 (150-450); RED BLOOD COUNT 4.01 MIL/MM3 (4.50-5.90); RED CELL DISTRIBUTION WIDTH 16.5 % (11.6-17.2); WHITE BLOOD COUNT 14.3 TH/MM3 (4.0-11.0)
[2017-05-29 14:46] LABS: INTERNATIONAL NORMALIZED RATIO 1.2 RATIO; PROTHROMBIN TIME - PATIENT 11.8 SEC (9.8-11.6)
[2017-05-29 14:58] LABS: BICARBONATE 30.2 MEQ/L (21.0-32.0); CALCIUM 9.1 MG/DL (8.5-10.1); CREATININE 1.54 MG/DL (0.60-1.30)
== END ==
LOC: CLAB 13:40
PROVIDERS: ATTEND Internal Medicine
DX: I35.0 Nonrheumatic aortic (valve) stenosis (principal)
CPT/HCPCS: 36415; 80048; 85025; 85610; 86850; 86900; 86901

== ENCOUNTER 2017-05-31 08:21 | Inpatient (IN) | payer BC ==
[~2017-05-31] VITALS: Ht 177.8 cm; Wt 137.8 kg
[2017-05-31] VITALS (8 sets, daily range): BP systolic 111–132; BP diastolic 55–72; PULSE 86–101; RESP 18–20; TEMP 97.4–97.8; O2SAT 93–98
[~2017-05-31 08:21] MED LIST changes: -ATOR40TA16 PO; -FURO1TAB60 PO
[2017-05-31] MEDS ORDERED: CHLORHEXIDINE GLUCONATE 2 % 1 PACK (2 CLOTHS) TOPICAL PRN ×2 (09:00)
[2017-05-31] MEDS ORDERED: METOPROLOL TARTRATE 25 MG TAB PO PRN (09:00)
[2017-05-31] MEDS ORDERED: ASPIRIN 325 MG TAB PO SCH (09:00)
[2017-05-31] MEDS ORDERED: MUPIROCIN 2% OINT 1 APPLIC/GM SYRINGE EACH NARE PRN (09:00)
[2017-05-31] MEDS ORDERED: SODIUM CHLORID 0.9% 500 ML IV PRN (09:00)
[2017-05-31] MEDS ORDERED: POVIDONE IODINE 5% (ANTISEPSIS KIT) 4 APPLICATIONS EACH NARE PRN (09:00)
[2017-05-31] MEDS ORDERED: ceFAZolin 2 GM PREMIX 50 ML IV PRN (09:00)
[2017-05-31] MEDS ORDERED: POVIDONE IODINE 5% (ANTISEPSIS KIT) EACH NARE PRN (09:00)
[2017-05-31] MEDS: SODIUM CHLOR 0.9% 1000 ML 1,000 ML IV SCH ×2 (09:00→16:56)
[2017-05-31] MEDS ORDERED: LACTATED RINGER'S 1000 ML IV PRN (09:00)
--- NOTE | 2017-05-31 10:41 | MH ---
cc: Abhijeet Russell MD DATE OF ADMISSION: 05/31/2017 INDICATIONS: Severe aortic stenosis. REFERRING PHYSICIAN: Dr. Li PRIMARY CARE DOCTOR: Dr. 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 He had an aortic valve replacement back in 1999 in [place] at [facility] and then subsequently he had a second aortic valve replacement with bioprosthesis 25 mm in [place], [place]. He is followed on an outpatient basis by Dr. Li. Echocardiogram on 02/10/2017 showed preserved ejection fraction 55% with severe bioprosthetic aortic valve stenosis with a mean gradient of 47 mmHg, aortic valve gradient of 0.7 cm2. He underwent coronary angiography which revealed widely patent right coronary artery stent. CT surgery was consulted for consideration of a third repeat surgical aortic valve. Then, due to increased surgical mortality, a transcatheter aortic valve replacement was considered. PAST MEDICAL HISTORY: Obstructive sleep apnea, congestive heart failure, diastolic dysfunction, COPD, CAD, prior RCA stent, hepatitis, hyperlipidemia, hypertension, obesity and paroxysmal atrial fibrillation 11/2016. He has had mechanical valve in 2001 and a bioprosthesis in 2006. HOME MEDICATIONS: Amiodarone, aspirin, atorvastatin, Cardizem, Eliquis, Lasix, Zaroxolyn, Metoprolol, and potassium. FAMILY HISTORY: He denies any family history of early coronary disease or sudden cardiac . SOCIAL HISTORY: Smoked a pack a day, has not had any drug use in the last 8 years. REVIEW OF SYSTEMS: A 12-point review of system was performed and is negative unless otherwise as noted in the history of present illness. PHYSICAL EXAMINATION: VITAL SIGNS: Pulse 101, blood pressure 115/55 mmHg, respiratory rate is 20. GENERAL: He is alert and oriented x 3 in no acute distress. HEENT: Shows pupils equal and reactive to light and accommodation. Extraocular movements are intact. NECK: No elevation jugular venous distention. No thyromegaly or lymphadenopathy. No carotid bruits. LUNGS: Clear to auscultation bilaterally. CARDIOVASCULAR: Irregularly irregular with a 3/6 crescendo decrescendo murmur. LUNGS: Clear to auscultation bilaterally. ABDOMEN: Obese, but no hepatosplenomegaly. EXTREMITIES: Show no clubbing, cyanosis or edema. Good peripheral pulses. NEUROLOGIC: Cranial nerves intact. Motor and sensory grossly intact. LABS: Labs from 05/29/2017 showed WBC 14.3, hemoglobin is 13.9, platelet count is 384. INR is 1.2. Sodium 128, potassium 3.9, chloride 89, BUN 23, creatinine is 1.54. PREOPERATIVE TRANSCATHETER AORTIC VALVE WORKUP: STS score 8.7%, [place] Heart Association class IV. BMI is 40.8. He has a 2/4 frailty. His electrocardiogram shows some intraventricular conduction delay and nonspecific ST-T wave abnormality laterally. Sinus rhythm. Pulmonary function test shows no obstructive physiology. Echocardiogram showed a jet velocity of 4.51 liters/second, mean gradient 46 mmHg, calculated aortic valve area of 0.7 cm2. Aortic regurg is mild to moderate and coronary artery shows widely patent right coronary stent. CT analysis from 05/19/2014 showed an annulus diameter 18.5 mm long, annulus diameter 22.7 mm, perimeter 64.4, sinus Valsalva 38.3. Angle MAHER is 0, cranial 22. Both iliac arteries greater than 9 mm. ASSESSMENT AND PLAN: Severe bioprosthetic aortic valve stenosis, COPD, hypertension, pulmonary hypertension, obstructive sleep apnea, atrial fibrillation, obesity. PLAN: The risks, benefits and alternatives were discussed with the patient for consideration of transcatheter aortic valve replacement. We will approach from the right common femoral artery. We will use a 26 mm Evolut R Medtronic bioprosthetic transcatheter aortic valve. Abhijeet Russell MD OJ/DL , 10:03 AM , 10:39 AM
[2017-05-31] MEDS ORDERED: PROTAMINE SULFATE 50 MG/5 ML VIAL ONE (11:01)
[2017-05-31] MEDS ORDERED: HEPARIN SODIUM - IV 10,000 UNITS/10 ML VIAL ONE (11:02)
[2017-05-31] MEDS ORDERED: NOREPINEPHRINE 4 MG/4 ML AMP ONE (11:02)
[2017-05-31] MEDS ORDERED: SODIUM CHLOR 0.9% (EXCEL) INJ 250 ML IV ONE (12:00)
[2017-05-31] MEDS ORDERED: NEOSTIGMINE 5 MG/5 ML SYRINGE IV PUSH ONE (12:00)
[2017-05-31] MEDS ORDERED: SODIUM CHLORID 0.9% 500 ML INJ 1,000 ML IV ONE (12:00)
[2017-05-31] MEDS ORDERED: NORMOSOL R INJ 1,000 ML IV ONE (12:00)
[2017-05-31] MEDS ORDERED: ROCURONIUM INJ 50 MG/5 ML SYRINGE IV PUSH ONE (12:00)
[2017-05-31] MEDS ORDERED: GLYCOPYRROLATE 1 MG/5 ML SYRINGE IV PUSH ONE (12:00)
[2017-05-31] MEDS ORDERED: LIDOCAINE HCL 1% PF 5 ML SYRINGE OTHER ONE (12:00)
[2017-05-31] MEDS ORDERED: PHENYLEPH/NS 1000 MCG/10 ML SYR IV ONE (12:00)
[2017-05-31] MEDS ORDERED: LACTATED RINGER'S 1000 ML INJ 1,000 ML IV ONE (12:00)
[2017-05-31] MEDS ORDERED: PROPOFOL 200 MG/20 ML AMP IV ONE (12:00)
[2017-05-31] MEDS ORDERED: IOHEXOL 350 MG/ML 100 ML BTL (for RAD DIAG) IVCONTRAST ONE (12:02)
[2017-05-31] MEDS ORDERED: FUROSEMIDE 40 MG/4 ML VIAL ONE (12:52)
--- NOTE | 2017-05-31 13:11 | PD.OP ---
cc: Irene Hopper MD; Abhijeet Russell MD Operative Report Date of Surgery: May 31, 2017 Preoperative Diagnosis: (1) Aortic stenosis (2) Congestive heart failure (CHF) Postoperative Diagnosis: same Procedure: Transcatheter aortic valve replacement with a 26 Evolut tissue valve (valve in valve through a 25 Mosaic valve Percutaneous bilateral femoral artery access with Perclose closure on the right Left femoral venous access Aortography Fluoroscopy Anesthesia: Dr. Bnod Surgeon: Irene Hopper Co-surgeon - Dr. Russlel Pot Maker(s): none Operation and Findings: The risks, benefits, complications, treatment options, and expected outcomes were discussed with the patient. The possibilities of reaction to medication, pulmonary aspiration, perforation of viscus, bleeding, recurrent infection, the need for additional procedures, failure to diagnose a condition, and creating a complication requiring transfusion or operation were discussed with the patient. The patient concurred with the proposed plan, giving informed consent. The site of surgery properly noted/marked. The patient was taken to the hybrid operating room, identified as Wayne Vasquez and the procedure verified as Transcatheter Aortic Valve Replacement. A Time Out was held and the above information confirmed. Standard monitoring lines and Martínez catheter were placed. General anesthesia was induced. The patient was prepped and draped in a sterile fashion. Initially, left femoral arterial and venous access was acquired using a Seldinger percutaneous technique. The details of this procedure were dictated under separate note by cardiology. Once a pigtail was positioned in the aortic annulus and a temporary transvenous pacemaker wire was placed in the right ventricular apex and tested, the right femoral artery was accessed using a needle followed by a guidewire under fluoroscopic guidance. The patient was heparinized and 2 Perclose devices deployed for later closure. The aortic valve was crossed from the left in the usual manner. Serial dilators were used to dilate the right femoral artery to 16 [place] caliber. The Medtronic delivery system and valve were then inserted and positioned under fluoroscopic guidance. Arch aortography was performed to define the implant view. A 26 Evolut transcatheter aortic valve was then positioned in the annulus and deployed with the patient being paced at 120 beats per minute. Following deployment, the valve apparatus was withdrawn and arch aortography and ANJALI were performed to assess the valve. The valve had no significant perivalvular leaks. Gradients were then measured and the sheath was removed. Protamine was administered and the Perclose sutures secured. An additional angioseal was deployed to obtain hemostasis. Sterile dressings were placed. At the end of the operation, all sponge, instruments, and needle counts were correct. The patient was transferred to the CVICU in stable condition. Findings: deployed 26 Evolut with no significant PVL. Implants: 26 Evolut tissue valve Complications: none Disposition: to CVICU in stable condition Irene Hopper MD May 31, 2017 13:10
[2017-05-31] MEDS ORDERED: MIDAZOLAM HCL 2 MG/2 ML VIAL ONE (13:54)
[2017-05-31] MEDS ORDERED: DEXTROSE 50% IN WATER 50 ML VIAL(D50) IV PUSH PRN (14:15)
[2017-05-31] MEDS ORDERED: GLUCAGON 1 MG/ML VIAL OTHER PRN (14:15)
[2017-05-31] MEDS ORDERED: MISC INFORMATION OTHER ONE (14:15)
--- NOTE | 2017-05-31 14:42 | MA ---
cc: Abhijeet Russell MD DATE: 05/31/2017 PROCEDURE: Transcatheter aortic valve replacement. RUBBER AND PLASTICS WORKER: Abhijeet Valdivia MD [facility] PRIMARY SURGEON: Irene Hopper MD PROCEDURE PERFORMED: 1. Fluoroscopy with interpretation. 2. Ascending aortography. 3. Transcatheter aortic valve replacement using a 26 mm Evolut R bioprosthetic valve. 4. Temporary transvenous pacemaker placement. 5. Transesophageal echocardiogram. METHOD: The risks, benefits and alternatives were discussed with the patient. The patient understood and consented to the procedure. The patient was brought into the catheterization lab, placed on the catheterization table. Bilateral groins were prepped and draped. Anesthesia was present for general anesthesia. Right internal jugular line was placed and a temporary transvenous pacemaker was advanced through the apex and confirmed appropriate pacing threshold and capture. A transesophageal echocardiogram was utilized throughout the procedure. Next, the left groin was accessed with a 5-Pakistani, 11 cm sheath in both the artery and the vein. Under fluoroscopic guidance on the right side we accessed the right common femoral artery with a micropuncture sheath and up-sized to an 8-Pakistani sheath. Two Perclose devices were pre-deployed. ASCENDING AORTOGRAPHY: Ascending aortography was performed in a cranial AP view to best visualize the prosthetic valve and are parallax with the strength strut radiopaque opacities. The aortogram revealed [id number] aortic regurgitation, mildly dilated ascending aortic root. His transcatheter aortic valve was replaced with a 6-Pakistani AL1 catheter, was advanced to the ascending aorta. A 0.014-inch straight Amplatz Super Stiff wire was then navigated across the aortic valve without difficulty. AL1 catheter was advanced into the left ventricle. J wire was advanced into the apex of the left ventricle and the AL1 catheter removed. Pigtail catheter was advanced into the apex of the left ventricle, followed by a Medtronic wire to the apex. The AL1 was removed. The sheath was removed leaving the wire in place and a 14-Pakistani sheathless Medtronic device was then advanced up to the level of the descending aorta. Under fluoroscopic guidance the device was carefully navigated across the bioprosthetic valve. We deployed the valve carefully to capture the apparatus of the leaflet itself according to aortic cusp injections and radiopaque markers on the stent struts. The device was fully deployed and an immediate transesophageal echocardiogram post-deployment showed a mean gradient of only 2 mmHg with a 1 m/second peak velocity and aortic valve area of 2 cm2. A multipurpose catheter was advanced across the bioprosthetic valve and manual pullback confirmed a less than 10 mm [id number] hemodynamic gradient suggestive of minimal to no aortic stenosis. There was a trace paravalvular leak. The right groin was closed with 2 Perclose devices, followed by an 8-Pakistani Angio-Seal. Two 5-Pakistani Mynx hemostatic devices were deployed in the left vein and artery with good hemostasis. The patient was extubated. Temporary transvenous pacemaker was left in place. CONCLUSIONS: 1. Successful transcatheter aortic valve replacement. 2. Normal ascending aortogram. PLAN: The patient will be monitored closely for any post-procedural complication. We will obtain a 2-D echocardiogram tomorrow. His left ventricular end-diastolic pressure was quite elevated at about 33-35 mmHg so we start intravenous Lasix for acute on chronic diastolic congestive heart failure. Abhijeet Russell MD OJ/SB , 02:14 PM , 02:40 PM
[2017-05-31] MEDS: INSULIN NovoLIN REGULAR SUPPLEMENTAL SCALE SQ SCH ×2 (16:53→21:30)
[2017-05-31] MEDS: FUROSEMIDE 40 MG/4 ML VIAL IV PUSH SCH (17:23)
--- NOTE | 2017-05-31 20:07 | EKG ---
Date Performed: 05/31/2017 Time Performed: 09:33:04 PTAGE: 61 years EKG: Atrial fibrillation with controlled ventricular response Lateral ST elevation suggests nay y repolarization Lateral T wave changes are nonspecific Borderline ECG PREVIOUS TRACING : 04/30/2017 14.23 Since the previous tracing, no significant change noted DOCTOR: Arthur Correa Interpretating Date/Time 05/31/2017 20:05:27
--- NOTE | 2017-05-31 21:17 | PD.CONS ---
[facility] Service Critical Care Medicine Consult Requested By Dr. Russell Reason for Consult perioperative management of medical comorbidities Primary Care Physician Antonio Cordero M.D. History of Present Illness This is a 61-year-old male who is well-known to me from prior admissions. He was a remote previous IV drug abuser with complicated aortic valve endocarditis. This was successfully treated in 2001 with a mechanical aortic valve replacement. In 2006 he had mechanical aortic valve stenosis and had a redo sternotomy with bioprosthetic aortic valve replacement. He has had increasing dyspnea and CHF exacerbations over the last 3-6 months requiring multiple hospitalizations. On most recent hospitalization that I was a part of , he had a repeat transthoracic echo showing that he had significant bioprosthetic aortic valve stenosis, likely causing his CHF exacerbations in his severe dyspneic symptoms. Of note, the patient does have severe obstructive sleep apnea, and this is been a problem in the past, however the patient states that he has lost about 75 pounds over the last year, and he feels subjectively that his breathing is improved. Today he underwent elective transcatheter aortic valve replacement via common iliac access. This was uncomplicated. He arrives to the CVICU extubated in stable condition. He denies any significant headache, nausea, vomiting, pain, weakness of any extremity. Review of systems is unremarkable. Review of Systems Constitutional: DENIES: Fatigue, Fever, Chills Respiratory: DENIES: Cough, Snoring, Sputum production, Shortness of breath Cardiovascular: DENIES: Chest pain, Dyspnea on Exertion Gastrointestinal: DENIES: Abdominal pain, Constipation, Diarrhea, Nausea, Vomiting Musculoskeletal: DENIES: Back pain, Neck pain Neurologic: DENIES: Abnormal gait, Headache, Localized weakness Past Family Social History Allergies: Coded Allergies: No Known Allergies (Verified Allergy, Unknown, 05/31/17) Past Medical History Obstructive sleep apnea Congestive heart failure Diastolic dysfunction COPD Coronary artery disease Prior RCA stent Hepatitis Hyperlipidemia Status post prior aortic valve replacement with bioprosthetic valve Severe aortic stenosis Hypertension Obesity Paroxysmal atrial fibrillation Past Surgical History Mechanical aortic valve replacement in 2001 Bioprosthetic aortic valve replacement in 2006 Reported Medications Diltiazem CD 24 HR 120 Mg Caper 240 Mg PO DAILY 30 Days Lipitor (Atorvastatin Calcium) 10 Mg Tab 40 Mg PO HS 30 Days Plavix (Clopidogrel Bisulfate) 75 Mg Tab 75 Mg PO DAILY 30 Days Spiriva Handihaler (Tiotropium Inh) 18 Mcg Cap 18 Mcg INH DAILY 1 capsule = 18 mcg Stool Softener (Docusate Calcium) 240 Mg Cap Potassium Chloride ER (Potassium Chloride) 20 Meq Tab 40 Meq PO TID Metolazone 10 Mg Tab 10 Mg PO DAILY Furosemide 40 Mg Tab 40 Mg PO BID Eliquis (Apixaban) 5 Mg Tab 5 Mg PO BID Metformin ER (Metformin HCl) 500 Mg Emanuel 500 Mg PO DAILY With evening meal Multiple Vitamin 1 Tab 1 Tab PO DAILY Metoprolol Succinate ER 24 HR (Metoprolol Succinate) 100 Mg Tab 100 Mg PO DAILY Aspirin DR (Aspirin) 81 Mg Tabdr 81 Mg PO DAILY Amiodarone (Amiodarone HCl) 200 Mg Tab 200 Mg PO DAILY Active Ordered Medications See MAR Family History No family history of coronary artery disease or sudden cardiac Social History Prior tobacco user, no IV drug abuse in the last 8 years Physical Exam Vital Signs Vital Signs Date Time Temp Pulse Resp B/P (MAP) Pulse Ox O2 Delivery O2 Flow Rate FiO2 05/31/17 15:00 90 05/31/17 15:00 88 05/31/17 15:00 97 Nasal Cannula 5.00 05/31/17 15:00 97.8 88 18 128/72 (90) 95 05/31/17 14:00 88 05/31/17 14:00 84 05/31/17 14:00 97.6 86 18 132/58 (82) 98 05/31/17 14:00 98 Simple Mask 8.00 05/31/17 09:00 101 20 111/55 (73) 93 Physical Exam GENERAL: Obese male, sitting up in a chair, no acute distress HEENT: Normocephalic. Atraumatic. Pupils equal, round, reactive, conjugate. Mucous membranes are moist NECK: Trachea is midline. There is no JVD. Right IJ introducer sheath with transvenous pacer in place, site is clean dry and intact. CHEST: Equal chest rise. Nasal cannula oxygen. Unlabored. CARDIOVASCULAR: Normal rate, irregularly irregular rhythm. Appears A. fib by telemetry. Transvenous pacer is set VVI at a backup rate of 50, not currently paced. ABDOMEN: Obese, soft, nontender, nondistended. No guarding. MUSCULOSKELETAL: Pulses 2+. No peripheral edema. Bilateral groin sites are covered with clean dressings, no evidence of hematoma. Distal pulses are dopplerable. NEUROLOGICAL: RASS 0. CAM -. Follows commands in all 4 extremities. No focal deficits. Assessment and Plan Assessment and Plan Assessment: This is a 61-year-old male status post redo sternotomy with bioprosthetic aortic valve replacement with evidence of severe symptomatic bioprosthetic aortic valve stenosis and now postop day 0 status post valve-in- valve transcatheter aortic valve replacement. Continue to monitor urine output closely. Traditionally, the patient has been very difficult to maintain a negative fluid balance, and has evidence of cardiorenal syndrome as well as chronic renal insufficiency, currently on 3 diuretics to maintain dry weight. We will very carefully monitor his urine output as well as keep him on maintenance fluids early postop day 0 status post TAVR. s/p [id number] TAVR 05/31 with groin access - mivf - close uop monitoring - anticoagulation per Dr. Russell HTN - slowly add back antihypertensives for goal sbp < 180 Atrial fibrillation - currently rate controlled - add back home diltiazem tomorrow - anticoagulation plan per Dr. Russell Obstructive sleep apnea - some concern on pre-op RHC that he may have increased PVR. I counseled the patient extensively that he needs to return to his manager patient (Dr. Arriaga) and be re-evaluated to ensure that unoptimized JORGE is not a contributing factor to his CHF symptoms. - home CPAP/BiPAP use while asleep or naps. 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 - monitor uop closely Chronic Renal Insufficiency, stage 3 - likely cardiorenal syndrome secondary to aortic valve stenosis - on multiple diuretics at home - close uop monitoring HLD - restart home statin Coronary Artery disease - statin, ASA Admit to ICU for close monitoring overnight. Critical care medicine will continue to follow along with you as long as patient remains in the CVICU. David Nash MD May 31, 2017 21:17
[2017-06-01] VITALS (10 sets, daily range): BP systolic 122–129; BP diastolic 62–83; PULSE 86–113; RESP 18–20; TEMP 97.7–98; O2SAT 97–99
[2017-06-01] MEDS: SODIUM CHLOR 0.9% 1000 ML 1,000 ML IV SCH ×2 (01:00→09:00)
[2017-06-01 04:52] LABS: HEMATOCRIT 39.8 % (39.0-51.0); HEMOGLOBIN 13.8 GM/DL (13.0-17.0); MEAN CELL VOLUME 101.1 FL (80.0-100.0); MEAN CORPUSCULAR HGB CONC 34.7 % (32.0-36.0); MEAN PLATELET VOLUME 7.2 FL (7.0-11.0); PLATELET COUNT 371 TH/MM3 (150-450); RED BLOOD COUNT 3.94 MIL/MM3 (4.50-5.90); RED CELL DISTRIBUTION WIDTH 16.8 % (11.6-17.2); WHITE BLOOD COUNT 16.5 TH/MM3 (4.0-11.0)
[2017-06-01 05:15] LABS: BICARBONATE 30.8 MEQ/L (21.0-32.0); CALCIUM 9.2 MG/DL (8.5-10.1); CREATININE 1.44 MG/DL (0.60-1.30)
[2017-06-01] MEDS ORDERED: POTASSIUM CHLORIDE 25 MEQ EFFERVESCENT TAB PO ONE (06:45)
[2017-06-01] MEDS ORDERED: ACETAMINOPHEN 1000 MG/100 ML 65 ML IV ONE (06:45)
--- NOTE | 2017-06-01 07:43 | EKG ---
Date Performed: 06/01/2017 Time Performed: 04:40:54 PTAGE: 61 years EKG: Unclear underlying rhythm due to artifact, either Sinus rhythm or atrial flutter with two to one block. Lateral T wave changes are nonspecific Borderline ECG PREVIOUS TRACING : 05/31/2017 09.33 DOCTOR: [place] Interpretating Date/Time 06/01/2017 07:43:03
--- NOTE | 2017-06-01 07:58 | HHI.DS ---
Discharge Summary Admission Date May 31, 2017 at 08:21 Discharge Date: Jun 01, 2017 Admitting Diagnosis severe aortic valve stenosis, bioprosthesis Procedures transcatheter aortic valve replacement Brief History Patient presented with severe bioprosthetic aortic valve stenosis. CBC/BMP: 06/01/17 0425 06/01/17 0425 Significant Findings Laboratory Tests Test 06/01/17 04:25 White Blood Count 16.5 TH/MM3 (4.0-11.0) Red Blood Count 3.94 MIL/MM3 (4.50-5.90) Mean Corpuscular Volume 101.1 FL (80.0-100.0) Mean Corpuscular Hemoglobin 35.0 PG (27.0-34.0) Blood Urea Nitrogen 25 MG/DL (7-18) Creatinine 1.44 MG/DL (0.60-1.30) Random Glucose 114 MG/DL (74-106) Sodium Level 130 MEQ/L (136-145) Potassium Level 3.2 MEQ/L (3.5-5.1) Chloride Level 90 MEQ/L (98-107) Estimat Glomerular Filtration Rate 50 ML/MIN (>89) PE at Discharge EYES: No scleral icterus. No injection or drainage. NECK: Supple, trachea midline. No JVD or lymphadenopathy. CARDIOVASCULAR: Irregularly irregular with a 1 out of 6 systolic murmur RESPIRATORY: Breath sounds equal bilaterally. No accessory muscle use. GASTROINTESTINAL: Abdomen soft, non-tender, nondistended. MUSCULOSKELETAL: No cyanosis, or edema. BACK: Nontender without obvious deformity. No CVA tenderness. Hospital Course Patient underwent successful transcatheter aortic valve replacement. Postoperative course was relatively uncomplicated. Patient's been up to a chair. Patient states his breathing is improved since yesterday. Assessment; #1 severe bioprosthetic aortic valve stenosis status post transcatheter aortic valve replacement with 26 mm Medtronic Evolut R valve #2 atrial fibrillation. Rate control, initiate anticoagulation therapy. Continue aspirin and Plavix. 3. Acute on chronic congestive heart failure. We will continue with Lasix 40 mg daily. Will discontinue metolazone. Will allow his sodium and chloride to trend up slowly. His creatinine is stable from time of admission. We will continue with the potassium administration orally. Ambulate Limited 2D echocardiogram today Transfer to intermediate telemetry level of care if patient remains inpatient status. Anticipate discharge later today if he does well with ambulation and no postprocedural complications. Patient can follow-up in the outpatient setting in 2-4 weeks. Pt Condition on Discharge: Good Discharge Disposition: Discharge Home Discharge Instructions DIET: Follow Instructions for: As Tolerated, No Restrictions, Coumadin ( Warfarin) Diet Activities you can perform: Weight Bearing as Keshav Activities to avoid: Lifting/Bending, Strenuous Activity Abhijeet Russell MD Jun 01, 2017 07:58
[2017-06-01] MEDS: INSULIN NovoLIN REGULAR SUPPLEMENTAL SCALE SQ SCH ×2 (08:00→12:00)
[2017-06-01] MEDS ORDERED: PHENAZOPYRIDINE HCL 100 MG TAB PO PRN (08:00)
[2017-06-01] MEDS ORDERED: ATOR40TA16 PO (08:00)
[2017-06-01] MEDS ORDERED: FURO1TAB60 PO (08:01)
[2017-06-01] MEDS ORDERED: TIOTROPIUM BROMIDE 18 MCG INH INH SCH (09:00)
[2017-06-01] MEDS ORDERED: METOPROLOL SUCCINATE 50 MG EXTENDED RELEASE TAB PO SCH (09:00)
[2017-06-01] MEDS ORDERED: AMIODARONE 200 MG TAB PO SCH (09:00)
[2017-06-01] MEDS ORDERED: CLOPIDOGREL 75 MG TAB PO SCH (09:00)
[2017-06-01] MEDS ORDERED: MULTIVITAMIN TAB PO SCH (09:00)
[2017-06-01] MEDS ORDERED: ASPIRIN 81 MG CHEW TAB PO SCH (09:00)
[2017-06-01] MEDS ORDERED: DILTIAZEM-CD 120 MG CAP ER PO SCH (09:00)
[2017-06-01] MEDS ORDERED: ASPIRIN EC 81 MG TABEC PO SCH (09:00)
[2017-06-01] MEDS: POTASSIUM CHLORIDE 20 MEQ CONTROLLED RELEASE TAB PO SCH ×2 (09:38→12:56)
[2017-06-01] MEDS: FUROSEMIDE 40 MG/4 ML VIAL IV PUSH SCH (09:38)
[2017-06-01 10:22] LABS: BILIRUBIN, URINE NEG (NEG); BLOOD, URINE MOD (NEG); GLUCOSE,URINE NEG (NEG); KETONE, URINE NEG (NEG); MUCUS URINE FEW /lpf (OCC); NITRITE,URINE NEG (NEG); PH, URINE 6.5 (5.0-8.5); URINE COLOR YELLOW (YELLW/STRAW); URINE LEUKOCYTE ESTERASE SMALL (NEG)
--- NOTE | 2017-06-01 16:31 | ECHRPT ---
Indication: S/P TAVR, ?EF CONCLUSIONS Mildly dilated left ventricle. Moderate concentric left ventricular hypertrophy. The left ventricular systolic function is mildly reduced with an estimated ejection fraction in the range of 45- 50%. The left ventricle is not well visualized. The left atrial size is moderate dilated. The aortic root and proximal ascending aorta are not well visualized. status post bioprosthetic aortic valve replacement with transcatheter valve trace aortic valve paravalvular leak Mild residual aortic bioprosthetic stenosis There is trace tricuspid valve regurgitation. The estimated pulmonary arterial pressure is 29 mmHg. BP: 111 / 55 HR: 88 Rhythm: Atrial fibrillation MEASUREMENTS (Male / Female) Normal Values Technical Quality:Technically difficult study 2D ECHO LV Diastolic Diameter PLAX 6.3 cm 4.2 - 5.9 / 3.9 - 5.3 cm LV Systolic Diameter PLAX 5.3 cm IVS Diastolic Thickness 1.5 cm 0.6 - 1.0 / 0.6 - 0.9 cm LVPW Diastolic Thickness 1.5 cm 0.6 - 1.0 / 0.6 - 0.9 cm LV Relative Wall Thickness 0.5 RV Internal Dim ED PLAX 4.9 cm LVOT Diameter 2.6 cm Aortic Root Diameter 3.1 cm LA Systolic Diameter LX 5.8 cm 3.0 - 4.0 / 2.7 - 3.8 cm DOPPLER AV Peak Velocity 313.0 cm/s AV Peak Gradient 39.2 mmHg AV Mean Gradient 23.0 mmHg AV Velocity Time Integral 59.9 cm LVOT Peak Velocity 330.0 cm/s LVOT Peak Gradient 43.6 mmHg LVOT Velocity Time Integral 70.0 cm AV Area Cont Eq vti 6.2 cm AV Area Cont Eq pk 5.6 cm Mitral E Point Velocity 108.0 cm/s Mitral A Point Velocity 32.1 cm/s Mitral E to A Ratio 3.4 TR Peak Velocity 220.0 cm/s TR Peak Gradient 19.4 mmHg Right Atrial Pressure 10.0 mmHg Pulmonary Artery Systolic Pressu 29.4 mmHg Right Ventricular Systolic Press 29.4 mmHg FINDINGS LEFT VENTRICLE Mildly dilated left ventricle. Moderate concentric left ventricular hypertrophy. The left ventricular systolic function is mildly reduced with an estimated ejection fraction in the range of 45- 50%. The left ventricle is not well visualized. RIGHT VENTRICLE Normal right ventricular size and systolic function. LEFT ATRIUM The left atrial size is moderate dilated. AORTA The aortic root and proximal ascending aorta are not well visualized. AORTIC VALVE status post bioprosthetic aortic valve replacement with transcatheter valve trace aortic valve paravalvular leak Mild residual aortic bioprosthetic stenosis TRICUSPID VALVE There is trace tricuspid valve regurgitation. The estimated pulmonary arterial pressure is 29 mmHg. Abhijeet Russell MD, FACC (Electronically Signed) Final Date:01 June 2017 16:30
[2017-06-01] MEDS ORDERED: ATORVASTATIN 10 MG TAB PO SCH (21:00)
--- NOTE | 2017-06-02 11:48 | MB ---
cc: Homa Maradiaga MD DATE: 06/01/2017 REASON FOR CONSULTATION: Evaluation for for possible conduction disease. HISTORY OF PRESENT ILLNESS: Mr. Vasquez is a 61-year-old gentleman with history of severe aortic stenosis, coronary artery disease, high blood pressure, obesity, atrial fibrillation. He had a previous mechanical valve put in, bioprosthetic valve in 2001, subsequently ended in atrial fibrillation, previous aortic valve replacement in 2001. Subsequently in 2006, he has a bioprosthetic valve. He has severe stenosis. He was admitted to have aortic valve replacement. The procedure was performed yesterday, it was successful. I was consulted for evaluation for possible conduction disease. The chart was reviewed. The patient was evaluated. ALLERGIES: NONE. SOCIAL HISTORY: The patient denies smoking and drinking. FAMILY HISTORY: Noncontributory to his current medical condition. MEDICATIONS: This gentleman is on Ancef, amiodarone 200 mg a day, aspirin 81 mg a day, Plavix 75 mg a day, Lipitor 40 mg a day, Cardizem CD 240 mg a day, Lasix, metoprolol 100 mg a day, multivitamin, potassium. REVIEW OF SYSTEMS: He is feeling better. No chest pain or chest discomfort. PHYSICAL EXAMINATION: GENERAL: On evaluation this morning, alert, fully oriented. VITAL SIGNS: His blood pressure 112/62, pulse 95, respiratory rate 18. LUNGS: Ventilated. CARDIOVASCULAR: S1, S2. No gallop or murmur. ABDOMEN: Obese, no masses, no bruits. EXTREMITIES: No edema. ELECTROCARDIOGRAM: Shows regular rhythm, possible sinus rhythm. No acute ST and T-wave changes. LABORATORY DATA: Hemoglobin is 13, white blood cells 16.5, potassium 3.2, creatinine 1.44. ASSESSMENT AND RECOMMENDATIONS: Mr. Vasquez is currently stable. Electrocardiogram previously atrial fibrillation. Currently, there is a very rhythm. There is no change in axis. No morphology changes on electrocardiogram except for the of the heart rate. Case discussed extensively with the patient. There is no need for further electrocardiographic evaluation. This gentleman can be discharged home and followed by the team. I will be available on a p.r.n. basis. MD IRVIN Mckinley , 10:45 PM , 11:54 PM
== END 2017-06-01 15:30 | disposition home or self-care (01) | DRG 266 ==
LOC: HDIC 08:21 → HCVI 13:55 → HCPC 06-01 10:10
PROVIDERS: ADMIT Internal Medicine; ATTEND Internal Medicine
PROC: 02RF38Z Replacement of Aortic Valve with Zooplastic Tissue, Percutaneous Approach (ICD-10-PCS; principal; 2017-05-31 11:30)
PROC: B246ZZ4 Ultrasonography of Right and Left Heart, Transesophageal (ICD-10-PCS; 2017-05-31 11:30)
PROC: 5A1223Z Performance of Cardiac Pacing, Continuous (ICD-10-PCS; 2017-05-31 11:30)
DX: T82.857A Stenosis of other cardiac prosthetic devices, implants and grafts, initial encounter (principal); I50.33 Acute on chronic diastolic (congestive) heart failure; I27.20 Pulmonary hypertension, unspecified; Z68.41 Body mass index [BMI] 40.0-44.9, adult; N18.3 Chronic kidney disease, stage 3 (moderate); I13.0 Hypertensive heart and chronic kidney disease with heart failure and stage 1 through stage 4 chronic kidney disease, or unspecified chronic kidney disease; I35.0 Nonrheumatic aortic (valve) stenosis; E78.5 Hyperlipidemia, unspecified; G47.33 Obstructive sleep apnea (adult) (pediatric); I25.10 Atherosclerotic heart disease of native coronary artery without angina pectoris; J44.9 Chronic obstructive pulmonary disease, unspecified; E66.9 Obesity, unspecified; I48.0 Paroxysmal atrial fibrillation; Z00.6 Encounter for examination for normal comparison and control in clinical research program; Z79.02 Long term (current) use of antithrombotics/antiplatelets; Z79.82 Long term (current) use of aspirin; Z87.891 Personal history of nicotine dependence; Z95.3 Presence of xenogenic heart valve; Z95.5 Presence of coronary angioplasty implant and graft; Y83.1 Surgical operation with implant of artificial internal device as the cause of abnormal reaction of the patient, or of later complication, without mention of misadventure at the time of the procedure
CPT/HCPCS: 33210; 33361; 80048; 81001; 82948; 85002; 85027; 86920; 87086; 93005; 93308; 93312; 93318; 93320; 93325; 94150; C1760; C1769; C1893; G0269; J0131; J0690; J1644; J1940; J2250; J2370; J2710; J2720; J3010; J7040; J7050; J7120; Q9967

== ENCOUNTER 2018-04-29 12:20 | Inpatient (IN) ==
[2018-04-29] MEDS ORDERED: Acetaminophen 325 MG Tablet PO PRN (15:24)
[2018-04-29] MEDS ORDERED: Magnesium Sulfate Inj 4 GM in Sodium Chlor 0.9% Inj 92 ML IV.SIG PRN (15:24)
[2018-04-29] MEDS ORDERED: Potassium Chlor 40 mEq Premix 40 MEQ/100 ML PIGGYBACK IV.SIG PRN ×2 (15:24)
[2018-04-29] MEDS ORDERED: Potassium Chloride Liq 20 MEQ/15 ML UDC PO PRN ×2 (15:24)
[2018-04-29] MEDS ORDERED: Potassium Chlor 20 mEq Premix 20 MEQ/100 ML PIGGYBACK IV.SIG PRN ×2 (15:24)
[2018-04-29] MEDS ORDERED: Sodium Phosphate Inj 30 MMOL in Sodium Chlor 0.9% Inj 250 ML IV.SIG PRN (15:24)
[2018-04-29] MEDS ORDERED: Potassium Phosphate Inj 30 MMOL in Sodium Chlor 0.9% Inj 250 ML IV.SIG PRN (15:24)
[2018-04-29] MEDS ORDERED: Magnesium Oxide 400 MG Tablet PO PRN (15:24)
[2018-04-29] MEDS ORDERED: Dextrose 50% in Water 50 ML Vial IV.PUSH PRN (15:24)
[2018-04-29] MEDS ORDERED: Potassium Phosphate 500 MG Soluble Tablet PO PRN ×2 (15:24)
[2018-04-29] MEDS ORDERED: Magnesium Sulfate Inj 2 GM in Sodium Chlor 0.9% Inj 96 ML IV.SIG PRN (15:24)
--- NOTE | 2018-04-29 15:24 | P.HPCC ---
History of Present Illness Service: Critical care medicine Primary Care Physician: Antonio Cordero MD Chief Complaint: headache History of Present Illness: This is a 62yM well-known to me from multiple prior admissions who has a remote history of IVDA multiple years ago, s/p prior AVRs and most recently CHF secondary to bioprosthetic aortic valve stenosis. He is s/p [id number] TAVR 05/2017 and since has had complete resolution of his CHF symptoms. He states on Monday (2 days [employer]) he was drinking some beers, had a mechanical fall without LOC and hit his head. EMS was called at that point but he refused medical evaluation. His headache did not go away, so he sought medical attention at OSH. OSH CT head demonstrated ~1cm left SDH without midline shift. He was transferred to [facility] for higher level of care and neurosurgical consultation. He takes ASA and Plavix for his TAVR and Eliquis for his atrial fibrillation. He denies any weakness, numbness, syncope, pre-syncope, vision changes, blurry vision, loss of bowel or bladder control. He states that since my last evaluation in may, his shortness of breath symptoms have completely resolved and he is back to his pre-stenosis functionality. remainder of the ROS is negative. PMHx: JORGE, 30 year history and has been complaint with CPAP nightly x 30 years CHF secondary to valvulopathy which has resolved and diastolic dysfunction Obesity Hypertension HLD CAD with PCI to RCA COPD Diastolic dysfunction Paroxysmal atrial fibrillation stage III CKD PSHx: Mechanical aortic valve replacement 2001 Bioprosthetic aortic valve replacement 2006 [id number] TAVR 05/2017 PCI to RCA FHx: noncontributory to his acute illness. SocHx: - remove IVDA greater than 9 years ago - denies tobacco - drinks a few beers a week Meds: Eliquis metformin Lasix 40mg po bid spiriva plavix ASA lipitor diltiazem metolazone metoprolol amiodarone KCL stool softener Allergies: NKA Inpatient Certification: I certify that the inpatient services were ordered in accordance with Medicare regulations governing the order. This includes certification that hospital inpatient services are reasonable and necessary and in the case of services not specified as inpatient-only under 42 CFR 419.22(n), that they are appropriately provided as inpatient services in accordance to with the 2-midnight benchmark under 43 CFR 412.3(e) Review of Systems All other systems reviewed negative except as stated in HPI PMFSH - History History Provided By: Patient - Social History I have reviewed the patient's Social History: Yes Medications and Allergies Allergies Allergy/AdvReac Type Severity Reaction Status Date / Time No Known Allergies Allergy Verified 04/29/18 15:07 Exam Narrative: gen: middle aged male, obese, lying in bed heent: there is a linear 5cm abrasion on the top of the right side of the scalp , no evidence of hematoma, no bleeding. no tenderness to palpation. pupils are 3mm, equal, round, reactive, conjugate. neck: no tenderness to palpation midline or paraspinous. no jvd. trachea midline. no tenderness on movement. chest: equal chest rise, unlabored. room air. cv: normal rate, irregularly irregular rhythm. afib by telemetry. abd: soft, nontender, nondistended, no guarding. extr: minimal edema, distal pulses 2+. neuro: RASS 0. GCS 15. CAM -. follows commands x 4. GEN 5/5 in all 4 extremities , proximal and distal muscle groups. sensation intact grossly. Caprini VTE Risk Assessment Caprini VTE Risk Assessment: Moderate/High Risk (score >= 2) VTE Pharmacological Exception Reason: Hemorrhage, Intracranial lesions Caprini Risk Assessment Model: Point Value = 1 Point Value = 2 Point Value = 3 Point Value = 5 Age 41-60 Minor surgery BMI > 25 kg/m2 Swollen legs Varicose veins or History of unexplained or recurrent spontaneous Oral contraceptives or hormone replacement Sepsis (< 1 month) Serious lung disease, including pneumonia (< 1 month) Abnormal pulmonary function Acute myocardial infarction Congestive heart failure (< 1 month) History of inflammatory bowel disease Medical patient at bed rest Age 61-74 Arthroscopic surgery Major open surgery (> 45 min) Laparoscopic surgery (> 45 min) Malignancy Confined to bed (> 72 hours) Immobilizing plaster cast Central venous access Age >= 75 History of VTE Family history of VTE Factor V Leiden Prothrombin [id number] Lupus anticoagulant Anticardiolipin antibodies Elevated serum homocysteine Heparin-induced thrombocytopenia Other congenital or acquired thrombophilia Stroke (< 1 month) Elective arthroplasty Hip, pelvis, or leg fracture Acute spinal cord injury (< 1 month) Prophylaxis Regimen: Total Risk Factor Score Risk Level Prophylaxis Regimen 0-1 Low Early ambulation 2 Moderate Order ONE of the following: *Sequential Compression Device (SCD) *Heparin 5000 units SQ BID 3-4 Higher Order ONE of the following medications: *Heparin 5000 units SQ TID *Enoxaparin/Lovenox 40 mg SQ daily (WT < 150 kg, CrCl > 30 mL/min) *Enoxaparin/Lovenox 30 mg SQ daily (WT < 150 kg, CrCl > 10-29 mL/min) *Enoxaparin/Lovenox 30 mg SQ BID (WT < 150 kg, CrCl > 30 mL/min) AND/OR *Sequential Compression Device (SCD) 5 or more Highest Order ONE of the following medications: *Heparin 5000 units SQ TID (Preferred with Epidurals) *Enoxaparin/Lovenox 40 mg SQ daily (WT < 150 kg, CrCl > 30 mL/min) *Enoxaparin/Lovenox 30 mg SQ daily (WT < 150 kg, CrCl > 10-29 mL/min) *Enoxaparin/Lovenox 30 mg SQ BID (WT < 150 kg, CrCl > 30 mL/min) AND *Sequential Compression Device (SCD) Assessment and Plan - Assessment and Plan Plan: Assessment: 62yM with afib, TAVR, CAD on triple anticoagulation presents with left acute subdural hematoma. Admit to ICU and neurosurgery consult. Acute left subdural hematoma - serial neuro checks - hold anticoagulation at this time - given that this is > 48h old, will not reverse anticoagulation or platelet transfusion. - nsgy consultation. s/p TAVR 05/2017 - will consult the structural heart team to evaluate if he is a candidate to remove one of his triple anticoagulation, as triple anticoagulation is known to place people at increased risk of bleeding complications Atrial fibrillation - home metoprolol, diltiazem, amiodarone - currently rate controlled - would be an excellent candidate for Watchman procedure to minimize future bleeding risks associated with anticoagulation - will ask structural heart team to weigh in on procedural control of afib and its complications JORGE - home CPAP at night COPD - home spiriva CKD stage III - check electrolytes and renal function - strict I/Os - keep home diuretic regimen Right ventricular dysfunction Pulmonary hypertension - back in 05/2017, the patient had evidence of pulmonary hypertension and RV dysfunction which was out of proportion to his aortic stenosis. At that time we recommended to him to re-evaluate his RV function and pulmonary hypertension after TAVR. He has seen Dr. Arriaga and plans to see him again next month, along with a repeat echo scheduled next month. I recommended to the patient to keep those appointments, and to specifically ask Dr. Arriaga about his pulmonary hypertension and RV function. - differential diagnosis for worsening pulmonary hypertension at that time would include Class II secondary to decompensated diastolic dysfunction and aortic stenosis, but care should be taken to rule out worsening JORGE or Class III PH secondary to his chronic lung disease. - He is currently dyspnea free, and I do not see an inpatient reason to work up these issues, as we are dealing with his acute head bleed at this time. I did make sure the patient expressed understanding that he should follow up with these issues as an outpatient with Dr. Arriaga. Diastolic dysfunction/Heart failure with preserved EF - no current exacerbation - minimize excessive iv fluids Admit to ICU SCDs hold pharmacologic dvt prophylaxis given head bleed
--- NOTE | 2018-04-29 15:48 | P.CONNS ---
History of Present Illness Service: Neurosurgery Consult date: 04/29/18 Requesting Physician: David Nash Reason for Consult: Left sided subdural hematoma Primary Care Provider: Antonio Cordero MD Chief Complaint: headache History of Present Illness: I was asked by Dr. Nash to see and evaluate this 62yM well-known to [facility] from multiple prior admissions. He is s/p mechanical fall without LOC and hit his head. EMS was called at that point but he refused medical evaluation. His headache got worse, so he sought medical attention at OSH. OSH CT head demonstrated ~1cm left SDH without midline shift and [facility] for Neurosurgery. He takes ASA and Plavix for his TAVR and Eliquis for his atrial fibrillation. He denies any weakness, H/A's or N/V's. Review of Systems All other systems reviewed negative except as stated in HPI PMFSH - History History Provided By: Patient Medications and Allergies Active Medications: Active Medications Acetaminophen (Tylenol) 650 mg PO Q6H PRN PRN Reason: TEMPERATURE > 101 F Albuterol (Duoneb Neb (Prn)) 1 ampul NEB Q2HR NEB PRN PRN Reason: WHEEZING Chlorhexidine Gluconate (Chlorhexidine 2% Cloth) 3 pack TOPICAL DAILY@0400 TAHMINA Stop: 05/05/18 03:59 Chlorhexidine Gluconate (Chlorhexidine 2% Cloth) 3 pack TOPICAL DAILY@0400 PRN PRN Reason: Extra cloth needed Stop: 05/05/18 03:59 Dextrose (D50w Vial) 50 ml IV.PUSH UNSCH PRN PRN Reason: PER HYPOGLYCEMIA PROTOCOL Glucagon (Glucagon Inj) 1 mg OTHER PRN PRN PRN Reason: for Hypoglycemia Protocol Magnesium Sulfate 4 gm/ Sodium (Chloride) 100 mls @ 50 mls/hr IV.SIG UNSCH PRN PRN Reason: For Magnesium 0.9 - 1.1 mg/dL Magnesium Sulfate 2 gm/ Sodium (Chloride) 100 mls @ 50 mls/hr IV.SIG UNSCH PRN PRN Reason: For Magnesium 1.2 - 1.6 mg/dL Potassium Chloride (Kcl 40 Meq Premix Inj) 40 meq in 100 mls @ 25 mls/hr IV.SIG Q2H PRN PRN Reason: For Potassium 2.8 - 3.2 mEq/L Potassium Chloride (Kcl 40 Meq Premix Inj) 40 meq in 100 mls @ 25 mls/hr IV.SIG UNSCH PRN PRN Reason: For Potassium 3.3 - 3.5 mEq/L Potassium Chloride (Kcl 20 Meq Premix Inj) 20 meq in 100 mls @ 50 mls/hr IV.SIG Q2H PRN PRN Reason: For Potassium 2.8 - 3.2 mEq/L Potassium Phosphate 30 mmol/ (Sodium Chloride) 260 mls @ 42 mls/hr IV.SIG UNSCH PRN PRN Reason: SEE LABEL COMMENTS Sodium Phosphate 30 mmol/ (Sodium Chloride) 260 mls @ 42 mls/hr IV.SIG UNSCH PRN PRN Reason: For Phosphorus < 2.5 mg/dL Potassium Chloride (Kcl 20 Meq Premix Inj) 20 meq in 100 mls @ 50 mls/hr IV.SIG Q2H PRN PRN Reason: For Potassium 3.3 - 3.5 mEq/L Insulin Human Regular (Novolin R Correctional Sugar Inj) 0 units SQ ACHS AND 3AM TAHMINA; Protocol Magnesium Oxide (Mag-Ox) 800 mg PO UNSCH PRN PRN Reason: For Magnesium 1.2 - 1.6 mg/dL Ondansetron HCl (Zofran Inj) 4 mg IV.PUSH Q6H PRN PRN Reason: NAUSEA OR VOMITING Potassium Chloride (Kcl Liq) 40 meq PO UNSCH PRN PRN Reason: Potassium level 3.3-3.5 mEq/L Potassium Chloride (Kcl Liq) 40 meq PO UNSCH PRN PRN Reason: POTASSIUM LESS THAN 3.5 Potassium Phosphate (K-Phos Original) 2,000 mg PO Q4H PRN PRN Reason: Phosphorus Less Than 2.5 mg/dL Potassium Phosphate (K-Phos Original) 2,000 mg PO UNSCH PRN PRN Reason: SEE LABEL COMMENTS Senna/Docusate Sodium (Rosario-Colace) 1 tab PO BID TAHMINA Sodium Chloride (Ns Flush) 2 ml IV.FLUSH UNSCH PRN PRN Reason: FLUSH AFTER USING IV ACCESS Allergies Allergy/AdvReac Type Severity Reaction Status Date / Time No Known Allergies Allergy Verified 04/29/18 15:07 Exam Vital signs: Intake & Output 04/28/18 04/29/18 04/29/18 18:59 06:59 18:59 Weight 126.7 kg Other: Weight On Admission 126.7 kg - Constitutional no acute distress, obese, cooperative - Routine HEENT Exam Head: Present: normocephalic, atraumatic Eye: Present: EOMI, PERRL, normal accommodation ENT: Present: mucous membranes moist, oropharynx clear - Routine Neck Exam Present: supple, full ROM, trachea midline - Routine Respiratory Exam Present: CTA bilaterally - Routine Cardiovascular Exam Present: irregular rhythm - Routine Abdominal Exam Present: soft, normoactive bowel sounds - Routine Extremities Exam Present: full ROM, pulses intact, normal capillary refill - Routine Skin Exam Present: intact, warm, normal turgor - Routine Neurological Exam Present: alert, oriented X3, CN II-XII intact, normal reflexes, moving all extremities, normal tone, vision grossly intact, hearing grossly intact, normal speech - Routine Psychiatric Exam Present: normal affect, normal thought process, cooperative Results - Diagnostic Findings EKG: report reviewed, image reviewed Chest x-ray: report reviewed, image reviewed Additional findings: Head CT w/o contrast reviewed Assessment and Plan - Plan 62 yr. male with mild to moderate subacute SDH with no significant mass effect. Admit to ICU HOB to 30 degrees Frequent neuro checks, seizure prophylaxis x 7 days No indication for repeat head CT hold anticoagulation at this time given that this is > 48h old head trauma, there is no indication for reversal of anticoagulation or platelet transfusion. Will follow
[2018-04-29] MEDS: Insulin NovoLIN Regular Correctional Sugar Inj SQ SCH (22:06)
[2018-04-29] MEDS: Senna/Docusate Sodium 8.6/50 MG Tablet PO SCH (22:31)
[2018-04-30] MEDS: Insulin NovoLIN Regular Correctional Sugar Inj SQ SCH ×6 (00:28→20:41)
[2018-04-30] MEDS ORDERED: Chlorhexidine Gluconate 2% 1 Pack (2 Cloths) TOPICAL PRN (04:00)
[2018-04-30 05:26] LABS: Baso # (Auto) 0.1 th/mm3 (0.0-0.2); Baso % (Auto) 0.6 % (0.0-2.0); Eos # (Auto) 0.3 th/mm3 (0.0-0.4); Eos % (Auto) 2.2 % (0.0-4.0); Hemoglobin 14.8 gm/dL (13.0-17.0); Mean Corpuscular HGB Conc 35.2 % (32.0-36.0); Mean Corpuscular Hemoglobin 35.2 pg (27.0-34.0); Mean Corpuscular Volume 99.8 fL (80.0-100.0); Mean Platelet Volume 6.5 fL (7.0-11.0); Mono # (Auto) 1.8 th/mm3 (0.0-0.9); Mono % (Auto) 11.6 % (0.0-8.0); Neut # (Auto) 10.4 th/mm3 (1.8-7.7); Neut % (Auto) 66.6 % (16.0-70.0); Platelet Count 454 th/mm3 (150-450); Red Blood Count 4.21 mil/mm3 (4.50-5.90); Red Cell Distribution Width 14.1 % (11.6-17.2); White Blood Count 15.6 th/mm3 (4.0-11.0)
[2018-04-30 06:04] LABS: Calcium 9.2 mg/dL (8.5-10.1); Carbon Dioxide 36.7 meq/L (21.0-32.0); Magnesium 2.4 mg/dL (1.5-2.5); Phosphorus 3.3 mg/dL (2.5-4.9)
[2018-04-30 06:09] LABS: Potassium 2.4 meq/L (3.5-5.1)
[2018-04-30] MEDS: Chlorhexidine Gluconate 2% 1 Pack (2 Cloths) TOPICAL SCH (06:39)
--- NOTE | 2018-04-30 08:20 | P.PNIM ---
Subjective Interval history: Follow-up subdural hematoma status post fall on aspirin, Plavix and Eliquis. Complaining of frontal headache scale of 9 out of 10 but does seem yesterday. States current pain medicine not helping. No other complaints. Discussed with nursing to update med rec and replace potassium 2.4. Physical Exam Vital signs: Vital Signs 04/29/18 13:44 04/29/18 13:55 04/29/18 14:00 Temperature Pulse Rate 69 64 64 Respiratory Rate 18 Blood Pressure 116/57 L Pulse Oximetry 96 04/29/18 15:00 04/29/18 15:11 04/29/18 16:00 Temperature 98.2 F 98.2 F Pulse Rate 66 75 65 Respiratory Rate 12 22 Blood Pressure 116/57 L 126/62 115/80 Pulse Oximetry 96 89 L 97 04/29/18 16:10 04/29/18 17:00 04/29/18 18:00 Temperature 98.2 F 98.6 F Pulse Rate 66 68 73 Respiratory Rate 23 18 25 H Blood Pressure 115/80 120/56 L 103/54 L Pulse Oximetry 97 95 97 04/29/18 19:00 04/29/18 20:00 04/29/18 21:00 Temperature 99.1 F Pulse Rate 72 78 76 Respiratory Rate 24 18 Blood Pressure 105/53 L 93/50 L 93/50 L Pulse Oximetry 97 95 92 L 04/29/18 22:00 04/29/18 23:00 04/29/18 23:03 Temperature Pulse Rate 80 101 H 88 Respiratory Rate 12 Blood Pressure 125/62 136/71 Pulse Oximetry 91 L 89 L 96 04/29/18 23:15 04/30/18 00:00 04/30/18 01:00 Temperature 98.6 F Pulse Rate 79 78 Respiratory Rate 22 18 Blood Pressure 95/53 L 95/49 L Pulse Oximetry 94 L 95 04/30/18 02:00 04/30/18 02:06 04/30/18 03:00 Temperature Pulse Rate 85 71 Respiratory Rate 24 Blood Pressure 125/60 109/55 L Pulse Oximetry 93 L 90 L 04/30/18 04:00 04/30/18 05:00 04/30/18 06:00 Temperature 98.7 F Pulse Rate 75 76 83 Respiratory Rate 20 15 Blood Pressure 105/51 L 114/55 L Pulse Oximetry 91 L 92 L 92 L 04/30/18 06:32 Temperature Pulse Rate 72 Respiratory Rate Blood Pressure 113/57 L Pulse Oximetry 94 L Intake & Output 04/29/18 04/30/18 04/30/18 18:59 06:59 18:59 Intake Total 600 / 600 Output Total 750 / 750 1150 / 1150 Balance -150 / -150 -1150 / -1150 Weight 126.7 kg 121.5 kg Intake: Oral 600 / 600 Output: Urine 750 / 750 1150 / 1150 Other: Weight On Admission 126.7 kg Narrative: middle aged male, obese, lying in bed heent: there is a linear 5cm abrasion on the top of the right side of the scalp , no evidence of hematoma, no bleeding. no tenderness to palpation. pupils are 3mm, equal, round, reactive, conjugate. chest: equal chest rise, unlabored. room air. cv: normal rate, irregularly irregular rhythm. afib by telemetry. abd: soft, nontender, nondistended, no guarding. extr: minimal edema, distal pulses 2+. neuro: RASS 0. GCS 15. CAM -. follows commands x 4. GEN 5/5 in all 4 extremities , proximal and distal muscle groups. sensation intact grossly. Results Labs CBC & Chem 7: 04/30/18 04:11 04/30/18 04:11 Assessment and Plan Plan 62yM with afib, TAVR, CAD on triple anticoagulation presents with left acute subdural hematoma. Admit to ICU and neurosurgery consult. Acute left subdural hematoma - serial neuro checks, HOB 30 degrees, Sz proph for 7 days start Keppra - hold anticoagulation at this time - given that this is > 48h old, will not reverse anticoagulation or platelet transfusion. - nsgy consultation. s/p TAVR 05/2017 - will consult CTS to evaluate if he is a candidate to remove one of his triple anticoagulation, as triple anticoagulation is known to place people at increased risk of bleeding complications Atrial fibrillation - home metoprolol, diltiazem, amiodarone. Nursing to update med list - currently rate controlled - would be an excellent candidate for Watchman procedure to minimize future bleeding risks associated with anticoagulation - will ask CTS to weigh in on procedural control of afib and its complications JORGE - home CPAP at night COPD - home spiriva CKD stage III - check electrolytes and renal function - strict I/Os - keep home diuretic regimen Right ventricular dysfunction Pulmonary hypertension - back in 05/2017, the patient had evidence of pulmonary hypertension and RV dysfunction which was out of proportion to his aortic stenosis. At that time recommended to him to re-evaluate his RV function and pulmonary hypertension after TAVR. He has seen Dr. Arriaga and plans to see him again next month, along with a repeat echo scheduled next month. Recommended to the patient to keep those appointments, and to specifically ask Dr. Arriaga about his pulmonary hypertension and RV function. - differential diagnosis for worsening pulmonary hypertension at that time would include Class II secondary to decompensated diastolic dysfunction and aortic stenosis, but care should be taken to rule out worsening JORGE or Class III PH secondary to his chronic lung disease. - He is currently dyspnea free, and do not see an inpatient reason to work up these issues, as we are dealing with his acute head bleed at this time. Patient expressed understanding that he should follow up with these issues as an outpatient with Dr. Arriaga. Diastolic dysfunction/Heart failure with preserved EF - no current exacerbation - minimize excessive iv fluids Leukocytosis which is chronic. Will monitor admit to ICU SCDs hold pharmacologic dvt prophylaxis given head bleed Progress Note: Quality VTE Deep Vein Thrombosis/Pulmonary Embolism Present on Admission: No
[2018-04-30] MEDS ORDERED: Naloxone Inj 0.4 MG/ML Vial IV.PUSH PRN (09:04)
[2018-04-30] MEDS: levETIRAcetam 500 MG Tablet PO SCH ×2 (09:12→20:41)
[2018-04-30] MEDS: Senna/Docusate Sodium 8.6/50 MG Tablet PO SCH ×2 (09:13→20:41)
[2018-04-30] MEDS: Morphine Inj 4 MG/ML Vial IV.PUSH PRN ×2 (09:48→18:40)
--- NOTE | 2018-04-30 10:59 | P.PNNS ---
Subjective Interval history: neurologically stable overnight, denies focal weakness, c/o of mild to moderate headaches <Flor Perkins - Last Filed: 04/30/18 10:55> Physical Exam Vital signs: Vital Signs 04/29/18 13:44 04/29/18 13:55 04/29/18 14:00 Temperature Pulse Rate 69 64 64 Respiratory Rate 18 Blood Pressure 116/57 L Pulse Oximetry 96 04/29/18 15:00 04/29/18 15:11 04/29/18 16:00 Temperature 98.2 F 98.2 F Pulse Rate 66 75 65 Respiratory Rate 12 22 Blood Pressure 116/57 L 126/62 115/80 Pulse Oximetry 96 89 L 97 04/29/18 16:10 04/29/18 17:00 04/29/18 18:00 Temperature 98.2 F 98.6 F Pulse Rate 66 68 73 Respiratory Rate 23 18 25 H Blood Pressure 115/80 120/56 L 103/54 L Pulse Oximetry 97 95 97 04/29/18 19:00 04/29/18 20:00 04/29/18 21:00 Temperature 99.1 F Pulse Rate 72 78 76 Respiratory Rate 24 18 Blood Pressure 105/53 L 93/50 L 93/50 L Pulse Oximetry 97 95 92 L 04/29/18 22:00 04/29/18 23:00 04/29/18 23:03 Temperature Pulse Rate 80 101 H 88 Respiratory Rate 12 Blood Pressure 125/62 136/71 Pulse Oximetry 91 L 89 L 96 04/29/18 23:15 04/30/18 00:00 04/30/18 01:00 Temperature 98.6 F Pulse Rate 79 78 Respiratory Rate 22 18 Blood Pressure 95/53 L 95/49 L Pulse Oximetry 94 L 95 04/30/18 02:00 04/30/18 02:06 04/30/18 03:00 Temperature Pulse Rate 85 71 Respiratory Rate 24 Blood Pressure 125/60 109/55 L Pulse Oximetry 93 L 90 L 04/30/18 04:00 04/30/18 05:00 04/30/18 06:00 Temperature 98.7 F Pulse Rate 75 76 83 Respiratory Rate 20 15 Blood Pressure 105/51 L 114/55 L Pulse Oximetry 91 L 92 L 92 L 04/30/18 06:32 04/30/18 08:00 Temperature Pulse Rate 72 Respiratory Rate Blood Pressure 113/57 L Pulse Oximetry 94 L 96 Intake & Output 04/29/18 04/30/18 04/30/18 18:59 06:59 18:59 Intake Total 600 / 600 Output Total 750 / 750 1150 / 1150 Balance -150 / -150 -1150 / -1150 Weight 126.7 kg 121.5 kg Intake: Oral 600 / 600 Output: Urine 750 / 750 1150 / 1150 Other: Weight On Admission 126.7 kg Narrative: no acute distress, obese, cooperative alert, oriented X3 CN II-XII grossly intact moving all extremities with good strength normal speech <Flor Perkins - Last Filed: 04/30/18 10:55> Vital signs: Vital Signs 04/29/18 23:00 04/29/18 23:03 04/29/18 23:15 Temperature Pulse Rate 101 H 88 Respiratory Rate 22 Blood Pressure 136/71 Pulse Oximetry 89 L 96 04/30/18 00:00 04/30/18 01:00 04/30/18 02:00 Temperature 98.6 F Pulse Rate 79 78 85 Respiratory Rate 18 Blood Pressure 95/53 L 95/49 L Pulse Oximetry 94 L 95 93 L 04/30/18 02:06 04/30/18 03:00 04/30/18 04:00 Temperature 98.7 F Pulse Rate 71 75 Respiratory Rate 24 20 Blood Pressure 125/60 109/55 L 105/51 L Pulse Oximetry 90 L 91 L 04/30/18 05:00 04/30/18 06:00 04/30/18 06:32 Temperature Pulse Rate 76 83 72 Respiratory Rate 15 Blood Pressure 114/55 L 113/57 L Pulse Oximetry 92 L 92 L 94 L 04/30/18 07:00 04/30/18 08:00 04/30/18 09:00 Temperature 98.0 F Pulse Rate 72 72 74 Respiratory Rate 15 19 30 H Blood Pressure 107/58 L 134/72 118/57 L Pulse Oximetry 91 L 94 L 93 L 04/30/18 10:00 04/30/18 11:00 04/30/18 12:00 Temperature Pulse Rate 70 73 73 Respiratory Rate 52 H 16 30 H Blood Pressure 115/59 L 111/63 Pulse Oximetry 96 94 L 91 L 04/30/18 12:08 04/30/18 13:00 04/30/18 14:00 Temperature 98.9 F Pulse Rate 79 74 75 Respiratory Rate 18 22 26 H Blood Pressure 128/66 Pulse Oximetry 94 L 92 L 93 L 04/30/18 14:04 04/30/18 14:05 04/30/18 15:00 Temperature Pulse Rate 75 70 Respiratory Rate 31 H Blood Pressure 116/69 Pulse Oximetry 93 L 91 L 04/30/18 16:00 04/30/18 17:00 04/30/18 18:00 Temperature 98.7 F Pulse Rate 70 73 69 Respiratory Rate 28 H 30 H 19 Blood Pressure Pulse Oximetry 93 L 99 95 04/30/18 19:00 04/30/18 19:30 04/30/18 20:00 Temperature 98.6 F Pulse Rate 66 71 Respiratory Rate 16 16 Blood Pressure 99/50 L 110/52 L Pulse Oximetry 96 98 95 04/30/18 21:00 04/30/18 22:00 04/30/18 22:33 Temperature Pulse Rate 65 66 Respiratory Rate 16 18 18 Blood Pressure 101/51 L 118/59 L Pulse Oximetry 95 95 Intake & Output 04/30/18 04/30/18 05/01/18 06:59 18:59 06:59 Intake Total 385 / 385 Output Total 1150 / 1150 500 / 500 Balance -1150 / -1150 -115 / -115 Weight 121.5 kg Intake: IV 25 / 25 KCl 20 mEq Premix Inj 20 meq In 25 / 25 100 ml @ 50 mls/hr IV.SIG Q2H PRN Rx#:[id number] Oral 360 / 360 Output: Urine 1150 / 1150 500 / 500 <José Miguel Li - Last Filed: 04/30/18 22:58> Assessment and Plan - Plan 62 yr. male with mild to moderate subacute SDH with no significant mass effect. Admit to ICU HOB to 30 degrees Frequent neuro checks, seizure prophylaxis x 7 days No indication for repeat head CT hold anticoagulation at this time given that this is > 48h old head trauma, there is no indication for reversal of anticoagulation or platelet transfusion. Will follow 04/30/2018 remains neurologically stable with nonfocal examination, continue nonsurgical management of SDH will defer restart of anticoagulation to critical care and champion of [employer] Neurosurgery team dw Dr. Nash, [employer] no further neurosurgical interventions planned patient to follow up [facility] office in [address] Head, will sign off, please call prn <Flor Perkins - Last Filed: 04/30/18 10:55> - Attending Attestation Neuro non-focal I have personally seen and examined the patient, reviewed pertinent labs and imaging studies with the Neurosurgery team. I agree with Ms. Perkins's ( Neurosurgery PA), assessment as well as plan of care. <José Miguel Li - Last Filed: 04/30/18 22:58>
[2018-04-30] MEDS: dilTIAZem CD 240 MG Capsule PO SCH (11:38)
[2018-04-30 17:48] LABS: Calcium 9.2 mg/dL (8.5-10.1); Magnesium 2.6 mg/dL (1.5-2.5); Potassium 3.5 meq/L (3.5-5.1)
[2018-04-30] MEDS: Spironolactone 25 MG Tablet PO SCH (20:41)
[2018-04-30] MEDS ORDERED: POTASSIUM PO SCH (21:00)
[2018-04-30] MEDS: Sodium Chloride 1 GM Tablet PO SCH (21:46)
[2018-05-01 05:18] LABS: Baso # (Auto) 0.1 th/mm3 (0.0-0.2); Baso % (Auto) 0.5 % (0.0-2.0); Eos # (Auto) 0.2 th/mm3 (0.0-0.4); Eos % (Auto) 1.5 % (0.0-4.0); Hematocrit 43.5 % (39.0-51.0); Hemoglobin 15.5 gm/dL (13.0-17.0); Lymph # (Auto) 2.5 th/mm3 (1.0-4.8); Lymph % (Auto) 16.9 % (9.0-44.0); Mean Corpuscular HGB Conc 35.7 % (32.0-36.0); Mean Corpuscular Hemoglobin 35.6 pg (27.0-34.0); Mean Corpuscular Volume 99.9 fL (80.0-100.0); Mean Platelet Volume 6.5 fL (7.0-11.0); Mono # (Auto) 1.5 th/mm3 (0.0-0.9); Neut # (Auto) 10.6 th/mm3 (1.8-7.7); Neut % (Auto) 71.1 % (16.0-70.0); Platelet Count 455 th/mm3 (150-450); Red Blood Count 4.36 mil/mm3 (4.50-5.90); Red Cell Distribution Width 13.9 % (11.6-17.2)
[2018-05-01] MEDS: Insulin NovoLIN Regular Correctional Sugar Inj SQ SCH ×5 (05:21→22:08)
[2018-05-01] MEDS: Chlorhexidine Gluconate 2% 1 Pack (2 Cloths) TOPICAL SCH (05:21)
[2018-05-01 05:45] LABS: Calcium 9.5 mg/dL (8.5-10.1); Carbon Dioxide 35.7 meq/L (21.0-32.0); Magnesium 2.5 mg/dL (1.5-2.5); Phosphorus 2.7 mg/dL (2.5-4.9)
[2018-05-01 06:24] LABS: Bilirubin,Urine Negative (Negative); Clarity,Urine Clear (Clear); Color,Urine Yellow (Yellw/Straw); Glucose,Urine (UA) Negative (Negative); Leukocyte Esterase,Urine Negative (Negative); Nitrite,Urine Negative (Negative); Specific Gravity,Urine 1.018 (1.002-1.035); Squamous Epithelial Cell,Urine <1 /hpf (0-5)
[2018-05-01 06:55] LABS: Potassium 2.6 meq/L (3.5-5.1)
--- NOTE | 2018-05-01 07:35 | MB ---
cc: Irene Hopper MD DATE: 04/30/2018 HISTORY OF PRESENT ILLNESS: A 62-year-old male who underwent a transcatheter aortic valve replacement in May 2017. Prior to that, he had aortic valve replacements. On date of admission, on 04/29/2018, he had been drinking some beers, apparently lost his balance, fell and hit his head. EMS was called at the point but he refused initial medical evaluation. He had a headache, so he sought medical attention. CT head demonstrated a 1 cm left subdural hematoma without midline shift. He was transferred to our facility for higher level of care and neurosurgery consultation. He takes aspirin and Plavix for his transcatheter aortic valve replacement and Eliquis for his atrial fibrillation. Apparently, he denied any weakness, numbness, syncope. We were consulted to input on anticoagulation post-recovery from a subdural hematoma. PAST MEDICAL HISTORY: Includes obstructive sleep apnea, CHF, obesity, hypertension, hyperlipidemia, coronary artery disease with prior PCI to the RCA, COPD, diastolic dysfunction, paroxysmal atrial fibrillation, stage III chronic kidney disease. He has had aortic valve replacement mechanical in 2001, bioprosthetic atrial valve replacement in 2006, and valve transcatheter aortic valve in May 2017, PCI to the RCA. ALLERGIES: NO KNOWN ALLERGIES. HOME MEDICATIONS: 1. Eliquis. 2. Metformin. 3. Lasix. 4. Spiriva. 5. Plavix. 6. Lipitor. 7. Diltiazem. 8. ____. 9. Metoprolol. 10. Amiodarone. FAMILY HISTORY: Noncontributory. SOCIAL HISTORY: Remote IV drug use greater than 9 years ago. No tobacco. Drinks a few beers a week. REVIEW OF SYSTEMS: GENERAL: No night sweats, fever, heat and cold intolerance. SKIN: No psoriasis, itching or hives. HEENT: No blurred vision. He has had recent headache. RESPIRATORY: No cough or shortness of breath. CARDIOVASCULAR: No chest pain. No paroxysmal nocturnal dyspnea. GASTROINTESTINAL: No diarrhea or vomiting. GENITOURINARY: No burning, frequency, urgency. CENTRAL NERVOUS SYSTEM: Positive for recent fall, subdural hematoma. PHYSICAL EXAMINATION: VITAL SIGNS: Blood pressure 113/60, heart rate is 72. GENERAL: The patient is awake, alert, in no acute distress. HEENT: Still has mild headache. Head is normocephalic. He does have a small hematoma to the right parietal area. There is also a small abrasion. Pupils are equal and reactive. Oral mucosa pink, moist. NECK: Supple. No JVD. CARDIOVASCULAR: Heart sounds S1, S2, irregular rate and rhythm. No audible rubs or gallops. LUNGS: Clear to auscultation. No wheezes, rales or rhonchi. ABDOMEN: Soft, nontender. No masses or organomegaly. EXTREMITIES: No cyanosis, clubbing, or edema. LABORATORY DATA: Shows hemoglobin 14, hematocrit of 42. White cell count of 15, platelet count of 454. Sodium 129, potassium 2.4, BUN of 19, creatinine 1.2. The patient has received potassium replacement. MRSA screen non-detected. IMPRESSION: This is a 62-year-old male with recent history of transcatheter aortic valve replacement following 2 prior aortic valve replacements, mechanical and tissue. He has been on triple therapy with Eliquis, aspirin and Plavix; the Eliquis due to his atrial fibrillation. At this time, the recommendation would obviously be to hold all products and possibly reintroduce a baby aspirin in 7 days post-insult. No further need for Plavix at this time. He is almost a year out and then evaluation for restarting Eliquis in approximately 6 weeks or being evaluated for possible Watchman procedure. Dictated by Adriana Lomax APRN I interviewed and examined this patient with the [facility] on 04/30/18. He sustained a recent subdural hematoma and recommend holding the eliquis for 4-6 weeks. He should stop the plavix and continue with aspirin only regarding anticoagulation. MD IBAN Zavala/es/ll , 04:11 PM , 04:20 PM LUIZA
[2018-05-01] MEDS: levETIRAcetam 500 MG Tablet PO SCH ×2 (08:19→22:00)
[2018-05-01] MEDS: Gabapentin 300 MG Capsule PO SCH (08:19)
[2018-05-01] MEDS: Spironolactone 25 MG Tablet PO SCH ×2 (08:20→22:00)
[2018-05-01] MEDS: Furosemide 40 MG Tablet PO SCH (08:20)
[2018-05-01] MEDS: metOLazone 5 MG Tablet PO SCH (08:20)
[2018-05-01] MEDS: dilTIAZem CD 240 MG Capsule PO SCH (08:21)
[2018-05-01] MEDS: Sodium Chloride 1 GM Tablet PO SCH ×2 (08:21→22:00)
[2018-05-01] MEDS: Senna/Docusate Sodium 8.6/50 MG Tablet PO SCH ×2 (08:28→22:00)
--- NOTE | 2018-05-01 09:40 | P.PNIM ---
Subjective Interval history: Follow-up subdural hematoma. Improving headache. Physical Exam Vital signs: Vital Signs 04/30/18 10:00 04/30/18 11:00 04/30/18 12:00 Temperature Pulse Rate 70 73 73 Respiratory Rate 52 H 16 30 H Blood Pressure 115/59 L 111/63 Pulse Oximetry 96 94 L 91 L 04/30/18 12:08 04/30/18 13:00 04/30/18 14:00 Temperature 98.9 F Pulse Rate 79 74 75 Respiratory Rate 18 22 26 H Blood Pressure 128/66 Pulse Oximetry 94 L 92 L 93 L 04/30/18 14:04 04/30/18 14:05 04/30/18 15:00 Temperature Pulse Rate 75 70 Respiratory Rate 31 H Blood Pressure 116/69 Pulse Oximetry 93 L 91 L 04/30/18 16:00 04/30/18 17:00 04/30/18 18:00 Temperature 98.7 F Pulse Rate 70 73 69 Respiratory Rate 28 H 30 H 19 Blood Pressure Pulse Oximetry 93 L 99 95 04/30/18 19:00 04/30/18 19:30 04/30/18 20:00 Temperature 98.6 F Pulse Rate 66 71 Respiratory Rate 16 16 Blood Pressure 99/50 L 110/52 L Pulse Oximetry 96 98 95 04/30/18 21:00 04/30/18 22:00 04/30/18 22:33 Temperature Pulse Rate 65 66 Respiratory Rate 16 18 18 Blood Pressure 101/51 L 118/59 L Pulse Oximetry 95 95 04/30/18 23:00 05/01/18 00:00 05/01/18 00:29 Temperature 99.3 F Pulse Rate 64 65 64 Respiratory Rate 18 18 Blood Pressure 92/49 L 85/49 L Pulse Oximetry 93 L 92 L 92 L 05/01/18 01:00 05/01/18 02:00 05/01/18 03:00 Temperature Pulse Rate 64 60 65 Respiratory Rate 20 16 22 Blood Pressure 90/49 L 88/43 L 115/54 L Pulse Oximetry 94 L 95 95 05/01/18 04:00 05/01/18 04:06 05/01/18 05:00 Temperature 98.0 F Pulse Rate 68 66 62 Respiratory Rate 20 20 21 Blood Pressure 120/55 L Pulse Oximetry 96 94 L 96 05/01/18 05:03 05/01/18 06:00 05/01/18 08:00 Temperature Pulse Rate 62 67 65 Respiratory Rate 19 20 Blood Pressure 86/48 L 97/52 L Pulse Oximetry 96 96 96 05/01/18 09:26 Temperature Pulse Rate Respiratory Rate 20 Blood Pressure Pulse Oximetry Intake & Output 04/30/18 05/01/18 05/01/18 18:59 06:59 18:59 Intake Total 385 / 385 360 / 360 Output Total 500 / 500 550 / 550 Balance -115 / -115 -190 / -190 Weight 126.2 kg Intake: IV 25 / 25 KCl 20 mEq Premix Inj 20 meq In 100 ml @ 50 mls/hr IV.SIG Q2H PRN Rx#:[id number] Oral 360 / 360 360 / 360 Output: Urine 500 / 500 550 / 550 Other: Date of Last Bowel Movement 04/29/18 Narrative: middle aged male, obese, lying in bed heent: there is a linear 5cm abrasion on the top of the right side of the scalp , no evidence of hematoma, no bleeding. no tenderness to palpation. pupils are 3mm, equal, round, reactive, conjugate. chest: equal chest rise, unlabored. room air. cv: normal rate, irregularly irregular rhythm. afib by telemetry. abd: soft, nontender, nondistended, no guarding. extr: minimal edema, distal pulses 2+. neuro: RASS 0. GCS 15. CAM -. follows commands x 4. GEN 5/5 in all 4 extremities , proximal and distal muscle groups. sensation intact grossly. Results Labs CBC & Chem 7: 05/01/18 04:06 05/01/18 04:06 Assessment and Plan Plan 62yM with afib, TAVR, CAD on triple anticoagulation presents with left acute subdural hematoma. Admit to ICU and neurosurgery consult. Acute left subdural hematoma. Stable - serial neuro checks, HOB 30 degrees, Sz proph for 7 days with Keppra - hold anticoagulation at this time - given that this is > 48h old, will not reverse anticoagulation or platelet transfusion. - nsgy consultation. s/p TAVR 05/2017 - will consult CTS to evaluate if he is a candidate to remove one of his triple anticoagulation, as triple anticoagulation is known to place people at increased risk of bleeding complications. Discussed with nurse to follow-up consultation Atrial fibrillation - home metoprolol, diltiazem - currently rate controlled - would be an excellent candidate for Watchman procedure to minimize future bleeding risks associated with anticoagulation - will ask CTS to weigh in on procedural control of afib and its complications JORGE - home CPAP at night COPD - home spiriva CKD stage III with hypokalemia - check electrolytes and renal function - strict I/Os - keep home diuretic regimen Right ventricular dysfunction Pulmonary hypertension - back in 05/2017, the patient had evidence of pulmonary hypertension and RV dysfunction which was out of proportion to his aortic stenosis. At that time recommended to him to re-evaluate his RV function and pulmonary hypertension after TAVR. He has seen Dr. Arriaga and plans to see him again next month, along with a repeat echo scheduled next month. Recommended to the patient to keep those appointments, and to specifically ask Dr. Arriaga about his pulmonary hypertension and RV function. - differential diagnosis for worsening pulmonary hypertension at that time would include Class II secondary to decompensated diastolic dysfunction and aortic stenosis, but care should be taken to rule out worsening JORGE or Class III PH secondary to his chronic lung disease. - He is currently dyspnea free, and do not see an inpatient reason to work up these issues, as we are dealing with his acute head bleed at this time. Patient expressed understanding that he should follow up with these issues as an outpatient with Dr. Arriaga. Diastolic dysfunction/Heart failure with preserved EF - no current exacerbation - minimize excessive iv fluids Leukocytosis which is chronic. Will monitor check urinalysis, chest x-ray and blood cultures May transfer out of ICU if okay with neurosurgery SCDs hold pharmacologic dvt prophylaxis given head bleed Progress Note: Quality VTE Deep Vein Thrombosis/Pulmonary Embolism Present on Admission: No
--- NOTE | 2018-05-01 11:05 | XR ---
EXAM DATE: 05/01/2018 10:48 AM EST AGE/SEX: 62 years / Male INDICATIONS: Shortness of breath. CLINICAL DATA: This is the patient's initial encounter. Patient reports that signs and symptoms have been present for 1 day and indicates a pain score of 0/10. MEDICAL/SURGICAL HISTORY: Chronic obstructive pulmonary disease. Congestive heart failure. CAB G. COMPARISON: . FINDINGS: The cardiac silhouette is enlarged in transverse diameter. The lungs are free of acute parenchymal op acity. No effusions are identified. CONCLUSION: Cardiomegaly. No acute pulmonary disease. Resolution of the previously seen pulmonary edema Electronically signed by: Andrews Del Real MD Board Certified Radiologist 05/01/2018 11:03 AM EST
[2018-05-01] MEDS: Morphine Inj 4 MG/ML Vial IV.PUSH PRN ×2 (15:28→18:26)
[2018-05-02] MEDS: Morphine Inj 4 MG/ML Vial IV.PUSH PRN ×2 (01:20→10:07)
[2018-05-02 01:27] VITALS: PULSE 66
[2018-05-02] MEDS: Insulin NovoLIN Regular Correctional Sugar Inj SQ SCH ×4 (03:34→17:05)
[2018-05-02] MEDS: Chlorhexidine Gluconate 2% 1 Pack (2 Cloths) TOPICAL SCH (03:35)
[2018-05-02 07:29] LABS: Baso # (Auto) 0.1 th/mm3 (0.0-0.2); Baso % (Auto) 0.8 % (0.0-2.0); Eos # (Auto) 0.3 th/mm3 (0.0-0.4); Hematocrit 41.5 % (39.0-51.0); Hemoglobin 14.6 gm/dL (13.0-17.0); Lymph # (Auto) 2.2 th/mm3 (1.0-4.8); Lymph % (Auto) 14.2 % (9.0-44.0); Mean Corpuscular HGB Conc 35.2 % (32.0-36.0); Mean Corpuscular Hemoglobin 34.7 pg (27.0-34.0); Mean Corpuscular Volume 98.5 fL (80.0-100.0); Mean Platelet Volume 6.5 fL (7.0-11.0); Neut # (Auto) 10.8 th/mm3 (1.8-7.7); Platelet Count 455 th/mm3 (150-450); Red Blood Count 4.21 mil/mm3 (4.50-5.90); Red Cell Distribution Width 14.2 % (11.6-17.2); White Blood Count 15.4 th/mm3 (4.0-11.0)
[2018-05-02 07:58] LABS: Calcium 9.3 mg/dL (8.5-10.1); Carbon Dioxide 33.7 meq/L (21.0-32.0); Magnesium 2.3 mg/dL (1.5-2.5)
[2018-05-02 08:09] LABS: Potassium 2.9 meq/L (3.5-5.1)
[2018-05-02] MEDS: Gabapentin 300 MG Capsule PO SCH (08:57)
[2018-05-02] MEDS: dilTIAZem CD 240 MG Capsule PO SCH (08:57)
[2018-05-02] MEDS: Furosemide 40 MG Tablet PO SCH (08:58)
[2018-05-02] MEDS: Sodium Chloride 1 GM Tablet PO SCH (08:58)
[2018-05-02] MEDS: levETIRAcetam 500 MG Tablet PO SCH (08:58)
[2018-05-02] MEDS: metOLazone 5 MG Tablet PO SCH (08:59)
[2018-05-02] MEDS: Senna/Docusate Sodium 8.6/50 MG Tablet PO SCH (08:59)
[2018-05-02] MEDS: Spironolactone 25 MG Tablet PO SCH (09:00)
[2018-05-02 09:33] VITALS: BP 121/53; RESP 20; TEMP 98; O2SAT 95
[2018-05-02 15:46] LABS: Calcium 9.4 mg/dL (8.5-10.1); Carbon Dioxide 33.4 meq/L (21.0-32.0); Potassium 3.2 meq/L (3.5-5.1)
--- NOTE | 2018-05-02 16:24 | P.DS ---
DS: Providers Date of admission: 04/29/18 13:52 Primary care physician: Antonio Cordero MD Consults: 04/29/18 15:26 Consult to Neurosurgery Routine Consulting Provider: José Miguel Charles Preferred Training Associate:: José Miguel Guillermo Patient known to:: José Miguel Charles Reason for Consultation: left SDH Notified:: Physician Spoke with:: DR. CHARLES Date Notified:: 04/29/18 Time Notified:: 16:04 Ordering Provider: HELENA 04/29/18 15:31 Consult to Cardiothoracic Surgery Routine Consulting Provider: Irene Hopper Preferred Training Associate:: Irene Hopper Patient known to:: Irene Hopper Reason for Consultation: s/p TAVR, please eval for anticoagulation recommendations Notified:: Physician Spoke with:: DR. 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 He is s/p [id number] TAVR 05/2017 and since has had complete resolution of his CHF symptoms. He states on Monday (2 days [employer]) he was drinking some beers, had a mechanical fall without LOC and hit his head. EMS was called at that point but he refused medical evaluation. His headache did not go away, so he sought medical attention at OSH. OSH CT head demonstrated ~1cm left SDH without midline shift. He was transferred to [facility] for higher level of care and neurosurgical consultation. He takes ASA and Plavix for his TAVR and Eliquis for his atrial fibrillation. He denies any weakness, numbness, syncope, pre-syncope, vision changes, blurry vision, loss of bowel or bladder control. He states that since my last evaluation in may, his shortness of breath symptoms have completely resolved and he is back to his pre-stenosis functionality. remainder of the ROS is negative. PMHx: JORGE, 30 year history and has been complaint with CPAP nightly x 30 years CHF secondary to valvulopathy which has resolved and diastolic dysfunction Obesity Hypertension HLD CAD with PCI to RCA COPD Diastolic dysfunction Paroxysmal atrial fibrillation stage III CKD PSHx: Mechanical aortic valve replacement 2001 Bioprosthetic aortic valve replacement 2006 [id number] TAVR 05/2017 PCI to RCA FHx: noncontributory to his acute illness. SocHx: - remove IVDA greater than 9 years ago - denies tobacco - drinks a few beers a week Meds: Eliquis metformin Lasix 40mg po bid spiriva plavix ASA lipitor diltiazem metolazone metoprolol amiodarone KCL stool softener Allergies: NKA DS: Summary 62yM with afib, TAVR, CAD on triple anticoagulation presents with left acute subdural hematoma. Admit to ICU and neurosurgery consult. Acute left subdural hematoma. Stable - serial neuro checks, HOB 30 degrees, Sz proph for 7 days with Keppra - hold anticoagulation at this time, patient aware increased risk of CVA off anticoagulation. But risks outweigh benefits of anticoagulation at this time - given that this is > 48h old, will not reverse anticoagulation or platelet transfusion. - nsgy consultation. s/p TAVR 05/2017 -CTS recommending to discontinue Plavix and possibly reintroduce baby aspirin in 7 days post insult patient to discuss with PCP. Consider restarting Eliquis in approximately 6 weeks after evaluation for possible watchman procedure Atrial fibrillation - home metoprolol, diltiazem - currently rate controlled - would be an excellent candidate for Watchman procedure to minimize future bleeding risks associated with anticoagulation JORGE - home CPAP at night COPD - home spiriva CKD stage III with hypokalemia - check electrolytes and renal function - strict I/Os - keep home diuretic regimen Right ventricular dysfunction Pulmonary hypertension - back in 05/2017, the patient had evidence of pulmonary hypertension and RV dysfunction which was out of proportion to his aortic stenosis. At that time recommended to him to re-evaluate his RV function and pulmonary hypertension after TAVR. He has seen Dr. Arriaga and plans to see him again next month, along with a repeat echo scheduled next month. Recommended to the patient to keep those appointments, and to specifically ask Dr. Arriaga about his pulmonary hypertension and RV function. - differential diagnosis for worsening pulmonary hypertension at that time would include Class II secondary to decompensated diastolic dysfunction and aortic stenosis, but care should be taken to rule out worsening JORGE or Class III PH secondary to his chronic lung disease. - He is currently dyspnea free, and do not see an inpatient reason to work up these issues, as we are dealing with his acute head bleed at this time. Patient expressed understanding that he should follow up with these issues as an outpatient with Dr. Arriaga. Diastolic dysfunction/Heart failure with preserved EF - no current exacerbation - minimize excessive iv fluids Leukocytosis which is chronic. Chest x-ray and urinalysis unremarkable pending pending blood culture. SCDs hold pharmacologic dvt prophylaxis given head bleed Time Spent with Patient Total time spent providing and/or coordinating discharge services: Greater than 30 minutes Quality: VTE Deep Vein Thrombosis/Pulmonary Embolism Present on Admission: No Exam Narrative Exam Narrative: middle aged male, obese, lying in bed heent: there is a linear 5cm abrasion on the top of the right side of the scalp , no evidence of hematoma, no bleeding. no tenderness to palpation. pupils are 3mm, equal, round, reactive, conjugate. chest: equal chest rise, unlabored. room air. cv: normal rate, irregularly irregular rhythm. afib by telemetry. abd: soft, nontender, nondistended, no guarding. extr: minimal edema, distal pulses 2+. neuro: RASS 0. GCS 15. CAM -. follows commands x 4. GEN 5/5 in all 4 extremities , proximal and distal muscle groups. sensation intact grossly. Results Labs on day of discharge: Labs from last 24 hours 05/02/18 05/02/18 05/02/18 11:14 07:54 05:59 WBC RBC Hgb Hct MCV MCH MCHC RDW Plt Count MPV Neut % (Auto) Lymph % (Auto) Citrus % (Auto) Eos % (Auto) Baso % (Auto) Neut # (Auto) Lymph # (Auto) Citrus # (Auto) Eos # (Auto) Baso # (Auto) WBC Differential Differential Comment Sodium 128 L Potassium 2.9 L* Chloride 87 L Carbon Dioxide 33.7 H Anion Gap 7 BUN 17 Creatinine 1.12 Estimated GFR 67 L POC Glucose 127 H 133 H Random Glucose 111 H Calcium 9.3 Phosphorus 3.0 Magnesium 2.3 05/02/18 05/02/18 05/01/18 05:59 03:33 22:08 WBC 15.4 H RBC 4.21 L Hgb 14.6 Hct 41.5 MCV 98.5 MCH 34.7 H MCHC 35.2 RDW 14.2 Plt Count 455 H MPV 6.5 L Neut % (Auto) 70.0 Lymph % (Auto) 14.2 Citrus % (Auto) 13.0 H Eos % (Auto) 2.0 Baso % (Auto) 0.8 Neut # (Auto) 10.8 H Lymph # (Auto) 2.2 Citrus # (Auto) 2.0 H Eos # (Auto) 0.3 Baso # (Auto) 0.1 WBC Differential . Differential Comment Auto diff final Sodium Potassium Chloride Carbon Dioxide Anion Gap BUN Creatinine Estimated GFR POC Glucose 134 H 129 H Random Glucose Calcium Phosphorus Magnesium 05/01/18 16:28 WBC RBC Hgb Hct MCV MCH MCHC RDW Plt Count MPV Neut % (Auto) Lymph % (Auto) Citrus % (Auto) Eos % (Auto) Baso % (Auto) Neut # (Auto) Lymph # (Auto) Citrus # (Auto) Eos # (Auto) Baso # (Auto) WBC Differential Differential Comment Sodium Potassium Chloride Carbon Dioxide Anion Gap BUN Creatinine Estimated GFR POC Glucose 116 H Random Glucose Calcium Phosphorus Magnesium Impressions ITS Impressions Chest X-Ray 05/01/18 00:00 CONCLUSION: Cardiomegaly. No acute pulmonary disease. Resolution of the previously seen pulmonary edema Discharge Plan Discharge Disposition Patient Disposition: 01 Discharge Home Discharge Condition Condition: Stable Discharge Order Discharge Orders: Discharge Order (Routine); Ordered 05/02/18 Ordered By: Antoine Forman Discharge Details Discharge Comment: dc after 12 nn lab resulted Physicians Team Primary Care Provider: Antonio Cordero Attending Provider: Antoine Forman Other Providers: Irene Hopper Roland Rxs /Orders / Referrals /Forms Prescriptions: New levetiracetam [Keppra] 500 mg Tablet 1,000 mg PO BID Qty: 10 RF: 0 oxycodone 10 mg Tablet 10 mg PO Q6H PRN (Reason: Acute Pain) Qty: 12 RF: 0 sodium chloride 1 gram Tablet 1 gm PO BID Qty: 14 RF: 0 Continue metolazone 5 mg Tablet 5 mg PO DAILY RF: 0 potassium tablet 80 meq PO BID RF: 0 atorvastatin 40 mg Tablet 40 mg PO QPM RF: 0 spironolactone 25 mg Tablet 25 mg PO BID RF: 0 One-A-Day Men's Multivitamin DAILY RF: 0 furosemide 40 mg Tablet 40 mg PO DAILY RF: 0 metformin 500 mg Tablet 500 mg PO BID RF: 0 metoprolol succinate [Toprol XL] 100 mg Tablet Extended Release 24 Hr 100 mg PO DAILY RF: 0 diltiazem HCl 240 mg Capsule,Extended Release 24 Hr 240 mg PO DAILY RF: 0 gabapentin 300 mg Capsule 300 mg PO DAILY RF: 0 Discontinued apixaban [Eliquis] 5 mg Tablet 5 mg PO BID RF: 0 aspirin 81 mg Tablet,Chewable 81 mg PO DAILY RF: 0 Ambulatory Orders / Order Sets / DME: Basic Metabolic Panel (Routine) Timeframe: [id number] Location: Determined by Patient Ordered By: Antoine Forman Referrals: Irene Hopper MD [Physician] - See Instructions (Follow-up in 1-2 weeks.Please call to schedule appt with cardiology) Antonio Cordero MD [Primary Care Provider] - See Instructions (Please call to schedule appt.) José Miguel Charles MD [Physician] - 05/28/18 9:15 am (Follow-up in 1-2-week) Discharge Instructions Patient Printed Instructions: Oxycodone, Rapid Release (By mouth), Levetiracetam (By mouth), Sodium Chloride (By mouth), Intracranial Hematoma (DC) Post Discharge Care Plan Care Plan Goals: Your Health Problems: Goals to Promote Your Health: * To prevent worsening of your condition * To maintain your health at the optimal level Directions to Meet Your Goals: * Take your medications as prescribed * Follow your dietary instruction * Follow activity as directed * Keep your appointments as scheduled * Take your immunizations and boosters as scheduled * If your symptoms worsen call your PCP * If no PCP go to Urgent Care or Emergency Room Smoking is dangerous to your health. Avoid second hand smoke. You may reach the 24-hour crisis hotline for domestic abuse at .
== END 2018-05-02 18:38 | disposition home or self-care (01) | DRG 86 ==
LOC: N03 13:52 → N05 05-01 18:45
PROVIDERS: ADMIT Internal Medicine; ATTEND Internal Medicine
CPT/HCPCS: 71010; 71045; 80048; 81001; 82948; 82962; 83735; 84100; 85025; 87040; 87641; 94150; 97110; 97116; 97162; J2270; J3480